=== PATIENT | male | born 1955 | race Caucasian/White ===

== ENCOUNTER 2020-10-13 06:51 | Inpatient (IN) | payer MEDICARE, SELFPAY ==
[2020-10-13] VITALS (26 sets, daily range): BP systolic 122–176; BP diastolic 46–88; PULSE 82–130; RESP 16–31; TEMP 36.7–37.7; O2SAT 62–99; BMI 46.2; BMI 46.0; BMI 48.6
--- NOTE | 2020-10-13 | ECG_ITS ---
Test Reason : dyspea Blood Pressure : / mmHG Vent. Rate : 130 BPM Atrial Rate : 130 BPM P-R Int : 128 ms QRS Dur : 162 ms QT Int : 352 ms P-R-T Axes : 004 001 146 degrees QTc Int : 518 ms Sinus tachycardia with occasional Premature ventricular complexes and Fusion complexes Left bundle branch block Abnormal ECG No previous ECGs available Referred By: Taurus Esposito Electronically Signed By:Stephon Smith
--- NOTE | 2020-10-13 07:04 | XR_ITS ---
EXAMINATION: XR CHEST CLINICAL INFORMATION: Shortness of breath COMPARISON: None TECHNIQUE: Portable upright AP view of the chest was obtained. FINDINGS: There is subtle patchy groundglass opacity right mid and lower zone. No volume loss. There is coarsening of the bronchiolar markings. The vascularity is within normal. The heart is within normal size for portable AP view. The visualized hilar and mediastinal contours are unremarkable. Mild dextrocurvature thoracic spine. Tubing overlying right upper chest. XR/XR chest 1V IMPRESSION: Patchy airspace opacities right mid and lower zone. Coarsening bronchiolar markings.
--- NOTE | 2020-10-13 07:18 | ED.GENADULT ---
HPI - General Adult General Chief complaint: Dyspnea Stated complaint: SOB Time Seen by Provider: 10/13/20 07:04 Source: EMS Mode of arrival: EMS Limitations: other (Respiratory distress) History of Present Illness HPI narrative: 65-year-old male with no reported medical problems who has been short of breath for 1 month, worse this morning. Paramedics arrived on the scene and the patient was dyspneic, speaking 1 word sentences and diaphoretic. They state that he was able to walk to the ambulance. In the ambulance his O2 saturation was in the 60% range, on CPAP applied by the paramedics, the patient O2 saturation was 80%. The patient was transported to the emergency department and on arrival he was placed on BiPAP with O2 saturation 98%. Patient is still tachycardic and tachypneic. He is lethargic was answering questions in one-word sentences. Paramedics report that the patient has no medical problems that he is treated for, the patient has not seen a doctor in a very long time according to his . 0825: I did speak to the patient's . She states that he has not been short of breath for a month and that he became short of breath this morning. He told his that he could breathe and asked his to call an ambulance. He also told his that he may be peeing blood which is new as well. The states that the patient does not have any medical problems. Related Data Allergies Allergy/AdvReac Type Severity Reaction Status Date / Time No Known Allergies Allergy Unverified 06/23/20 14:55 [No Known Allergies*] Review of Systems Review of Systems: Yes Unobtainable due to mental condition (Respiratory distress) [facility] Past Medical History [facility] Narrative: Paramedics report patient has no medical problems does not see a doctor, tobacco and alcohol use is unknown Social History Social History Advance Directives: No Advance Directives Information Provided: No Physical Exam Vital Signs: Vital Signs: Last Vital Signs Temp 98.0 F 10/13/20 07:16 Pulse 93 10/13/20 08:47 Resp 20 10/13/20 08:47 BP 124/46 L 10/13/20 08:47 Pulse Ox 93 10/13/20 08:47 Body Mass Index 46.0 Const: General: cooperative, in distress moderate and respiratory, ill appearing and lethargic Nutritional Appearance: obese Orientation/consciousness: oriented to person and lethargic Limitations: other limitations (Limited secondary to respiratory distress) HENMT: Head: Yes normal to inspection, Yes normocephalic and Yes atraumatic Ears: external ears normal General nose exam: Normal external nose present Face and sinus: Yes normal facial exam Mouth: Normal oral and palatal mucosa present Throat: Yes posterior oropharynx normal Eyes: Periorbital: periorbital findings normal Eyelids: Yes eyelids normal Conjunctivae: conjunctivae normal Sclerae: sclerae normal Corneas: corneas normal Pupils: Equal, round and reactive pupils present Direct Ophthalmoscopy: normal light reflex Neck: Neck: Yes full ROM, Yes no lymphadenopathy, Yes trachea midline and Yes supple Chest: Chest palpation & inspection: normal inspection of the chest and normal palpation of entire chest wall Resp: Effort & Inspection: labored Auscultation: wheezes scattered wheezes and diminished lung sounds diffuse Cardio: Rate: tachycardic Rhythm: regular rhythm Heart sounds: S1 normal heart sound present, S2 normal heart sound present and no murmurs GI: Inspection: Yes other (Obese) Palpation (GI): Soft to palpation, nontender, no guarding, not rigid and No hepatosplenomegaly present : General: Yes no CVA tenderness Back/Spine/Pelvis: Back: no CVA tenderness Cervical Spine: normal cervical lordosis Thoracic/Lumbar Spine: thoracic and lumbar spine normal to inspection Skin: Lesions: no lesions Rashes: no rashes Wounds: no wounds Neuro: General: oriented to person Cranial nerves: Yes CN's II-XII intact bilaterally and Yes Equal, round and reactive pupils present Motor exam (neuro): Other motor observations present (Moves all extremities symmetrically) Extrem: General: Yes normal to inspection and Yes full ROM Psych: Appearance: well kempt Attitude: cooperative Course Course Course Narrative: 65-year-old male, morbidly obese, no reported medical problems, not taking any medications, who was short of breath for 1 month with worsening symptoms this morning. The patient was found to be hypoxic by the paramedics and placed on CPAP for transport. Physical examination revealed a morbidly obese male who is in moderate to severe respiratory distress with tachypnea and tachycardia, diminished breath sounds with wheezing, hypoxic on CPAP. Patient was changed to BiPAP with improvement of his hypoxia but he still appears lethargic. I did order a cardiac and septic workup on this patient. He will be tested for COVID-19. He was ordered to get Solu-Medrol 125 mg IV and an albuterol nebulizer. 0826: The patient is improving on BiPAP. The patient is on 14/6 at 70% and his tidal volumes ranged from 300-600 with a respiratory rate improved from 31-24. He is able to talk and he states he is feeling better. Chest x-ray is concerning for right-sided infiltrate suggested they may have pneumonia. The patient's COVID-19 screen is negative. The patient does have an elevated white blood cell count of 20,200, elevated D-dimer of 976, elevated lactic acid at 3.2. The patient does meet SIRS criteria and I did order the 30 milliliters/kilogram fluid bolus which is 5 L of normal saline. I will discuss with this bolus with the fire warden since this bolus may be too high given his morbid obesity any may require less fluid. Patient was ordered to get ceftriaxone and azithromycin IV for community-acquired pneumonia. Patient's initial troponin is elevated at 69.7 suggested and I have myocardial injury, I did order a repeat troponin in 3 hours to be done at 10:15 a.m. The patient does have a left bundle-branch block with no old EKG for comparison. I will discuss the patient's presentation with the covering hospitalist [id number]: I did discuss the patient's presentation with Dr. Denny any did evaluate the patient here in the emergency department. His impression is that the patient does not have sepsis and that the patient has pneumonia and possible mild CHF therefore he requested that no fluid be given at this time. He states that he will trend the patient's lactic acid and only give the patient fluid if he becomes hypotensive. Patient's ABG was 7.25/58/133 and 60% oxygen via BiPAP, this is encouraging and I do not think patient needs to be intubated at this time and can continue on BiPAP. The patient will be admitted to the intensive care unit for further treatment. Medical Decision Making Lab Data Result diagrams: 10/13/20 07:11 10/13/20 07:11 Labs: Lab Results 10/13/20 10/13/20 10/13/20 Range/Units 07:11 07:11 07:11 WBC 20.2 H (4.8-10.8) X10*3/uL RBC 4.30 L (4.60-5.80) X10*6/uL Hgb 13.9 L (14.0-18.0) g/dl Hct 43.3 (42-52) % MCV 100.7 H (80-98) fL MCH 32.3 (27.0-33.0) pg MCHC 32.1 (31.0-36.0) g/dl RDW 12.2 (11.0-16.0) % Plt Count 381 (160-400) X10*3/uL MPV 10.2 (9.4-12.4) fL Immature Gran % (Auto) 0.7 H (0.0-0.4) % Neut % (Auto) 72.4 (45-73) % Lymph % (Auto) 16.7 L (20-40) % Estill % (Auto) 6.0 (2-11) % Eos % (Auto) 3.7 (0-4) % Baso % (Auto) 0.5 (0-2) % Lymph # (Auto) 3.4 (1.2-4.9) X10*3/uL Estill # (Auto) 1.2 (0.1-1.2) X10*3/uL Eos # (Auto) 0.7 H (0.0-0.4) X10*3/uL Baso # (Auto) 0.1 (0.0-0.2) X10*3/uL Abs Immat Gran (auto) 0.15 H (0.00-0.03) X10*3/uL Absolute Neuts (auto) 14.7 H (2.0-8.3) X10*3/uL Absolute Nucleated RBC 0.000 (0.0-0.012) X10*3/uL Nucleated RBC % (auto) 0.0 (0.0-0.2) /100WBC PT (10.8-13.0) SEC INR (0.9-1.1) APTT (24.1-38.0) SEC D-Dimer NG/ML ABG pH (7.35-7.45) ABG pCO2 (32-45) mmhg ABG pO2 (83-108) mmhg ABG HCO3 (22-26) mmol/l ABG O2 Saturation % ABG Base Excess Oxygen Given Sodium 137 (135-145) mmol/L Potassium 5.0 (3.3-5.1) mmol/l Chloride 100 (96-108) mmol/L Carbon Dioxide 20 L (22-29) mmol/L Anion Gap 22 H (12-20) BUN 15 (9-16) mg/dL Creatinine 1.48 H (0.5-1.4) mg/dL Estim Creat Clear Calc 71.8 Estimated GFR 48 POC Glucose (60-115) mg/dL Random Glucose 329 H (60-115) mg/dL Lactic Acid 3.2 H* (0.5-2.0) mmol/L Calcium 8.5 (8.4-10.2) mg/dL Total Bilirubin 0.7 (0.0-1.0) mg/dL Direct Bilirubin 0.2 (0.0-0.5) mg/dL AST 32 (5-37) U/L ALT 25 (0-40) U/L Alkaline Phosphatase 74 (39-117) U/L Troponin I High Sens (<3.5-35.0) ng/L Total Protein 7.9 (6.5-8.0) g/dL Albumin 4.1 (3.5-5.0) g/dL COVID-19 (YANG) (Negative) COVID-19 Clin Com 10/13/20 10/13/20 10/13/20 Range/Units 07:11 07:11 07:11 WBC (4.8-10.8) X10*3/uL RBC (4.60-5.80) X10*6/uL Hgb (14.0-18.0) g/dl Hct (42-52) % MCV (80-98) fL MCH (27.0-33.0) pg MCHC (31.0-36.0) g/dl RDW (11.0-16.0) % Plt Count (160-400) X10*3/uL MPV (9.4-12.4) fL Immature Gran % (Auto) (0.0-0.4) % Neut % (Auto) (45-73) % Lymph % (Auto) (20-40) % Estill % (Auto) (2-11) % Eos % (Auto) (0-4) % Baso % (Auto) (0-2) % Lymph # (Auto) (1.2-4.9) X10*3/uL Estill # (Auto) (0.1-1.2) X10*3/uL Eos # (Auto) (0.0-0.4) X10*3/uL Baso # (Auto) (0.0-0.2) X10*3/uL Abs Immat Gran (auto) (0.00-0.03) X10*3/uL Absolute Neuts (auto) (2.0-8.3) X10*3/uL Absolute Nucleated RBC (0.0-0.012) X10*3/uL Nucleated RBC % (auto) (0.0-0.2) /100WBC PT 13.6 H (10.8-13.0) SEC INR 1.1 (0.9-1.1) APTT 30.7 (24.1-38.0) SEC D-Dimer 976 NG/ML ABG pH (7.35-7.45) ABG pCO2 (32-45) mmhg ABG pO2 (83-108) mmhg ABG HCO3 (22-26) mmol/l ABG O2 Saturation % ABG Base Excess Oxygen Given Sodium (135-145) mmol/L Potassium (3.3-5.1) mmol/l Chloride (96-108) mmol/L Carbon Dioxide (22-29) mmol/L Anion Gap (12-20) BUN (9-16) mg/dL Creatinine (0.5-1.4) mg/dL Estim Creat Clear Calc Estimated GFR POC Glucose (60-115) mg/dL Random Glucose (60-115) mg/dL Lactic Acid (0.5-2.0) mmol/L Calcium (8.4-10.2) mg/dL Total Bilirubin Cancelled (0.0-1.0) mg/dL Direct Bilirubin (0.0-0.5) mg/dL AST (5-37) U/L ALT (0-40) U/L Alkaline Phosphatase (39-117) U/L Troponin I High Sens 69.7 H (<3.5-35.0) ng/L Total Protein (6.5-8.0) g/dL Albumin (3.5-5.0) g/dL COVID-19 (YANG) (Negative) COVID-19 Clin Com 10/13/20 10/13/20 10/13/20 Range/Units 07:12 07:13 08:00 WBC (4.8-10.8) X10*3/uL RBC (4.60-5.80) X10*6/uL Hgb (14.0-18.0) g/dl Hct (42-52) % MCV (80-98) fL MCH (27.0-33.0) pg MCHC (31.0-36.0) g/dl RDW (11.0-16.0) % Plt Count (160-400) X10*3/uL MPV (9.4-12.4) fL Immature Gran % (Auto) (0.0-0.4) % Neut % (Auto) (45-73) % Lymph % (Auto) (20-40) % Estill % (Auto) (2-11) % Eos % (Auto) (0-4) % Baso % (Auto) (0-2) % Lymph # (Auto) (1.2-4.9) X10*3/uL Estill # (Auto) (0.1-1.2) X10*3/uL Eos # (Auto) (0.0-0.4) X10*3/uL Baso # (Auto) (0.0-0.2) X10*3/uL Abs Immat Gran (auto) (0.00-0.03) X10*3/uL Absolute Neuts (auto) (2.0-8.3) X10*3/uL Absolute Nucleated RBC (0.0-0.012) X10*3/uL Nucleated RBC % (auto) (0.0-0.2) /100WBC PT (10.8-13.0) SEC INR (0.9-1.1) APTT (24.1-38.0) SEC D-Dimer NG/ML ABG pH 7.25 L (7.35-7.45) ABG pCO2 58 H (32-45) mmhg ABG pO2 133 H (83-108) mmhg ABG HCO3 25 (22-26) mmol/l ABG O2 Saturation 98.5 % ABG Base Excess -3.5 Oxygen Given 70% Sodium (135-145) mmol/L Potassium (3.3-5.1) mmol/l Chloride (96-108) mmol/L Carbon Dioxide (22-29) mmol/L Anion Gap (12-20) BUN (9-16) mg/dL Creatinine (0.5-1.4) mg/dL Estim Creat Clear Calc Estimated GFR POC Glucose 304 H (60-115) mg/dL Random Glucose (60-115) mg/dL Lactic Acid (0.5-2.0) mmol/L Calcium (8.4-10.2) mg/dL Total Bilirubin (0.0-1.0) mg/dL Direct Bilirubin (0.0-0.5) mg/dL AST (5-37) U/L ALT (0-40) U/L Alkaline Phosphatase (39-117) U/L Troponin I High Sens (<3.5-35.0) ng/L Total Protein (6.5-8.0) g/dL Albumin (3.5-5.0) g/dL COVID-19 (YANG) Negative (Negative) COVID-19 Clin Com See Note ECG Data Attestation: I personally reviewed and interpreted this ECG as follows: Interpretation: 7:08 a.m. sinus tachycardia with a rate of 130, occasional PVCs, prolonged QRS of 162 milliseconds, prolonged QTC of 518 milliseconds, left bundle-branch block, no old EKG for comparison. Critical Care Time Critical Care Time Critical Care Time: Yes Total Critical Care Time: 55 Attestation: Critical Care: The patient was critically ill with a high probability of imminent or life threatening deterioration. I spent greater than 30 minutes of discontinuous time evaluating the patient,delivering critical care at the bedside, discussing and evaluating pertinent data with consultants. Critical care time does not include time spent performing separately billable procedures or teaching. Total time spent performing critical care was 55 minutes. Discharge Plan Discharge Clinical Impression: Hypoxia Community acquired pneumonia Qualifiers: Laterality: right Lung location: lower lobe of lung Qualified Code(s): J18.9 - Pneumonia, unspecified organism Respiratory failure Qualifiers: Chronicity: acute Respiratory failure complication: hypoxia Qualified Code(s): J96.01 - Acute respiratory failure with hypoxia
[2020-10-13] MEDS: Albuterol Sulfate (0.083%) 2.5 MG/3 ML VIAL.NEB INHALE (07:21)
[2020-10-13 07:26] LABS: MANUAL DIFF FLAG NO
[2020-10-13 07:32] LABS: INTERNATIONAL NORM RATIO 1.1 (0.9-1.1); Prothrombin Time 13.6 SEC (10.8-13.0)
[2020-10-13 07:35] LABS: D Dimer 976 NG/ML; Partial Thromboplastin Time 30.7 SEC (24.1-38.0)
[2020-10-13 07:42] LABS: Basophils Absolute Auto 0.1 X10*3/uL (0.0-0.2); Basophils Percent Auto 0.5 % (0-2); Eosinophils Absolute Auto 0.7 X10*3/uL (0.0-0.4); Eosinophils Percent Auto 3.7 % (0-4); Hematocrit 43.3 % (42-52); Hemoglobin 13.9 g/dl (14.0-18.0); Imm Gran Abs Auto 0.15 X10*3/uL (0.00-0.03); Imm Gran Pct Auto 0.7 % (0.0-0.4); Lymphocytes Absolute Auto 3.4 X10*3/uL (1.2-4.9); Lymphocytes Percent Auto 16.7 % (20-40); Mean Corpuscular HGB Conc 32.1 g/dl (31.0-36.0); Mean Corpuscular Hemoglobin 32.3 pg (27.0-33.0); Mean Corpuscular Volume 100.7 fL (80-98); Mean Platelet Volume 10.2 fL (9.4-12.4); Monocytes Absolute Auto 1.2 X10*3/uL (0.1-1.2); Neutrophils Absolute Auto 14.7 X10*3/uL (2.0-8.3); Neutrophils Percent Auto 72.4 % (45-73); Platelet Count 381 X10*3/uL (160-400); Red Cell Distribution Width 12.2 % (11.0-16.0); White Blood Count 20.2 X10*3/uL (4.8-10.8)
[2020-10-13 07:44] LABS: COVID-19 Test Negative (Negative)
[2020-10-13 07:44] LABS: Glucose, Whole Blood 304 mg/dL (60-115)
[2020-10-13 07:56] LABS: Lactic Acid 3.2 mmol/L (0.5-2.0)
[2020-10-13 08:06] LABS: Alanine Aminotransferase 25 U/L (0-40); Albumin Level 4.1 g/dL (3.5-5.0); Alkaline Phosphatase 74 U/L (39-117); Anion Gap 22 (12-20); Aspartate Amino Transferase 32 U/L (5-37); Bilirubin Direct 0.2 mg/dL (0.0-0.5); Bilirubin Total 0.7 mg/dL (0.0-1.0); Blood Urea Nitrogen 15 mg/dL (9-16); Calcium 8.5 mg/dL (8.4-10.2); Carbon Dioxide 20 mmol/L (22-29); Chloride 100 mmol/L (96-108); Creatinine Clr Calc Pharmacy 71.8; Estimated Glomerular Filt Rate 48; Glucose Random 329 mg/dL (60-115); Sodium 137 mmol/L (135-145); Total Protein 7.9 g/dL (6.5-8.0)
[2020-10-13 08:13] LABS: Troponin-I High Sensitivity 69.7 ng/L (<3.5-35.0)
[2020-10-13 08:18] LABS: Pt Ventilation O2% 70%
[2020-10-13 08:25] LABS: ABG PCO2 58 mmhg (32-45); Base Excess ABG -3.5; HCO3 ABG 25 mmol/l (22-26); Oxygen Saturation ABG 98.5 %; PO2 ABG 133 mmhg (83-108); pH ABG 7.25 (7.35-7.45)
[2020-10-13] MEDS: cefTRIAXone sodium 1 GM in 0.9 % Sodium Chloride 100 ML IV (08:40)
[2020-10-13] MEDS: Azithromycin 500 MG in 0.9 % Sodium Chloride 250 ML 125 MG IV (09:18)
[2020-10-13 09:22] LABS: Reflex Lactate? Lactic Acid Added
--- NOTE | 2020-10-13 10:20 | CA_ITS ---
Transthoracic Echocardiogram Patient (Last, First, Middle): Diogo Lynn S Gender: Male Date of : 1955 Age: 65 Procedure Date: 10/13/2020 Procedure Type: Transthoracic Echocardiogram Location: ICU Height: 177.8 cm Weight: 145.61 kg BSA: 2.55 m2 Heart Rate: bpm BP: 122 / 49 mmHg Etcher Apprentice: JL Referring MD: aMyank Denny MD Symptoms: CHESTER Study Quality: Fair/Contrast Conclusions: - Normal left ventricular cavity size. There is normal left ventricular wall thickness. The left ventricular systolic function is severely decreased. The visually estimated ejection fraction is between 20-25%. - The inferolateral wall, the apical anterior, and mid anterior segments are hypokinetic. - The inferoseptal wall and apical septum segment are akinetic. - The basal anteroseptal and mid anteroseptal segments are dyskinetic. - Normal right ventricular cavity size and systolic function. - There is mild to moderate mitral valve regurgitation. - Significantly elevated right atrial pressure. Findings Procedure Information Contrast agent, definity, is being given per protocol without apparent complications. Left Ventricle Normal left ventricular cavity size. There is normal left ventricular wall thickness. The left ventricular systolic function is severely decreased. The visually estimated ejection fraction is between 20-25%. There is evidence of regional wall motion abnormalities. There is paradoxical septal motion consistent with a left bundle branch block. Diastolic function is indeterminate on the basis of available data. Wall Motion Rest Echo Findings The inferolateral wall, the apical anterior, and mid anterior segments are hypokinetic. The inferoseptal wall and apical septum segment are akinetic. The basal anteroseptal and mid anteroseptal segments are dyskinetic. Right Ventricle Normal right ventricular cavity size and systolic function. Atria The left atrium is mildly dilated. Aortic Valve The aortic valve was not well visualized. There is no aortic valve stenosis. Mitral Valve The mitral valve appears normal. There is mild to moderate mitral valve regurgitation. There is no mitral valve stenosis. Pulmonic Valve The pulmonic valve was not well visualized. Tricuspid Valve Likely normal tricuspid valve structure and function. Tricuspid regurgitation envelope is inadequate for calculation of right ventricular systolic pressure. Significantly elevated right atrial pressure. Great Vessels The aorta was not well visualized. The pulmonary artery was not well visualized. Venous The inferior vena cava is dilated and does not collapse with inspiration. Pericardium/Pleural There is no evidence of pericardial effusion. Prior Study Comparison No prior study available for comparison. Measurements 2D Linear Measurements IVSd: 1.03 0.6-0.9/0.6-1.0 cm LVIDd: 4.88 3.9-5.3/4.2-5.9 cm LVIDd Index: 1.91 2.4-3.2/2.2-3.1 cm/m2 LVIDs: 4.32 2.0-3.6 cm LVPWd: 1.04 0.7-1.1 cm Ao Root: 3.20 2.1-3.5 cm LA Diam: 4.00 2.7-3.8/3.0-4.0 cm LAIDs Index: 1.57 1.5-2.3 cm/m2 LV Mass: 228.27 67-162/88-224 g LV Mass Index: 89.52 43-95/49-115 g/m2 LVOT Diam: 2.10 3.0+(-)1.3 cm 2D Systolic Function EF 4C: 32.40 >55% EF 2C: 28.00 >55% Mitral Valve MV Pk E: 1.15 MV PK A: 1.01 MV Decel Time: 140.00 E/A: 1.10 PHT: 41.00 MVA PHT: 5.37 Decel Kenedy: 8.23 Aortic Valve AoV Pk Devon: 1.45 AoV Mn Devon: 0.98 AoV VTI: 0.25 AoV Pk Grad: 8.00 Aov Mn Grad: 4.00 ALEE Cont.VTI: 1.89 LVOT LVOT Pk Devon: 0.82 LVOT Mn Devon: 0.52 LVOT VTI: 0.14 LVOT Pk Grad: 3.00 LVOT Mn Grad: 1.00 LVOT Diam: 2.10 LVOT Area: 3.46 Diastolic Function MV Pk E: 1.15 MV Pk A: 1.01 E/A: 1.10 Tricuspid Valve TR Pk Devon: 2.29 TR Pk Grad: 21.00 Great Vessels Aorta Ao Root-2D: 3.20 2.0-3.7 cm Ao Asc: 3.10 2.1-3.4 cm Updated in Other Vendor System with Status of Final Stephon Smith MD electronically signed on 10/13/2020 3:49:50 PM with status of Final
--- NOTE | 2020-10-13 10:22 | PC.NURSE ---
Report called to [facility] in ICU. pt presentation, VS trends, treatment and current condition and orders reviewed.
[2020-10-13 10:33] LABS: ~Lactic Acid-LAB USE ONLY 1.8 mmol/L (0.5-2.0)
[2020-10-13 10:43] LABS: B Type Natriuretic Peptide 249 pg/mL (<100); Troponin-I High Sensitivity 120.6 ng/L (<3.5-35.0)
[2020-10-13 10:43] LABS: B Type Natriuretic Peptide 320 pg/mL (<100)
[2020-10-13] MEDS: Furosemide 500 MG in Container,Empty 0 ML IVCONT (11:11)
[2020-10-13 11:45] LABS: Glucose, Whole Blood 97 mg/dL (60-115)
--- NOTE | 2020-10-13 12:49 | ECG_ITS ---
Test Reason : CP Blood Pressure : / mmHG Vent. Rate : 090 BPM Atrial Rate : 090 BPM P-R Int : 174 ms QRS Dur : 152 ms QT Int : 414 ms P-R-T Axes : 055 -10 127 degrees QTc Int : 506 ms Normal sinus rhythm Left bundle branch block Abnormal ECG When compared with ECG of 13-OCT-2020 07:08, Fusion complexes are no longer Present Premature ventricular complexes are no longer Present Referred By: Taurus Esposito Electronically Signed By:Stephon Smith
[2020-10-13] MEDS: Aspirin 81 MG TAB.CHEW 324 MG PO (12:51)
[2020-10-13 13:42] LABS: Glucose Urine UA NEG (NEG); Leukocyte Esterase Urine NEG (NEG); Nitrite Urine NEG (NEG); PH 5.5 (5.0-8.0); Specific Gravity - Urine >= 1.030 (1.005-1.025); Urine Blood 3+ (NEG); Urine Ketones NEG (NEG); Urine Protein 2+ MG/DL (NEG-TRACE)
[2020-10-13 13:45] LABS: Appearance Urine CLOUDY; Color Urine BROWN
[2020-10-13 13:52] LABS: Amorphous Sediment Urine 3+ /LPF; Mucus Urine 3+ /LPF; RBC Urine TNTC /HPF (0); Squamous Epithelial Cell Urine 1+ /LPF; WBC Urine 0 /HPF (0-4)
[2020-10-13 14:42] LABS: Base Excess VBG 0.3 mmol/L; HCO3 VBG 26 mmol/L; Oxygen Saturation VBG 77.3 %; PCO2 VBG 47 mmhg; PO2 VBG 43 mmhg; pH VBG 7.37 (7.32-7.43)
--- NOTE | 2020-10-13 14:52 | PM.CCHP ---
History of Present Illness Date of Service: 10/13/20 Chief Complaint: Shortness of breath 65-year-old gentleman with no underlying past medical history but significant obesity hospitalized on 10/13/2020 secondary to progressive shortness of breath over the last months particularly worse on the day of admission not associated with chest pain. Patient also orthopnea and paroxysmal dyspnea. On ER evaluation hypoxic and hypercapnic requiring initiation of BiPAP support, empirically covered for community-acquired pneumonia, started on diuresis, and admitted to intensive care unit. Review of Systems Constitutional: Constitutional: Reports malaise and Reports weakness Eyes: Eyes: Denies change in vision and Denies loss of vision Cardiovascular: Cardiovascular: Denies chest pain, Reports dyspnea on exertion, Reports orthopnea and Reports paroxysmal nocturnal dyspnea Respiratory: Respiratory: Denies cough, Reports dyspnea on exertion and Denies wheezing Gastrointestinal: Gastrointestinal: Denies constipation and Denies diarrhea Genitourinary: Genitourinary: Reports hematuria, Denies urinary frequency and Denies urinary incontinence Musculoskeletal: Musculoskeletal: Denies muscle cramps, Denies muscle weakness and Denies numbness Integumentary/Breasts: Skin/Breast: Denies rash Neurologic: Denies loss of vision, Denies numbness and Reports weakness Endocrine: Endocrine: Denies cold intolerance, Denies heat intolerance and Denies polydipsia Hematologic/Lymphatic: Hematologic/Lymphatic: Denies easy bleeding and Denies easy bruising Allergic/Immunologic: Allergic/Immunologic: Denies wheezing [facility] Social History Social History (Updated 10/13/20 @ 15:00 by Mayank Denny MD) Household Members: Spouse Housing: House Alcohol intake: current Alcohol intake frequency: other Smoking Status: Former smoker Years Smoked: 40+ Smoking Quit Date: 2012 Use of substances other than those prescribed or required for medical reasons: No Have you been hit, kicked, punched, or otherwise hurt by someone within the past year? If so, by whom?: No Do you feel safe in your current relationship?: Yes Is there a partner from a previous relationship who is making you feel unsafe now?: No Are you made to feel afraid or neglected: No Advance Directives: No Advance Directives Information Provided: No Do you have thoughts of harming others: None Recently lost weight without trying: No Meds Allergies Allergy/AdvReac Type Severity Reaction Status Date / Time No Known Allergies Allergy Unverified 06/23/20 14:55 [No Known Allergies*] Physical Exam Vital Signs: Vital Signs: Last Vital Signs Temp 98.5 F 10/13/20 11:00 Pulse 86 10/13/20 14:00 Resp 21 H 10/13/20 14:00 BP 154/69 H 10/13/20 14:00 Pulse Ox 93 10/13/20 14:00 Body Mass Index 48.6 Const: General: no acute distress, alert and awake Nutritional Appearance: obese Eyes: Sclerae: sclerae normal EOM: EOMs intact bilaterally Neck: Neck: Yes no lymphadenopathy, Yes trachea midline and Yes supple Resp: Effort & Inspection: normal respiratory effort (While on BiPAP) and no respiratory distress Auscultation: crackles (Bibasilar) Cardio: Rate: regular rate Rhythm: regular rhythm Heart sounds: no gallops, no murmurs and no rubs GI: Palpation (GI): Soft to palpation and Other GI palpation findings present ( Nontender) Auscultation: normal bowel sounds Extrem: General: No clubbing, No cyanosis and Yes edema (2+ bilateral) Results Labs CBC and Chem 7: 10/13/20 07:11 10/13/20 07:11 Labs: Laboratory Results - last 24 hr 10/13/20 10/13/20 10/13/20 07:11 07:11 07:11 MCV 100.7 H MCH 32.3 MCHC 32.1 RDW 12.2 Plt Count 381 MPV 10.2 Immature Gran % (Auto) 0.7 H Neut % (Auto) 72.4 Lymph % (Auto) 16.7 L [place] % (Auto) 6.0 Eos % (Auto) 3.7 Baso % (Auto) 0.5 Lymph # (Auto) 3.4 [place] # (Auto) 1.2 Eos # (Auto) 0.7 H Baso # (Auto) 0.1 Abs Immat Gran (auto) 0.15 H Absolute Neuts (auto) 14.7 H Absolute Nucleated RBC 0.000 Nucleated RBC % (auto) 0.0 PT INR APTT D-Dimer ABG pH ABG pCO2 ABG pO2 ABG HCO3 ABG O2 Saturation ABG Base Excess VBG pH VBG pCO2 VBG pO2 VBG HCO3 VBG O2 Saturation VBG Base Excess Oxygen Given Anion Gap 22 H Estim Creat Clear Calc 71.8 Estimated GFR 48 POC Glucose Random Glucose 329 H Lactic Acid 3.2 H* Lactic Acid Fup @ 2Hr Calcium 8.5 Total Bilirubin 0.7 Direct Bilirubin 0.2 AST 32 ALT 25 Alkaline Phosphatase 74 Troponin I High Sens B-Natriuretic Peptide Total Protein 7.9 Albumin 4.1 Urine Color Urine Appearance Urine pH Ur Specific [place] Urine Protein Urine Glucose (UA) Urine Ketones Urine Blood Urine Nitrite Ur Leukocyte Esterase Urine RBC Urine WBC Ur Squamous Epith Cells Amorphous Sediment Urine Bacteria Urine Mucus COVID-19 (YANG) COVID-19 Proxly Com 10/13/20 10/13/20 10/13/20 07:11 07:11 07:11 MCV MCH MCHC RDW Plt Count MPV Immature Gran % (Auto) Neut % (Auto) Lymph % (Auto) [place] % (Auto) Eos % (Auto) Baso % (Auto) Lymph # (Auto) [place] # (Auto) Eos # (Auto) Baso # (Auto) Abs Immat Gran (auto) Absolute Neuts (auto) Absolute Nucleated RBC Nucleated RBC % (auto) PT 13.6 H INR 1.1 APTT 30.7 D-Dimer 976 ABG pH ABG pCO2 ABG pO2 ABG HCO3 ABG O2 Saturation ABG Base Excess VBG pH VBG pCO2 VBG pO2 VBG HCO3 VBG O2 Saturation VBG Base Excess Oxygen Given Anion Gap Estim Creat Clear Calc Estimated GFR POC Glucose Random Glucose Lactic Acid Lactic Acid Fup @ 2Hr Calcium Total Bilirubin Cancelled Direct Bilirubin AST ALT Alkaline Phosphatase Troponin I High Sens 69.7 H B-Natriuretic Peptide Total Protein Albumin Urine Color Urine Appearance Urine pH Ur Specific [place] Urine Protein Urine Glucose (UA) Urine Ketones Urine Blood Urine Nitrite Ur Leukocyte Esterase Urine RBC Urine WBC Ur Squamous Epith Cells Amorphous Sediment Urine Bacteria Urine Mucus COVID-19 (YANG) COVID-19 Compact Imaging 10/13/20 10/13/20 10/13/20 07:12 07:13 08:00 MCV MCH MCHC RDW Plt Count MPV Immature Gran % (Auto) Neut % (Auto) Lymph % (Auto) [place] % (Auto) Eos % (Auto) Baso % (Auto) Lymph # (Auto) [place] # (Auto) Eos # (Auto) Baso # (Auto) Abs Immat Gran (auto) Absolute Neuts (auto) Absolute Nucleated RBC Nucleated RBC % (auto) PT INR APTT D-Dimer ABG pH 7.25 L ABG pCO2 58 H ABG pO2 133 H ABG HCO3 25 ABG O2 Saturation 98.5 ABG Base Excess -3.5 VBG pH VBG pCO2 VBG pO2 VBG HCO3 VBG O2 Saturation VBG Base Excess Oxygen Given 70% Anion Gap Estim Creat Clear Calc Estimated GFR POC Glucose 304 H Random Glucose Lactic Acid Lactic Acid Fup @ 2Hr Calcium Total Bilirubin Direct Bilirubin AST ALT Alkaline Phosphatase Troponin I High Sens B-Natriuretic Peptide Total Protein Albumin Urine Color Urine Appearance Urine pH Ur Specific [place] Urine Protein Urine Glucose (UA) Urine Ketones Urine Blood Urine Nitrite Ur Leukocyte Esterase Urine RBC Urine WBC Ur Squamous Epith Cells Amorphous Sediment Urine Bacteria Urine Mucus COVID-19 (YANG) Negative [employer] Com See Note 10/13/20 10/13/20 10/13/20 09:45 10:05 10:05 MCV MCH MCHC RDW Plt Count MPV Immature Gran % (Auto) Neut % (Auto) Lymph % (Auto) [place] % (Auto) Eos % (Auto) Baso % (Auto) Lymph # (Auto) [place] # (Auto) Eos # (Auto) Baso # (Auto) Abs Immat Gran (auto) Absolute Neuts (auto) Absolute Nucleated RBC Nucleated RBC % (auto) PT INR APTT D-Dimer ABG pH ABG pCO2 ABG pO2 ABG HCO3 ABG O2 Saturation ABG Base Excess VBG pH VBG pCO2 VBG pO2 VBG HCO3 VBG O2 Saturation VBG Base Excess Oxygen Given Anion Gap Estim Creat Clear Calc Estimated GFR POC Glucose Random Glucose Lactic Acid Lactic Acid Fup @ 2Hr 1.8 Calcium Total Bilirubin Direct Bilirubin AST ALT Alkaline Phosphatase Troponin I High Sens 120.6 H D B-Natriuretic Peptide 249 H 320 H Total Protein Albumin Urine Color Urine Appearance Urine pH Ur Specific [place] Urine Protein Urine Glucose (UA) Urine Ketones Urine Blood Urine Nitrite Ur Leukocyte Esterase Urine RBC Urine WBC Ur Squamous Epith Cells Amorphous Sediment Urine Bacteria Urine Mucus COVID-19 (YANG) COVID-[place] 10/13/20 10/13/20 10/13/20 11:42 13:15 14:15 MCV MCH MCHC RDW Plt Count MPV Immature Gran % (Auto) Neut % (Auto) Lymph % (Auto) [place] % (Auto) Eos % (Auto) Baso % (Auto) Lymph # (Auto) [place] # (Auto) Eos # (Auto) Baso # (Auto) Abs Immat Gran (auto) Absolute Neuts (auto) Absolute Nucleated RBC Nucleated RBC % (auto) PT INR APTT D-Dimer ABG pH ABG pCO2 ABG pO2 ABG HCO3 ABG O2 Saturation ABG Base Excess VBG pH 7.37 VBG pCO2 47 VBG pO2 43 VBG HCO3 26 VBG O2 Saturation 77.3 VBG Base Excess 0.3 Oxygen Given Anion Gap Estim Creat Clear Calc Estimated GFR POC Glucose 97 Random Glucose Lactic Acid Lactic Acid Fup @ 2Hr Calcium Total Bilirubin Direct Bilirubin AST ALT Alkaline Phosphatase Troponin I High Sens B-Natriuretic Peptide Total Protein Albumin Urine Color BROWN Urine Appearance CLOUDY Urine pH 5.5 Ur Specific [place] >= 1.030 H Urine Protein 2+ H Urine Glucose (UA) NEG Urine Ketones NEG Urine Blood 3+ H Urine Nitrite NEG Ur Leukocyte Esterase NEG Urine RBC TNTC H Urine WBC 0 Ur Squamous Epith Cells 1+ Amorphous Sediment 3+ Urine Bacteria NONE Urine Mucus 3+ COVID-19 (YANG) COVID-19 Clin Com Imaging Radiologist's Impressions: Impressions Chest X-Ray 10/13/20 07:04 IMPRESSION: Patchy airspace opacities right mid and lower zone. Coarsening bronchiolar markings. Assessment and Plan (1) Acute on chronic respiratory failure with hypoxia and hypercapnia: Status: Acute Assessment: 65-year-old gentleman with no prior medical history except obesity hospitalized with progressive dyspnea and acute hypoxic and hypercapnic respiratory failure requiring BiPAP support likely secondary to underlying congestive heart failure. Plan: Neuro: Underlying significant alcohol intake, continue to monitor for possible withdrawal symptoms. Cardiac: Acute congestive heart failure. 2D echocardiogram is pending. Continue with IV diuresis. Pulmonary: Acute hypoxic and hypercapnic respiratory failure likely secondary to underlying congestive heart failure with possible community-acquired pneumonia component now requiring BiPAP support. Continue to titrate off as tolerated. Renal: No baseline renal function with available, but now with elevated creatinine, likely underlying acute kidney injury secondary to congestive heart failure. Non oliguric. Continue to monitor renal indices and urine output. Endo: No acute issues. GI: No acute issues. ID: Possible community-acquired pneumonia, empirically covered with Levaquin. Heme/Onc: No acute issues. Psych: No acute issues. Miscellaneous: No acute issues. Prophylaxis: Heparin Diet: Nothing by mouth while on BiPAP Critical care time spent: 60 minutes (2) Congestive heart failure: Status: Acute (3) Acute renal failure: Status: Acute (4) Community acquired pneumonia: Qualifiers: Laterality: right Lung location: lower lobe of lung Qualified Code(s): J18.9 - Pneumonia, unspecified organism Status: Acute Critical Care Time Critical Care Time (minutes): 60
[2020-10-13 15:06] LABS: Anion Gap 16 (12-20); Blood Urea Nitrogen 15 mg/dL (9-16); Calcium 8.3 mg/dL (8.4-10.2); Carbon Dioxide 27 mmol/L (22-29); Chloride 100 mmol/L (96-108); Creatinine Clr Calc Pharmacy 80.6; Estimated Glomerular Filt Rate 56; Glucose Random 134 mg/dL (60-115); Magnesium 2.3 mg/dL (1.6-2.6); Phosphorus 2.6 mg/dL (2.7-4.5); Potassium 4.7 mmol/l (3.3-5.1); Sodium 138 mmol/L (135-145)
[2020-10-13 15:19] LABS: Glucose, Whole Blood 127 mg/dL (60-115)
[2020-10-13 17:14] LABS: HCO3 VBG 27 mmol/L; PCO2 VBG 48 mmhg; PO2 VBG 37 mmhg; pH VBG 7.37 (7.32-7.43)
[2020-10-13 17:15] LABS: Oxygen Saturation VBG 70.6 %
[2020-10-13 17:25] LABS: Anion Gap 16 (12-20); Blood Urea Nitrogen 18 mg/dL (9-16); Calcium 8.3 mg/dL (8.4-10.2); Carbon Dioxide 25 mmol/L (22-29); Chloride 100 mmol/L (96-108); Creatinine Clr Calc Pharmacy 68.3; Estimated Glomerular Filt Rate 47; Glucose Random 146 mg/dL (60-115); Magnesium 2.3 mg/dL (1.6-2.6); Phosphorus 2.7 mg/dL (2.7-4.5); Potassium 4.9 mmol/l (3.3-5.1); Sodium 136 mmol/L (135-145)
[2020-10-13] MEDS: Heparin Sodium,Porcine 5,000 UNIT/ML VIAL 5000 UNIT SUBCUT (19:12)
[2020-10-13] MEDS: Furosemide 100 MG/10 ML VIAL 40 MG IVPUSH (19:12)
[2020-10-13] MEDS: Acetaminophen 325 MG TABLET 650 MG PO (19:58)
[2020-10-13 22:31] LABS: Glucose, Whole Blood 155 mg/dL (60-115)
[2020-10-14] VITALS (25 sets, daily range): BP systolic 117–171; BP diastolic 44–96; PULSE 86–112; RESP 16–29; TEMP 36.6–37.7; O2SAT 87–97; BMI 47.6
[2020-10-14 06:07] LABS: Basophils Percent Auto 0.1 % (0-2); Hematocrit 39.1 % (42-52); Hemoglobin 13.1 g/dl (14.0-18.0); Imm Gran Abs Auto 0.13 X10*3/uL (0.00-0.03); Imm Gran Pct Auto 0.6 % (0.0-0.4); Lymphocytes Percent Auto 4.7 % (20-40); Mean Corpuscular HGB Conc 33.5 g/dl (31.0-36.0); Mean Corpuscular Hemoglobin 32.5 pg (27.0-33.0); Mean Platelet Volume 9.8 fL (9.4-12.4); Monocytes Absolute Auto 1.6 X10*3/uL (0.1-1.2); Monocytes Percent Auto 7.4 % (2-11); Neutrophils Absolute Auto 18.9 X10*3/uL (2.0-8.3); Neutrophils Percent Auto 87.2 % (45-73); Platelet Count 338 X10*3/uL (160-400); Red Blood Count 4.03 X10*6/uL (4.60-5.80); Red Cell Distribution Width 12.2 % (11.0-16.0); SCAN SMEAR FLAG 1; White Blood Count 21.7 X10*3/uL (4.8-10.8)
[2020-10-14 06:08] LABS: MANUAL DIFF FLAG NO
--- NOTE | 2020-10-14 06:22 | PC.NURSE ---
PT ON LASIX GTT @ 5 MG/HR. SMALLS PLACED PREVIOUSLY BY UROLOGY. SMALL CLOTS/SHREDS NOTED IN TUBING. NO MEASURABLE UOP. SMALLS IRRIGATED WITH NO EFFECT. BLADDER SCANNED FOR 0 MLS. PT DENIES ANY ABDOMINAL DISTENTION OR PAIN. EDUCATION DEAN MADE AWARE. NEW ORDER FOR RENAL U/S TODAY. LASIX GTT PUT ON HOLD.
[2020-10-14 06:26] LABS: PCO2 VBG 38 mmhg; pH VBG 7.41 (7.32-7.43)
[2020-10-14 06:27] LABS: HCO3 VBG 24 mmol/L; Oxygen Saturation VBG 91.5 %; PO2 VBG 59 mmhg
[2020-10-14 06:37] LABS: Alanine Aminotransferase 20 U/L (0-40); Albumin Level 3.8 g/dL (3.5-5.0); Alkaline Phosphatase 66 U/L (39-117); Anion Gap 20 (12-20); Aspartate Amino Transferase 25 U/L (5-37); Bilirubin Total 0.6 mg/dL (0.0-1.0); Blood Urea Nitrogen 33 mg/dL (9-16); Calcium 8.5 mg/dL (8.4-10.2); Carbon Dioxide 20 mmol/L (22-29); Chloride 102 mmol/L (96-108); Creatinine Clr Calc Pharmacy 34.4; Estimated Glomerular Filt Rate 21; Glucose Random 138 mg/dL (60-115); Magnesium 2.3 mg/dL (1.6-2.6); Phosphorus 4.1 mg/dL (2.7-4.5); Potassium 4.9 mmol/l (3.3-5.1); Sodium 137 mmol/L (135-145); Total Protein 7.2 g/dL (6.5-8.0)
[2020-10-14] MEDS: levoFLOXacin/D5W 750 MG/150 ML PIGGYBACK 100 MG IV (07:53)
--- NOTE | 2020-10-14 07:54 | PM.CNCAR ---
History of Present Illness History of Present Illness Date of Service: 10/14/20 Requesting physician: Mayank Denny Consult reason: congestive heart failure Chief complaint: acute hypoxic and hypercapnic respiratory failure Narrative: 65-year-old gentleman with alcoholism and new onset CHF. He said he has been short of breath over the last month which was progressive worsening. Over the last few days he was significantly worse and decided to come to the emergency department. He was noticed to have signs of congestive heart failure and was started on Lasix drip. He also complained of some hematuria on admission. Will also given antibiotics with there was concern that he may have pneumonia. He denies any chest discomfort in the last few months but did have left-sided tingling feeling on the chest and arm over the last 2 days. His troponin are positive at low level. He also had elevated creatinine on admission. He was seen while he was CPAP. He said he is feeling better with CPAP but he was very anxious and apprehensive. He drinks alcohol every day and has been doing that for the last 40 years. Review of Systems Review of Systems: Hematuria, shortness of breath, peripheral edema Yes all other systems are reviewed and are negative Constitutional: Constitutional: Reports weakness Eyes: Eyes: Denies loss of vision Musculoskeletal: Musculoskeletal: Denies numbness Neurologic: Denies loss of vision, Denies numbness and Reports weakness PMFSH Social History Social History (Updated 10/13/20 @ 15:00 by Mayank Denny MD) Household Members: Spouse Housing: House Alcohol intake: current Alcohol intake frequency: other Smoking Status: Former smoker Years Smoked: 40+ Smoking Quit Date: 2012 Use of substances other than those prescribed or required for medical reasons: No Currently Displaying Signs/Symptoms of Drug Intoxication Withdrawal: No Have you been hit, kicked, punched, or otherwise hurt by someone within the past year? If so, by whom?: No Do you feel safe in your current relationship?: Yes Is there a partner from a previous relationship who is making you feel unsafe now?: No Are you made to feel afraid or neglected: No Advance Directives: No Advance Directives Information Provided: No Do you have thoughts of harming others: None Do you have a plan to hurt others: No Plan Recently lost weight without trying: No Meds Allergies Allergy/AdvReac Type Severity Reaction Status Date / Time No Known Allergies Allergy Unverified 06/23/20 14:55 [No Known Allergies*] Physical Exam Vital Signs: Vital Signs: Last Vital Signs Temp 98.5 F 10/13/20 11:00 Pulse 86 10/13/20 14:00 Resp 21 H 10/13/20 14:00 BP 154/69 H 10/13/20 14:00 Pulse Ox 93 10/13/20 14:00 Body Mass Index 48.6 GENERAL APPEARANCE: in no acute distress, on CPAP. HEENT: unremarkable. HEAD: normocephalic, atraumatic. NECK/THYROID: no carotid bruit, JVD + SKIN: no suspicious lesions, warm and dry. HEART: no murmurs, regular rate and rhythm, S1, S2 normal. LUNGS: clear to auscultation bilaterally. ABDOMEN: normal, bowel sounds present, soft, nontender, nondistended. EXTREMITIES: no clubbing, cyanosis. Mild peripheral edema. PERIPHERAL PULSES: equal. NEUROLOGIC: nonfocal, alert and oriented. PSYCH: Depressed. Results Labs and Meds Result diagrams: 10/14/20 05:35 10/14/20 05:35 Lab results: Laboratory Results - last 24 hr 10/13/20 10/13/20 10/13/20 07:11 07:11 07:11 WBC RBC Hgb Hct MCV MCH MCHC RDW Plt Count MPV Immature Gran % (Auto) Neut % (Auto) Lymph % (Auto) [place] % (Auto) Eos % (Auto) Baso % (Auto) Lymph # (Auto) [place] # (Auto) Eos # (Auto) Baso # (Auto) Abs Immat Gran (auto) Absolute Neuts (auto) Absolute Nucleated RBC Nucleated RBC % (auto) ABG pH ABG pCO2 ABG pO2 ABG HCO3 ABG O2 Saturation ABG Base Excess VBG pH VBG pCO2 VBG pO2 VBG HCO3 VBG O2 Saturation VBG Base Excess Oxygen Given Sodium 137 Potassium 5.0 Chloride 100 Carbon Dioxide 20 L Anion Gap 22 H BUN 15 Creatinine 1.48 H Estim Creat Clear Calc 71.8 Estimated GFR 48 POC Glucose Random Glucose 329 H Lactic Acid 3.2 H* Lactic Acid Fup @ 2Hr Calcium 8.5 Phosphorus Magnesium Total Bilirubin 0.7 Cancelled Direct Bilirubin 0.2 AST 32 ALT 25 Alkaline Phosphatase 74 Troponin I High Sens B-Natriuretic Peptide Total Protein 7.9 Albumin 4.1 Urine Color Urine Appearance Urine pH Ur Specific [place] Urine Protein Urine Glucose (UA) Urine Ketones Urine Blood Urine Nitrite Ur Leukocyte Esterase Urine RBC Urine WBC Ur Squamous Epith Cells Amorphous Sediment Urine Bacteria Urine Mucus 10/13/20 10/13/20 10/13/20 07:11 08:00 09:45 WBC RBC Hgb Hct MCV MCH MCHC RDW Plt Count MPV Immature Gran % (Auto) Neut % (Auto) Lymph % (Auto) [place] % (Auto) Eos % (Auto) Baso % (Auto) Lymph # (Auto) [place] # (Auto) Eos # (Auto) Baso # (Auto) Abs Immat Gran (auto) Absolute Neuts (auto) Absolute Nucleated RBC Nucleated RBC % (auto) ABG pH 7.25 L ABG pCO2 58 H ABG pO2 133 H ABG HCO3 25 ABG O2 Saturation 98.5 ABG Base Excess -3.5 VBG pH VBG pCO2 VBG pO2 VBG HCO3 VBG O2 Saturation VBG Base Excess Oxygen Given 70% Sodium Potassium Chloride Carbon Dioxide Anion Gap BUN Creatinine Estim Creat Clear Calc Estimated GFR POC Glucose Random Glucose Lactic Acid Lactic Acid Fup @ 2Hr Calcium Phosphorus Magnesium Total Bilirubin Direct Bilirubin AST ALT Alkaline Phosphatase Troponin I High Sens 69.7 H 120.6 H D B-Natriuretic Peptide 249 H Total Protein Albumin Urine Color Urine Appearance Urine pH Ur Specific [place] Urine Protein Urine Glucose (UA) Urine Ketones Urine Blood Urine Nitrite Ur Leukocyte Esterase Urine RBC Urine WBC Ur Squamous Epith Cells Amorphous Sediment Urine Bacteria Urine Mucus 10/13/20 10/13/20 10/13/20 10:05 10:05 11:42 WBC RBC Hgb Hct MCV MCH MCHC RDW Plt Count MPV Immature Gran % (Auto) Neut % (Auto) Lymph % (Auto) [place] % (Auto) Eos % (Auto) Baso % (Auto) Lymph # (Auto) [place] # (Auto) Eos # (Auto) Baso # (Auto) Abs Immat Gran (auto) Absolute Neuts (auto) Absolute Nucleated RBC Nucleated RBC % (auto) ABG pH ABG pCO2 ABG pO2 ABG HCO3 ABG O2 Saturation ABG Base Excess VBG pH VBG pCO2 VBG pO2 VBG HCO3 VBG O2 Saturation VBG Base Excess Oxygen Given Sodium Potassium Chloride Carbon Dioxide Anion Gap BUN Creatinine Estim Creat Clear Calc Estimated GFR POC Glucose 97 Random Glucose Lactic Acid Lactic Acid Fup @ 2Hr 1.8 Calcium Phosphorus Magnesium Total Bilirubin Direct Bilirubin AST ALT Alkaline Phosphatase Troponin I High Sens B-Natriuretic Peptide 320 H Total Protein Albumin Urine Color Urine Appearance Urine pH Ur Specific [place] Urine Protein Urine Glucose (UA) Urine Ketones Urine Blood Urine Nitrite Ur Leukocyte Esterase Urine RBC Urine WBC Ur Squamous Epith Cells Amorphous Sediment Urine Bacteria Urine Mucus 10/13/20 10/13/20 10/13/20 13:15 14:15 14:15 WBC RBC Hgb Hct MCV MCH MCHC RDW Plt Count MPV Immature Gran % (Auto) Neut % (Auto) Lymph % (Auto) [place] % (Auto) Eos % (Auto) Baso % (Auto) Lymph # (Auto) [place] # (Auto) Eos # (Auto) Baso # (Auto) Abs Immat Gran (auto) Absolute Neuts (auto) Absolute Nucleated RBC Nucleated RBC % (auto) ABG pH ABG pCO2 ABG pO2 ABG HCO3 ABG O2 Saturation ABG Base Excess VBG pH 7.37 VBG pCO2 47 VBG pO2 43 VBG HCO3 26 VBG O2 Saturation 77.3 VBG Base Excess 0.3 Oxygen Given Sodium 138 Potassium 4.7 Chloride 100 Carbon Dioxide 27 Anion Gap 16 BUN 15 Creatinine 1.28 Estim Creat Clear Calc 80.6 Estimated GFR 56 POC Glucose Random Glucose 134 H D Lactic Acid Lactic Acid Fup @ 2Hr Calcium 8.3 L Phosphorus 2.6 L Magnesium 2.3 Total Bilirubin Direct Bilirubin AST ALT Alkaline Phosphatase Troponin I High Sens B-Natriuretic Peptide Total Protein Albumin Urine Color BROWN Urine Appearance CLOUDY Urine pH 5.5 Ur Specific [place] >= 1.030 H Urine Protein 2+ H Urine Glucose (UA) NEG Urine Ketones NEG Urine Blood 3+ H Urine Nitrite NEG Ur Leukocyte Esterase NEG Urine RBC TNTC H Urine WBC 0 Ur Squamous Epith Cells 1+ Amorphous Sediment 3+ Urine Bacteria NONE Urine Mucus 3+ 10/13/20 10/13/20 10/13/20 15:15 16:38 16:38 WBC RBC Hgb Hct MCV MCH MCHC RDW Plt Count MPV Immature Gran % (Auto) Neut % (Auto) Lymph % (Auto) [place] % (Auto) Eos % (Auto) Baso % (Auto) Lymph # (Auto) [place] # (Auto) Eos # (Auto) Baso # (Auto) Abs Immat Gran (auto) Absolute Neuts (auto) Absolute Nucleated RBC Nucleated RBC % (auto) ABG pH ABG pCO2 ABG pO2 ABG HCO3 ABG O2 Saturation ABG Base Excess VBG pH 7.37 VBG pCO2 48 VBG pO2 37 VBG HCO3 27 VBG O2 Saturation 70.6 VBG Base Excess 1.0 Oxygen Given Sodium 136 Potassium 4.9 Chloride 100 Carbon Dioxide 25 Anion Gap 16 BUN 18 H Creatinine 1.51 H Estim Creat Clear Calc 68.3 Estimated GFR 47 POC Glucose 127 H Random Glucose 146 H Lactic Acid Lactic Acid Fup @ 2Hr Calcium 8.3 L Phosphorus 2.7 Magnesium 2.3 Total Bilirubin Direct Bilirubin AST ALT Alkaline Phosphatase Troponin I High Sens B-Natriuretic Peptide Total Protein Albumin Urine Color Urine Appearance Urine pH Ur Specific [place] Urine Protein Urine Glucose (UA) Urine Ketones Urine Blood Urine Nitrite Ur Leukocyte Esterase Urine RBC Urine WBC Ur Squamous Epith Cells Amorphous Sediment Urine Bacteria Urine Mucus 10/13/20 10/14/20 10/14/20 22:26 05:35 05:35 WBC 21.7 H RBC 4.03 L Hgb 13.1 L Hct 39.1 L MCV 97.0 MCH 32.5 MCHC 33.5 RDW 12.2 Plt Count 338 MPV 9.8 Immature Gran % (Auto) 0.6 H Neut % (Auto) 87.2 H Lymph % (Auto) 4.7 L [place] % (Auto) 7.4 Eos % (Auto) 0.0 Baso % (Auto) 0.1 Lymph # (Auto) 1.0 L [place] # (Auto) 1.6 H Eos # (Auto) 0.0 Baso # (Auto) 0.0 Abs Immat Gran (auto) 0.13 H Absolute Neuts (auto) 18.9 H Absolute Nucleated RBC 0.000 Nucleated RBC % (auto) 0.0 ABG pH ABG pCO2 ABG pO2 ABG HCO3 ABG O2 Saturation ABG Base Excess VBG pH VBG pCO2 VBG pO2 VBG HCO3 VBG O2 Saturation VBG Base Excess Oxygen Given Sodium 137 Potassium 4.9 Chloride 102 Carbon Dioxide 20 L Anion Gap 20 BUN 33 H D Creatinine 3.00 H Estim Creat Clear Calc 34.4 Estimated GFR 21 POC Glucose 155 H Random Glucose 138 H Lactic Acid Lactic Acid Fup @ 2Hr Calcium 8.5 Phosphorus 4.1 Magnesium 2.3 Total Bilirubin 0.6 Direct Bilirubin AST 25 ALT 20 Alkaline Phosphatase 66 Troponin I High Sens B-Natriuretic Peptide Total Protein 7.2 Albumin 3.8 Urine Color Urine Appearance Urine pH Ur Specific [place] Urine Protein Urine Glucose (UA) Urine Ketones Urine Blood Urine Nitrite Ur Leukocyte Esterase Urine RBC Urine WBC Ur Squamous Epith Cells Amorphous Sediment Urine Bacteria Urine Mucus 10/14/20 05:35 WBC RBC Hgb Hct MCV MCH MCHC RDW Plt Count MPV Immature Gran % (Auto) Neut % (Auto) Lymph % (Auto) [place] % (Auto) Eos % (Auto) Baso % (Auto) Lymph # (Auto) [place] # (Auto) Eos # (Auto) Baso # (Auto) Abs Immat Gran (auto) Absolute Neuts (auto) Absolute Nucleated RBC Nucleated RBC % (auto) ABG pH ABG pCO2 ABG pO2 ABG HCO3 ABG O2 Saturation ABG Base Excess VBG pH 7.41 VBG pCO2 38 VBG pO2 59 VBG HCO3 24 VBG O2 Saturation 91.5 VBG Base Excess -1.0 Oxygen Given Sodium Potassium Chloride Carbon Dioxide Anion Gap BUN Creatinine Estim Creat Clear Calc Estimated GFR POC Glucose Random Glucose Lactic Acid Lactic Acid Fup @ 2Hr Calcium Phosphorus Magnesium Total Bilirubin Direct Bilirubin AST ALT Alkaline Phosphatase Troponin I High Sens B-Natriuretic Peptide Total Protein Albumin Urine Color Urine Appearance Urine pH Ur Specific [place] Urine Protein Urine Glucose (UA) Urine Ketones Urine Blood Urine Nitrite Ur Leukocyte Esterase Urine RBC Urine WBC Ur Squamous Epith Cells Amorphous Sediment Urine Bacteria Urine Mucus Imaging Radiologist's impression: Impressions Chest X-Ray 10/13/20 07:04 IMPRESSION: Patchy airspace opacities right mid and lower zone. Coarsening bronchiolar markings. Assessment and Plan (1) Congestive heart failure: Status: Acute (2) Acute renal failure: Status: Acute 65-year-old gentleman presenting with 1 month h/o progressive dyspnea. Severely reduced LVEF on echo with multiple RWMA. Continue diuresis. Can start hydralazine/nitrate if kidney function not stable otherwise would favor starting him on ANTHONY-i. Hold diuretic till clinically euvolemic. Will need cardiac cath as improves from CHF. Thank you for allowing me to participate in the care of your patient. Please feel free to contact me if you have any questions.
--- NOTE | 2020-10-14 08:00 | US_ITS ---
EXAMINATION: US RETROPERITONEAL LIMITED (RENAL ONLY) CLINICAL INFORMATION: Acute kidney injury, no urine output. COMPARISON: None TECHNIQUE: Real-time imaging of the kidneys. FINDINGS: RIGHT KIDNEY: 13.3 x 7.4 x 7.0 cm (SAG x AP x TRV). The kidney is upper normal in size, contour, and echogenicity. Renal cortical thickness is normal. No renal calculi or focal parenchymal lesions. There is mild hydronephrosis. LEFT KIDNEY: 12.4 x 6.4 x 6.6 cm (SAG x AP x TRV). The kidney is upper normal in size, contour, and echogenicity. Renal cortical thickness is normal. No renal calculi or focal parenchymal lesions. There there is mild hydronephrosis. Liver echotexture appears increased. US/US renal BI IMPRESSION: Upper normal-size kidneys and mild bilateral hydronephrosis.
[2020-10-14 08:05] LABS: Glucose, Whole Blood 138 mg/dL (60-115)
--- NOTE | 2020-10-14 09:09 | P.CNUR_ITS ---
History of Present Illness Consult details Consult date: 10/13/20 Narrative: Asked to see patient for urinary retention Difficulty with placing Sosa catheter Sixteen Tongan Sosa catheter placed. Urine return obtained. Appears to have ATN type characteristics. Admit to hospital October 13. This was for difficulty breathing and shortness of breath for a month. Diagnosed with CHF Currently on diuretics Requires urine output management Currently with BiPAP during catheter placement Review of Systems Constitutional: Constitutional: Reports weakness Eyes: Eyes: Denies loss of vision Musculoskeletal: Musculoskeletal: Denies numbness Neurologic: Denies loss of vision, Denies numbness and Reports weakness [facility] Social History Social History (Updated 10/13/20 @ 15:00 by Mayank Denny MD) Household Members: Spouse Housing: House Alcohol intake: current Alcohol intake frequency: other Smoking Status: Former smoker Years Smoked: 40+ Smoking Quit Date: 2012 Use of substances other than those prescribed or required for medical reasons: No Currently Displaying Signs/Symptoms of Drug Intoxication Withdrawal: No Have you been hit, kicked, punched, or otherwise hurt by someone within the past year? If so, by whom?: No Do you feel safe in your current relationship?: Yes Is there a partner from a previous relationship who is making you feel unsafe now?: No Are you made to feel afraid or neglected: No Advance Directives: No Advance Directives Information Provided: No Do you have thoughts of harming others: None Do you have a plan to hurt others: No Plan Recently lost weight without trying: No Meds Allergies Allergy/AdvReac Type Severity Reaction Status Date / Time No Known Allergies Allergy Unverified 06/23/20 14:55 [No Known Allergies*] Physical Exam Vital Signs: Vital Signs: Last Vital Signs Temp 99.1 F 10/14/20 08:53 Pulse 97 10/14/20 08:53 Resp 29 H 10/14/20 08:53 BP 120/60 10/14/20 08:53 Pulse Ox 91 L 10/14/20 08:53 Body Mass Index 48.6 Const: General: cooperative, healthy appearing, comfortable and no acute distress Nutritional Appearance: average body habitus Orientation/consciousness: oriented to person, oriented to place and oriented to time Eyes: General: appearance normal, both eyes and all related structures Chest: Chest palpation & inspection: normal inspection of the chest Resp: Effort & Inspection: normal respiratory effort Cardio: Rate: regular rate GI: Inspection: Yes normal to inspection Skin: Hair: normal Neuro: General: oriented to person, oriented to place and oriented to time Extrem: General: Yes normal to inspection Results Labs Result diagrams: 10/14/20 05:35 10/14/20 05:35 Labs: Abnormal lab results 10/13/20 10/13/20 10/13/20 Range/Units 09:45 10:05 13:15 WBC (4.8-10.8) X10*3/uL RBC (4.60-5.80) X10*6/uL Hgb (14.0-18.0) g/dl Hct (42-52) % Immature Gran % (Auto) (0.0-0.4) % Neut % (Auto) (45-73) % Lymph % (Auto) (20-40) % Lymph # (Auto) (1.2-4.9) X10*3/uL [place] # (Auto) (0.1-1.2) X10*3/uL Abs Immat Gran (auto) (0.00-0.03) X10*3/uL Absolute Neuts (auto) (2.0-8.3) X10*3/uL Carbon Dioxide (22-29) mmol/L BUN (9-16) mg/dL Creatinine (0.5-1.4) mg/dL POC Glucose (60-115) mg/dL Random Glucose (60-115) mg/dL Calcium (8.4-10.2) mg/dL Phosphorus (2.7-4.5) mg/dL Troponin I High Sens 120.6 H D (<3.5-35.0) ng/L B-Natriuretic Peptide 249 H 320 H (<100) pg/mL Ur Specific [place] >= 1.030 H (1.005-1.025) Urine Protein 2+ H (NEG-TRACE) MG/DL Urine Blood 3+ H (NEG) Urine RBC TNTC H (0) /HPF 10/13/20 10/13/20 10/13/20 Range/Units 14:15 15:15 16:38 WBC (4.8-10.8) X10*3/uL RBC (4.60-5.80) X10*6/uL Hgb (14.0-18.0) g/dl Hct (42-52) % Immature Gran % (Auto) (0.0-0.4) % Neut % (Auto) (45-73) % Lymph % (Auto) (20-40) % Lymph # (Auto) (1.2-4.9) X10*3/uL [place] # (Auto) (0.1-1.2) X10*3/uL Abs Immat Gran (auto) (0.00-0.03) X10*3/uL Absolute Neuts (auto) (2.0-8.3) X10*3/uL Carbon Dioxide (22-29) mmol/L BUN 18 H (9-16) mg/dL Creatinine 1.51 H (0.5-1.4) mg/dL POC Glucose 127 H (60-115) mg/dL Random Glucose 134 H D 146 H (60-115) mg/dL Calcium 8.3 L 8.3 L (8.4-10.2) mg/dL Phosphorus 2.6 L (2.7-4.5) mg/dL Troponin I High Sens (<3.5-35.0) ng/L B-Natriuretic Peptide (<100) pg/mL Ur Specific [place] (1.005-1.025) Urine Protein (NEG-TRACE) MG/DL Urine Blood (NEG) Urine RBC (0) /HPF 10/13/20 10/14/20 10/14/20 Range/Units 22:26 05:35 05:35 WBC 21.7 H (4.8-10.8) X10*3/uL RBC 4.03 L (4.60-5.80) X10*6/uL Hgb 13.1 L (14.0-18.0) g/dl Hct 39.1 L (42-52) % Immature Gran % (Auto) 0.6 H (0.0-0.4) % Neut % (Auto) 87.2 H (45-73) % Lymph % (Auto) 4.7 L (20-40) % Lymph # (Auto) 1.0 L (1.2-4.9) X10*3/uL [place] # (Auto) 1.6 H (0.1-1.2) X10*3/uL Abs Immat Gran (auto) 0.13 H (0.00-0.03) X10*3/uL Absolute Neuts (auto) 18.9 H (2.0-8.3) X10*3/uL Carbon Dioxide 20 L (22-29) mmol/L BUN 33 H D (9-16) mg/dL Creatinine 3.00 H (0.5-1.4) mg/dL POC Glucose 155 H (60-115) mg/dL Random Glucose 138 H (60-115) mg/dL Calcium (8.4-10.2) mg/dL Phosphorus (2.7-4.5) mg/dL Troponin I High Sens (<3.5-35.0) ng/L B-Natriuretic Peptide (<100) pg/mL Ur Specific [place] (1.005-1.025) Urine Protein (NEG-TRACE) MG/DL Urine Blood (NEG) Urine RBC (0) /HPF 10/14/20 Range/Units 07:46 WBC (4.8-10.8) X10*3/uL RBC (4.60-5.80) X10*6/uL Hgb (14.0-18.0) g/dl Hct (42-52) % Immature Gran % (Auto) (0.0-0.4) % Neut % (Auto) (45-73) % Lymph % (Auto) (20-40) % Lymph # (Auto) (1.2-4.9) X10*3/uL [place] # (Auto) (0.1-1.2) X10*3/uL Abs Immat Gran (auto) (0.00-0.03) X10*3/uL Absolute Neuts (auto) (2.0-8.3) X10*3/uL Carbon Dioxide (22-29) mmol/L BUN (9-16) mg/dL Creatinine (0.5-1.4) mg/dL POC Glucose 138 H (60-115) mg/dL Random Glucose (60-115) mg/dL Calcium (8.4-10.2) mg/dL Phosphorus (2.7-4.5) mg/dL Troponin I High Sens (<3.5-35.0) ng/L B-Natriuretic Peptide (<100) pg/mL Ur Specific [place] (1.005-1.025) Urine Protein (NEG-TRACE) MG/DL Urine Blood (NEG) Urine RBC (0) /HPF Short CBC 10/14/20 Range/Units 05:35 WBC 21.7 H (4.8-10.8) X10*3/uL Hgb 13.1 L (14.0-18.0) g/dl Hct 39.1 L (42-52) % Plt Count 338 (160-400) X10*3/uL BMP 10/13/20 10/13/20 10/14/20 14:15 16:38 05:35 Sodium 138 136 137 Potassium 4.7 4.9 4.9 Chloride 100 100 102 Carbon Dioxide 27 25 20 L BUN 15 18 H 33 H D Creatinine 1.28 1.51 H 3.00 H Calcium 8.3 L 8.3 L 8.5 Liver Function 10/14/20 Range/Units 05:35 Total Bilirubin 0.6 (0.0-1.0) mg/dL AST 25 (5-37) U/L ALT 20 (0-40) U/L Alkaline Phosphatase 66 (39-117) U/L Albumin 3.8 (3.5-5.0) g/dL Urine 10/13/20 Range/Units 13:15 Urine Color BROWN Urine Appearance CLOUDY Urine pH 5.5 (5.0-8.0) Ur Specific [place] >= 1.030 H (1.005-1.025) Urine Protein 2+ H (NEG-TRACE) MG/DL Urine Glucose (UA) NEG (NEG) MG/DL All other labs normal. Assessment and Plan (1) Urinary retention: Status: Acute Sosa catheter placed Urine output to be monitored Procedures Catheter Insertion (Urinary) Date of insertion: 10/13/20 Replacement of catheter present on admission: No Reason for placing: Acute urinary retention Antiseptic solution prep: Povidone-Iodine Topical anesthesia used: No Catheter type/location: Urethral Size (Tongan): 16 Catheter balloon size (mL): 10
--- NOTE | 2020-10-14 11:00 | P.PNCA_ITS ---
Subjective Subjective Date of Service: 10/14/20 Principal diagnosis: CHF, PNA, MALIHA Interval history: Seen off CPAP. He is saying his breathing is okay. He has blood in his urine and his imaging has shown bilateral hydronephrosis. Kidney function is worse with creatinine of 3. Review of Systems Review of Systems Hematuria. No chest pain. No shortness of breath right now. Yes all other systems are reviewed and are negative Constitutional: Reports weakness Eyes: Denies loss of vision Musculoskeletal: Denies numbness Denies loss of vision, Denies numbness and Reports weakness Physical Exam Vital Signs: Last Vital Signs Temp 99.3 F 10/14/20 10:00 Pulse 112 H 10/14/20 10:00 Resp 21 H 10/14/20 10:00 BP 123/88 10/14/20 10:00 Pulse Ox 87 L 10/14/20 10:00 Body Mass Index 47.6 GENERAL APPEARANCE: in no acute distress, well developed, well nourished. HEENT: unremarkable. HEAD: normocephalic, atraumatic. NECK/THYROID: no carotid bruit, JVD sitting upright approximately is 10-12 cm water SKIN: no suspicious lesions, warm and dry. HEART: no murmurs, regular rate and rhythm, S1, S2 normal. LUNGS: clear to auscultation bilaterally. ABDOMEN: normal, bowel sounds present, soft, nontender, nondistended. EXTREMITIES: no clubbing, cyanosis. Mild peripheral edema. PERIPHERAL PULSES: equal. NEUROLOGIC: nonfocal, alert and oriented. PSYCH: Depressed. Results Labs and Meds Result diagrams: 10/14/20 05:35 10/14/20 05:35 Lab results: Laboratory Results - last 24 hr 10/13/20 10/13/20 10/13/20 11:42 13:15 14:15 WBC RBC Hgb Hct MCV MCH MCHC RDW Plt Count MPV Immature Gran % (Auto) Neut % (Auto) Lymph % (Auto) [place] % (Auto) Eos % (Auto) Baso % (Auto) Lymph # (Auto) [place] # (Auto) Eos # (Auto) Baso # (Auto) Abs Immat Gran (auto) Absolute Neuts (auto) Absolute Nucleated RBC Nucleated RBC % (auto) VBG pH VBG pCO2 VBG pO2 VBG HCO3 VBG O2 Saturation VBG Base Excess Sodium 138 Potassium 4.7 Chloride 100 Carbon Dioxide 27 Anion Gap 16 BUN 15 Creatinine 1.28 Estim Creat Clear Calc 80.6 Estimated GFR 56 POC Glucose 97 Random Glucose 134 H D Calcium 8.3 L Phosphorus 2.6 L Magnesium 2.3 Total Bilirubin AST ALT Alkaline Phosphatase Total Protein Albumin Urine Color BROWN Urine Appearance CLOUDY Urine pH 5.5 Ur Specific [place] >= 1.030 H Urine Protein 2+ H Urine Glucose (UA) NEG Urine Ketones NEG Urine Blood 3+ H Urine Nitrite NEG Ur Leukocyte Esterase NEG Urine RBC TNTC H Urine WBC 0 Ur Squamous Epith Cells 1+ Amorphous Sediment 3+ Urine Bacteria NONE Urine Mucus 3+ 10/13/20 10/13/20 10/13/20 14:15 15:15 16:38 WBC RBC Hgb Hct MCV MCH MCHC RDW Plt Count MPV Immature Gran % (Auto) Neut % (Auto) Lymph % (Auto) [place] % (Auto) Eos % (Auto) Baso % (Auto) Lymph # (Auto) [place] # (Auto) Eos # (Auto) Baso # (Auto) Abs Immat Gran (auto) Absolute Neuts (auto) Absolute Nucleated RBC Nucleated RBC % (auto) VBG pH 7.37 VBG pCO2 47 VBG pO2 43 VBG HCO3 26 VBG O2 Saturation 77.3 VBG Base Excess 0.3 Sodium 136 Potassium 4.9 Chloride 100 Carbon Dioxide 25 Anion Gap 16 BUN 18 H Creatinine 1.51 H Estim Creat Clear Calc 68.3 Estimated GFR 47 POC Glucose 127 H Random Glucose 146 H Calcium 8.3 L Phosphorus 2.7 Magnesium 2.3 Total Bilirubin AST ALT Alkaline Phosphatase Total Protein Albumin Urine Color Urine Appearance Urine pH Ur Specific [place] Urine Protein Urine Glucose (UA) Urine Ketones Urine Blood Urine Nitrite Ur Leukocyte Esterase Urine RBC Urine WBC Ur Squamous Epith Cells Amorphous Sediment Urine Bacteria Urine Mucus 10/13/20 10/13/20 10/14/20 16:38 22:26 05:35 WBC 21.7 H RBC 4.03 L Hgb 13.1 L Hct 39.1 L MCV 97.0 MCH 32.5 MCHC 33.5 RDW 12.2 Plt Count 338 MPV 9.8 Immature Gran % (Auto) 0.6 H Neut % (Auto) 87.2 H Lymph % (Auto) 4.7 L [place] % (Auto) 7.4 Eos % (Auto) 0.0 Baso % (Auto) 0.1 Lymph # (Auto) 1.0 L [place] # (Auto) 1.6 H Eos # (Auto) 0.0 Baso # (Auto) 0.0 Abs Immat Gran (auto) 0.13 H Absolute Neuts (auto) 18.9 H Absolute Nucleated RBC 0.000 Nucleated RBC % (auto) 0.0 VBG pH 7.37 VBG pCO2 48 VBG pO2 37 VBG HCO3 27 VBG O2 Saturation 70.6 VBG Base Excess 1.0 Sodium Potassium Chloride Carbon Dioxide Anion Gap BUN Creatinine Estim Creat Clear Calc Estimated GFR POC Glucose 155 H Random Glucose Calcium Phosphorus Magnesium Total Bilirubin AST ALT Alkaline Phosphatase Total Protein Albumin Urine Color Urine Appearance Urine pH Ur Specific [place] Urine Protein Urine Glucose (UA) Urine Ketones Urine Blood Urine Nitrite Ur Leukocyte Esterase Urine RBC Urine WBC Ur Squamous Epith Cells Amorphous Sediment Urine Bacteria Urine Mucus 10/14/20 10/14/20 10/14/20 05:35 05:35 07:46 WBC RBC Hgb Hct MCV MCH MCHC RDW Plt Count MPV Immature Gran % (Auto) Neut % (Auto) Lymph % (Auto) [place] % (Auto) Eos % (Auto) Baso % (Auto) Lymph # (Auto) [place] # (Auto) Eos # (Auto) Baso # (Auto) Abs Immat Gran (auto) Absolute Neuts (auto) Absolute Nucleated RBC Nucleated RBC % (auto) VBG pH 7.41 VBG pCO2 38 VBG pO2 59 VBG HCO3 24 VBG O2 Saturation 91.5 VBG Base Excess -1.0 Sodium 137 Potassium 4.9 Chloride 102 Carbon Dioxide 20 L Anion Gap 20 BUN 33 H D Creatinine 3.00 H Estim Creat Clear Calc 34.4 Estimated GFR 21 POC Glucose 138 H Random Glucose 138 H Calcium 8.5 Phosphorus 4.1 Magnesium 2.3 Total Bilirubin 0.6 AST 25 ALT 20 Alkaline Phosphatase 66 Total Protein 7.2 Albumin 3.8 Urine Color Urine Appearance Urine pH Ur Specific [place] Urine Protein Urine Glucose (UA) Urine Ketones Urine Blood Urine Nitrite Ur Leukocyte Esterase Urine RBC Urine WBC Ur Squamous Epith Cells Amorphous Sediment Urine Bacteria Urine Mucus Imaging Radiologist's impression: Impressions Renal Ultrasound 10/14/20 08:00 IMPRESSION: Upper normal-size kidneys and mild bilateral hydronephrosis. Progress Note: A&P Assessment and plan (1) Acute renal failure: Status: Acute (2) Congestive heart failure: Status: Acute (3) Community acquired pneumonia: Status: Acute Assessment and Plan: 65-year-old gentleman with background of alcoholism who is presenting with barb rtness of breath ongoing for 1 month. His clinical presentation was concerning for heart failure. He was also treated for pneumonia. Echocardiography has shown EF of 20 25% with multiple regional wall motion abnormalities and normal right ventricular function. His EKG showing left bundle-branch block. Clinically is overloaded but unfortunately he has been found to have bilateral hydronephrosis along with hematuria. Diuretics appropriately were held. I think we can try nitrates and hydralazine. Start him on 10 mg 3 times a day of hydralazine along with Imdur 30 mg once a day. Depending on his kidney function improvement will the plan ischemic evaluation. We will follow along with you. Thank you for allowing me to participate in the care of your patient. Please feel free to contact me if you have any questions. Fall Risk Details Current Medications: Current Medications Generic Name Dose Route Start Last Admin Trade Name Freq PRN Reason Stop Dose Admin Acetaminophen 650 mg 10/13/20 19:54 10/13/20 19:58 Acetaminophen 325 Mg Tablet PO 650 mg Q6H PRN Administration Pain, Mild (Pain Scale 1-3) Heparin Sodium (Porcine) 5,000 unit 10/13/20 09:00 10/13/20 23:32 Heparin Sodium,Porcine 5,000 Unit/Ml Vial SUBCUT Not Given Q8H [facility] Nitroglycerin/Dextrose 100 mg in 250 mls @ 0 mls/hr 10/13/20 23:30 IVCONT .Q0M [facility] Protocol Per Protocol Levofloxacin 750 mg in 150 mls @ 100 mls/hr 10/16/20 09:00 Levaquin IV Q48H [facility] Insulin Human Lispro 0 unit 10/13/20 08:45 10/14/20 07:48 Insulin Lispro 100 Unit/Ml 3 Ml Vial SUBCUT Not Given Q6H [facility] Protocol Time Spent With Patient Time: Total time spent is greater than 50% in coordination of care (as documented) at patient's floor/unit and/or counseling patient: Time with patient: 15 - 24 minutes
[2020-10-14 11:47] LABS: Glucose, Whole Blood 130 mg/dL (60-115)
--- NOTE | 2020-10-14 11:54 | PM.DS ---
DS: Providers Provider Date of Service: 10/14/20 Date of admission: 10/13/20 08:31 Primary care physician: Unknown Physician Consults: 10/13/20 12:40 Consult to Urology Routine Consulting Provider: Corey Camarean Reason for consultation: Unable to place razo, ?urethral obstruction Has provider been notified: No 10/13/20 15:32 Consult to Cardiology Routine Consulting Provider: Stephon Smith Reason for consultation: Acute systolic congestive heart failure 10/14/20 08:16 Consult to Nephrology Routine Consulting Provider: [facility] Reason for consultation: MALIHA DS: Diagnosis Discharge Diagnosis (1) Congestive heart failure: Status: Acute (2) Acute renal failure: Status: Acute DS: Summary Time Spent with Patient Time attestation: Total time spent providing and/or coordinating discharge services: Physical Exam Vital Signs: Vital Signs: Last Vital Signs Temp 99.5 F 10/14/20 11:00 Pulse 98 10/14/20 11:00 Resp 26 H 10/14/20 11:00 BP 158/83 H 10/14/20 11:00 Pulse Ox 92 10/14/20 11:00 Body Mass Index 47.6 DS: Data Data Completed and Pending Labs on day of discharge: Laboratory Tests 10/13/20 10/13/20 10/13/20 07:11 07:11 07:11 WBC 20.2 H RBC 4.30 L Hgb 13.9 L Hct 43.3 MCV 100.7 H MCH 32.3 MCHC 32.1 RDW 12.2 Plt Count 381 MPV 10.2 Immature Gran % (Auto) 0.7 H Neut % (Auto) 72.4 Lymph % (Auto) 16.7 L [place] % (Auto) 6.0 Eos % (Auto) 3.7 Baso % (Auto) 0.5 Lymph # (Auto) 3.4 [place] # (Auto) 1.2 Eos # (Auto) 0.7 H Baso # (Auto) 0.1 Abs Immat Gran (auto) 0.15 H Absolute Neuts (auto) 14.7 H Absolute Nucleated RBC 0.000 Nucleated RBC % (auto) 0.0 PT INR APTT D-Dimer ABG pH ABG pCO2 ABG pO2 ABG HCO3 ABG O2 Saturation ABG Base Excess VBG pH VBG pCO2 VBG pO2 VBG HCO3 VBG O2 Saturation VBG Base Excess Oxygen Given Sodium 137 Potassium 5.0 Chloride 100 Carbon Dioxide 20 L Anion Gap 22 H BUN 15 Creatinine 1.48 H Estim Creat Clear Calc 71.8 Estimated GFR 48 POC Glucose Random Glucose 329 H Lactic Acid 3.2 H* Lactic Acid Fup @ 2Hr Calcium 8.5 Phosphorus Magnesium Total Bilirubin 0.7 Direct Bilirubin 0.2 AST 32 ALT 25 Alkaline Phosphatase 74 Troponin I High Sens B-Natriuretic Peptide Total Protein 7.9 Albumin 4.1 Urine Color Urine Appearance Urine pH Ur Specific [place] Urine Protein Urine Glucose (UA) Urine Ketones Urine Blood Urine Nitrite Ur Leukocyte Esterase Urine RBC Urine WBC Ur Squamous Epith Cells Amorphous Sediment Urine Bacteria Urine Mucus COVID-19 (YANG) [employer]19 Posto7 10/13/20 10/13/20 10/13/20 07:11 07:11 07:11 WBC RBC Hgb Hct MCV MCH MCHC RDW Plt Count MPV Immature Gran % (Auto) Neut % (Auto) Lymph % (Auto) [place] % (Auto) Eos % (Auto) Baso % (Auto) Lymph # (Auto) [place] # (Auto) Eos # (Auto) Baso # (Auto) Abs Immat Gran (auto) Absolute Neuts (auto) Absolute Nucleated RBC Nucleated RBC % (auto) PT 13.6 H INR 1.1 APTT 30.7 D-Dimer 976 ABG pH ABG pCO2 ABG pO2 ABG HCO3 ABG O2 Saturation ABG Base Excess VBG pH VBG pCO2 VBG pO2 VBG HCO3 VBG O2 Saturation VBG Base Excess Oxygen Given Sodium Potassium Chloride Carbon Dioxide Anion Gap BUN Creatinine Estim Creat Clear Calc Estimated GFR POC Glucose Random Glucose Lactic Acid Lactic Acid Fup @ 2Hr Calcium Phosphorus Magnesium Total Bilirubin Cancelled Direct Bilirubin AST ALT Alkaline Phosphatase Troponin I High Sens 69.7 H B-Natriuretic Peptide Total Protein Albumin Urine Color Urine Appearance Urine pH Ur Specific [place] Urine Protein Urine Glucose (UA) Urine Ketones Urine Blood Urine Nitrite Ur Leukocyte Esterase Urine RBC Urine WBC Ur Squamous Epith Cells Amorphous Sediment Urine Bacteria Urine Mucus COVID-19 (YANG) [employer] 10/13/20 10/13/20 10/13/20 07:12 07:13 08:00 WBC RBC Hgb Hct MCV MCH MCHC RDW Plt Count MPV Immature Gran % (Auto) Neut % (Auto) Lymph % (Auto) [place] % (Auto) Eos % (Auto) Baso % (Auto) Lymph # (Auto) [place] # (Auto) Eos # (Auto) Baso # (Auto) Abs Immat Gran (auto) Absolute Neuts (auto) Absolute Nucleated RBC Nucleated RBC % (auto) PT INR APTT D-Dimer ABG pH 7.25 L ABG pCO2 58 H ABG pO2 133 H ABG HCO3 25 ABG O2 Saturation 98.5 ABG Base Excess -3.5 VBG pH VBG pCO2 VBG pO2 VBG HCO3 VBG O2 Saturation VBG Base Excess Oxygen Given 70% Sodium Potassium Chloride Carbon Dioxide Anion Gap BUN Creatinine Estim Creat Clear Calc Estimated GFR POC Glucose 304 H Random Glucose Lactic Acid Lactic Acid Fup @ 2Hr Calcium Phosphorus Magnesium Total Bilirubin Direct Bilirubin AST ALT Alkaline Phosphatase Troponin I High Sens B-Natriuretic Peptide Total Protein Albumin Urine Color Urine Appearance Urine pH Ur Specific [place] Urine Protein Urine Glucose (UA) Urine Ketones Urine Blood Urine Nitrite Ur Leukocyte Esterase Urine RBC Urine WBC Ur Squamous Epith Cells Amorphous Sediment Urine Bacteria Urine Mucus COVID-19 (YANG) Negative COVID-19 Clin Com See Note 10/13/20 10/13/20 10/13/20 09:45 10:05 10:05 WBC RBC Hgb Hct MCV MCH MCHC RDW Plt Count MPV Immature Gran % (Auto) Neut % (Auto) Lymph % (Auto) [place] % (Auto) Eos % (Auto) Baso % (Auto) Lymph # (Auto) [place] # (Auto) Eos # (Auto) Baso # (Auto) Abs Immat Gran (auto) Absolute Neuts (auto) Absolute Nucleated RBC Nucleated RBC % (auto) PT INR APTT D-Dimer ABG pH ABG pCO2 ABG pO2 ABG HCO3 ABG O2 Saturation ABG Base Excess VBG pH VBG pCO2 VBG pO2 VBG HCO3 VBG O2 Saturation VBG Base Excess Oxygen Given Sodium Potassium Chloride Carbon Dioxide Anion Gap BUN Creatinine Estim Creat Clear Calc Estimated GFR POC Glucose Random Glucose Lactic Acid Lactic Acid Fup @ 2Hr 1.8 Calcium Phosphorus Magnesium Total Bilirubin Direct Bilirubin AST ALT Alkaline Phosphatase Troponin I High Sens 120.6 H D B-Natriuretic Peptide 249 H 320 H Total Protein Albumin Urine Color Urine Appearance Urine pH Ur Specific [place] Urine Protein Urine Glucose (UA) Urine Ketones Urine Blood Urine Nitrite Ur Leukocyte Esterase Urine RBC Urine WBC Ur Squamous Epith Cells Amorphous Sediment Urine Bacteria Urine Mucus COVID-19 (YANG) COVID-19 Clin Com 10/13/20 10/13/20 10/13/20 11:42 13:15 14:15 WBC RBC Hgb Hct MCV MCH MCHC RDW Plt Count MPV Immature Gran % (Auto) Neut % (Auto) Lymph % (Auto) [place] % (Auto) Eos % (Auto) Baso % (Auto) Lymph # (Auto) [place] # (Auto) Eos # (Auto) Baso # (Auto) Abs Immat Gran (auto) Absolute Neuts (auto) Absolute Nucleated RBC Nucleated RBC % (auto) PT INR APTT D-Dimer ABG pH ABG pCO2 ABG pO2 ABG HCO3 ABG O2 Saturation ABG Base Excess VBG pH VBG pCO2 VBG pO2 VBG HCO3 VBG O2 Saturation VBG Base Excess Oxygen Given Sodium 138 Potassium 4.7 Chloride 100 Carbon Dioxide 27 Anion Gap 16 BUN 15 Creatinine 1.28 Estim Creat Clear Calc 80.6 Estimated GFR 56 POC Glucose 97 Random Glucose 134 H D Lactic Acid Lactic Acid Fup @ 2Hr Calcium 8.3 L Phosphorus 2.6 L Magnesium 2.3 Total Bilirubin Direct Bilirubin AST ALT Alkaline Phosphatase Troponin I High Sens B-Natriuretic Peptide Total Protein Albumin Urine Color BROWN Urine Appearance CLOUDY Urine pH 5.5 Ur Specific [place] >= 1.030 H Urine Protein 2+ H Urine Glucose (UA) NEG Urine Ketones NEG Urine Blood 3+ H Urine Nitrite NEG Ur Leukocyte Esterase NEG Urine RBC TNTC H Urine WBC 0 Ur Squamous Epith Cells 1+ Amorphous Sediment 3+ Urine Bacteria NONE Urine Mucus 3+ COVID-19 (YANG) COVID-19 Clin Com 10/13/20 10/13/20 10/13/20 14:15 15:15 16:38 WBC RBC Hgb Hct MCV MCH MCHC RDW Plt Count MPV Immature Gran % (Auto) Neut % (Auto) Lymph % (Auto) [place] % (Auto) Eos % (Auto) Baso % (Auto) Lymph # (Auto) [place] # (Auto) Eos # (Auto) Baso # (Auto) Abs Immat Gran (auto) Absolute Neuts (auto) Absolute Nucleated RBC Nucleated RBC % (auto) PT INR APTT D-Dimer ABG pH ABG pCO2 ABG pO2 ABG HCO3 ABG O2 Saturation ABG Base Excess VBG pH 7.37 VBG pCO2 47 VBG pO2 43 VBG HCO3 26 VBG O2 Saturation 77.3 VBG Base Excess 0.3 Oxygen Given Sodium 136 Potassium 4.9 Chloride 100 Carbon Dioxide 25 Anion Gap 16 BUN 18 H Creatinine 1.51 H Estim Creat Clear Calc 68.3 Estimated GFR 47 POC Glucose 127 H Random Glucose 146 H Lactic Acid Lactic Acid Fup @ 2Hr Calcium 8.3 L Phosphorus 2.7 Magnesium 2.3 Total Bilirubin Direct Bilirubin AST ALT Alkaline Phosphatase Troponin I High Sens B-Natriuretic Peptide Total Protein Albumin Urine Color Urine Appearance Urine pH Ur Specific [place] Urine Protein Urine Glucose (UA) Urine Ketones Urine Blood Urine Nitrite Ur Leukocyte Esterase Urine RBC Urine WBC Ur Squamous Epith Cells Amorphous Sediment Urine Bacteria Urine Mucus COVID-19 (YANG) COVID-19 Clin Com 10/13/20 10/13/20 10/14/20 16:38 22:26 05:35 WBC 21.7 H RBC 4.03 L Hgb 13.1 L Hct 39.1 L MCV 97.0 MCH 32.5 MCHC 33.5 RDW 12.2 Plt Count 338 MPV 9.8 Immature Gran % (Auto) 0.6 H Neut % (Auto) 87.2 H Lymph % (Auto) 4.7 L [place] % (Auto) 7.4 Eos % (Auto) 0.0 Baso % (Auto) 0.1 Lymph # (Auto) 1.0 L [place] # (Auto) 1.6 H Eos # (Auto) 0.0 Baso # (Auto) 0.0 Abs Immat Gran (auto) 0.13 H Absolute Neuts (auto) 18.9 H Absolute Nucleated RBC 0.000 Nucleated RBC % (auto) 0.0 PT INR APTT D-Dimer ABG pH ABG pCO2 ABG pO2 ABG HCO3 ABG O2 Saturation ABG Base Excess VBG pH 7.37 VBG pCO2 48 VBG pO2 37 VBG HCO3 27 VBG O2 Saturation 70.6 VBG Base Excess 1.0 Oxygen Given Sodium Potassium Chloride Carbon Dioxide Anion Gap BUN Creatinine Estim Creat Clear Calc Estimated GFR POC Glucose 155 H Random Glucose Lactic Acid Lactic Acid Fup @ 2Hr Calcium Phosphorus Magnesium Total Bilirubin Direct Bilirubin AST ALT Alkaline Phosphatase Troponin I High Sens B-Natriuretic Peptide Total Protein Albumin Urine Color Urine Appearance Urine pH Ur Specific [place] Urine Protein Urine Glucose (UA) Urine Ketones Urine Blood Urine Nitrite Ur Leukocyte Esterase Urine RBC Urine WBC Ur Squamous Epith Cells Amorphous Sediment Urine Bacteria Urine Mucus COVID-19 (YANG) COVID-19 Clin Com 10/14/20 10/14/20 10/14/20 05:35 05:35 07:46 WBC RBC Hgb Hct MCV MCH MCHC RDW Plt Count MPV Immature Gran % (Auto) Neut % (Auto) Lymph % (Auto) [place] % (Auto) Eos % (Auto) Baso % (Auto) Lymph # (Auto) [place] # (Auto) Eos # (Auto) Baso # (Auto) Abs Immat Gran (auto) Absolute Neuts (auto) Absolute Nucleated RBC Nucleated RBC % (auto) PT INR APTT D-Dimer ABG pH ABG pCO2 ABG pO2 ABG HCO3 ABG O2 Saturation ABG Base Excess VBG pH 7.41 VBG pCO2 38 VBG pO2 59 VBG HCO3 24 VBG O2 Saturation 91.5 VBG Base Excess -1.0 Oxygen Given Sodium 137 Potassium 4.9 Chloride 102 Carbon Dioxide 20 L Anion Gap 20 BUN 33 H D Creatinine 3.00 H Estim Creat Clear Calc 34.4 Estimated GFR 21 POC Glucose 138 H Random Glucose 138 H Lactic Acid Lactic Acid Fup @ 2Hr Calcium 8.5 Phosphorus 4.1 Magnesium 2.3 Total Bilirubin 0.6 Direct Bilirubin AST 25 ALT 20 Alkaline Phosphatase 66 Troponin I High Sens B-Natriuretic Peptide Total Protein 7.2 Albumin 3.8 Urine Color Urine Appearance Urine pH Ur Specific [place] Urine Protein Urine Glucose (UA) Urine Ketones Urine Blood Urine Nitrite Ur Leukocyte Esterase Urine RBC Urine WBC Ur Squamous Epith Cells Amorphous Sediment Urine Bacteria Urine Mucus COVID-19 (YANG) COVID-19 Clin Com 10/14/20 11:39 WBC RBC Hgb Hct MCV MCH MCHC RDW Plt Count MPV Immature Gran % (Auto) Neut % (Auto) Lymph % (Auto) [place] % (Auto) Eos % (Auto) Baso % (Auto) Lymph # (Auto) [place] # (Auto) Eos # (Auto) Baso # (Auto) Abs Immat Gran (auto) Absolute Neuts (auto) Absolute Nucleated RBC Nucleated RBC % (auto) PT INR APTT D-Dimer ABG pH ABG pCO2 ABG pO2 ABG HCO3 ABG O2 Saturation ABG Base Excess VBG pH VBG pCO2 VBG pO2 VBG HCO3 VBG O2 Saturation VBG Base Excess Oxygen Given Sodium Potassium Chloride Carbon Dioxide Anion Gap BUN Creatinine Estim Creat Clear Calc Estimated GFR POC Glucose 130 H Random Glucose Lactic Acid Lactic Acid Fup @ 2Hr Calcium Phosphorus Magnesium Total Bilirubin Direct Bilirubin AST ALT Alkaline Phosphatase Troponin I High Sens B-Natriuretic Peptide Total Protein Albumin Urine Color Urine Appearance Urine pH Ur Specific [place] Urine Protein Urine Glucose (UA) Urine Ketones Urine Blood Urine Nitrite Ur Leukocyte Esterase Urine RBC Urine WBC Ur Squamous Epith Cells Amorphous Sediment Urine Bacteria Urine Mucus COVID-19 (YANG) COVID-19 Clin Com Preliminary micro results at discharge 10/13/20 07:11 Blood Culture - Preliminary Blood - Venous No growth after 24 hours. 10/13/20 07:11 Blood Culture - Preliminary Blood - Venous No growth after 24 hours. Discharge Plan Discharge Date of admission: 10/13/20 08:31 Attending physician on admission: Mayank Denny Primary Care Provider: Physician,Unknown Consulting providers: Corey Camarena ; Sherry Rowe ; Stephon Smith ; Indy Lee ; Haresh Christian ; Tru Camilo ; Korey Valenzuela ; Suze Hester ; Abdiel Andrea ; Micky Aaron ; Mariajose Melton ; Leonel Leigh ; Lenin Moreno ; Shaun Weinstein ; Art August ; Ant Carvalho ; Ghulam Hernández ; Ghulam Hernández ; Manjeet García
--- NOTE | 2020-10-14 12:37 | PM.UROPN ---
Subjective Subjective Date of Service: 10/14/20 Interval history: Poor UO Likley intrinsic US with bilateral mild hydro Will place stents Discussed with patient Physical Exam Vital Signs: Vital Signs: Last Vital Signs Temp 99.5 F 10/14/20 12:00 Pulse 98 10/14/20 12:00 Resp 23 H 10/14/20 12:00 BP 141/76 H 10/14/20 12:00 Pulse Ox 93 10/14/20 12:00 Body Mass Index 47.6 Const: General: cooperative, healthy appearing, comfortable and no acute distress Nutritional Appearance: average body habitus Orientation/consciousness: oriented to person, oriented to place and oriented to time Eyes: General: appearance normal, both eyes and all related structures Chest: Chest palpation & inspection: normal inspection of the chest Resp: Effort & Inspection: normal respiratory effort Cardio: Rate: regular rate GI: Inspection: Yes normal to inspection Skin: Hair: normal Neuro: General: oriented to person, oriented to place and oriented to time Extrem: General: Yes normal to inspection Urology Results Labs CBC & Chem 7: 10/14/20 05:35 10/14/20 05:35 Labs: Laboratory Results - last 24 hr 10/13/20 10/13/20 10/13/20 13:15 14:15 14:15 WBC RBC Hgb Hct MCV MCH MCHC RDW Plt Count MPV Immature Gran % (Auto) Neut % (Auto) Lymph % (Auto) [place] % (Auto) Eos % (Auto) Baso % (Auto) Lymph # (Auto) [place] # (Auto) Eos # (Auto) Baso # (Auto) Abs Immat Gran (auto) Absolute Neuts (auto) Absolute Nucleated RBC Nucleated RBC % (auto) VBG pH 7.37 VBG pCO2 47 VBG pO2 43 VBG HCO3 26 VBG O2 Saturation 77.3 VBG Base Excess 0.3 Sodium 138 Potassium 4.7 Chloride 100 Carbon Dioxide 27 Anion Gap 16 BUN 15 Creatinine 1.28 Estim Creat Clear Calc 80.6 Estimated GFR 56 POC Glucose Random Glucose 134 H D Calcium 8.3 L Phosphorus 2.6 L Magnesium 2.3 Total Bilirubin AST ALT Alkaline Phosphatase Total Protein Albumin Urine Color BROWN Urine Appearance CLOUDY Urine pH 5.5 Ur Specific [place] >= 1.030 H Urine Protein 2+ H Urine Glucose (UA) NEG Urine Ketones NEG Urine Blood 3+ H Urine Nitrite NEG Ur Leukocyte Esterase NEG Urine RBC TNTC H Urine WBC 0 Ur Squamous Epith Cells 1+ Amorphous Sediment 3+ Urine Bacteria NONE Urine Mucus 3+ 10/13/20 10/13/20 10/13/20 15:15 16:38 16:38 WBC RBC Hgb Hct MCV MCH MCHC RDW Plt Count MPV Immature Gran % (Auto) Neut % (Auto) Lymph % (Auto) [place] % (Auto) Eos % (Auto) Baso % (Auto) Lymph # (Auto) [place] # (Auto) Eos # (Auto) Baso # (Auto) Abs Immat Gran (auto) Absolute Neuts (auto) Absolute Nucleated RBC Nucleated RBC % (auto) VBG pH 7.37 VBG pCO2 48 VBG pO2 37 VBG HCO3 27 VBG O2 Saturation 70.6 VBG Base Excess 1.0 Sodium 136 Potassium 4.9 Chloride 100 Carbon Dioxide 25 Anion Gap 16 BUN 18 H Creatinine 1.51 H Estim Creat Clear Calc 68.3 Estimated GFR 47 POC Glucose 127 H Random Glucose 146 H Calcium 8.3 L Phosphorus 2.7 Magnesium 2.3 Total Bilirubin AST ALT Alkaline Phosphatase Total Protein Albumin Urine Color Urine Appearance Urine pH Ur Specific [place] Urine Protein Urine Glucose (UA) Urine Ketones Urine Blood Urine Nitrite Ur Leukocyte Esterase Urine RBC Urine WBC Ur Squamous Epith Cells Amorphous Sediment Urine Bacteria Urine Mucus 10/13/20 10/14/20 10/14/20 22:26 05:35 05:35 WBC 21.7 H RBC 4.03 L Hgb 13.1 L Hct 39.1 L MCV 97.0 MCH 32.5 MCHC 33.5 RDW 12.2 Plt Count 338 MPV 9.8 Immature Gran % (Auto) 0.6 H Neut % (Auto) 87.2 H Lymph % (Auto) 4.7 L [place] % (Auto) 7.4 Eos % (Auto) 0.0 Baso % (Auto) 0.1 Lymph # (Auto) 1.0 L [place] # (Auto) 1.6 H Eos # (Auto) 0.0 Baso # (Auto) 0.0 Abs Immat Gran (auto) 0.13 H Absolute Neuts (auto) 18.9 H Absolute Nucleated RBC 0.000 Nucleated RBC % (auto) 0.0 VBG pH VBG pCO2 VBG pO2 VBG HCO3 VBG O2 Saturation VBG Base Excess Sodium 137 Potassium 4.9 Chloride 102 Carbon Dioxide 20 L Anion Gap 20 BUN 33 H D Creatinine 3.00 H Estim Creat Clear Calc 34.4 Estimated GFR 21 POC Glucose 155 H Random Glucose 138 H Calcium 8.5 Phosphorus 4.1 Magnesium 2.3 Total Bilirubin 0.6 AST 25 ALT 20 Alkaline Phosphatase 66 Total Protein 7.2 Albumin 3.8 Urine Color Urine Appearance Urine pH Ur Specific [place] Urine Protein Urine Glucose (UA) Urine Ketones Urine Blood Urine Nitrite Ur Leukocyte Esterase Urine RBC Urine WBC Ur Squamous Epith Cells Amorphous Sediment Urine Bacteria Urine Mucus 10/14/20 10/14/20 10/14/20 05:35 07:46 11:39 WBC RBC Hgb Hct MCV MCH MCHC RDW Plt Count MPV Immature Gran % (Auto) Neut % (Auto) Lymph % (Auto) [place] % (Auto) Eos % (Auto) Baso % (Auto) Lymph # (Auto) [place] # (Auto) Eos # (Auto) Baso # (Auto) Abs Immat Gran (auto) Absolute Neuts (auto) Absolute Nucleated RBC Nucleated RBC % (auto) VBG pH 7.41 VBG pCO2 38 VBG pO2 59 VBG HCO3 24 VBG O2 Saturation 91.5 VBG Base Excess -1.0 Sodium Potassium Chloride Carbon Dioxide Anion Gap BUN Creatinine Estim Creat Clear Calc Estimated GFR POC Glucose 138 H 130 H Random Glucose Calcium Phosphorus Magnesium Total Bilirubin AST ALT Alkaline Phosphatase Total Protein Albumin Urine Color Urine Appearance Urine pH Ur Specific [place] Urine Protein Urine Glucose (UA) Urine Ketones Urine Blood Urine Nitrite Ur Leukocyte Esterase Urine RBC Urine WBC Ur Squamous Epith Cells Amorphous Sediment Urine Bacteria Urine Mucus Progress Note: A&P Assessment and plan (1) Urinary retention: Status: Acute (2) Acute renal failure: Status: Acute Assessment and Plan: Plan for bilateral retrogrades and stent placements Fall Risk Details Current Medications: Current Medications Generic Name Dose Route Start Last Admin Trade Name Freq PRN Reason Stop Dose Admin Acetaminophen 650 mg 10/13/20 19:54 10/13/20 19:58 Acetaminophen 325 Mg Tablet PO 650 mg Q6H PRN Administration Pain, Mild (Pain Scale 1-3) Heparin Sodium (Porcine) 5,000 unit 10/13/20 09:00 10/14/20 11:08 Heparin Sodium,Porcine 5,000 Unit/Ml Vial SUBCUT Not Given Q8H JAYANT Nitroglycerin/Dextrose 100 mg in 250 mls @ 0 mls/hr 10/13/20 23:30 IVCONT .Q0M JAYANT Protocol Per Protocol Levofloxacin 750 mg in 150 mls @ 100 mls/hr 10/16/20 09:00 Levaquin IV Q48H JAYANT Insulin Human Lispro 0 unit 10/13/20 08:45 10/14/20 07:48 Insulin Lispro 100 Unit/Ml 3 Ml Vial SUBCUT Not Given Q6H JAYANT Protocol Time Spent With Patient Time: Total time spent is greater than 50% in coordination of care (as documented) at patient's floor/unit and/or counseling patient: Time with patient: 15 - 24 minutes
[2020-10-14 13:18] LABS: Erythrocyte Sedimentation Rate 44 MM/HR (0-15)
[2020-10-14] MEDS: Nitroglycerin/D5W 100 MG/250 ML INFUS..BTL IVCONT (13:27)
--- NOTE | 2020-10-14 13:52 | PC.NURSE ---
This morning patient A&Ox4 and asking for bipap to be removed. Bipap 16/6 24%fio2 with o2 sats trending in the mid 90s. Bipap removed around 8am, patient remaining on RA with 02 sats in the low to mid 90s. Mouth care provided. Patient NPO. Razo remains in place. From 7a-8a razo output only 5 cc of blood tinged urine with small clots in tubing. 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 No further irrigation to be done. Otherwise no urine output throughout shift. aware. Fabian renal ultra sound completed. Urology follow up consult placed. bedside to evaluate patient. Patient to go to OR later today for bilateral stent placement. Nephro consult placed. Patient educated on plan of care and verbalized understanding.
--- NOTE | 2020-10-14 14:52 | FL_ITS ---
EXAMINATION: XR FLUOROSCOPY WITH IMAGES CLINICAL INFORMATION: C-arm imaging for stent placement COMPARISON: Renal ultrasound October 2020 TECHNIQUE: Fluoroscopy performed by Dr. Camarena. Fluoroscopy time: 113 seconds DAP: 85.91 mGy Images: 2 FINDINGS: 2 views show placement of a double-J stent into the renal collecting system. See operative report for detail. FL/FL guidance in OR IMPRESSION: Placement of a double-J stent in the renal collecting system.
[2020-10-14 15:00] LABS: Glucose, Whole Blood 119 mg/dL (60-115)
--- NOTE | 2020-10-14 15:34 | P.PNCC_ITS ---
Subjective Subjective Date of Service: 10/14/20 Interval History: 65-year-old gentleman with no underlying past medical history but significant obesity hospitalized on 10/13/2020 secondary to progressive shortness of breath over the last months particularly worse on the day of admission not associated with chest pain. Patient also orthopnea and paroxysmal dyspnea. On ER evaluation hypoxic and hypercapnic requiring initiation of BiPAP support, empirically covered for community-acquired pneumonia, started on diuresis, and admitted to intensive care unit. Overnight with minimal urine passsing only small amount of blood clots through the razo catheter. Physical Exam Vital Signs: Vital Signs: Last Vital Signs Temp 99.9 F 10/14/20 15:00 Pulse 98 10/14/20 15:00 Resp 29 H 10/14/20 15:00 BP 131/68 10/14/20 15:00 Pulse Ox 91 L 10/14/20 15:00 Body Mass Index 47.6 Const: General: no acute distress, alert and awake Nutritional Appearance: obese Eyes: Sclerae: sclerae normal EOM: EOMs intact bilaterally Neck: Neck: Yes no lymphadenopathy, Yes trachea midline and Yes supple Resp: Effort & Inspection: normal respiratory effort and no respiratory distress Auscultation: clear to auscultation bilaterally Cardio: Rate: tachycardic Rhythm: regular rhythm Heart sounds: no gallops, no murmurs and no rubs GI: Palpation (GI): Soft to palpation and Other GI palpation findings present ( Nontender) Auscultation: normal bowel sounds Extrem: General: No clubbing, No cyanosis and Yes edema (2+ bilateral) Objective Data Labs CBC & Chem 7: 10/14/20 05:35 10/14/20 05:35 Labs: Laboratory Results - last 24 hr 10/13/20 10/13/20 10/13/20 16:38 16:38 22:26 WBC RBC Hgb Hct MCV MCH MCHC RDW Plt Count MPV Immature Gran % (Auto) Neut % (Auto) Lymph % (Auto) [place] % (Auto) Eos % (Auto) Baso % (Auto) Lymph # (Auto) [place] # (Auto) Eos # (Auto) Baso # (Auto) Abs Immat Gran (auto) Absolute Neuts (auto) Absolute Nucleated RBC Nucleated RBC % (auto) ESR VBG pH 7.37 VBG pCO2 48 VBG pO2 37 VBG HCO3 27 VBG O2 Saturation 70.6 VBG Base Excess 1.0 Sodium 136 Potassium 4.9 Chloride 100 Carbon Dioxide 25 Anion Gap 16 BUN 18 H Creatinine 1.51 H Estim Creat Clear Calc 68.3 Estimated GFR 47 POC Glucose 155 H Random Glucose 146 H Calcium 8.3 L Phosphorus 2.7 Magnesium 2.3 Total Bilirubin AST ALT Alkaline Phosphatase Total Protein Albumin 10/14/20 10/14/20 10/14/20 05:35 05:35 05:35 WBC 21.7 H RBC 4.03 L Hgb 13.1 L Hct 39.1 L MCV 97.0 MCH 32.5 MCHC 33.5 RDW 12.2 Plt Count 338 MPV 9.8 Immature Gran % (Auto) 0.6 H Neut % (Auto) 87.2 H Lymph % (Auto) 4.7 L [place] % (Auto) 7.4 Eos % (Auto) 0.0 Baso % (Auto) 0.1 Lymph # (Auto) 1.0 L [place] # (Auto) 1.6 H Eos # (Auto) 0.0 Baso # (Auto) 0.0 Abs Immat Gran (auto) 0.13 H Absolute Neuts (auto) 18.9 H Absolute Nucleated RBC 0.000 Nucleated RBC % (auto) 0.0 ESR VBG pH 7.41 VBG pCO2 38 VBG pO2 59 VBG HCO3 24 VBG O2 Saturation 91.5 VBG Base Excess -1.0 Sodium 137 Potassium 4.9 Chloride 102 Carbon Dioxide 20 L Anion Gap 20 BUN 33 H D Creatinine 3.00 H Estim Creat Clear Calc 34.4 Estimated GFR 21 POC Glucose Random Glucose 138 H Calcium 8.5 Phosphorus 4.1 Magnesium 2.3 Total Bilirubin 0.6 AST 25 ALT 20 Alkaline Phosphatase 66 Total Protein 7.2 Albumin 3.8 10/14/20 10/14/20 10/14/20 07:46 11:39 11:51 WBC RBC Hgb Hct MCV MCH MCHC RDW Plt Count MPV Immature Gran % (Auto) Neut % (Auto) Lymph % (Auto) [place] % (Auto) Eos % (Auto) Baso % (Auto) Lymph # (Auto) [place] # (Auto) Eos # (Auto) Baso # (Auto) Abs Immat Gran (auto) Absolute Neuts (auto) Absolute Nucleated RBC Nucleated RBC % (auto) ESR 44 H VBG pH VBG pCO2 VBG pO2 VBG HCO3 VBG O2 Saturation VBG Base Excess Sodium Potassium Chloride Carbon Dioxide Anion Gap BUN Creatinine Estim Creat Clear Calc Estimated GFR POC Glucose 138 H 130 H Random Glucose Calcium Phosphorus Magnesium Total Bilirubin AST ALT Alkaline Phosphatase Total Protein Albumin 10/14/20 14:57 WBC RBC Hgb Hct MCV MCH MCHC RDW Plt Count MPV Immature Gran % (Auto) Neut % (Auto) Lymph % (Auto) [place] % (Auto) Eos % (Auto) Baso % (Auto) Lymph # (Auto) [place] # (Auto) Eos # (Auto) Baso # (Auto) Abs Immat Gran (auto) Absolute Neuts (auto) Absolute Nucleated RBC Nucleated RBC % (auto) ESR VBG pH VBG pCO2 VBG pO2 VBG HCO3 VBG O2 Saturation VBG Base Excess Sodium Potassium Chloride Carbon Dioxide Anion Gap BUN Creatinine Estim Creat Clear Calc Estimated GFR POC Glucose 119 H Random Glucose Calcium Phosphorus Magnesium Total Bilirubin AST ALT Alkaline Phosphatase Total Protein Albumin Microbiology Microbiology Results: Microbiology 10/13/20 07:11 Blood - Venous Blood Culture - Preliminary No growth after 24 hours. 10/13/20 07:11 Blood - Venous Blood Culture - Preliminary No growth after 24 hours. Progress Note: A&P Assessment and plan (1) Acute renal failure: Status: Acute Assessment and Plan: Assessment: 65-year-old gentleman with no prior medical history except obesity hospitalized with progressive dyspnea and acute hypoxic and hypercapnic respiratory failure requiring BiPAP support secondary to underlying congestive heart failure, further complicated by hematuria and acute renal failure with bilateral hydronephrosis Plan: Neuro: Underlying significant alcohol intake, continue to monitor for possible withdrawal symptoms. Cardiac: Acute congestive heart failure. 2D echocardiogram with EF of 20-25%. Ischemic versus alcoholic cardiomyopathy. Cardiology service care appreciated. Started on nitro drip. Pulmonary: Acute hypoxic and hypercapnic respiratory failure secondary to underlying congestive heart failure initially requiring BiPAP support. Now titrated of BiPAP support. Underlying obstructive sleep apnea. Renal: Acute renal failure with oliguria and hematuria. Intrinsic renal failure (ATN) with possible systemic disease ( ?vasculitis). Renal ultrasound with bilateral hydronephrosis. Vasculitis workup sent. Nephrology and Urology services care appreciated. Planned for stenting of bilateral hydronephrosis, if no significant improvement thereafter will likely require dialysis. Endo: No acute issues. GI: No acute issues. ID: Possible community-acquired pneumonia, empirically covered with Levaquin. Heme/Onc: No acute issues. Psych: No acute issues. Miscellaneous: No acute issues. Prophylaxis: Heparin Diet: Nothing by mouth for procedure Critical care time spent: 60 minutes (2) Congestive heart failure: Status: Acute (3) Acute on chronic respiratory failure with hypoxia and hypercapnia: Status: Acute Time Spent With Patient Total time spent with greater than 50% in coordination of care (as documented) at patient's floor/unit and/or counseling patient:: 0 Critical Care Time Critical Care Time (minutes): 60
--- NOTE | 2020-10-14 15:52 | P.CONAN_ITS ---
HPI - Anesthesia Eval Consult details Narrative: 65 yo patient for cysto, bilateral retro, bilateral stent placement PMFSH Past Medical History Medical History (Updated 10/14/20 @ 16:40 by Tru Camilo MD) Acute on chronic respiratory failure with hypoxia and hypercapnia Community acquired pneumonia Congestive heart failure Hypertension Hypoxia Respiratory failure Urinary retention Family History Family history of problems with anesthesia: No Surgical History Surgical History (Updated 10/14/20 @ 16:20 by Nasreen Umana) History of hand surgery History of hip replacement, total S/P left knee arthroscopy History of Problems with Anesthesia: No Social History Social History (Updated 10/13/20 @ 15:00 by Mayank Denny MD) Household Members: Spouse Housing: House Alcohol intake: current Alcohol intake frequency: other Smoking Status: Former smoker Years Smoked: 40+ Smoking Quit Date: 2012 Use of substances other than those prescribed or required for medical reasons: No Currently Displaying Signs/Symptoms of Drug Intoxication Withdrawal: No Have you been hit, kicked, punched, or otherwise hurt by someone within the past year? If so, by whom?: No Do you feel safe in your current relationship?: Yes Is there a partner from a previous relationship who is making you feel unsafe now?: No Are you made to feel afraid or neglected: No Advance Directives: No Advance Directives Information Provided: No Do you have thoughts of harming others: None Do you have a plan to hurt others: No Plan Recently lost weight without trying: No service: No Current occupational status: retired Meds Allergies Allergy/AdvReac Type Severity Reaction Status Date / Time No Known Allergies Allergy Unverified 06/23/20 14:55 [No Known Allergies*] Exam Exam Date and Time: October 14, 2020 1552 Height,Weight and Vital Signs: Height 5 ft 8 in Weight 142.2 kg Last Vital Signs Temp 99.9 F 10/14/20 15:00 Pulse 98 10/14/20 15:00 Resp 29 H 10/14/20 15:00 BP 131/68 10/14/20 15:00 Pulse Ox 91 L 10/14/20 15:00 Pertinent Lab Results Pertinent Lab Results: 10/13/20 10/13/20 10/13/20 08:00 14:15 16:38 ABG pH 7.25 L ABG pCO2 58 H ABG pO2 133 H ABG HCO3 25 ABG O2 Saturation 98.5 ABG Base Excess -3.5 VBG pH 7.37 7.37 VBG pCO2 47 48 VBG pO2 43 37 VBG HCO3 26 27 VBG O2 Saturation 77.3 70.6 VBG Base Excess 0.3 1.0 10/14/20 05:35 ABG pH ABG pCO2 ABG pO2 ABG HCO3 ABG O2 Saturation ABG Base Excess VBG pH 7.41 VBG pCO2 38 VBG pO2 59 VBG HCO3 24 VBG O2 Saturation 91.5 VBG Base Excess -1.0 Laboratory Results WBC 21.7 X10*3/uL (4.8-10.8) H 10/14/20 05:35 RBC 4.03 X10*6/uL (4.60-5.80) L 10/14/20 05:35 Hgb 13.1 g/dl (14.0-18.0) L 10/14/20 05:35 Hct 39.1 % (42-52) L 10/14/20 05:35 MCV 97.0 fL (80-98) 10/14/20 05:35 MCH 32.5 pg (27.0-33.0) 10/14/20 05:35 MCHC 33.5 g/dl (31.0-36.0) 10/14/20 05:35 RDW 12.2 % (11.0-16.0) 10/14/20 05:35 Plt Count 338 X10*3/uL (160-400) 10/14/20 05:35 MPV 9.8 fL (9.4-12.4) 10/14/20 05:35 Immature Gran % (Auto) 0.6 % (0.0-0.4) H 10/14/20 05:35 Neut % (Auto) 87.2 % (45-73) H 10/14/20 05:35 Lymph % (Auto) 4.7 % (20-40) L 10/14/20 05:35 [place] % (Auto) 7.4 % (2-11) 10/14/20 05:35 Eos % (Auto) 0.0 % (0-4) 10/14/20 05:35 Baso % (Auto) 0.1 % (0-2) 10/14/20 05:35 Lymph # (Auto) 1.0 X10*3/uL (1.2-4.9) L 10/14/20 05:35 [place] # (Auto) 1.6 X10*3/uL (0.1-1.2) H 10/14/20 05:35 Eos # (Auto) 0.0 X10*3/uL (0.0-0.4) 10/14/20 05:35 Baso # (Auto) 0.0 X10*3/uL (0.0-0.2) 10/14/20 05:35 Abs Immat Gran (auto) 0.13 X10*3/uL (0.00-0.03) H 10/14/20 05:35 Absolute Neuts (auto) 18.9 X10*3/uL (2.0-8.3) H 10/14/20 05:35 Absolute Nucleated RBC 0.000 X10*3/uL (0.0-0.012) 10/14/20 05:35 Nucleated RBC % (auto) 0.0 /100WBC (0.0-0.2) 10/14/20 05:35 ESR 44 MM/HR (0-15) H 10/14/20 11:51 PT 13.6 SEC (10.8-13.0) H 10/13/20 07:11 INR 1.1 (0.9-1.1) 10/13/20 07:11 APTT 30.7 SEC (24.1-38.0) 10/13/20 07:11 D-Dimer 976 NG/ML 10/13/20 07:11 ABG pH 7.25 (7.35-7.45) L 10/13/20 08:00 ABG pCO2 58 mmhg (32-45) H 10/13/20 08:00 ABG pO2 133 mmhg (83-108) H 10/13/20 08:00 ABG HCO3 25 mmol/l (22-26) 10/13/20 08:00 ABG O2 Saturation 98.5 % 10/13/20 08:00 ABG Base Excess -3.5 10/13/20 08:00 VBG pH 7.41 (7.32-7.43) 10/14/20 05:35 VBG pCO2 38 mmhg 10/14/20 05:35 VBG pO2 59 mmhg 10/14/20 05:35 VBG HCO3 24 mmol/L 10/14/20 05:35 VBG O2 Saturation 91.5 % 10/14/20 05:35 VBG Base Excess -1.0 mmol/L 10/14/20 05:35 Oxygen Given 70% 10/13/20 08:00 Sodium 137 mmol/L (135-145) 10/14/20 05:35 Potassium 4.9 mmol/l (3.3-5.1) 10/14/20 05:35 Chloride 102 mmol/L (96-108) 10/14/20 05:35 Carbon Dioxide 20 mmol/L (22-29) L 10/14/20 05:35 Anion Gap 20 (12-20) 10/14/20 05:35 BUN 33 mg/dL (9-16) H D 10/14/20 05:35 Creatinine 3.00 mg/dL (0.5-1.4) H 10/14/20 05:35 Estim Creat Clear Calc 34.4 10/14/20 05:35 Estimated GFR 10/14/20 05:35 POC Glucose 119 mg/dL (60-115) H 10/14/20 14:57 Random Glucose 138 mg/dL (60-115) H 10/14/20 05:35 Lactic Acid 3.2 mmol/L (0.5-2.0) H* 10/13/20 07:11 Lactic Acid Fup @ 2Hr 1.8 mmol/L (0.5-2.0) 10/13/20 10:05 Calcium 8.5 mg/dL (8.4-10.2) 10/14/20 05:35 Phosphorus 4.1 mg/dL (2.7-4.5) 10/14/20 05:35 Magnesium 2.3 mg/dL (1.6-2.6) 10/14/20 05:35 Total Bilirubin 0.6 mg/dL (0.0-1.0) 10/14/20 05:35 Direct Bilirubin 0.2 mg/dL (0.0-0.5) 10/13/20 07:11 AST 25 U/L (5-37) 10/14/20 05:35 ALT 20 U/L (0-40) 10/14/20 05:35 Alkaline Phosphatase 66 U/L (39-117) 10/14/20 05:35 Troponin I High Sens 120.6 ng/L (<3.5-35.0) H D 10/13/20 09:45 B-Natriuretic Peptide 320 pg/mL (<100) H 10/13/20 10:05 Total Protein 7.2 g/dL (6.5-8.0) 10/14/20 05:35 Albumin 3.8 g/dL (3.5-5.0) 10/14/20 05:35 Urine Color BROWN 10/13/20 13:15 Urine Appearance CLOUDY 10/13/20 13:15 Urine pH 5.5 (5.0-8.0) 10/13/20 13:15 Ur Specific [place] >= 1.030 (1.005-1.025) H 10/13/20 13:15 Urine Protein 2+ MG/DL (NEG-TRACE) H 10/13/20 13:15 Urine Glucose (UA) NEG MG/DL (NEG) 10/13/20 13:15 Urine Ketones NEG MG/DL (NEG) 10/13/20 13:15 Urine Blood 3+ (NEG) H 10/13/20 13:15 Urine Nitrite NEG (NEG) 10/13/20 13:15 Ur Leukocyte Esterase NEG (NEG) 10/13/20 13:15 Urine RBC TNTC /HPF (0) H 10/13/20 13:15 Urine WBC 0 /HPF (0-4) 10/13/20 13:15 Ur Squamous Epith Cells 1+ /LPF 10/13/20 13:15 Amorphous Sediment 3+ /LPF 10/13/20 13:15 Urine Bacteria NONE /LPF 10/13/20 13:15 Urine Mucus 3+ /LPF 10/13/20 13:15 COVID-19 (YANG) Negative (Negative) 10/13/20 07:12 COVID-19 Clin Com See Note 10/13/20 07:12 Impressions Chest X-Ray 10/13/20 07:04 IMPRESSION: Patchy airspace opacities right mid and lower zone. Coarsening bronchiolar markings. Renal Ultrasound 10/14/20 08:00 IMPRESSION: Upper normal-size kidneys and mild bilateral hydronephrosis. Airway Mallampati Class: III TM Dist: >3cm Neck ROM: Full Loose/Missing/Broken Teeth: Yes (Edentulous) Heart: RRR Lungs: CTAB Assessment and Plan Assessment Anesthesia Assessment: Anesthesia Plan Discussed and Chart Reviewed Final Anesthetic Review NPO: Yes ASA Class: IV and Emergency Final Preanesthetic Review: No Changes in Pt Med Stat, Meds/Allgs Chart Reviewed , Consent Obtained/Reviewed and Anes Risks/Benef Reviewed Patient Risk: High Procedure Risk: Intermediate Anesthetic Plan Anesthetic Plan: GA Disposition: Inp. Admit - ICU
--- NOTE | 2020-10-14 15:59 | MHC.CM.PN ---
Met with pt in ICU. Very pleasant. Alert and orientated x3. Admits to feeling very anxious about medical condition and worried about kidney stents today. Also concerned about possible dialysis. Pt admits to drinking approximately 8 beers per day. CM asked if anxiety could be due to not drinking, to worries about his kidney function or both. Pt unsure, but admits it could be a bit of both. RN Deborah aware of conversation with patient. Admits to not seeing a PCP in over 10 years. HCP completed, reviewed and signed. , Dora, HCP ([phone]). Uploaded into [employer] and copies given to patient.D/C plan is home with possible VNA services. Will depend on medical course and recovery. Transportation with family. Will follow for d/c services.
--- NOTE | 2020-10-14 16:29 | P.CONNP_ITS ---
History of Present Illness Reason for Consult Consult date: 10/14/20 Chief Complaint Chief complaint: MALIHA History of Present Illness Narrative: 65-year-old gentleman with no underlying past medical history except hypertension for which he has not taken any BP medications for over 10 years presented with progressive shortness of breath over the last months particularly worse on the day of admission not associated with chest pain. Patient also orthopnea and paroxysmal dyspnea. He has been having malaise , fatigue and generalized body aches for months for which he has been taking multiple NSAID tablets daily on a regular basis over months. He currently has hematuria and has an infiltrate in the lung. Imaging showed very mild bilateral hydro. On ER evaluation hypoxic and hypercapnic requiring initiation of BiPAP support, empirically covered for community-acquired pneumonia and was admitted to intensive care unit. He is currently profoundly oliguric and his serum creatinine has double. Urology colleagues have seen him. Nephrology was consulted to assist in his clinical care. Review of Systems Constitutional: Reports malaise, Reports weakness and Reports other (Body aches) Eyes: Denies loss of vision Comments: No sinusitis Comments: No hemoptysis Musculoskeletal: Denies numbness Denies loss of vision, Denies numbness and Reports weakness PMFSH Past Medical History Medical History Acute on chronic respiratory failure with hypoxia and hypercapnia Community acquired pneumonia Congestive heart failure Hypertension Hypoxia Respiratory failure Urinary retention Surgical History Surgical History History of hand surgery History of hip replacement, total S/P left knee arthroscopy Social History Social History Household Members: Spouse Housing: House Alcohol intake: current Alcohol intake frequency: other Smoking Status: Former smoker Years Smoked: 40+ Smoking Quit Date: 2012 Use of substances other than those prescribed or required for medical reasons: No Currently Displaying Signs/Symptoms of Drug Intoxication Withdrawal: No Have you been hit, kicked, punched, or otherwise hurt by someone within the past year? If so, by whom?: No Do you feel safe in your current relationship?: Yes Is there a partner from a previous relationship who is making you feel unsafe now?: No Are you made to feel afraid or neglected: No Advance Directives: No Advance Directives Information Provided: No Do you have thoughts of harming others: None Do you have a plan to hurt others: No Plan Recently lost weight without trying: No service: No Current occupational status: retired Meds Allergies Allergy/AdvReac Type Severity Reaction Status Date / Time No Known Allergies Allergy Unverified 06/23/20 14:55 [No Known Allergies*] Physical Exam Vital Signs: Last Vital Signs Temp 99.9 F 10/14/20 16:00 Pulse 109 H 10/14/20 16:00 Resp 26 H 10/14/20 16:00 BP 134/66 10/14/20 16:00 Pulse Ox 91 L 10/14/20 16:00 Body Mass Index 47.6 Const General: cooperative; No acute distress Nutritional Appearance: obese Orientation/consciousness: patient oriented x3 HENMT Head: Yes normal to inspection Neck Neck: Yes supple Resp Auscultation: diminished lung sounds Cardio Heart sounds: no rubs GI Palpation (GI): Soft to palpation Neuro General: patient oriented x3 and moves all extremities Results Lab Results Result Diagrams: 10/14/20 05:35 10/14/20 05:35 Lab results: Chemistry 10/13/20 10/13/20 10/13/20 07:11 14:15 16:38 Sodium 137 138 136 Potassium 5.0 4.7 4.9 Carbon Dioxide 20 L 27 25 BUN 15 15 18 H Creatinine 1.48 H 1.28 1.51 H Calcium 8.5 8.3 L 8.3 L Phosphorus 2.6 L 2.7 10/14/20 05:35 Sodium 137 Potassium 4.9 Carbon Dioxide 20 L BUN 33 H D Creatinine 3.00 H Calcium 8.5 Phosphorus 4.1 Hematology 10/13/20 10/14/20 07:11 05:35 WBC 20.2 H 21.7 H Hgb 13.9 L 13.1 L Plt Count 381 338 Urinalysis 10/13/20 13:15 Urine Color BROWN Urine Appearance CLOUDY Urine pH 5.5 Ur Specific [place] >= 1.030 H Urine Protein 2+ H Urine Glucose (UA) NEG Urine Ketones NEG Urine Blood 3+ H Urine Nitrite NEG Ur Leukocyte Esterase NEG Urine RBC TNTC H Urine WBC 0 Ur Squamous Epith Cells 1+ Assessment and Plan (1) Acute renal failure: Problem details: Differential diagnosis broad. ATN vs RPGN vs AIN/ papillary necrosis from NSAID's. Unlikely to be obstructive. Urology seen Vasculitic work up sent. Getting supportive care. All medication dosing for GFR. Will need renal replacement and renal biopsy if does not improve soon Shall closely follow along Status: Acute
--- NOTE | 2020-10-14 17:14 | P.OP_ITS ---
Operative Note Operative Note Date of Service: 10/14/20 Narrative: PreOperative Diagnosis: Bilateral hydronephrosis Post Operative Diagnosis: Bilateral hydronephrosis with obstructing clot on right calyx Procedure: 1. Left retrograde, left stent placement 2. Right retrograde, decompression of clot from right kidney, right stent placement Surgeon: Dr Corey Camarena Anesthesia: General Indications for procedure: Bilateral hydro nephrosis Procedure: After informed consent was verified the patient was brought to the operating room and placed in a supine position. anesthesia was administered per protocol. Safety pause time-out was performed. The patient was prepped and draped in a sterile fashion. Meatal dilatation was performed. A 21 Trin[place] cystoscope was inserted per urethra. The distal portion of the urethra was tight to insertion. Cystoscopic been well lubricated. No abnormality of the anterior posterior urethra was noted. Bladder was normal on entry. Left retrograde performed with open-ended catheter. Mild hydronephrosis. A 6 [place] by 24 cm stent was placed without difficulty. Mild efflux was seen. Right retrograde was performed. There appeared to be filling defect within the right renal pelvis. Likely clot. The ureter was tortuous. A Glidewire was placed and reached the renal pelvis. The open-ended catheter was placed over the Glidewire. The renal pelvis was decompressed with bloody efflux. Approximately 30 cc was removed. A Sensor wire was placed. A 6 [place] by 24 cm stent was placed and bloody efflux was seen. The cystoscope was removed. A 16 [place] Sosa catheter was placed. He tolerated procedure well was extubated in the operating room transferred in stable condition to the ICU Pathology: Right renal pelvis clot Drains: Bilateral 6 [place] by 24 cm stent
--- NOTE | 2020-10-14 17:14 | MHC.SHP ---
Pre-Procedural Eval Section A The patient is an INPATIENT: Yes The History & Physical has been completed within 30 days and I have reviewed it.: Yes Section B Chief Complaint: MALIHA Allergies: Allergies Allergy/AdvReac Type Severity Reaction Status Date / Time No Known Allergies Allergy Unverified 06/23/20 14:55 [No Known Allergies*] Plan Diagnosis/Plan: Unchanged I have reviewed the history and physical and performed a pertinent physical examination on my patient. No changes have occurred unless specified. Cystoscopy, bilateral retrograde, bilateral stent
--- NOTE | 2020-10-14 17:18 | PM.OP ---
Brief Operative Note Date of Service: 10/14/20 Pre-op diagnosis: Bilateral hydronephrosis Post-op diagnosis: same Procedure: Bilateral retrograde, bilateral stent implant Implants: Bilateral ureteric stent 6 Salv[place]orean by Surgeon: Corey Camarena MD Anesthesia: GLMA Estimated blood loss (mL): 0 Pathology: none sent Condition: stable Disposition: ICU
[2020-10-14 18:34] LABS: Glucose, Whole Blood 180 mg/dL (60-115)
[2020-10-14 23:52] LABS: Osmolality Urine 326 mosm/kg (373-1093)
[2020-10-15] VITALS (18 sets, daily range): BP systolic 93–146; BP diastolic 41–84; PULSE 81–130; RESP 16–94; TEMP 36.3–37.1; O2SAT 89–95; BMI 47.0
[2020-10-15 00:10] LABS: Glucose, Whole Blood 148 mg/dL (60-115)
[2020-10-15] MEDS: Heparin Sodium,Porcine 5,000 UNIT/ML VIAL 5000 UNIT SUBCUT ×2 (00:49→16:44)
[2020-10-15 05:50] LABS: Glucose, Whole Blood 124 mg/dL (60-115)
[2020-10-15 05:55] LABS: MANUAL DIFF FLAG NO
[2020-10-15 05:57] LABS: Basophils Percent Auto 0.1 % (0-2); Hematocrit 40.9 % (42-52); Hemoglobin 13.2 g/dl (14.0-18.0); Imm Gran Abs Auto 0.09 X10*3/uL (0.00-0.03); Imm Gran Pct Auto 0.4 % (0.0-0.4); Lymphocytes Absolute Auto 1.1 X10*3/uL (1.2-4.9); Lymphocytes Percent Auto 5.3 % (20-40); Mean Corpuscular HGB Conc 32.3 g/dl (31.0-36.0); Mean Corpuscular Hemoglobin 32.4 pg (27.0-33.0); Mean Corpuscular Volume 100.2 fL (80-98); Monocytes Absolute Auto 1.3 X10*3/uL (0.1-1.2); Monocytes Percent Auto 5.9 % (2-11); Neutrophils Absolute Auto 18.9 X10*3/uL (2.0-8.3); Neutrophils Percent Auto 88.3 % (45-73); Platelet Count 331 X10*3/uL (160-400); Red Blood Count 4.08 X10*6/uL (4.60-5.80); Red Cell Distribution Width 12.4 % (11.0-16.0); White Blood Count 21.4 X10*3/uL (4.8-10.8)
[2020-10-15 06:15] LABS: HCO3 VBG 26 mmol/L; Oxygen Saturation VBG 92.8 %; PCO2 VBG 56 mmhg; PO2 VBG 69 mmhg; pH VBG 7.28 (7.32-7.43)
[2020-10-15 06:30] LABS: Alanine Aminotransferase 19 U/L (0-40); Albumin Level 3.9 g/dL (3.5-5.0); Alkaline Phosphatase 64 U/L (39-117); Anion Gap 21 (12-20); Aspartate Amino Transferase 23 U/L (5-37); Bilirubin Total 0.5 mg/dL (0.0-1.0); Blood Urea Nitrogen 49 mg/dL (9-16); Calcium 8.5 mg/dL (8.4-10.2); Carbon Dioxide 23 mmol/L (22-29); Chloride 102 mmol/L (96-108); Creatinine Clr Calc Pharmacy 34.3; Estimated Glomerular Filt Rate 21; Glucose Random 116 mg/dL (60-115); Magnesium 2.5 mg/dL (1.6-2.6); Phosphorus 6.4 mg/dL (2.7-4.5); Potassium 5.5 mmol/l (3.3-5.1); Sodium 140 mmol/L (135-145); Total Protein 7.3 g/dL (6.5-8.0)
--- NOTE | 2020-10-15 07:41 | CT_ITS ---
EXAMINATION: CT ABDOMEN AND PELVIS WITHOUT CONTRAST CLINICAL INFORMATION: Hematuria.? Renal mass COMPARISON: Renal ultrasound 10/14/2020. Retrograde stent insertion 10/14/2020 TECHNIQUE: Multidetector volumetric imaging was performed from the superior aspect of the liver through the pubic symphysis. Sagittal and coronal reformatted images were obtained on the technologist's workstation. This CT examination was performed using dose optimization techniques as appropriate, variously including the following: *Automated exposure control *Adjustment of mA and/or kV according to patient size (this includes techniques or standardized protocols for targeted exams where dose is matched to indication/reason for exam; i.e. extremities or head) *Use of iterative reconstruction technique DLP: 1079.22 mGy-cm FINDINGS: LUNG BASES: Bibasilar dependent atelectasis and small pleural effusions. LIVER, GALLBLADDER, AND BILIARY TREE: The liver is normal in size, shape, and attenuation. No focal hepatic lesion or biliary ductal dilatation is present. The gallbladder is unremarkable with no evidence of radiopaque gallstones, gallbladder wall thickening, or obvious pericholecystic inflammatory changes. PANCREAS: The pancreas is mildly atrophic without focal pancreatic mass appreciated. SPLEEN: Unremarkable. ADRENAL GLANDS: Unremarkable. KIDNEYS AND URETERS: Right kidney: The right kidney is is not enlarged. There is a small amount of air in the right renal collecting system. A right double-J ureteral stent extends from the renal pelvis to the bladder. Multiple nonobstructive calyceal calculi are seen approximate 5-6 in number measuring up to 0.5 cm in the upper pole. A proximal right ureteral calculus measures 0.6 cm in maximum length without additional ureteral calculi seen. No hydronephrosis or hydroureter. Left kidney: The left kidney is not enlarged. A left double-J ureteral stent extends from the left renal pelvis to the level of the bladder. Multiple nonobstructing calculi are seen in the left lower pole calyces and renal pelvis at least 6 in number with the largest calculus in the renal pelvis measuring 1.0 cm in size with a HU measurement of 469. No hydronephrosis or hydroureter. BLADDER: The bladder is decompressed and contains a Sosa catheter and right and left sided ureteral stents. No visualized bladder calculi. GASTROINTESTINAL TRACT: The small and large bowel are unremarkable. The appendix is unremarkable. ABDOMINAL WALL: No significant hernia is appreciated. LYMPH NODES: Normal. VASCULAR: Vascular calcifications are seen. An infrarenal abdominal aortic aneurysm extending to the bifurcation and measuring 4.6 x 4.6 cm in AP by TR dimensions. Additionally there is ectasia of the iliac arteries measuring 1.8 cm on the right and 1.5 cm on the left. PELVIC VISCERA: Unremarkable. OSSEOUS STRUCTURES: Left total hip arthroplasty identified. No acute osseous abnormality. CT/CT abdomen pelvis wo con IMPRESSION: 1. Bilateral calyceal renal calculi as well as a single proximal right ureter calculus and multiple left renal pelvic calculi. No hydronephrosis or hydroureter in the presence of bilateral double-J ureteral stents. No evidence to suggest renal mass on this noncontrast study. 2. Infrarenal abdominal aortic aneurysm measuring 4.6 cm in size. Recommend screening abdominal ultrasound on a q6 monthly basis and consider vascular consultation in follow-up. The findings were discussed with Dr. Denny 10/15/2020 at 2:43 PM.
--- NOTE | 2020-10-15 11:01 | HO.POSTANES ---
Post Anesthesia Evaluation Post Anesthesia Evaluation Vital Signs: Vital Signs Temp Pulse Resp BP Pulse Ox 10/15/20 10:00 83 21 H 125/57 L 93 10/15/20 09:00 81 16 130/59 L 89 L 10/15/20 08:00 97.8 F 87 26 H 129/63 94 10/15/20 07:00 90 24 H 138/61 93 10/15/20 06:00 92 18 129/56 L 94 10/15/20 05:03 91 24 H 103/49 L 95 10/15/20 04:12 97.9 F 95 24 H 115/54 L 94 10/15/20 03:15 101 H 16 123/50 L 93 10/15/20 02:03 95 17 132/55 L 93 10/15/20 01:12 94 21 H 131/53 L 93 10/15/20 00:01 97.8 F 104 H 26 H 141/63 H 94 10/14/20 23:08 100 24 H 117/46 L 95 Anesthesia: General Endotracheal-GETA Mental Status: Awake Pain Control: Satisfactory Nausea/Vomiting: None Hydration: Adequate Anesthesia-Related Issues: No Anes. Related Issues
[2020-10-15 11:46] LABS: Glucose, Whole Blood 115 mg/dL (60-115)
--- NOTE | 2020-10-15 12:06 | P.PNCC_ITS ---
Subjective Subjective Date of Service: 10/15/20 Interval History: 65-year-old gentleman with no underlying past medical history but significant obesity hospitalized on 10/13/2020 secondary to progressive shortness of breath over the last months particularly worse on the day of admission not associated with chest pain. Patient also orthopnea and paroxysmal dyspnea. On ER evaluation hypoxic and hypercapnic requiring initiation of BiPAP support, empirically covered for community-acquired pneumonia, started on diuresis, and admitted to intensive care unit. Hospital course further com plicated by finding newly depressed systolic function with EF of 20-25%, oliguria with hematuria and bilateral hydronephrosis requiring placement of bilateral ureteral stents with improvement in urine output, and acute renal failure. Overnight with improvement in urine output. Physical Exam Vital Signs: Vital Signs: Last Vital Signs Temp 97.8 F 10/15/20 12:00 Pulse 95 10/15/20 12:00 Resp 26 H 10/15/20 12:00 BP 146/80 H 10/15/20 12:00 Pulse Ox 94 10/15/20 12:00 Body Mass Index 47.0 Const: General: no acute distress, alert and awake Nutritional Appearance: obese Eyes: Sclerae: sclerae normal EOM: EOMs intact bilaterally Neck: Neck: Yes no lymphadenopathy, Yes trachea midline and Yes supple Resp: Effort & Inspection: normal respiratory effort and no respiratory distress Auscultation: crackles (Bibasilar) Cardio: Rate: regular rate Rhythm: regular rhythm Heart sounds: no gallops, no murmurs and no rubs GI: Palpation (GI): Soft to palpation and Other GI palpation findings present ( Nontender) Auscultation: normal bowel sounds Extrem: General: No clubbing, No cyanosis and Yes edema (2+ bilateral) Objective Data Labs CBC & Chem 7: 10/15/20 04:55 10/15/20 04:55 Labs: Laboratory Results - last 24 hr 10/14/20 10/14/20 10/14/20 11:51 14:57 18:31 WBC RBC Hgb Hct MCV MCH MCHC RDW Plt Count MPV Immature Gran % (Auto) Neut % (Auto) Lymph % (Auto) [place] % (Auto) Eos % (Auto) Baso % (Auto) Lymph # (Auto) [place] # (Auto) Eos # (Auto) Baso # (Auto) Abs Immat Gran (auto) Absolute Neuts (auto) Absolute Nucleated RBC Nucleated RBC % (auto) ESR 44 H VBG pH VBG pCO2 VBG pO2 VBG HCO3 VBG O2 Saturation VBG Base Excess Sodium Potassium Chloride Carbon Dioxide Anion Gap BUN Creatinine Estim Creat Clear Calc Estimated GFR POC Glucose 119 H 180 H Random Glucose Calcium Phosphorus Magnesium Total Bilirubin AST ALT Alkaline Phosphatase Total Protein Albumin Urine Osmolality Ur Random Sodium 10/14/20 10/14/20 10/14/20 23:07 23:07 23:59 WBC RBC Hgb Hct MCV MCH MCHC RDW Plt Count MPV Immature Gran % (Auto) Neut % (Auto) Lymph % (Auto) [place] % (Auto) Eos % (Auto) Baso % (Auto) Lymph # (Auto) [place] # (Auto) Eos # (Auto) Baso # (Auto) Abs Immat Gran (auto) Absolute Neuts (auto) Absolute Nucleated RBC Nucleated RBC % (auto) ESR VBG pH VBG pCO2 VBG pO2 VBG HCO3 VBG O2 Saturation VBG Base Excess Sodium Potassium Chloride Carbon Dioxide Anion Gap BUN Creatinine Estim Creat Clear Calc Estimated GFR POC Glucose 148 H Random Glucose Calcium Phosphorus Magnesium Total Bilirubin AST ALT Alkaline Phosphatase Total Protein Albumin Urine Osmolality 326 L Ur Random Sodium 53.0 10/15/20 10/15/20 10/15/20 04:55 04:55 04:55 WBC 21.4 H RBC 4.08 L Hgb 13.2 L Hct 40.9 L MCV 100.2 H MCH 32.4 MCHC 32.3 RDW 12.4 Plt Count 331 MPV 10.0 Immature Gran % (Auto) 0.4 Neut % (Auto) 88.3 H Lymph % (Auto) 5.3 L [place] % (Auto) 5.9 Eos % (Auto) 0.0 Baso % (Auto) 0.1 Lymph # (Auto) 1.1 L [place] # (Auto) 1.3 H Eos # (Auto) 0.0 Baso # (Auto) 0.0 Abs Immat Gran (auto) 0.09 H Absolute Neuts (auto) 18.9 H Absolute Nucleated RBC 0.000 Nucleated RBC % (auto) 0.0 ESR VBG pH 7.28 L VBG pCO2 56 VBG pO2 69 VBG HCO3 26 VBG O2 Saturation 92.8 VBG Base Excess -2.0 Sodium 140 Potassium 5.5 H Chloride 102 Carbon Dioxide 23 Anion Gap 21 H BUN 49 H Creatinine 2.97 H Estim Creat Clear Calc 34.3 Estimated GFR 21 POC Glucose Random Glucose 116 H Calcium 8.5 Phosphorus 6.4 H Magnesium 2.5 Total Bilirubin 0.5 AST 23 ALT 19 Alkaline Phosphatase 64 Total Protein 7.3 Albumin 3.9 Urine Osmolality Ur Random Sodium 10/15/20 10/15/20 05:37 11:43 WBC RBC Hgb Hct MCV MCH MCHC RDW Plt Count MPV Immature Gran % (Auto) Neut % (Auto) Lymph % (Auto) [place] % (Auto) Eos % (Auto) Baso % (Auto) Lymph # (Auto) [place] # (Auto) Eos # (Auto) Baso # (Auto) Abs Immat Gran (auto) Absolute Neuts (auto) Absolute Nucleated RBC Nucleated RBC % (auto) ESR VBG pH VBG pCO2 VBG pO2 VBG HCO3 VBG O2 Saturation VBG Base Excess Sodium Potassium Chloride Carbon Dioxide Anion Gap BUN Creatinine Estim Creat Clear Calc Estimated GFR POC Glucose 124 H 115 Random Glucose Calcium Phosphorus Magnesium Total Bilirubin AST ALT Alkaline Phosphatase Total Protein Albumin Urine Osmolality Ur Random Sodium Microbiology Microbiology Results: Microbiology 10/13/20 07:11 Blood - Venous Blood Culture - Preliminary No growth after 48 hours. 10/13/20 07:11 Blood - Venous Blood Culture - Preliminary No growth after 48 hours. 10/13/20 Unknown Urine clean catch - Sosa Catheter Urine Culture - Final No growth. Progress Note: A&P Assessment and plan (1) Acute on chronic respiratory failure with hypoxia and hypercapnia: Status: Acute Assessment and Plan: Assessment: 65-year-old gentleman with no prior medical history except obesity hospitalized with progressive dyspnea and acute hypoxic and hypercapnic respiratory failure requiring BiPAP support secondary to underlying congestive heart failure, further complicated by hematuria and acute renal failure with bilateral hydronephrosis Plan: Neuro: Underlying significant alcohol intake, continue to monitor for possible withdrawal symptoms. Cardiac: Acute congestive heart failure. 2D echocardiogram with EF of 20-25%. Ischemic versus alcoholic cardiomyopathy. Cardiology service care appreciated. Will most likely require ischemic workup or with heart catheterization when more stable. Pulmonary: Acute hypoxic and hypercapnic respiratory failure secondary to und erlying congestive heart failure initially requiring BiPAP support. Now titrated off BiPAP support. Underlying obstructive sleep apnea. Continue with CPAP at 12 cm at night and as needed for naps. Maintain O2 saturation of 88- 93%. Renal: Acute renal failure with oliguria, hematuria, and bilateral hydronephrosis. Status post bilateral ureteral stenting. Nephrology and Urology services care appreciated. No longer oliguric. Continue to monitor renal indices and urine output. May still require dialysis. Endo: No acute issues. GI: No acute issues. ID: No evidence of pneumonia. Levaquin discontinued. Heme/Onc: No acute issues. Psych: No acute issues. Miscellaneous: No acute issues. Prophylaxis: Heparin Diet: Renal/cardiac Critical care time spent: 60 minutes (2) Congestive heart failure: Status: Acute (3) Acute renal failure: Status: Acute (4) Obstructive uropathy: Status: Acute (5) Bilateral hydronephrosis: Status: Acute (6) Hypertension: Status: Acute Time Spent With Patient Total time spent with greater than 50% in coordination of care (as documented) at patient's floor/unit and/or counseling patient:: 0 Critical Care Time Critical Care Time (minutes): 60
[2020-10-15 12:36] LABS: Glucose, Whole Blood 115 mg/dL (60-115)
--- NOTE | 2020-10-15 15:28 | PM.PNNEP ---
Subjective Subjective Date of Service: 10/16/20 Principal diagnosis: CHF, PNA, MALIHA Interval history: 65-year-old gentleman with no underlying past medical history but significant obesity hospitalized on 10/13/2020 secondary to progressive shortness of breath over the last months particularly worse on the day of admission not associated with chest pain. Patient also orthopnea and paroxysmal dyspnea. On ER evaluation hypoxic and hypercapnic requiring initiation of BiPAP support, empirically covered for community-acquired pneumonia, started on diuresis, and admitted to intensive care unit. Hospital course further complicated by finding newly depressed systolic function with EF of 20-25%, oliguria with hematuria and bilateral hydronephrosis requiring placement of bilateral ureteral stents with improvement in urine output, and acute renal failure. Overnight with improvement in urine output. Physical Exam Vital Signs: Vital Signs: Last Vital Signs Temp 97.8 F 10/15/20 12:00 Pulse 95 10/15/20 12:00 Resp 94 H 10/15/20 13:00 BP 146/80 H 10/15/20 12:00 Pulse Ox 94 10/15/20 12:00 Body Mass Index 47.0 Const: General: healthy appearing, no acute distress, in distress moderate and respiratory, ill appearing and lethargic Nutritional Appearance: average body habitus Orientation/consciousness: oriented to person, oriented to place, oriented to time, patient oriented x3 and lethargic Limitations: other limitations (Limited secondary to respiratory distress) HENMT: Head: Yes normal to inspection, Yes normocephalic and Yes atraumatic Ears: external ears normal General nose exam: Normal external nose present Face and sinus: Yes normal facial exam Mouth: Normal oral and palatal mucosa present Throat: Yes posterior oropharynx normal Eyes: General: appearance normal, both eyes and all related structures Periorbital: periorbital findings normal Eyelids: Yes eyelids normal Conjunctivae: conjunctivae normal Sclerae: sclerae normal Corneas: corneas normal Pupils: Equal, round and reactive pupils present EOM: EOMs intact bilaterally Direct Ophthalmoscopy: normal light reflex Neck: Neck: Yes full ROM, Yes no lymphadenopathy, Yes trachea midline and Yes supple Chest: Chest palpation & inspection: normal inspection of the chest and normal palpation of entire chest wall Resp: Effort & Inspection: normal respiratory effort, labored and no respiratory distress Auscultation: clear to auscultation bilaterally, crackles (Bibasilar), wheezes scattered wheezes and diminished lung sounds diffuse Cardio: Rate: regular rate and tachycardic Rhythm: regular rhythm Heart sounds: S1 normal heart sound present, S2 normal heart sound present, no gallops, no murmurs and no rubs GI: Inspection: Yes normal to inspection and Yes other (Obese) Palpation (GI): Soft to palpation, nontender, no guarding, not rigid, No hepatosplenomegaly present and Other GI palpation findings present ( Nontender) Auscultation: normal bowel sounds : General: Yes no CVA tenderness Back/Spine/Pelvis: Back: no CVA tenderness Cervical Spine: normal cervical lordosis Thoracic/Lumbar Spine: thoracic and lumbar spine normal to inspection Skin: Lesions: no lesions Rashes: no rashes Wounds: no wounds Hair: normal Neuro: General: oriented to person, oriented to place, oriented to time, patient oriented x3 and moves all extremities Cranial nerves: Yes CN's II-XII intact bilaterally and Yes Equal, round and reactive pupils present Motor exam (neuro): Other motor observations present (Moves all extremities symmetrically) Extrem: General: Yes normal to inspection, Yes full ROM, No clubbing, No cyanosis and Yes edema (2+ bilateral) Psych: Appearance: well kempt Attitude: cooperative Objective Data Labs CBC & Chem 7: 10/16/20 04:47 10/16/20 04:47 Labs: Laboratory Results - last 24 hr 10/14/20 10/14/20 10/14/20 18:31 23:07 23:07 WBC RBC Hgb Hct MCV MCH MCHC RDW Plt Count MPV Immature Gran % (Auto) Neut % (Auto) Lymph % (Auto) [place] % (Auto) Eos % (Auto) Baso % (Auto) Lymph # (Auto) [place] # (Auto) Eos # (Auto) Baso # (Auto) Abs Immat Gran (auto) Absolute Neuts (auto) Absolute Nucleated RBC Nucleated RBC % (auto) VBG pH VBG pCO2 VBG pO2 VBG HCO3 VBG O2 Saturation VBG Base Excess Sodium Potassium Chloride Carbon Dioxide Anion Gap BUN Creatinine Estim Creat Clear Calc Estimated GFR POC Glucose 180 H Random Glucose Calcium Phosphorus Magnesium Total Bilirubin AST ALT Alkaline Phosphatase Total Protein Albumin Urine Osmolality 326 L Ur Random Sodium 53.0 10/14/20 10/15/20 10/15/20 23:59 04:55 04:55 WBC 21.4 H RBC 4.08 L Hgb 13.2 L Hct 40.9 L MCV 100.2 H MCH 32.4 MCHC 32.3 RDW 12.4 Plt Count 331 MPV 10.0 Immature Gran % (Auto) 0.4 Neut % (Auto) 88.3 H Lymph % (Auto) 5.3 L [place] % (Auto) 5.9 Eos % (Auto) 0.0 Baso % (Auto) 0.1 Lymph # (Auto) 1.1 L [place] # (Auto) 1.3 H Eos # (Auto) 0.0 Baso # (Auto) 0.0 Abs Immat Gran (auto) 0.09 H Absolute Neuts (auto) 18.9 H Absolute Nucleated RBC 0.000 Nucleated RBC % (auto) 0.0 VBG pH VBG pCO2 VBG pO2 VBG HCO3 VBG O2 Saturation VBG Base Excess Sodium 140 Potassium 5.5 H Chloride 102 Carbon Dioxide 23 Anion Gap 21 H BUN 49 H Creatinine 2.97 H Estim Creat Clear Calc 34.3 Estimated GFR 21 POC Glucose 148 H Random Glucose 116 H Calcium 8.5 Phosphorus 6.4 H Magnesium 2.5 Total Bilirubin 0.5 AST 23 ALT 19 Alkaline Phosphatase 64 Total Protein 7.3 Albumin 3.9 Urine Osmolality Ur Random Sodium 10/15/20 10/15/20 10/15/20 04:55 05:37 11:43 WBC RBC Hgb Hct MCV MCH MCHC RDW Plt Count MPV Immature Gran % (Auto) Neut % (Auto) Lymph % (Auto) [place] % (Auto) Eos % (Auto) Baso % (Auto) Lymph # (Auto) [place] # (Auto) Eos # (Auto) Baso # (Auto) Abs Immat Gran (auto) Absolute Neuts (auto) Absolute Nucleated RBC Nucleated RBC % (auto) VBG pH 7.28 L VBG pCO2 56 VBG pO2 69 VBG HCO3 26 VBG O2 Saturation 92.8 VBG Base Excess -2.0 Sodium Potassium Chloride Carbon Dioxide Anion Gap BUN Creatinine Estim Creat Clear Calc Estimated GFR POC Glucose 124 H 115 Random Glucose Calcium Phosphorus Magnesium Total Bilirubin AST ALT Alkaline Phosphatase Total Protein Albumin Urine Osmolality Ur Random Sodium 10/15/20 12:32 WBC RBC Hgb Hct MCV MCH MCHC RDW Plt Count MPV Immature Gran % (Auto) Neut % (Auto) Lymph % (Auto) [place] % (Auto) Eos % (Auto) Baso % (Auto) Lymph # (Auto) [place] # (Auto) Eos # (Auto) Baso # (Auto) Abs Immat Gran (auto) Absolute Neuts (auto) Absolute Nucleated RBC Nucleated RBC % (auto) VBG pH VBG pCO2 VBG pO2 VBG HCO3 VBG O2 Saturation VBG Base Excess Sodium Potassium Chloride Carbon Dioxide Anion Gap BUN Creatinine Estim Creat Clear Calc Estimated GFR POC Glucose 115 Random Glucose Calcium Phosphorus Magnesium Total Bilirubin AST ALT Alkaline Phosphatase Total Protein Albumin Urine Osmolality Ur Random Sodium Microbiology Microbiology Results: Microbiology 10/13/20 07:11 Blood - Venous Blood Culture - Preliminary No growth after 48 hours. 10/13/20 07:11 Blood - Venous Blood Culture - Preliminary No growth after 48 hours. 10/13/20 Unknown Urine clean catch - Sosa Catheter Urine Culture - Final No growth. Assessment & Plan Assessment and plan (1) Acute on chronic respiratory failure with hypoxia and hypercapnia: Status: Acute Assessment and Plan: Assessment: 65-year-old gentleman with no prior medical history except obesity hospitalized with progressive dyspnea and acute hypoxic and hypercapnic respiratory failure requiring BiPAP support secondary to underlying congestive heart failure, further complicated by hematuria and acute renal failure with bilateral hydronephrosis Plan: Neuro: Underlying significant alcohol intake, continue to monitor for possible withdrawal symptoms. Cardiac: Acute congestive heart failure. 2D echocardiogram with EF of 20-25%. Ischemic versus alcoholic cardiomyopathy. Cardiology service care appreciated. Will most likely require ischemic workup or with heart catheterization when more stable. Pulmonary: Acute hypoxic and hypercapnic respiratory failure secondary to underlying congestive heart failure initially requiring BiPAP support. Now titrated off BiPAP support. Underlying obstructive sleep apnea. Continue with CPAP at 12 cm at night and as needed for naps. Maintain O2 saturation of 88-93%. Renal: Acute renal failure with oliguria, hematuria, and bilateral hydronephrosis. Status post bilateral ureteral stenting. Nephrology and Urology services care appreciated. No longer oliguric. Continue to monitor renal indices and urine output. May still require dialysis. Endo: No acute issues. GI: No acute issues. ID: No evidence of pneumonia. Levaquin discontinued. Heme/Onc: No acute issues. Psych: No acute issues. Miscellaneous: No acute issues. Prophylaxis: Heparin Diet: Renal/cardiac Critical care time spent: 60 minutes (2) Congestive heart failure: Status: Acute (3) Acute renal failure: Status: Acute (4) Obstructive uropathy: Status: Acute (5) Bilateral hydronephrosis: Status: Acute (6) Hypertension: Status: Acute Time Spent With Patient Time: Total time spent is greater than 50% in coordination of care (as documented) at patient's floor/unit and/or counseling patient:
--- NOTE | 2020-10-15 15:31 | PM.PNNEP ---
Subjective Subjective Date of Service: 10/15/20 Principal diagnosis: CHF, PNA, MALIHA Interval history: 65-year-old gentleman with no underlying past medical history but significant obesity hospitalized on 10/13/2020 secondary to progressive shortness of breath over the last months particularly worse on the day of admission not associated with chest pain. Patient also orthopnea and paroxysmal dyspnea. On ER evaluation hypoxic and hypercapnic requiring initiation of BiPAP support, empirically covered for community-acquired pneumonia, started on diuresis, and admitted to intensive care unit. Hospital course further complicated by finding newly depressed systolic function with EF of 20-25%, oliguria with hematuria and bilateral hydronephrosis requiring placement of bilateral ureteral stents with improvement in urine output, and acute renal failure. Overnight with improvement in urine output. Renal function slow to improve. Physical Exam Vital Signs: Vital Signs: Last Vital Signs Temp 97.8 F 10/15/20 12:00 Pulse 95 10/15/20 12:00 Resp 94 H 10/15/20 13:00 BP 146/80 H 10/15/20 12:00 Pulse Ox 94 10/15/20 12:00 Body Mass Index 47.0 Const: General: cooperative, comfortable and no acute distress Nutritional Appearance: obese Orientation/consciousness: patient oriented x3 Neck: Neck: Yes normal visual inspection Lymphatic: no lymphadenopathy noted Chest: Chest palpation & inspection: normal inspection of the chest Resp: Auscultation: diminished lung sounds Cardio: Rate: regular rate Heart sounds: S1 normal heart sound present and S2 normal heart sound present GI: Palpation (GI): Soft to palpation Percussion: Yes normal to percussion Auscultation: normal bowel sounds : Other: razo cath Neuro: General: patient oriented x3 Extrem: General: Yes edema Objective Data Labs CBC & Chem 7: 10/15/20 04:55 10/15/20 04:55 Labs: Laboratory Results - last 24 hr 10/14/20 10/14/20 10/14/20 18:31 23:07 23:07 WBC RBC Hgb Hct MCV MCH MCHC RDW Plt Count MPV Immature Gran % (Auto) Neut % (Auto) Lymph % (Auto) [place] % (Auto) Eos % (Auto) Baso % (Auto) Lymph # (Auto) [place] # (Auto) Eos # (Auto) Baso # (Auto) Abs Immat Gran (auto) Absolute Neuts (auto) Absolute Nucleated RBC Nucleated RBC % (auto) VBG pH VBG pCO2 VBG pO2 VBG HCO3 VBG O2 Saturation VBG Base Excess Sodium Potassium Chloride Carbon Dioxide Anion Gap BUN Creatinine Estim Creat Clear Calc Estimated GFR POC Glucose 180 H Random Glucose Calcium Phosphorus Magnesium Total Bilirubin AST ALT Alkaline Phosphatase Total Protein Albumin Urine Osmolality 326 L Ur Random Sodium 53.0 10/14/20 10/15/20 10/15/20 23:59 04:55 04:55 WBC 21.4 H RBC 4.08 L Hgb 13.2 L Hct 40.9 L MCV 100.2 H MCH 32.4 MCHC 32.3 RDW 12.4 Plt Count 331 MPV 10.0 Immature Gran % (Auto) 0.4 Neut % (Auto) 88.3 H Lymph % (Auto) 5.3 L [place] % (Auto) 5.9 Eos % (Auto) 0.0 Baso % (Auto) 0.1 Lymph # (Auto) 1.1 L [place] # (Auto) 1.3 H Eos # (Auto) 0.0 Baso # (Auto) 0.0 Abs Immat Gran (auto) 0.09 H Absolute Neuts (auto) 18.9 H Absolute Nucleated RBC 0.000 Nucleated RBC % (auto) 0.0 VBG pH VBG pCO2 VBG pO2 VBG HCO3 VBG O2 Saturation VBG Base Excess Sodium 140 Potassium 5.5 H Chloride 102 Carbon Dioxide 23 Anion Gap 21 H BUN 49 H Creatinine 2.97 H Estim Creat Clear Calc 34.3 Estimated GFR 21 POC Glucose 148 H Random Glucose 116 H Calcium 8.5 Phosphorus 6.4 H Magnesium 2.5 Total Bilirubin 0.5 AST 23 ALT 19 Alkaline Phosphatase 64 Total Protein 7.3 Albumin 3.9 Urine Osmolality Ur Random Sodium 10/15/20 10/15/20 10/15/20 04:55 05:37 11:43 WBC RBC Hgb Hct MCV MCH MCHC RDW Plt Count MPV Immature Gran % (Auto) Neut % (Auto) Lymph % (Auto) [place] % (Auto) Eos % (Auto) Baso % (Auto) Lymph # (Auto) [place] # (Auto) Eos # (Auto) Baso # (Auto) Abs Immat Gran (auto) Absolute Neuts (auto) Absolute Nucleated RBC Nucleated RBC % (auto) VBG pH 7.28 L VBG pCO2 56 VBG pO2 69 VBG HCO3 26 VBG O2 Saturation 92.8 VBG Base Excess -2.0 Sodium Potassium Chloride Carbon Dioxide Anion Gap BUN Creatinine Estim Creat Clear Calc Estimated GFR POC Glucose 124 H 115 Random Glucose Calcium Phosphorus Magnesium Total Bilirubin AST ALT Alkaline Phosphatase Total Protein Albumin Urine Osmolality Ur Random Sodium 10/15/20 12:32 WBC RBC Hgb Hct MCV MCH MCHC RDW Plt Count MPV Immature Gran % (Auto) Neut % (Auto) Lymph % (Auto) [place] % (Auto) Eos % (Auto) Baso % (Auto) Lymph # (Auto) [place] # (Auto) Eos # (Auto) Baso # (Auto) Abs Immat Gran (auto) Absolute Neuts (auto) Absolute Nucleated RBC Nucleated RBC % (auto) VBG pH VBG pCO2 VBG pO2 VBG HCO3 VBG O2 Saturation VBG Base Excess Sodium Potassium Chloride Carbon Dioxide Anion Gap BUN Creatinine Estim Creat Clear Calc Estimated GFR POC Glucose 115 Random Glucose Calcium Phosphorus Magnesium Total Bilirubin AST ALT Alkaline Phosphatase Total Protein Albumin Urine Osmolality Ur Random Sodium Microbiology Microbiology Results: Microbiology 10/13/20 07:11 Blood - Venous Blood Culture - Preliminary No growth after 48 hours. 10/13/20 07:11 Blood - Venous Blood Culture - Preliminary No growth after 48 hours. 10/13/20 Unknown Urine clean catch - Razo Catheter Urine Culture - Final No growth. Assessment & Plan Assessment and plan (1) Acute renal failure: Status: Acute Assessment and Plan: MALIHA in a patient with urinary retention, mild bilateral hydronephrosis but not impressive. Nonoliguric. Creat slow to improve. Vol status hypervolemic Recommend: Serologic workup Avoid contrast and NSAIDs If creat does not improve significantly, consider alternate diagnoses Time Spent With Patient Time: Total time spent is greater than 50% in coordination of care (as documented) at patient's floor/unit and/or counseling patient: Time with patient: 15 - 24 minutes
[2020-10-15 15:36] LABS: Anion Gap 15 (12-20); Blood Urea Nitrogen 51 mg/dL (9-16); Calcium 8.5 mg/dL (8.4-10.2); Carbon Dioxide 26 mmol/L (22-29); Chloride 104 mmol/L (96-108); Creatinine Clr Calc Pharmacy 42.5; Estimated Glomerular Filt Rate 28; Glucose Random 147 mg/dL (60-115); Potassium 4.6 mmol/l (3.3-5.1); Sodium 140 mmol/L (135-145)
[2020-10-15 16:37] LABS: Glucose, Whole Blood 131 mg/dL (60-115)
[2020-10-15] MEDS: Isosorbide Mononitrate 30 MG TAB.ER.24H PO (16:52)
[2020-10-15 21:58] LABS: Glucose, Whole Blood 107 mg/dL (60-115)
--- NOTE | 2020-10-15 22:36 | PC.NURSE ---
Razo leaking small amt, meatus small amt blood noted. Mary care done, NS flushed / irrigated, small amt clots noted, but now razo flowing better, pink tinged. Vitals stable. BP 131/77 - refusing BP med r/t not feeling well from today's pill taken for BP. Educated patient that we will have to monitor BP to make sure BP doesn't become elevated. Refusing BPAP at this time. Patient denies pain. No resp issues.
[2020-10-16] VITALS (9 sets, daily range): BP systolic 123–179; BP diastolic 49–93; PULSE 71–94; RESP 15–22; TEMP 36.6–37.6; O2SAT 92–98; BMI 45.8
[2020-10-16 05:15] LABS: Basophils Absolute Auto 0.1 X10*3/uL (0.0-0.2); Basophils Percent Auto 0.4 % (0-2); Eosinophils Absolute Auto 0.3 X10*3/uL (0.0-0.4); Eosinophils Percent Auto 2.2 % (0-4); Hematocrit 38.9 % (42-52); Hemoglobin 12.2 g/dl (14.0-18.0); Imm Gran Abs Auto 0.06 X10*3/uL (0.00-0.03); Imm Gran Pct Auto 0.4 % (0.0-0.4); Lymphocytes Absolute Auto 2.4 X10*3/uL (1.2-4.9); Lymphocytes Percent Auto 16.2 % (20-40); Mean Corpuscular HGB Conc 31.4 g/dl (31.0-36.0); Mean Corpuscular Volume 102.1 fL (80-98); Mean Platelet Volume 9.8 fL (9.4-12.4); Monocytes Absolute Auto 1.2 X10*3/uL (0.1-1.2); Monocytes Percent Auto 8.2 % (2-11); Neutrophils Absolute Auto 10.6 X10*3/uL (2.0-8.3); Neutrophils Percent Auto 72.6 % (45-73); Platelet Count 273 X10*3/uL (160-400); Red Blood Count 3.81 X10*6/uL (4.60-5.80); Red Cell Distribution Width 12.4 % (11.0-16.0); White Blood Count 14.6 X10*3/uL (4.8-10.8)
[2020-10-16 05:17] LABS: MANUAL DIFF FLAG NO
[2020-10-16 05:18] LABS: HCO3 VBG 27 mmol/L; PCO2 VBG 59 mmhg; PO2 VBG 44 mmhg; pH VBG 7.28 (7.32-7.43)
[2020-10-16 05:43] LABS: Anion Gap 13 (12-20); Blood Urea Nitrogen 42 mg/dL (9-16); Calcium 8.5 mg/dL (8.4-10.2); Carbon Dioxide 31 mmol/L (22-29); Chloride 104 mmol/L (96-108); Creatinine Clr Calc Pharmacy 67.8; Estimated Glomerular Filt Rate 47; Glucose Random 100 mg/dL (60-115); Potassium 4.8 mmol/l (3.3-5.1); Sodium 143 mmol/L (135-145)
[2020-10-16 06:08] LABS: Glucose, Whole Blood 95 mg/dL (60-115)
--- NOTE | 2020-10-16 08:02 | PM.PNNEP ---
Subjective Subjective Date of Service: 10/16/20 Principal diagnosis: CHF, PNA, MALIHA Interval history: 65-year-old gentleman with no underlying past medical history but significant obesity hospitalized on 10/13/2020 secondary to progressive shortness of breath over the last months particularly worse on the day of admission not associated with chest pain. Patient also orthopnea and paroxysmal dyspnea. On ER evaluation hypoxic and hypercapnic requiring initiation of BiPAP support, empirically covered for community-acquired pneumonia, started on diuresis, and admitted to intensive care unit. Hospital course further complicated by finding newly depressed systolic function with EF of 20-25%, oliguria with hematuria and bilateral hydronephrosis requiring placement of bilateral ureteral stents with improvement in urine output, and acute renal failure. Overnight with improvement in urine output. Renal function improving Physical Exam Vital Signs: Vital Signs: Last Vital Signs Temp 98.2 F 10/16/20 08:00 Pulse 73 10/16/20 08:00 Resp 16 10/16/20 08:00 BP 151/72 H 10/16/20 08:00 Pulse Ox 97 10/16/20 08:00 Body Mass Index 47.0 Const: General: cooperative, healthy appearing, comfortable, no acute distress, alert, awake, in distress moderate and respiratory, ill appearing and lethargic; No acute distress Nutritional Appearance: average body habitus and obese Orientation/consciousness: oriented to person, oriented to place, oriented to time, patient oriented x3 and lethargic Limitations: other limitations (Limited secondary to respiratory distress) HENMT: Head: Yes normal to inspection, Yes normocephalic and Yes atraumatic Ears: external ears normal General nose exam: Normal external nose present Face and sinus: Yes normal facial exam Mouth: Normal oral and palatal mucosa present Throat: Yes posterior oropharynx normal Eyes: General: appearance normal, both eyes and all related structures Periorbital: periorbital findings normal Eyelids: Yes eyelids normal Conjunctivae: conjunctivae normal Sclerae: sclerae normal Corneas: corneas normal Pupils: Equal, round and reactive pupils present EOM: EOMs intact bilaterally Direct Ophthalmoscopy: normal light reflex Neck: Neck: Yes normal visual inspection, Yes full ROM, Yes no lymphadenopathy, Yes trachea midline and Yes supple Lymphatic: no lymphadenopathy noted Chest: Chest palpation & inspection: normal inspection of the chest and normal palpation of entire chest wall Resp: Effort & Inspection: normal respiratory effort, labored and no respiratory distress Auscultation: clear to auscultation bilaterally, crackles (Bibasilar), wheezes scattered wheezes and diminished lung sounds diffuse Cardio: Rate: regular rate and tachycardic Rhythm: regular rhythm Heart sounds: S1 normal heart sound present, S2 normal heart sound present, no gallops, no murmurs and no rubs GI: Inspection: Yes normal to inspection and Yes other (Obese) Palpation (GI): Soft to palpation, nontender, no guarding, not rigid, No hepatosplenomegaly present and Other GI palpation findings present ( Nontender) Percussion: Yes normal to percussion Auscultation: normal bowel sounds : Other: razo cath General: Yes no CVA tenderness Back/Spine/Pelvis: Back: no CVA tenderness Cervical Spine: normal cervical lordosis Thoracic/Lumbar Spine: thoracic and lumbar spine normal to inspection Skin: Lesions: no lesions Rashes: no rashes Wounds: no wounds Hair: normal Neuro: General: oriented to person, oriented to place, oriented to time, patient oriented x3 and moves all extremities Cranial nerves: Yes CN's II-XII intact bilaterally and Yes Equal, round and reactive pupils present Motor exam (neuro): Other motor observations present (Moves all extremities symmetrically) Extrem: General: Yes normal to inspection, Yes full ROM, No clubbing, No cyanosis and Yes edema Psych: Appearance: well kempt Attitude: cooperative Objective Data Labs CBC & Chem 7: 10/16/20 04:47 10/16/20 04:47 Labs: Laboratory Results - last 24 hr 10/15/20 10/15/20 10/15/20 11:43 12:32 14:57 WBC RBC Hgb Hct MCV MCH MCHC RDW Plt Count MPV Immature Gran % (Auto) Neut % (Auto) Lymph % (Auto) [place] % (Auto) Eos % (Auto) Baso % (Auto) Lymph # (Auto) [place] # (Auto) Eos # (Auto) Baso # (Auto) Abs Immat Gran (auto) Absolute Neuts (auto) Absolute Nucleated RBC Nucleated RBC % (auto) VBG pH VBG pCO2 VBG pO2 VBG HCO3 VBG O2 Saturation VBG Base Excess Sodium 140 Potassium 4.6 Chloride 104 Carbon Dioxide 26 Anion Gap 15 BUN 51 H Creatinine 2.38 H Estim Creat Clear Calc 42.5 Estimated GFR 28 POC Glucose 115 115 Random Glucose 147 H Calcium 8.5 10/15/20 10/15/20 10/16/20 16:31 21:55 04:47 WBC 14.6 H RBC 3.81 L Hgb 12.2 L Hct 38.9 L MCV 102.1 H MCH 32.0 MCHC 31.4 RDW 12.4 Plt Count 273 MPV 9.8 Immature Gran % (Auto) 0.4 Neut % (Auto) 72.6 Lymph % (Auto) 16.2 L [place] % (Auto) 8.2 Eos % (Auto) 2.2 Baso % (Auto) 0.4 Lymph # (Auto) 2.4 [place] # (Auto) 1.2 Eos # (Auto) 0.3 Baso # (Auto) 0.1 Abs Immat Gran (auto) 0.06 H Absolute Neuts (auto) 10.6 H Absolute Nucleated RBC 0.000 Nucleated RBC % (auto) 0.0 VBG pH VBG pCO2 VBG pO2 VBG HCO3 VBG O2 Saturation VBG Base Excess Sodium Potassium Chloride Carbon Dioxide Anion Gap BUN Creatinine Estim Creat Clear Calc Estimated GFR POC Glucose 131 H 107 Random Glucose Calcium 10/16/20 10/16/20 10/16/20 04:47 04:47 06:04 WBC RBC Hgb Hct MCV MCH MCHC RDW Plt Count MPV Immature Gran % (Auto) Neut % (Auto) Lymph % (Auto) [place] % (Auto) Eos % (Auto) Baso % (Auto) Lymph # (Auto) [place] # (Auto) Eos # (Auto) Baso # (Auto) Abs Immat Gran (auto) Absolute Neuts (auto) Absolute Nucleated RBC Nucleated RBC % (auto) VBG pH 7.28 L VBG pCO2 59 VBG pO2 44 VBG HCO3 27 VBG O2 Saturation 75.0 VBG Base Excess -1.0 Sodium 143 Potassium 4.8 Chloride 104 Carbon Dioxide 31 H Anion Gap 13 BUN 42 H Creatinine 1.49 H Estim Creat Clear Calc 67.8 Estimated GFR 47 POC Glucose 95 Random Glucose 100 Calcium 8.5 Microbiology Microbiology Results: Microbiology 10/14/20 00:00 Urine Catheterized - Razo Catheter Urine Culture - Final No growth. 10/13/20 07:11 Blood - Venous Blood Culture - Preliminary No growth after 48 hours. 10/13/20 07:11 Blood - Venous Blood Culture - Preliminary No growth after 48 hours. 10/13/20 Unknown Urine clean catch - Razo Catheter Urine Culture - Final No growth. Assessment & Plan Assessment and plan (1) Acute renal failure: Problem details: Multifactorial MALIHA; creat down to 1.4; uo good 2250 Status: Acute (2) Obstructive uropathy: Problem details: Bilateral stents Status: Acute (3) Bilateral hydronephrosis: Problem details: Bilateral stents Status: Acute (4) Hypertension: Problem details: Add low dose ANTHONY I given low EF: lisinopril 5 mg daily Status: Acute Time Spent With Patient Time: Total time spent is greater than 50% in coordination of care (as documented) at patient's floor/unit and/or counseling patient:
--- NOTE | 2020-10-16 10:02 | HO.PM.IMPN ---
Subjective Subjective Date of Service: 10/16/20 Interval History: improved, less sob Cardiovascular Cardiovascular: Reports no additional cardiovascular complaints Respiratory Respiratory: Reports no additional respiratory complaints Physical Exam Vital Signs: Vital Signs: Last Vital Signs Temp 98.2 F 10/16/20 08:00 Pulse 73 10/16/20 08:00 Resp 16 10/16/20 08:00 BP 151/72 H 10/16/20 08:00 Pulse Ox 97 10/16/20 08:00 Body Mass Index 45.8 General: AO X 3, no acute distress Resp: crackles CVS: S1,S2,RRR GI: soft, non tender, non distended Neuro: motor grossly intact Psych: appropriate affect Objective Data Current Medications Generic Name Dose Route Start Last Admin Trade Name Freq PRN Reason Stop Dose Admin Acetaminophen 650 mg 10/13/20 19:54 10/13/20 19:58 Acetaminophen 325 Mg Tablet PO 650 mg Q6H PRN Administration Pain, Mild (Pain Scale 1-3) Furosemide 40 mg 10/16/20 10:00 Furosemide 40 Mg/4 Ml Vial IVPUSH BID@0900,1800 [facility] Protocol Heparin Sodium (Porcine) 5,000 unit 10/13/20 09:00 10/16/20 00:56 Heparin Sodium,Porcine 5,000 Unit/Ml Vial SUBCUT Not Given Q8H [facility] Insulin Human Lispro 0 unit 10/15/20 16:30 10/16/20 07:41 Insulin Lispro 100 Unit/Ml 3 Ml Vial SUBCUT Not Given QIDACHS [facility] Protocol Labs CBC & Chem 7: 10/16/20 04:47 10/16/20 04:47 Microbiology Microbiology Results: Microbiology 10/14/20 00:00 Urine Catheterized - Sosa Catheter Urine Culture - Final No growth. 10/13/20 07:11 Blood - Venous Blood Culture - Preliminary No growth after 48 hours. 10/13/20 07:11 Blood - Venous Blood Culture - Preliminary No growth after 48 hours. 10/13/20 Unknown Urine clean catch - Sosa Catheter Urine Culture - Final No growth. Assessment and Plan (1) Bilateral hydronephrosis: Problem details: Bilateral stents Status: Acute (2) Obstructive uropathy: Problem details: Bilateral stents Status: Acute (3) Hypertension: Problem details: Add low dose ANTHONY I given low EF: lisinopril 5 mg daily Status: Acute (4) Acute on chronic respiratory failure with hypoxia and hypercapnia: Status: Acute (5) Congestive heart failure: Status: Acute (6) Acute renal failure: Problem details: Multifactorial MALIHA; creat down to 1.4; uo good 2250 Status: Acute Assessment and Plan: 65M presented with sob, hypoxia of 60%, was admitted to ICU with NIPPV, treated for acute systolic chf (EF found to be about 20%), patient was oliguric despite diuresis, found to have bilateral hydronephrosis, underwent bilateral stenting, followed by successful diuresis and improvement in MALIHA. patient was deescalated to 1L NC and downgraded from ICU acute hypoxic and hypercapneic respiratory failure due to acute systolic chf and obesity, started back on lasix, wean o2, cardio following, will need ischemic work up at some point holding imdur and hydralazine for now as patient had significant hypotensive episode after imdur, will defer neurohormonal therapy to cardiology MALIHA obstructive s/p bilateral ureteral stents monitor
[2020-10-16] MEDS: Furosemide 40 MG/4 ML VIAL IVPUSH ×2 (10:43→17:07)
[2020-10-16] MEDS: Acetaminophen 325 MG TABLET 650 MG PO (11:07)
[2020-10-16 11:20] LABS: Glucose, Whole Blood 144 mg/dL (60-115)
--- NOTE | 2020-10-16 16:40 | PM.PNCARD ---
Subjective Subjective Date of Service: 10/16/20 Principal diagnosis: CHF, PNA, MALIHA Interval history: Feeling tired. No dyspnea or CP. Review of Systems Constitutional: Reports weakness Eyes: Denies loss of vision Musculoskeletal: Denies numbness Denies loss of vision, Denies numbness and Reports weakness Physical Exam Vital Signs: Last Vital Signs Temp 99.7 F 10/16/20 16:00 Pulse 94 10/16/20 16:00 Resp 22 H 10/16/20 16:00 BP 123/79 10/16/20 16:00 Pulse Ox 92 10/16/20 16:00 Body Mass Index 45.8 GENERAL APPEARANCE: in no acute distress, well developed, well nourished. HEENT: unremarkable. HEAD: normocephalic, atraumatic. NECK/THYROID: no carotid bruit, Mild JVD. SKIN: no suspicious lesions, warm and dry. HEART: no murmurs, regular rate and rhythm, S1, S2 normal. LUNGS: clear to auscultation bilaterally. ABDOMEN: normal, bowel sounds present, soft, nontender, nondistended. EXTREMITIES: no clubbing, cyanosis. Mild peripheral edema. PERIPHERAL PULSES: equal. NEUROLOGIC: nonfocal, alert and oriented. PSYCH: Depressed. Results Labs and Meds Result diagrams: 10/16/20 04:47 10/16/20 04:47 Lab results: Laboratory Results - last 24 hr 10/15/20 10/16/20 10/16/20 21:55 04:47 04:47 WBC 14.6 H RBC 3.81 L Hgb 12.2 L Hct 38.9 L MCV 102.1 H MCH 32.0 MCHC 31.4 RDW 12.4 Plt Count 273 MPV 9.8 Immature Gran % (Auto) 0.4 Neut % (Auto) 72.6 Lymph % (Auto) 16.2 L [place] % (Auto) 8.2 Eos % (Auto) 2.2 Baso % (Auto) 0.4 Lymph # (Auto) 2.4 [place] # (Auto) 1.2 Eos # (Auto) 0.3 Baso # (Auto) 0.1 Abs Immat Gran (auto) 0.06 H Absolute Neuts (auto) 10.6 H Absolute Nucleated RBC 0.000 Nucleated RBC % (auto) 0.0 VBG pH VBG pCO2 VBG pO2 VBG HCO3 VBG O2 Saturation VBG Base Excess Sodium 143 Potassium 4.8 Chloride 104 Carbon Dioxide 31 H Anion Gap 13 BUN 42 H Creatinine 1.49 H Estim Creat Clear Calc 67.8 Estimated GFR 47 POC Glucose 107 Random Glucose 100 Calcium 8.5 10/16/20 10/16/20 10/16/20 04:47 06:04 11:15 WBC RBC Hgb Hct MCV MCH MCHC RDW Plt Count MPV Immature Gran % (Auto) Neut % (Auto) Lymph % (Auto) [place] % (Auto) Eos % (Auto) Baso % (Auto) Lymph # (Auto) [place] # (Auto) Eos # (Auto) Baso # (Auto) Abs Immat Gran (auto) Absolute Neuts (auto) Absolute Nucleated RBC Nucleated RBC % (auto) VBG pH 7.28 L VBG pCO2 59 VBG pO2 44 VBG HCO3 27 VBG O2 Saturation 75.0 VBG Base Excess -1.0 Sodium Potassium Chloride Carbon Dioxide Anion Gap BUN Creatinine Estim Creat Clear Calc Estimated GFR POC Glucose 95 144 H Random Glucose Calcium Progress Note: A&P Assessment and plan (1) Congestive heart failure: Status: Acute (2) Obstructive uropathy: Problem details: Bilateral stents Status: Acute (3) Community acquired pneumonia: Status: Acute Assessment and Plan: 65-year-old gentleman with background of alcoholism who is presenting with shortness of breath ongoing for 1 month. His clinical presentation was concerning for heart failure. He was also treated for pneumonia. Echocardiography has shown EF of 20 25% with multiple regional wall motion abnormalities and normal right ventricular function. His EKG showing left bundle-branch block. Bilateral hydronephrosis due to kidney stones which is improving after stenting. Kidney function is improving. Agree with resuming the diuretics. He did not tolerate nitroglycerin yesterday and isosorbide mononitrate was stopped. Try hydralazine 10 mg t.i.d. and if kidney function is stable tomorrow probably we should stop hydralazine and just put him on lisinopril 2.5 mg once a day. No beta landry for now. He will need ischemic evaluation eventually. I want his creatinine to stay stable before we do that. Thank you for allowing me to participate in the care of your patient. Please feel free to contact me if you have any questions. Fall Risk Details Current Medications: Current Medications Generic Name Dose Route Start Last Admin Trade Name Jan PRN Reason Stop Dose Admin Acetaminophen 650 mg 10/13/20 19:54 10/16/20 11:07 Acetaminophen 325 Mg Tablet PO 650 mg Q6H PRN Administration Pain, Mild (Pain Scale 1-3) Furosemide 40 mg 10/16/20 10:00 10/16/20 10:43 Furosemide 40 Mg/4 Ml Vial IVPUSH 40 mg BID@0900,1800 [facility] Administration Protocol Hydralazine HCl 10 mg 10/16/20 15:00 Hydralazine Hcl 10 Mg Tablet PO TID [facility] Protocol Insulin Human Lispro 0 unit 10/15/20 16:30 10/16/20 11:15 Insulin Lispro 100 Unit/Ml 3 Ml Vial SUBCUT Not Given QIDACHS [facility] Protocol Time Spent With Patient Time: Total time spent is greater than 50% in coordination of care (as documented) at patient's floor/unit and/or counseling patient: Time with patient: less than 15 minutes
[2020-10-16] MEDS: hydrALAZINE HCl 10 MG TABLET PO ×2 (17:07→20:04)
[2020-10-16 17:24] LABS: Glucose, Whole Blood 116 mg/dL (60-115)
[2020-10-16 19:49] LABS: Glucose, Whole Blood 131 mg/dL (60-115)
[2020-10-16 21:29] LABS: Glucose, Whole Blood 105 mg/dL (60-115)
[2020-10-17] VITALS (7 sets, daily range): BP systolic 100–159; BP diastolic 54–87; PULSE 69–92; RESP 18–20; TEMP 36.7–36.9; O2SAT 93–98
[2020-10-17 06:29] LABS: Basophils Absolute Auto 0.1 X10*3/uL (0.0-0.2); Basophils Percent Auto 0.6 % (0-2); Eosinophils Absolute Auto 0.6 X10*3/uL (0.0-0.4); Eosinophils Percent Auto 4.6 % (0-4); Hematocrit 40.9 % (42-52); Hemoglobin 13.1 g/dl (14.0-18.0); Imm Gran Abs Auto 0.04 X10*3/uL (0.00-0.03); Imm Gran Pct Auto 0.3 % (0.0-0.4); Lymphocytes Absolute Auto 2.2 X10*3/uL (1.2-4.9); Lymphocytes Percent Auto 15.5 % (20-40); MANUAL DIFF FLAG NO; Mean Corpuscular Hemoglobin 32.1 pg (27.0-33.0); Mean Corpuscular Volume 100.2 fL (80-98); Mean Platelet Volume 10.1 fL (9.4-12.4); Monocytes Absolute Auto 1.1 X10*3/uL (0.1-1.2); Monocytes Percent Auto 7.8 % (2-11); Neutrophils Percent Auto 71.2 % (45-73); Platelet Count 303 X10*3/uL (160-400); Red Blood Count 4.08 X10*6/uL (4.60-5.80); Red Cell Distribution Width 12.2 % (11.0-16.0)
[2020-10-17 06:56] LABS: Anion Gap 15 (12-20); Blood Urea Nitrogen 33 mg/dL (9-16); Calcium 8.7 mg/dL (8.4-10.2); Carbon Dioxide 32 mmol/L (22-29); Chloride 99 mmol/L (96-108); Creatinine Clr Calc Pharmacy 90.6; Estimated Glomerular Filt Rate > 60; Glucose Fasting 99 mg/dL (60-99); Magnesium 1.9 mg/dL (1.6-2.6); Potassium 3.9 mmol/l (3.3-5.1); Sodium 142 mmol/L (135-145)
[2020-10-17 07:24] LABS: Glucose, Whole Blood 120 mg/dL (60-115)
[2020-10-17] MEDS: Acetaminophen 325 MG TABLET 650 MG PO ×2 (08:25→16:09)
[2020-10-17] MEDS: Furosemide 40 MG/4 ML VIAL IVPUSH (08:25)
[2020-10-17] MEDS: hydrALAZINE HCl 10 MG TABLET PO (08:25)
--- NOTE | 2020-10-17 09:28 | P.PNCA_ITS ---
Subjective Subjective Date of Service: 10/17/20 Principal diagnosis: CHF, PNA, MALIHA Interval history: Patient feeling a lot better. Breathing is improved. Diuresed total of about 4.7 L. Denies shortness of breath. Has some numbness in his precordial area as well as some pain in his right leg. Monitor shows sinus rhythm with PVCs. Review of Systems Constitutional: Denies fatigue and Denies fever(s) Cardiovascular: Reports no additional cardiovascular complaints Respiratory: Reports no additional respiratory complaints Reports system reviewed and no additional complaints, except as documented Hematologic/Lymphatic: Reports no additional hematologic/lymphatic complaints Physical Exam Vital Signs: Last Vital Signs Temp 98.0 F 10/17/20 07:31 Pulse 84 10/17/20 08:25 Resp 18 10/17/20 07:31 BP 159/81 H 10/17/20 08:25 Pulse Ox 96 10/17/20 07:31 Body Mass Index 45.8 Const General: no acute distress, alert and awake Nutritional Appearance: obese morbidly obese Orientation/consciousness: patient oriented x3 [facility] Head: Yes normocephalic and Yes atraumatic Neck Neck: Yes trachea midline, Yes supple and Yes no JVD Chest Chest palpation & inspection: normal inspection of the chest Resp Effort & Inspection: normal respiratory effort Auscultation: clear to auscultation bilaterally Cardio Jugular venous distension: no JVD Palpation: abnormal PMI displaced PMI Rate: regular rate Rhythm: regular rhythm and abnormal rhythm with ectopic beats Heart sounds: S1 normal heart sound present and S2 normal heart sound present Skin General skin exam: no rashes or lesions noted Neuro General: patient oriented x3 and no focal motor deficits Extrem General: Yes no clubbing, cyanosis or edema Results Labs and Meds Result diagrams: 10/17/20 05:18 10/17/20 05:18 Lab results: Laboratory Results - last 24 hr 10/16/20 10/16/20 10/16/20 11:15 17:02 19:38 WBC RBC Hgb Hct MCV MCH MCHC RDW Plt Count MPV Immature Gran % (Auto) Neut % (Auto) Lymph % (Auto) [place] % (Auto) Eos % (Auto) Baso % (Auto) Lymph # (Auto) [place] # (Auto) Eos # (Auto) Baso # (Auto) Abs Immat Gran (auto) Absolute Neuts (auto) Absolute Nucleated RBC Nucleated RBC % (auto) Sodium Potassium Chloride Carbon Dioxide Anion Gap BUN Creatinine Estim Creat Clear Calc Estimated GFR POC Glucose 144 H 116 H 131 H Fasting Glucose Calcium Magnesium 10/16/20 10/17/20 10/17/20 21:22 05:18 05:18 WBC 14.0 H RBC 4.08 L Hgb 13.1 L Hct 40.9 L MCV 100.2 H MCH 32.1 MCHC 32.0 RDW 12.2 Plt Count 303 MPV 10.1 Immature Gran % (Auto) 0.3 Neut % (Auto) 71.2 Lymph % (Auto) 15.5 L [place] % (Auto) 7.8 Eos % (Auto) 4.6 H Baso % (Auto) 0.6 Lymph # (Auto) 2.2 [place] # (Auto) 1.1 Eos # (Auto) 0.6 H Baso # (Auto) 0.1 Abs Immat Gran (auto) 0.04 H Absolute Neuts (auto) 10.0 H Absolute Nucleated RBC 0.000 Nucleated RBC % (auto) 0.0 Sodium 142 Potassium 3.9 Chloride 99 Carbon Dioxide 32 H Anion Gap 15 BUN 33 H Creatinine 1.10 Estim Creat Clear Calc 90.6 Estimated GFR > 60 POC Glucose 105 Fasting Glucose 99 Calcium 8.7 Magnesium 1.9 10/17/20 07:20 WBC RBC Hgb Hct MCV MCH MCHC RDW Plt Count MPV Immature Gran % (Auto) Neut % (Auto) Lymph % (Auto) [place] % (Auto) Eos % (Auto) Baso % (Auto) Lymph # (Auto) [place] # (Auto) Eos # (Auto) Baso # (Auto) Abs Immat Gran (auto) Absolute Neuts (auto) Absolute Nucleated RBC Nucleated RBC % (auto) Sodium Potassium Chloride Carbon Dioxide Anion Gap BUN Creatinine Estim Creat Clear Calc Estimated GFR POC Glucose 120 H Fasting Glucose Calcium Magnesium Progress Note: A&P Assessment and plan (1) Congestive heart failure: Status: Acute Assessment and Plan: Congestive heart failure, patient is doing a lot better since admission. His fluid status appears to be much improved. Switch to p.o. Lasix 40 mg daily. Heart failure education needs to be provided. Heart failure related to systolic dysfunction, unclear cause at this point in time. See below. Plan for discharge with follow-up PT consult to evaluate ambulation. Plan for potential discharge tomorrow. Neurohormonal modulation as below. Follow-up BMP and BNP tomorrow. (2) Left bundle branch block: Status: Acute Assessment and Plan: Left bundle-branch block could be related to cardiomyopathy. If remains with persistent severe LV systolic dysfunction eventually with left bundle-branch block will require cardiac synchronization therapy. (3) Cardiomyopathy: Status: Acute Assessment and Plan: Cardiomyopathy, new onset with LVEF of 20-25% with reported multiple wall motion abnormality on echocardiogram. It is possible that this could be ischemic in nature. Also could be alcoholic with wall motion abnormalities secondary left bundle-branch block. Will require ischemic evaluation which will be pursued as an outpatient. Given his that renal function is improved will start him on neurohormonal modulation with Entresto. Will also add carvedilol to his regimen for his cardiomyopathy, currently euvolemic status and PVCs and nonsustained VT. Continue aggressive neurohormonal modulation will be up titrated as outpatient. Importance of medical therapy was discussed with him. Complete alcohol abstinence was discussed. He is interested in completely pursuing treatment plan. Fall Risk Details Current Medications: Current Medications Generic Name Dose Route Start Last Admin Trade Name Freq PRN Reason Stop Dose Admin Acetaminophen 650 mg 10/13/20 19:54 10/17/20 08:25 Acetaminophen 325 Mg Tablet PO 650 mg Q6H PRN Administration Pain, Mild (Pain Scale 1-3) Carvedilol 3.125 mg 10/17/20 09:30 Carvedilol 3.125 Mg Tablet PO BID JAYANT Protocol Furosemide 40 mg 10/17/20 09:30 Furosemide 40 Mg Tablet PO DAILY JAYANT Protocol Insulin Human Lispro 0 unit 10/15/20 16:30 10/17/20 07:29 Insulin Lispro 100 Unit/Ml 3 Ml Vial SUBCUT Not Given QIDACHS JAYANT Protocol Sacubitril/Valsartan 1 tab 10/17/20 09:25 Sacubitril/Valsartan 1 Tab Tablet PO BID JAYANT Protocol Time Spent With Patient Time: Total time spent is greater than 50% in coordination of care (as documented) at patient's floor/unit and/or counseling patient: Time with patient: 25 - 35 minutes
[2020-10-17] MEDS: carvediloL 3.125 MG TABLET PO (09:47)
[2020-10-17] MEDS: Sacubitril/Valsartan 24/26 1 TAB TABLET PO (09:47)
--- NOTE | 2020-10-17 10:53 | MHC.CLN ---
F/U PT DIET ADVANCED TO CARDIAC, LOW K+, LOW PHOS-APPROPRIATE RECOMMEND 1600 CALORIES PER DAY TO PROMOTE SLOW WT LOSS MONITOR PO INTAKE FOLLOWING
[2020-10-17 11:14] LABS: Glucose, Whole Blood 171 mg/dL (60-115)
[2020-10-17 13:12] LABS: Anti Glomerular Basement Memb <1.0 AI; Myeloperoxidase Antibody <1.0 AI; Proteinase 3 PR3 Antibodies <1.0 AI
--- NOTE | 2020-10-17 13:33 | P.PNIM_ITS ---
Subjective Subjective Date of Service: 10/17/20 Interval History: the patient was seen and evaluated this morning Laying in bed, feels comfortable Complains of lightheadedness and dizziness after receiving medications, Denies any fever, chills or shortness of breath or chest pain No reported other overnight events. Systemic review: No fever, chills or weakness No chest pain, palpitation No shortness of breath or coughing No abdominal pain, nausea or vomiting No urinary symptoms No any rash or wounds Physical Exam Vital Signs: Vital Signs: Last Vital Signs Temp 98.1 F 10/17/20 11:56 Pulse 92 10/17/20 11:56 Resp 18 10/17/20 11:56 BP 122/76 10/17/20 11:56 Pulse Ox 93 10/17/20 11:56 Body Mass Index 45.8 Constitutional : Alert, oriented, not in distress Neck : Normal inspection, Supple Cardiovascular : RRR, S1 S2, trace bilateral lower extremity edema Respiratory : Good bilateral air entry, no crackles, wheezes or rhonchi Gastrointestinal: soft, lax, Normal bowel sounds, Non tender Skin : Warm/Dry, No rash, Sosa catheter in place Neurological : Alert & oriented x3, No focal deficit Objective Data Current Medications Generic Name Dose Route Start Last Admin Trade Name Freq PRN Reason Stop Dose Admin Acetaminophen 650 mg 10/13/20 19:54 10/17/20 08:25 Acetaminophen 325 Mg Tablet PO 650 mg Q6H PRN Administration Pain, Mild (Pain Scale 1-3) Carvedilol 3.125 mg 10/17/20 09:30 10/17/20 09:47 Carvedilol 3.125 Mg Tablet PO 3.125 mg BID [facility] Administration Protocol Furosemide 40 mg 10/17/20 09:30 10/17/20 09:48 Furosemide 40 Mg Tablet PO Not Given DAILY [facility] Protocol Insulin Human Lispro 0 unit 10/15/20 16:30 10/17/20 11:26 Insulin Lispro 100 Unit/Ml 3 Ml Vial SUBCUT Not Given QIDACHS [facility] Protocol Sacubitril/Valsartan 1 tab 10/17/20 09:25 10/17/20 09:47 Sacubitril/Valsartan 24/ 1 Tab Tablet PO 1 tab BID JAYANT Administration Protocol Labs CBC & Chem 7: 10/17/20 05:18 10/17/20 05:18 Microbiology Microbiology Results: Microbiology 10/14/20 00:00 Urine Catheterized - Sosa Catheter Urine Culture - Final No growth. 10/13/20 07:11 Blood - Venous Blood Culture - Preliminary No growth after 48 hours. 10/13/20 07:11 Blood - Venous Blood Culture - Preliminary No growth after 48 hours. 10/13/20 Unknown Urine clean catch - Sosa Catheter Urine Culture - Final No growth. Assessment and Plan (1) Bilateral hydronephrosis: Status: Acute (2) Obstructive uropathy: Status: Acute (3) Hypertension: Status: Acute (4) Acute on chronic respiratory failure with hypoxia and hypercapnia: Status: Acute (5) Congestive heart failure: Status: Acute (6) Acute renal failure: Status: Acute Assessment and Plan: 65M presented with sob, hypoxia of 60%, was admitted to ICU with NIPPV, treated for acute systolic chf (EF found to be about 20%), patient was oliguric despite diuresis, found to have bilateral hydronephrosis, underwent bilateral stenting, followed by successful diuresis and improvement in MALIHA. patient was deescalated to 1L NC and downgraded from ICU acute hypoxic and hypercapneic respiratory failure due to acute systolic chf and obesity, wean o2 down cardio input appreciated, start neurohormonal medication today will need ischemic work up at some point Change to p.o. Lasix today holding imdur and hydralazine Start carvedilol and Entresto MALIHA obstructive s/p bilateral ureteral stents To DC Sosa catheter today next Lyme can to follow-up with urology as outpatient in 2 weeks Leukocytosis Trending down continue to monitor DVT PPX The SCDs
--- NOTE | 2020-10-17 15:11 | MHC.CM.PN ---
per rounds this morning anticapted dc is for 10/18 dc plan [facility] home no services
--- NOTE | 2020-10-17 15:26 | PM.PNNEP ---
Subjective Subjective Date of Service: 10/17/20 Principal diagnosis: CHF, PNA, MALIHA Interval history: Seen and edxamiend.Events noted Physical Exam Vital Signs: Vital Signs: Last Vital Signs Temp 98.5 F 10/17/20 15:12 Pulse 72 10/17/20 15:12 Resp 19 10/17/20 15:12 BP 133/57 L 10/17/20 15:12 Pulse Ox 97 10/17/20 15:12 Body Mass Index 45.8 Const: General: cooperative, healthy appearing, comfortable, no acute distress, alert, awake, in distress moderate and respiratory, ill appearing and lethargic; No acute distress Nutritional Appearance: average body habitus and obese Orientation/consciousness: oriented to person, oriented to place, oriented to time, patient oriented x3 and lethargic Limitations: other limitations (Limited secondary to respiratory distress) HENMT: Head: Yes normal to inspection, Yes normocephalic and Yes atraumatic Ears: external ears normal General nose exam: Normal external nose present Face and sinus: Yes normal facial exam Mouth: Normal oral and palatal mucosa present Throat: Yes posterior oropharynx normal Eyes: General: appearance normal, both eyes and all related structures Periorbital: periorbital findings normal Eyelids: Yes eyelids normal Conjunctivae: conjunctivae normal Sclerae: sclerae normal Corneas: corneas normal Pupils: Equal, round and reactive pupils present EOM: EOMs intact bilaterally Direct Ophthalmoscopy: normal light reflex Neck: Neck: Yes normal visual inspection, Yes full ROM, Yes no lymphadenopathy, Yes trachea midline and Yes supple Lymphatic: no lymphadenopathy noted Chest: Chest palpation & inspection: normal inspection of the chest and normal palpation of entire chest wall Resp: Effort & Inspection: normal respiratory effort, labored and no respiratory distress Auscultation: clear to auscultation bilaterally, crackles (Bibasilar), wheezes scattered wheezes and diminished lung sounds diffuse Cardio: Rate: regular rate and tachycardic Rhythm: regular rhythm Heart sounds: S1 normal heart sound present, S2 normal heart sound present, no gallops, no murmurs and no rubs GI: Inspection: Yes normal to inspection and Yes other (Obese) Palpation (GI): Soft to palpation, nontender, no guarding, not rigid, No hepatosplenomegaly present and Other GI palpation findings present ( Nontender) Percussion: Yes normal to percussion Auscultation: normal bowel sounds : Other: razo cath General: Yes no CVA tenderness Back/Spine/Pelvis: Back: no CVA tenderness Cervical Spine: normal cervical lordosis Thoracic/Lumbar Spine: thoracic and lumbar spine normal to inspection Skin: Lesions: no lesions Rashes: no rashes Wounds: no wounds Hair: normal Neuro: General: oriented to person, oriented to place, oriented to time, patient oriented x3 and moves all extremities Cranial nerves: Yes CN's II-XII intact bilaterally and Yes Equal, round and reactive pupils present Motor exam (neuro): Other motor observations present (Moves all extremities symmetrically) Extrem: General: Yes normal to inspection, Yes full ROM, No clubbing, No cyanosis and Yes edema Psych: Appearance: well kempt Attitude: cooperative Objective Data Labs CBC & Chem 7: 10/17/20 05:18 10/17/20 05:18 Labs: Laboratory Results - last 24 hr 10/14/20 10/16/20 10/16/20 11:51 17:02 19:38 WBC RBC Hgb Hct MCV MCH MCHC RDW Plt Count MPV Immature Gran % (Auto) Neut % (Auto) Lymph % (Auto) [place] % (Auto) Eos % (Auto) Baso % (Auto) Lymph # (Auto) [place] # (Auto) Eos # (Auto) Baso # (Auto) Abs Immat Gran (auto) Absolute Neuts (auto) Absolute Nucleated RBC Nucleated RBC % (auto) Sodium Potassium Chloride Carbon Dioxide Anion Gap BUN Creatinine Estim Creat Clear Calc Estimated GFR POC Glucose 116 H 131 H Fasting Glucose Calcium Magnesium Proteinase 3 (PR3) Ab <1.0 Myeloperoxidase Ab <1.0 Glomerular Base Memb Ab <1.0 10/16/20 10/17/20 10/17/20 21:22 05:18 05:18 WBC 14.0 H RBC 4.08 L Hgb 13.1 L Hct 40.9 L MCV 100.2 H MCH 32.1 MCHC 32.0 RDW 12.2 Plt Count 303 MPV 10.1 Immature Gran % (Auto) 0.3 Neut % (Auto) 71.2 Lymph % (Auto) 15.5 L [place] % (Auto) 7.8 Eos % (Auto) 4.6 H Baso % (Auto) 0.6 Lymph # (Auto) 2.2 [place] # (Auto) 1.1 Eos # (Auto) 0.6 H Baso # (Auto) 0.1 Abs Immat Gran (auto) 0.04 H Absolute Neuts (auto) 10.0 H Absolute Nucleated RBC 0.000 Nucleated RBC % (auto) 0.0 Sodium 142 Potassium 3.9 Chloride 99 Carbon Dioxide 32 H Anion Gap 15 BUN 33 H Creatinine 1.10 Estim Creat Clear Calc 90.6 Estimated GFR > 60 POC Glucose 105 Fasting Glucose 99 Calcium 8.7 Magnesium 1.9 Proteinase 3 (PR3) Ab Myeloperoxidase Ab Glomerular Base Memb Ab 10/17/20 10/17/20 07:20 11:00 WBC RBC Hgb Hct MCV MCH MCHC RDW Plt Count MPV Immature Gran % (Auto) Neut % (Auto) Lymph % (Auto) [place] % (Auto) Eos % (Auto) Baso % (Auto) Lymph # (Auto) [place] # (Auto) Eos # (Auto) Baso # (Auto) Abs Immat Gran (auto) Absolute Neuts (auto) Absolute Nucleated RBC Nucleated RBC % (auto) Sodium Potassium Chloride Carbon Dioxide Anion Gap BUN Creatinine Estim Creat Clear Calc Estimated GFR POC Glucose 120 H 171 H Fasting Glucose Calcium Magnesium Proteinase 3 (PR3) Ab Myeloperoxidase Ab Glomerular Base Memb Ab Microbiology Microbiology Results: Microbiology 10/14/20 00:00 Urine Catheterized - Razo Catheter Urine Culture - Final No growth. 10/13/20 07:11 Blood - Venous Blood Culture - Preliminary No growth after 48 hours. 10/13/20 07:11 Blood - Venous Blood Culture - Preliminary No growth after 48 hours. 10/13/20 Unknown Urine clean catch - Razo Catheter Urine Culture - Final No growth. Assessment & Plan Assessment and plan (1) Acute renal failure: Status: Acute (2) Obstructive uropathy: Status: Acute (3) Bilateral hydronephrosis: Status: Acute (4) Hypertension: Status: Acute Assessment and Plan: 1. MALIHA: resoved with parul stents 2. Nil Obs uropathjy..has f/u with Urol Cont to track UOP/renalk func; urol f/u re stents etc... Time Spent With Patient Time: Total time spent is greater than 50% in coordination of care (as documented) at patient's floor/unit and/or counseling patient:
--- NOTE | 2020-10-17 16:24 | MHC.CM.PN ---
spoke wikth pts re pts recommendations referrals made for str
[2020-10-18] VITALS: PULSE 60; RESP 18; TEMP 35.6; O2SAT 98
[2020-10-18 00:54] VITALS: BP 110/54
--- NOTE | 2020-10-18 01:40 | PC.NURSE ---
Pt started on Entresto and Coreg, pt reports that he felt dizzy, loopy, and confused upon administration of these medications. Pt states he didn't know where he was after taking these meds. Pt unsure as to which med caused the change in his mentation. Both medications were due to be given again at 21:00 tonight. Pt refused both meds, made aware. Will pass on to day team. Will continue to monitor mental status and vital signs.
[2020-10-18 03:22] VITALS: BP 122/81; PULSE 68; RESP 17; TEMP 36.1; O2SAT 96
[2020-10-18 06:50] LABS: Hematocrit 42.9 % (42-52); Hemoglobin 13.9 g/dl (14.0-18.0); Mean Corpuscular HGB Conc 32.4 g/dl (31.0-36.0); Mean Corpuscular Volume 98.8 fL (80-98); Mean Platelet Volume 11.4 fL (9.4-12.4); Platelet Count 145 X10*3/uL (160-400); Red Blood Count 4.34 X10*6/uL (4.60-5.80); Red Cell Distribution Width 12.1 % (11.0-16.0); White Blood Count 13.9 X10*3/uL (4.8-10.8)
[2020-10-18 07:23] LABS: Anion Gap 17 (12-20); Blood Urea Nitrogen 40 mg/dL (9-16); Calcium 8.5 mg/dL (8.4-10.2); Carbon Dioxide 28 mmol/L (22-29); Chloride 98 mmol/L (96-108); Estimated Glomerular Filt Rate > 60; Glucose Random 102 mg/dL (60-115); Sodium 139 mmol/L (135-145)
[2020-10-18 07:25] LABS: B Type Natriuretic Peptide 48 pg/mL (<100)
[2020-10-18 07:33] VITALS: BP 118/42; PULSE 75; RESP 16; TEMP 36.8; O2SAT 96
[2020-10-18] MEDS: Furosemide 40 MG TABLET PO (07:51)
[2020-10-18 09:35] VITALS: BP 144/74; PULSE 83
[2020-10-18] MEDS: carvediloL 3.125 MG TABLET PO (09:35)
--- NOTE | 2020-10-18 09:47 | MHC.CM.PN ---
per pt is walking okay and wants to go home with vna he is being dcd today
--- NOTE | 2020-10-18 10:02 | PM.PNCARD ---
Subjective Subjective Date of Service: 10/18/20 Principal diagnosis: CHF, left bundle-branch block, cardiomyopathy Interval history: Diogo developed some dizziness yesterday along with low blood pressure after being started on carvedilol and Entresto. This had been withheld. His blood pressure is stable. Denies any lightheadedness this morning. No significant arrhythmias noted. He walked the hallways without any support and shortness of breath. He feels a lot better. Review of Systems Cardiovascular: Reports lightheadedness and Denies palpitations Respiratory: Reports no additional respiratory complaints Musculoskeletal: Denies numbness Reports system reviewed and no additional complaints, except as documented and Denies numbness Endocrine: Reports no additional endocrine complaints and Denies palpitations Physical Exam Vital Signs: Last Vital Signs Temp 98.2 F 10/18/20 07:33 Pulse 83 10/18/20 09:35 Resp 16 10/18/20 07:33 BP 144/74 H 10/18/20 09:35 Pulse Ox 96 10/18/20 07:33 Body Mass Index 45.8 Const General: no acute distress, alert and awake Nutritional Appearance: obese morbidly obese Orientation/consciousness: patient oriented x3 Neck Neck: Yes trachea midline, Yes supple and Yes no JVD Resp Effort & Inspection: normal respiratory effort Auscultation: clear to auscultation bilaterally Cardio Rate: regular rate Rhythm: regular rhythm Heart sounds: S1 normal heart sound present and S2 normal heart sound present Neuro General: patient oriented x3 and no focal motor deficits Extrem General: Yes no clubbing, cyanosis or edema Results Labs and Meds Result diagrams: 10/18/20 05:49 10/18/20 05:49 Lab results: Laboratory Results - last 24 hr 10/14/20 10/17/20 10/18/20 11:51 11:00 05:49 WBC 13.9 H RBC 4.34 L Hgb 13.9 L Hct 42.9 MCV 98.8 H MCH 32.0 MCHC 32.4 RDW 12.1 Plt Count 145 L D MPV 11.4 Absolute Nucleated RBC 0.000 Nucleated RBC % (auto) 0.0 Sodium Potassium Chloride Carbon Dioxide Anion Gap BUN Creatinine Estim Creat Clear Calc Estimated GFR POC Glucose 171 H Random Glucose Calcium B-Natriuretic Peptide Proteinase 3 (PR3) Ab <1.0 Myeloperoxidase Ab <1.0 Glomerular Base Memb Ab <1.0 10/18/20 10/18/20 05:49 05:49 WBC RBC Hgb Hct MCV MCH MCHC RDW Plt Count MPV Absolute Nucleated RBC Nucleated RBC % (auto) Sodium 139 Potassium 4.0 Chloride 98 Carbon Dioxide 28 Anion Gap 17 BUN 40 H Creatinine 1.12 Estim Creat Clear Calc 89.0 Estimated GFR > 60 POC Glucose Random Glucose 102 Calcium 8.5 B-Natriuretic Peptide 48 Proteinase 3 (PR3) Ab Myeloperoxidase Ab Glomerular Base Memb Ab Progress Note: A&P Assessment and plan (1) Cardiomyopathy: Status: Acute Assessment and Plan: New onset cardiomyopathy of unclear etiology. Ischemic etiology is likely, will pursue outpatient ischemic workup. Also likely that this could be bundle-branch block related or related to alcohol. Complete abstinence from alcohol was discussed. He did not tolerate neurohormonal modulation with Entresto. Will hold Entresto and add as an outpatient. Will start him on Coreg 3.125 mg b.i.d.. Importance of neurohormonal modulation and compliance with medication was discussed. Will need outpatient sleep study as well. (2) Congestive heart failure: Status: Acute Assessment and Plan: Congestive heart failure with much improved symptoms since hospitalization. Continue p.o. Lasix 40 mg daily. Heart failure management was discussed. Daily weight monitoring and avoidance of salt loading was discussed. Continue neurohormonal modulation as above. Heart failure education should be provided. (3) Left bundle branch block: Status: Acute Assessment and Plan: Left bundle-branch block, new. No interventions required at current time. However if he remains with persistent severe LV systolic dysfunction require cardiac resynchronization therapy. Will follow up in the clinic in 1 weeks time. Patient is ready for discharge today. Fall Risk Details Current Medications: Current Medications Generic Name Dose Route Start Last Admin Trade Name Freq PRN Reason Stop Dose Admin Acetaminophen 650 mg 10/13/20 19:54 10/17/20 16:09 Acetaminophen 325 Mg Tablet PO 650 mg Q6H PRN Administration Pain, Mild (Pain Scale 1-3) Carvedilol 3.125 mg 10/17/20 09:30 10/18/20 09:35 Carvedilol 3.125 Mg Tablet PO 3.125 mg BID JAYANT Administration Protocol Furosemide 40 mg 10/17/20 09:30 10/18/20 07:51 Furosemide 40 Mg Tablet PO 40 mg DAILY JAYANT Administration Protocol Sacubitril/Valsartan 1 tab 10/17/20 09:25 10/18/20 07:53 Sacubitril/Valsartan 1 Tab Tablet PO Not Given BID JAYANT Protocol Time Spent With Patient Time: Total time spent is greater than 50% in coordination of care (as documented) at patient's floor/unit and/or counseling patient: Time with patient: 25 - 35 minutes
--- NOTE | 2020-10-18 10:26 | P.PNNP_ITS ---
Subjective Subjective Date of Service: 10/18/20 Principal diagnosis: CHF, left bundle-branch block, cardiomyopathy Interval history: Seen and edxamiend.Events noted BUN slt incr but SCR stable Physical Exam Vital Signs: Vital Signs: Last Vital Signs Temp 98.2 F 10/18/20 07:33 Pulse 83 10/18/20 09:35 Resp 16 10/18/20 07:33 BP 144/74 H 10/18/20 09:35 Pulse Ox 96 10/18/20 07:33 Body Mass Index 45.8 Const: General: cooperative, healthy appearing, comfortable, no acute distress, alert, awake, in distress moderate and respiratory, ill appearing and lethargic; No acute distress Nutritional Appearance: average body habitus and obese Orientation/consciousness: oriented to person, oriented to place, oriented to time, patient oriented x3 and lethargic Limitations: other limitations (Limited secondary to respiratory distress) HENMT: Head: Yes normal to inspection, Yes normocephalic and Yes atraumatic Ears: external ears normal General nose exam: Normal external nose present Face and sinus: Yes normal facial exam Mouth: Normal oral and palatal mucosa present Throat: Yes posterior oropharynx normal Eyes: General: appearance normal, both eyes and all related structures Periorbital: periorbital findings normal Eyelids: Yes eyelids normal Conjunctivae: conjunctivae normal Sclerae: sclerae normal Corneas: corneas normal Pupils: Equal, round and reactive pupils present EOM: EOMs intact bilaterally Direct Ophthalmoscopy: normal light reflex Neck: Neck: Yes normal visual inspection, Yes full ROM, Yes no lymph adenopathy, Yes trachea midline and Yes supple Lymphatic: no lymphadenopathy noted Chest: Chest palpation & inspection: normal inspection of the chest and normal palpation of entire chest wall Resp: Effort & Inspection: normal respiratory effort, labored and no respiratory distress Auscultation: clear to auscultation bilaterally, crackles (Bibasilar), wheezes scattered wheezes and diminished lung sounds diffuse Cardio: Rate: regular rate and tachycardic Rhythm: regular rhythm Heart sounds: S1 normal heart sound present, S2 normal heart sound present, no gallops, no murmurs and no rubs GI: Inspection: Yes normal to inspection and Yes other (Obese) Palpation (GI): Soft to palpation, nontender, no guarding, not rigid, No hepatosplenomegaly present and Other GI palpation findings present ( Nontender) Percussion: Yes normal to percussion Auscultation: normal bowel sounds : Other: razo cath General: Yes no CVA tenderness Back/Spine/Pelvis: Back: no CVA tenderness Cervical Spine: normal cervical lordosis Thoracic/Lumbar Spine: thoracic and lumbar spine normal to inspection Skin: Lesions: no lesions Rashes: no rashes Wounds: no wounds Hair: normal Neuro: General: oriented to person, oriented to place, oriented to time, patient oriented x3 and moves all extremities Cranial nerves: Yes CN's II-XII intact bilaterally and Yes Equal, round and reactive pupils present Motor exam (neuro): Other motor observations present (Moves all extremities symmetrically) Extrem: General: Yes normal to inspection, Yes full ROM, No clubbing, No cyanosis and Yes edema Psych: Appearance: well kempt Attitude: cooperative Objective Data Labs CBC & Chem 7: 10/18/20 05:49 10/18/20 05:49 Labs: Laboratory Results - last 24 hr 10/14/20 10/17/20 10/18/20 11:51 11:00 05:49 WBC 13.9 H RBC 4.34 L Hgb 13.9 L Hct 42.9 MCV 98.8 H MCH 32.0 MCHC 32.4 RDW 12.1 Plt Count 145 L D MPV 11.4 Absolute Nucleated RBC 0.000 Nucleated RBC % (auto) 0.0 Sodium Potassium Chloride Carbon Dioxide Anion Gap BUN Creatinine Estim Creat Clear Calc Estimated GFR POC Glucose 171 H Random Glucose Calcium B-Natriuretic Peptide Proteinase 3 (PR3) Ab <1.0 Myeloperoxidase Ab <1.0 Glomerular Base Memb Ab <1.0 10/18/20 10/18/20 05:49 05:49 WBC RBC Hgb Hct MCV MCH MCHC RDW Plt Count MPV Absolute Nucleated RBC Nucleated RBC % (auto) Sodium 139 Potassium 4.0 Chloride 98 Carbon Dioxide 28 Anion Gap 17 BUN 40 H Creatinine 1.12 Estim Creat Clear Calc 89.0 Estimated GFR > 60 POC Glucose Random Glucose 102 Calcium 8.5 B-Natriuretic Peptide 48 Proteinase 3 (PR3) Ab Myeloperoxidase Ab Glomerular Base Memb Ab Microbiology Microbiology Results: Microbiology 10/13/20 07:11 Blood - Venous Blood Culture - Final No growth after 5 days. 10/13/20 07:11 Blood - Venous Blood Culture - Final No growth after 5 days. 10/14/20 00:00 Urine Catheterized - Razo Catheter Urine Culture - Final No growth. 10/13/20 Unknown Urine clean catch - Razo Catheter Urine Culture - Final No growth. Assessment & Plan Assessment and plan (1) Acute renal failure: Status: Acute (2) Obstructive uropathy: Status: Acute (3) Bilateral hydronephrosis: Status: Acute (4) Hypertension: Status: Acute Assessment and Plan: 1. MALIHA: resoved with juan stents 2. Juan Obs uropathjy..has f/u with Urol 3. Incr Bun/cr: d/t diuretics..biut need to keep on dryside givne h/o HFrEF Cont to track UOP/renal func; urol f/u re stents; I will arrange f/u with Dr Camilo ( renal ) as outpt Time Spent With Patient Time: Total time spent is greater than 50% in coordination of care (as documented) at patient's floor/unit and/or counseling patient:
[2020-10-18 10:59] VITALS: BP 160/84; PULSE 84; RESP 18; TEMP 36.6; O2SAT 98
--- NOTE | 2020-10-18 11:29 | P.DS_ITS ---
DS: Providers Provider Date of Service: 10/18/20 Date of admission: 10/13/20 08:31 Primary care physician: Unknown Physician Consults: 10/13/20 12:40 Consult to Urology Routine Consulting Provider: Corey Camarena Reason for consultation: Unable to place razo, ?urethral obstruction Has provider been notified: No 10/13/20 15:32 Consult to Cardiology Routine Consulting Provider: Stephon Smith Reason for consultation: Acute systolic congestive heart failure 10/14/20 08:16 Consult to Nephrology Routine Consulting Provider: [facility] Reason for consultation: MALIHA DS: Diagnosis Discharge Diagnosis (1) Acute renal failure: Status: Acute (2) Obstructive uropathy: Status: Acute (3) Bilateral hydronephrosis: Status: Acute (4) Hypertension: Status: Acute (5) Cardiomyopathy: Status: Acute (6) Left bundle branch block: Status: Acute (7) Respiratory failure: Status: Acute (8) Congestive heart failure: Status: Acute (9) Urinary retention: Status: Acute DS: Medications Discharge Medications Home Medications: Previous Rx's Medication Instructions Recorded aspirin 81 mg PO DAILY #30 tab 10/18/20 carvedilol 3.125 mg PO BID #60 tab 10/18/20 furosemide 40 mg PO DAILY #30 tab 10/18/20 DS: Summary Hospital Course Hospital Course: Admission note HPI 65-year-old gentleman with no underlying past medical history but significant obesity hospitalized on 10/13/2020 secondary to progressive shortness of breath over the last months particularly worse on the day of admission not associated with chest pain. Patient also orthopnea and paroxysmal dyspnea. On ER evaluation hypoxic and hypercapnic requiring initiation of BiPAP support, empirically covered for community-acquired pneumonia, started on diuresis, and admitted to intensive care unit. Hospital course The patient was admitted to the hospital for acute hypoxic respiratory failure secondary to congestive heart failure exacerbation. He was never on medications before and did not see a physician almost 10 years. He was placed on BiPAP and started on IV Lasix with good response in the ICU. Echo of the heart was consistent with EF of 20 25% with wall motion abnormality. He was evaluated by Cardiology who recommended treatment with IV Lasix and start carvedilol and neurohormonal medications. The patient was unable to tolerate the pills as blood pressure start to drop and the plan was agreed with Dr. Fontaine from Cardiology to discharge him on carvedilol, Lasix and baby aspirin until he follows up for nuclear stress test and possible angiogram as outpatient. He will be followed with Cardiology. He was noted to acute kidney injury as a result of bilateral hydronephrosis secondary to obstruction. He was evaluated by Dr. Camarena from Urology who placed stents bilaterally with good response as his kidney function improved significantly back to baseline of normal. Razo catheter was removed and the plan is to follow-up with Dr. Camarena in 2 office to follow-up on the stents. Time Spent with Patient Time attestation: Total time spent providing and/or coordinating discharge services: Discharge coordination time: Greater than 30 minutes Physical Exam Vital Signs: Vital Signs: Last Vital Signs Temp 97.9 F 10/18/20 10:59 Pulse 84 10/18/20 10:59 Resp 18 10/18/20 10:59 BP 160/84 H 10/18/20 10:59 Pulse Ox 98 10/18/20 10:59 Body Mass Index 45.8 Constitutional : Alert, oriented, not in distress Neck : Normal inspection, Supple Cardiovascular : RRR, S1 S2, no lower extremity edema Respiratory : Good bilateral air entry, no crackles, wheezes or rhonchi Gastrointestinal: soft, lax, Normal bowel sounds, Non tender Skin : Warm/Dry, No rash Neurological : Alert & oriented x3, No focal deficit DS: Data Data Completed and Pending Labs on day of discharge: Laboratory Tests 10/13/20 10/13/20 10/13/20 07:11 07:11 07:11 WBC 20.2 H RBC 4.30 L Hgb 13.9 L Hct 43.3 MCV 100.7 H MCH 32.3 MCHC 32.1 RDW 12.2 Plt Count 381 MPV 10.2 Immature Gran % (Auto) 0.7 H Neut % (Auto) 72.4 Lymph % (Auto) 16.7 L [place] % (Auto) 6.0 Eos % (Auto) 3.7 Baso % (Auto) 0.5 Lymph # (Auto) 3.4 [place] # (Auto) 1.2 Eos # (Auto) 0.7 H Baso # (Auto) 0.1 Abs Immat Gran (auto) 0.15 H Absolute Neuts (auto) 14.7 H Absolute Nucleated RBC 0.000 Nucleated RBC % (auto) 0.0 ESR PT INR APTT D-Dimer ABG pH ABG pCO2 ABG pO2 ABG HCO3 ABG O2 Saturation ABG Base Excess VBG pH VBG pCO2 VBG pO2 VBG HCO3 VBG O2 Saturation VBG Base Excess Oxygen Given Sodium 137 Potassium 5.0 Chloride 100 Carbon Dioxide 20 L Anion Gap 22 H BUN 15 Creatinine 1.48 H Estim Creat Clear Calc 71.8 Estimated GFR 48 POC Glucose Random Glucose 329 H Fasting Glucose Lactic Acid 3.2 H* Lactic Acid Fup @ 2Hr Calcium 8.5 Phosphorus Magnesium Total Bilirubin 0.7 Direct Bilirubin 0.2 AST 32 ALT 25 Alkaline Phosphatase 74 Troponin I High Sens B-Natriuretic Peptide Total Protein 7.9 Albumin 4.1 Urine Color Urine Appearance Urine pH Ur Specific [place] Urine Protein Urine Glucose (UA) Urine Ketones Urine Blood Urine Nitrite Ur Leukocyte Esterase Urine RBC Urine WBC Ur Squamous Epith Cells Amorphous Sediment Urine Bacteria Urine Mucus Urine Osmolality Ur Random Sodium Proteinase 3 (PR3) Ab Myeloperoxidase Ab Glomerular Base Memb Ab COVID-19 (YANG) COVID-19 Clin Com 10/13/20 10/13/20 10/13/20 07:11 07:11 07:11 WBC RBC Hgb Hct MCV MCH MCHC RDW Plt Count MPV Immature Gran % (Auto) Neut % (Auto) Lymph % (Auto) [place] % (Auto) Eos % (Auto) Baso % (Auto) Lymph # (Auto) [place] # (Auto) Eos # (Auto) Baso # (Auto) Abs Immat Gran (auto) Absolute Neuts (auto) Absolute Nucleated RBC Nucleated RBC % (auto) ESR PT 13.6 H INR 1.1 APTT 30.7 D-Dimer 976 ABG pH ABG pCO2 ABG pO2 ABG HCO3 ABG O2 Saturation ABG Base Excess VBG pH VBG pCO2 VBG pO2 VBG HCO3 VBG O2 Saturation VBG Base Excess Oxygen Given Sodium Potassium Chloride Carbon Dioxide Anion Gap BUN Creatinine Estim Creat Clear Calc Estimated GFR POC Glucose Random Glucose Fasting Glucose Lactic Acid Lactic Acid Fup @ 2Hr Calcium Phosphorus Magnesium Total Bilirubin Cancelled Direct Bilirubin AST ALT Alkaline Phosphatase Troponin I High Sens 69.7 H B-Natriuretic Peptide Total Protein Albumin Urine Color Urine Appearance Urine pH Ur Specific [place] Urine Protein Urine Glucose (UA) Urine Ketones Urine Blood Urine Nitrite Ur Leukocyte Esterase Urine RBC Urine WBC Ur Squamous Epith Cells Amorphous Sediment Urine Bacteria Urine Mucus Urine Osmolality Ur Random Sodium Proteinase 3 (PR3) Ab Myeloperoxidase Ab Glomerular Base Memb Ab COVID-19 (YANG) COVID-19 Clin Com 10/13/20 10/13/20 10/13/20 07:12 07:13 08:00 WBC RBC Hgb Hct MCV MCH MCHC RDW Plt Count MPV Immature Gran % (Auto) Neut % (Auto) Lymph % (Auto) [place] % (Auto) Eos % (Auto) Baso % (Auto) Lymph # (Auto) [place] # (Auto) Eos # (Auto) Baso # (Auto) Abs Immat Gran (auto) Absolute Neuts (auto) Absolute Nucleated RBC Nucleated RBC % (auto) ESR PT INR APTT D-Dimer ABG pH 7.25 L ABG pCO2 58 H ABG pO2 133 H ABG HCO3 25 ABG O2 Saturation 98.5 ABG Base Excess -3.5 VBG pH VBG pCO2 VBG pO2 VBG HCO3 VBG O2 Saturation VBG Base Excess Oxygen Given 70% Sodium Potassium Chloride Carbon Dioxide Anion Gap BUN Creatinine Estim Creat Clear Calc Estimated GFR POC Glucose 304 H Random Glucose Fasting Glucose Lactic Acid Lactic Acid Fup @ 2Hr Calcium Phosphorus Magnesium Total Bilirubin Direct Bilirubin AST ALT Alkaline Phosphatase Troponin I High Sens B-Natriuretic Peptide Total Protein Albumin Urine Color Urine Appearance Urine pH Ur Specific [place] Urine Protein Urine Glucose (UA) Urine Ketones Urine Blood Urine Nitrite Ur Leukocyte Esterase Urine RBC Urine WBC Ur Squamous Epith Cells Amorphous Sediment Urine Bacteria Urine Mucus Urine Osmolality Ur Random Sodium Proteinase 3 (PR3) Ab Myeloperoxidase Ab Glomerular Base Memb Ab COVID-19 (YANG) Negative COVID-19 Clin Com See Note 10/13/20 10/13/20 10/13/20 09:45 10:05 10:05 WBC RBC Hgb Hct MCV MCH MCHC RDW Plt Count MPV Immature Gran % (Auto) Neut % (Auto) Lymph % (Auto) [place] % (Auto) Eos % (Auto) Baso % (Auto) Lymph # (Auto) [place] # (Auto) Eos # (Auto) Baso # (Auto) Abs Immat Gran (auto) Absolute Neuts (auto) Absolute Nucleated RBC Nucleated RBC % (auto) ESR PT INR APTT D-Dimer ABG pH ABG pCO2 ABG pO2 ABG HCO3 ABG O2 Saturation ABG Base Excess VBG pH VBG pCO2 VBG pO2 VBG HCO3 VBG O2 Saturation VBG Base Excess Oxygen Given Sodium Potassium Chloride Carbon Dioxide Anion Gap BUN Creatinine Estim Creat Clear Calc Estimated GFR POC Glucose Random Glucose Fasting Glucose Lactic Acid Lactic Acid Fup @ 2Hr 1.8 Calcium Phosphorus Magnesium Total Bilirubin Direct Bilirubin AST ALT Alkaline Phosphatase Troponin I High Sens 120.6 H D B-Natriuretic Peptide 249 H 320 H Total Protein Albumin Urine Color Urine Appearance Urine pH Ur Specific [place] Urine Protein Urine Glucose (UA) Urine Ketones Urine Blood Urine Nitrite Ur Leukocyte Esterase Urine RBC Urine WBC Ur Squamous Epith Cells Amorphous Sediment Urine Bacteria Urine Mucus Urine Osmolality Ur Random Sodium Proteinase 3 (PR3) Ab Myeloperoxidase Ab Glomerular Base Memb Ab COVID-19 (YANG) [employer] 10/13/20 10/13/20 10/13/20 11:42 13:15 14:15 WBC RBC Hgb Hct MCV MCH MCHC RDW Plt Count MPV Immature Gran % (Auto) Neut % (Auto) Lymph % (Auto) [place] % (Auto) Eos % (Auto) Baso % (Auto) Lymph # (Auto) [place] # (Auto) Eos # (Auto) Baso # (Auto) Abs Immat Gran (auto) Absolute Neuts (auto) Absolute Nucleated RBC Nucleated RBC % (auto) ESR PT INR APTT D-Dimer ABG pH ABG pCO2 ABG pO2 ABG HCO3 ABG O2 Saturation ABG Base Excess VBG pH VBG pCO2 VBG pO2 VBG HCO3 VBG O2 Saturation VBG Base Excess Oxygen Given Sodium 138 Potassium 4.7 Chloride 100 Carbon Dioxide 27 Anion Gap 16 BUN 15 Creatinine 1.28 Estim Creat Clear Calc 80.6 Estimated GFR 56 POC Glucose 97 Random Glucose 134 H D Fasting Glucose Lactic Acid Lactic Acid Fup @ 2Hr Calcium 8.3 L Phosphorus 2.6 L Magnesium 2.3 Total Bilirubin Direct Bilirubin AST ALT Alkaline Phosphatase Troponin I High Sens B-Natriuretic Peptide Total Protein Albumin Urine Color BROWN Urine Appearance CLOUDY Urine pH 5.5 Ur Specific [place] >= 1.030 H Urine Protein 2+ H Urine Glucose (UA) NEG Urine Ketones NEG Urine Blood 3+ H Urine Nitrite NEG Ur Leukocyte Esterase NEG Urine RBC TNTC H Urine WBC 0 Ur Squamous Epith Cells 1+ Amorphous Sediment 3+ Urine Bacteria NONE Urine Mucus 3+ Urine Osmolality Ur Random Sodium Proteinase 3 (PR3) Ab Myeloperoxidase Ab Glomerular Base Memb Ab COVID-19 (YANG) COVID-19 Clin Com 10/13/20 10/13/20 10/13/20 14:15 15:15 16:38 WBC RBC Hgb Hct MCV MCH MCHC RDW Plt Count MPV Immature Gran % (Auto) Neut % (Auto) Lymph % (Auto) [place] % (Auto) Eos % (Auto) Baso % (Auto) Lymph # (Auto) [place] # (Auto) Eos # (Auto) Baso # (Auto) Abs Immat Gran (auto) Absolute Neuts (auto) Absolute Nucleated RBC Nucleated RBC % (auto) ESR PT INR APTT D-Dimer ABG pH ABG pCO2 ABG pO2 ABG HCO3 ABG O2 Saturation ABG Base Excess VBG pH 7.37 VBG pCO2 47 VBG pO2 43 VBG HCO3 26 VBG O2 Saturation 77.3 VBG Base Excess 0.3 Oxygen Given Sodium 136 Potassium 4.9 Chloride 100 Carbon Dioxide 25 Anion Gap 16 BUN 18 H Creatinine 1.51 H Estim Creat Clear Calc 68.3 Estimated GFR 47 POC Glucose 127 H Random Glucose 146 H Fasting Glucose Lactic Acid Lactic Acid Fup @ 2Hr Calcium 8.3 L Phosphorus 2.7 Magnesium 2.3 Total Bilirubin Direct Bilirubin AST ALT Alkaline Phosphatase Troponin I High Sens B-Natriuretic Peptide Total Protein Albumin Urine Color Urine Appearance Urine pH Ur Specific [place] Urine Protein Urine Glucose (UA) Urine Ketones Urine Blood Urine Nitrite Ur Leukocyte Esterase Urine RBC Urine WBC Ur Squamous Epith Cells Amorphous Sediment Urine Bacteria Urine Mucus Urine Osmolality Ur Random Sodium Proteinase 3 (PR3) Ab Myeloperoxidase Ab Glomerular Base Memb Ab COVID-19 (YANG) COVID-19 Clin Com 10/13/20 10/13/20 10/14/20 16:38 22:26 05:35 WBC 21.7 H RBC 4.03 L Hgb 13.1 L Hct 39.1 L MCV 97.0 MCH 32.5 MCHC 33.5 RDW 12.2 Plt Count 338 MPV 9.8 Immature Gran % (Auto) 0.6 H Neut % (Auto) 87.2 H Lymph % (Auto) 4.7 L [place] % (Auto) 7.4 Eos % (Auto) 0.0 Baso % (Auto) 0.1 Lymph # (Auto) 1.0 L [place] # (Auto) 1.6 H Eos # (Auto) 0.0 Baso # (Auto) 0.0 Abs Immat Gran (auto) 0.13 H Absolute Neuts (auto) 18.9 H Absolute Nucleated RBC 0.000 Nucleated RBC % (auto) 0.0 ESR PT INR APTT D-Dimer ABG pH ABG pCO2 ABG pO2 ABG HCO3 ABG O2 Saturation ABG Base Excess VBG pH 7.37 VBG pCO2 48 VBG pO2 37 VBG HCO3 27 VBG O2 Saturation 70.6 VBG Base Excess 1.0 Oxygen Given Sodium Potassium Chloride Carbon Dioxide Anion Gap BUN Creatinine Estim Creat Clear Calc Estimated GFR POC Glucose 155 H Random Glucose Fasting Glucose Lactic Acid Lactic Acid Fup @ 2Hr Calcium Phosphorus Magnesium Total Bilirubin Direct Bilirubin AST ALT Alkaline Phosphatase Troponin I High Sens B-Natriuretic Peptide Total Protein Albumin Urine Color Urine Appearance Urine pH Ur Specific [place] Urine Protein Urine Glucose (UA) Urine Ketones Urine Blood Urine Nitrite Ur Leukocyte Esterase Urine RBC Urine WBC Ur Squamous Epith Cells Amorphous Sediment Urine Bacteria Urine Mucus Urine Osmolality Ur Random Sodium Proteinase 3 (PR3) Ab Myeloperoxidase Ab Glomerular Base Memb Ab COVID-19 (YANG) COVID-19 Clin Com 10/14/20 10/14/20 10/14/20 05:35 05:35 07:46 WBC RBC Hgb Hct MCV MCH MCHC RDW Plt Count MPV Immature Gran % (Auto) Neut % (Auto) Lymph % (Auto) [place] % (Auto) Eos % (Auto) Baso % (Auto) Lymph # (Auto) [place] # (Auto) Eos # (Auto) Baso # (Auto) Abs Immat Gran (auto) Absolute Neuts (auto) Absolute Nucleated RBC Nucleated RBC % (auto) ESR PT INR APTT D-Dimer ABG pH ABG pCO2 ABG pO2 ABG HCO3 ABG O2 Saturation ABG Base Excess VBG pH 7.41 VBG pCO2 38 VBG pO2 59 VBG HCO3 24 VBG O2 Saturation 91.5 VBG Base Excess -1.0 Oxygen Given Sodium 137 Potassium 4.9 Chloride 102 Carbon Dioxide 20 L Anion Gap 20 BUN 33 H D Creatinine 3.00 H Estim Creat Clear Calc 34.4 Estimated GFR 21 POC Glucose 138 H Random Glucose 138 H Fasting Glucose Lactic Acid Lactic Acid Fup @ 2Hr Calcium 8.5 Phosphorus 4.1 Magnesium 2.3 Total Bilirubin 0.6 Direct Bilirubin AST 25 ALT 20 Alkaline Phosphatase 66 Troponin I High Sens B-Natriuretic Peptide Total Protein 7.2 Albumin 3.8 Urine Color Urine Appearance Urine pH Ur Specific [place] Urine Protein Urine Glucose (UA) Urine Ketones Urine Blood Urine Nitrite Ur Leukocyte Esterase Urine RBC Urine WBC Ur Squamous Epith Cells Amorphous Sediment Urine Bacteria Urine Mucus Urine Osmolality Ur Random Sodium Proteinase 3 (PR3) Ab Myeloperoxidase Ab Glomerular Base Memb Ab COVID-19 (YANG) COVID-19 NMR[facility] 10/14/20 10/14/20 10/14/20 11:39 11:51 11:51 WBC RBC Hgb Hct MCV MCH MCHC RDW Plt Count MPV Immature Gran % (Auto) Neut % (Auto) Lymph % (Auto) [place] % (Auto) Eos % (Auto) Baso % (Auto) Lymph # (Auto) [place] # (Auto) Eos # (Auto) Baso # (Auto) Abs Immat Gran (auto) Absolute Neuts (auto) Absolute Nucleated RBC Nucleated RBC % (auto) ESR 44 H PT INR APTT D-Dimer ABG pH ABG pCO2 ABG pO2 ABG HCO3 ABG O2 Saturation ABG Base Excess VBG pH VBG pCO2 VBG pO2 VBG HCO3 VBG O2 Saturation VBG Base Excess Oxygen Given Sodium Potassium Chloride Carbon Dioxide Anion Gap BUN Creatinine Estim Creat Clear Calc Estimated GFR POC Glucose 130 H Random Glucose Fasting Glucose Lactic Acid Lactic Acid Fup @ 2Hr Calcium Phosphorus Magnesium Total Bilirubin Direct Bilirubin AST ALT Alkaline Phosphatase Troponin I High Sens B-Natriuretic Peptide Total Protein Albumin Urine Color Urine Appearance Urine pH Ur Specific [place] Urine Protein Urine Glucose (UA) Urine Ketones Urine Blood Urine Nitrite Ur Leukocyte Esterase Urine RBC Urine WBC Ur Squamous Epith Cells Amorphous Sediment Urine Bacteria Urine Mucus Urine Osmolality Ur Random Sodium Proteinase 3 (PR3) Ab <1.0 Myeloperoxidase Ab <1.0 Glomerular Base Memb Ab <1.0 COVID-19 (YANG) COVID-19 NMRKT 10/14/20 10/14/20 10/14/20 14:57 18:31 23:07 WBC RBC Hgb Hct MCV MCH MCHC RDW Plt Count MPV Immature Gran % (Auto) Neut % (Auto) Lymph % (Auto) [place] % (Auto) Eos % (Auto) Baso % (Auto) Lymph # (Auto) [place] # (Auto) Eos # (Auto) Baso # (Auto) Abs Immat Gran (auto) Absolute Neuts (auto) Absolute Nucleated RBC Nucleated RBC % (auto) ESR PT INR APTT D-Dimer ABG pH ABG pCO2 ABG pO2 ABG HCO3 ABG O2 Saturation ABG Base Excess VBG pH VBG pCO2 VBG pO2 VBG HCO3 VBG O2 Saturation VBG Base Excess Oxygen Given Sodium Potassium Chloride Carbon Dioxide Anion Gap BUN Creatinine Estim Creat Clear Calc Estimated GFR POC Glucose 119 H 180 H Random Glucose Fasting Glucose Lactic Acid Lactic Acid Fup @ 2Hr Calcium Phosphorus Magnesium Total Bilirubin Direct Bilirubin AST ALT Alkaline Phosphatase Troponin I High Sens B-Natriuretic Peptide Total Protein Albumin Urine Color Urine Appearance Urine pH Ur Specific [place] Urine Protein Urine Glucose (UA) Urine Ketones Urine Blood Urine Nitrite Ur Leukocyte Esterase Urine RBC Urine WBC Ur Squamous Epith Cells Amorphous Sediment Urine Bacteria Urine Mucus Urine Osmolality 326 L Ur Random Sodium Proteinase 3 (PR3) Ab Myeloperoxidase Ab Glomerular Base Memb Ab COVID-19 (YANG) COVID-19 Clin Com 10/14/20 10/14/20 10/15/20 23:07 23:59 04:55 WBC 21.4 H RBC 4.08 L Hgb 13.2 L Hct 40.9 L MCV 100.2 H MCH 32.4 MCHC 32.3 RDW 12.4 Plt Count 331 MPV 10.0 Immature Gran % (Auto) 0.4 Neut % (Auto) 88.3 H Lymph % (Auto) 5.3 L [place] % (Auto) 5.9 Eos % (Auto) 0.0 Baso % (Auto) 0.1 Lymph # (Auto) 1.1 L [place] # (Auto) 1.3 H Eos # (Auto) 0.0 Baso # (Auto) 0.0 Abs Immat Gran (auto) 0.09 H Absolute Neuts (auto) 18.9 H Absolute Nucleated RBC 0.000 Nucleated RBC % (auto) 0.0 ESR PT INR APTT D-Dimer ABG pH ABG pCO2 ABG pO2 ABG HCO3 ABG O2 Saturation ABG Base Excess VBG pH VBG pCO2 VBG pO2 VBG HCO3 VBG O2 Saturation VBG Base Excess Oxygen Given Sodium Potassium Chloride Carbon Dioxide Anion Gap BUN Creatinine Estim Creat Clear Calc Estimated GFR POC Glucose 148 H Random Glucose Fasting Glucose Lactic Acid Lactic Acid Fup @ 2Hr Calcium Phosphorus Magnesium Total Bilirubin Direct Bilirubin AST ALT Alkaline Phosphatase Troponin I High Sens B-Natriuretic Peptide Total Protein Albumin Urine Color Urine Appearance Urine pH Ur Specific [place] Urine Protein Urine Glucose (UA) Urine Ketones Urine Blood Urine Nitrite Ur Leukocyte Esterase Urine RBC Urine WBC Ur Squamous Epith Cells Amorphous Sediment Urine Bacteria Urine Mucus Urine Osmolality Ur Random Sodium 53.0 Proteinase 3 (PR3) Ab Myeloperoxidase Ab Glomerular Base Memb Ab COVID-19 (YANG) COVID-19 NMRKT 10/15/20 10/15/20 10/15/20 04:55 04:55 05:37 WBC RBC Hgb Hct MCV MCH MCHC RDW Plt Count MPV Immature Gran % (Auto) Neut % (Auto) Lymph % (Auto) [place] % (Auto) Eos % (Auto) Baso % (Auto) Lymph # (Auto) [place] # (Auto) Eos # (Auto) Baso # (Auto) Abs Immat Gran (auto) Absolute Neuts (auto) Absolute Nucleated RBC Nucleated RBC % (auto) ESR PT INR APTT D-Dimer ABG pH ABG pCO2 ABG pO2 ABG HCO3 ABG O2 Saturation ABG Base Excess VBG pH 7.28 L VBG pCO2 56 VBG pO2 69 VBG HCO3 26 VBG O2 Saturation 92.8 VBG Base Excess -2.0 Oxygen Given Sodium 140 Potassium 5.5 H Chloride 102 Carbon Dioxide 23 Anion Gap 21 H BUN 49 H Creatinine 2.97 H Estim Creat Clear Calc 34.3 Estimated GFR 21 POC Glucose 124 H Random Glucose 116 H Fasting Glucose Lactic Acid Lactic Acid Fup @ 2Hr Calcium 8.5 Phosphorus 6.4 H Magnesium 2.5 Total Bilirubin 0.5 Direct Bilirubin AST 23 ALT 19 Alkaline Phosphatase 64 Troponin I High Sens B-Natriuretic Peptide Total Protein 7.3 Albumin 3.9 Urine Color Urine Appearance Urine pH Ur Specific [place] Urine Protein Urine Glucose (UA) Urine Ketones Urine Blood Urine Nitrite Ur Leukocyte Esterase Urine RBC Urine WBC Ur Squamous Epith Cells Amorphous Sediment Urine Bacteria Urine Mucus Urine Osmolality Ur Random Sodium Proteinase 3 (PR3) Ab Myeloperoxidase Ab Glomerular Base Memb Ab COVID-19 (YANG) COVID-19 NMRKT 10/15/20 10/15/20 10/15/20 11:43 12:32 14:57 WBC RBC Hgb Hct MCV MCH MCHC RDW Plt Count MPV Immature Gran % (Auto) Neut % (Auto) Lymph % (Auto) [place] % (Auto) Eos % (Auto) Baso % (Auto) Lymph # (Auto) [place] # (Auto) Eos # (Auto) Baso # (Auto) Abs Immat Gran (auto) Absolute Neuts (auto) Absolute Nucleated RBC Nucleated RBC % (auto) ESR PT INR APTT D-Dimer ABG pH ABG pCO2 ABG pO2 ABG HCO3 ABG O2 Saturation ABG Base Excess VBG pH VBG pCO2 VBG pO2 VBG HCO3 VBG O2 Saturation VBG Base Excess Oxygen Given Sodium 140 Potassium 4.6 Chloride 104 Carbon Dioxide 26 Anion Gap 15 BUN 51 H Creatinine 2.38 H Estim Creat Clear Calc 42.5 Estimated GFR 28 POC Glucose 115 115 Random Glucose 147 H Fasting Glucose Lactic Acid Lactic Acid Fup @ 2Hr Calcium 8.5 Phosphorus Magnesium Total Bilirubin Direct Bilirubin AST ALT Alkaline Phosphatase Troponin I High Sens B-Natriuretic Peptide Total Protein Albumin Urine Color Urine Appearance Urine pH Ur Specific [place] Urine Protein Urine Glucose (UA) Urine Ketones Urine Blood Urine Nitrite Ur Leukocyte Esterase Urine RBC Urine WBC Ur Squamous Epith Cells Amorphous Sediment Urine Bacteria Urine Mucus Urine Osmolality Ur Random Sodium Proteinase 3 (PR3) Ab Myeloperoxidase Ab Glomerular Base Memb Ab COVID-19 (YANG) COVID-19 Clin Com 10/15/20 10/15/20 10/16/20 16:31 21:55 04:47 WBC 14.6 H RBC 3.81 L Hgb 12.2 L Hct 38.9 L MCV 102.1 H MCH 32.0 MCHC 31.4 RDW 12.4 Plt Count 273 MPV 9.8 Immature Gran % (Auto) 0.4 Neut % (Auto) 72.6 Lymph % (Auto) 16.2 L [place] % (Auto) 8.2 Eos % (Auto) 2.2 Baso % (Auto) 0.4 Lymph # (Auto) 2.4 [place] # (Auto) 1.2 Eos # (Auto) 0.3 Baso # (Auto) 0.1 Abs Immat Gran (auto) 0.06 H Absolute Neuts (auto) 10.6 H Absolute Nucleated RBC 0.000 Nucleated RBC % (auto) 0.0 ESR PT INR APTT D-Dimer ABG pH ABG pCO2 ABG pO2 ABG HCO3 ABG O2 Saturation ABG Base Excess VBG pH VBG pCO2 VBG pO2 VBG HCO3 VBG O2 Saturation VBG Base Excess Oxygen Given Sodium Potassium Chloride Carbon Dioxide Anion Gap BUN Creatinine Estim Creat Clear Calc Estimated GFR POC Glucose 131 H 107 Random Glucose Fasting Glucose Lactic Acid Lactic Acid Fup @ 2Hr Calcium Phosphorus Magnesium Total Bilirubin Direct Bilirubin AST ALT Alkaline Phosphatase Troponin I High Sens B-Natriuretic Peptide Total Protein Albumin Urine Color Urine Appearance Urine pH Ur Specific [place] Urine Protein Urine Glucose (UA) Urine Ketones Urine Blood Urine Nitrite Ur Leukocyte Esterase Urine RBC Urine WBC Ur Squamous Epith Cells Amorphous Sediment Urine Bacteria Urine Mucus Urine Osmolality Ur Random Sodium Proteinase 3 (PR3) Ab Myeloperoxidase Ab Glomerular Base Memb Ab COVID-19 (YANG) COVID-19 NMRKT 10/16/20 10/16/20 10/16/20 04:47 04:47 06:04 WBC RBC Hgb Hct MCV MCH MCHC RDW Plt Count MPV Immature Gran % (Auto) Neut % (Auto) Lymph % (Auto) [place] % (Auto) Eos % (Auto) Baso % (Auto) Lymph # (Auto) [place] # (Auto) Eos # (Auto) Baso # (Auto) Abs Immat Gran (auto) Absolute Neuts (auto) Absolute Nucleated RBC Nucleated RBC % (auto) ESR PT INR APTT D-Dimer ABG pH ABG pCO2 ABG pO2 ABG HCO3 ABG O2 Saturation ABG Base Excess VBG pH 7.28 L VBG pCO2 59 VBG pO2 44 VBG HCO3 27 VBG O2 Saturation 75.0 VBG Base Excess -1.0 Oxygen Given Sodium 143 Potassium 4.8 Chloride 104 Carbon Dioxide 31 H Anion Gap 13 BUN 42 H Creatinine 1.49 H Estim Creat Clear Calc 67.8 Estimated GFR 47 POC Glucose 95 Random Glucose 100 Fasting Glucose Lactic Acid Lactic Acid Fup @ 2Hr Calcium 8.5 Phosphorus Magnesium Total Bilirubin Direct Bilirubin AST ALT Alkaline Phosphatase Troponin I High Sens B-Natriuretic Peptide Total Protein Albumin Urine Color Urine Appearance Urine pH Ur Specific [place] Urine Protein Urine Glucose (UA) Urine Ketones Urine Blood Urine Nitrite Ur Leukocyte Esterase Urine RBC Urine WBC Ur Squamous Epith Cells Amorphous Sediment Urine Bacteria Urine Mucus Urine Osmolality Ur Random Sodium Proteinase 3 (PR3) Ab Myeloperoxidase Ab Glomerular Base Memb Ab COVID-19 (YANG) COVID-19 NMRKT 10/16/20 10/16/20 10/16/20 11:15 17:02 19:38 WBC RBC Hgb Hct MCV MCH MCHC RDW Plt Count MPV Immature Gran % (Auto) Neut % (Auto) Lymph % (Auto) [place] % (Auto) Eos % (Auto) Baso % (Auto) Lymph # (Auto) [place] # (Auto) Eos # (Auto) Baso # (Auto) Abs Immat Gran (auto) Absolute Neuts (auto) Absolute Nucleated RBC Nucleated RBC % (auto) ESR PT INR APTT D-Dimer ABG pH ABG pCO2 ABG pO2 ABG HCO3 ABG O2 Saturation ABG Base Excess VBG pH VBG pCO2 VBG pO2 VBG HCO3 VBG O2 Saturation VBG Base Excess Oxygen Given Sodium Potassium Chloride Carbon Dioxide Anion Gap BUN Creatinine Estim Creat Clear Calc Estimated GFR POC Glucose 144 H 116 H 131 H Random Glucose Fasting Glucose Lactic Acid Lactic Acid Fup @ 2Hr Calcium Phosphorus Magnesium Total Bilirubin Direct Bilirubin AST ALT Alkaline Phosphatase Troponin I High Sens B-Natriuretic Peptide Total Protein Albumin Urine Color Urine Appearance Urine pH Ur Specific [place] Urine Protein Urine Glucose (UA) Urine Ketones Urine Blood Urine Nitrite Ur Leukocyte Esterase Urine RBC Urine WBC Ur Squamous Epith Cells Amorphous Sediment Urine Bacteria Urine Mucus Urine Osmolality Ur Random Sodium Proteinase 3 (PR3) Ab Myeloperoxidase Ab Glomerular Base Memb Ab COVID-19 (YANG) COVID-19 Clin Com 10/16/20 10/17/20 10/17/20 21:22 05:18 05:18 WBC 14.0 H RBC 4.08 L Hgb 13.1 L Hct 40.9 L MCV 100.2 H MCH 32.1 MCHC 32.0 RDW 12.2 Plt Count 303 MPV 10.1 Immature Gran % (Auto) 0.3 Neut % (Auto) 71.2 Lymph % (Auto) 15.5 L [place] % (Auto) 7.8 Eos % (Auto) 4.6 H Baso % (Auto) 0.6 Lymph # (Auto) 2.2 [place] # (Auto) 1.1 Eos # (Auto) 0.6 H Baso # (Auto) 0.1 Abs Immat Gran (auto) 0.04 H Absolute Neuts (auto) 10.0 H Absolute Nucleated RBC 0.000 Nucleated RBC % (auto) 0.0 ESR PT INR APTT D-Dimer ABG pH ABG pCO2 ABG pO2 ABG HCO3 ABG O2 Saturation ABG Base Excess VBG pH VBG pCO2 VBG pO2 VBG HCO3 VBG O2 Saturation VBG Base Excess Oxygen Given Sodium 142 Potassium 3.9 Chloride 99 Carbon Dioxide 32 H Anion Gap 15 BUN 33 H Creatinine 1.10 Estim Creat Clear Calc 90.6 Estimated GFR > 60 POC Glucose 105 Random Glucose Fasting Glucose 99 Lactic Acid Lactic Acid Fup @ 2Hr Calcium 8.7 Phosphorus Magnesium 1.9 Total Bilirubin Direct Bilirubin AST ALT Alkaline Phosphatase Troponin I High Sens B-Natriuretic Peptide Total Protein Albumin Urine Color Urine Appearance Urine pH Ur Specific [place] Urine Protein Urine Glucose (UA) Urine Ketones Urine Blood Urine Nitrite Ur Leukocyte Esterase Urine RBC Urine WBC Ur Squamous Epith Cells Amorphous Sediment Urine Bacteria Urine Mucus Urine Osmolality Ur Random Sodium Proteinase 3 (PR3) Ab Myeloperoxidase Ab Glomerular Base Memb Ab COVID-19 (YANG) COVID-19 NMRKT 10/17/20 10/17/20 10/18/20 07:20 11:00 05:49 WBC 13.9 H RBC 4.34 L Hgb 13.9 L Hct 42.9 MCV 98.8 H MCH 32.0 MCHC 32.4 RDW 12.1 Plt Count 145 L D MPV 11.4 Immature Gran % (Auto) Neut % (Auto) Lymph % (Auto) [place] % (Auto) Eos % (Auto) Baso % (Auto) Lymph # (Auto) [place] # (Auto) Eos # (Auto) Baso # (Auto) Abs Immat Gran (auto) Absolute Neuts (auto) Absolute Nucleated RBC 0.000 Nucleated RBC % (auto) 0.0 ESR PT INR APTT D-Dimer ABG pH ABG pCO2 ABG pO2 ABG HCO3 ABG O2 Saturation ABG Base Excess VBG pH VBG pCO2 VBG pO2 VBG HCO3 VBG O2 Saturation VBG Base Excess Oxygen Given Sodium Potassium Chloride Carbon Dioxide Anion Gap BUN Creatinine Estim Creat Clear Calc Estimated GFR POC Glucose 120 H 171 H Random Glucose Fasting Glucose Lactic Acid Lactic Acid Fup @ 2Hr Calcium Phosphorus Magnesium Total Bilirubin Direct Bilirubin AST ALT Alkaline Phosphatase Troponin I High Sens B-Natriuretic Peptide Total Protein Albumin Urine Color Urine Appearance Urine pH Ur Specific [place] Urine Protein Urine Glucose (UA) Urine Ketones Urine Blood Urine Nitrite Ur Leukocyte Esterase Urine RBC Urine WBC Ur Squamous Epith Cells Amorphous Sediment Urine Bacteria Urine Mucus Urine Osmolality Ur Random Sodium Proteinase 3 (PR3) Ab Myeloperoxidase Ab Glomerular Base Memb Ab COVID-19 (YANG) COVID-19 Clin Com 10/18/20 10/18/20 05:49 05:49 WBC RBC Hgb Hct MCV MCH MCHC RDW Plt Count MPV Immature Gran % (Auto) Neut % (Auto) Lymph % (Auto) [place] % (Auto) Eos % (Auto) Baso % (Auto) Lymph # (Auto) [place] # (Auto) Eos # (Auto) Baso # (Auto) Abs Immat Gran (auto) Absolute Neuts (auto) Absolute Nucleated RBC Nucleated RBC % (auto) ESR PT INR APTT D-Dimer ABG pH ABG pCO2 ABG pO2 ABG HCO3 ABG O2 Saturation ABG Base Excess VBG pH VBG pCO2 VBG pO2 VBG HCO3 VBG O2 Saturation VBG Base Excess Oxygen Given Sodium 139 Potassium 4.0 Chloride 98 Carbon Dioxide 28 Anion Gap 17 BUN 40 H Creatinine 1.12 Estim Creat Clear Calc 89.0 Estimated GFR > 60 POC Glucose Random Glucose 102 Fasting Glucose Lactic Acid Lactic Acid Fup @ 2Hr Calcium 8.5 Phosphorus Magnesium Total Bilirubin Direct Bilirubin AST ALT Alkaline Phosphatase Troponin I High Sens B-Natriuretic Peptide 48 Total Protein Albumin Urine Color Urine Appearance Urine pH Ur Specific [place] Urine Protein Urine Glucose (UA) Urine Ketones Urine Blood Urine Nitrite Ur Leukocyte Esterase Urine RBC Urine WBC Ur Squamous Epith Cells Amorphous [place] Urine Bacteria Urine Mucus Urine Osmolality Ur Random Sodium Proteinase 3 (PR3) Ab Myeloperoxidase Ab Glomerular Base Memb Ab COVID-19 (YANG) COVID-19 Clin Com Discharge Plan Discharge Patient Disposition: Home, Self-Care Referrals: Malachi Rebolledo MD [Physician] - 1 Week (Please call and schedule a new patient appointment.) Discharge Medications: New furosemide 40 mg Tablet 40 mg PO DAILY Qty: 30 RF: 2 carvedilol 3.125 mg Tablet 3.125 mg PO BID Qty: 60 RF: 2 aspirin 81 mg tablet,chewable 81 mg PO DAILY Qty: 30 RF: 2 Diet: advance to usual diet and low salt diet Activity on Discharge: As tolerated Visit Report Forms: Patient Portal Discharge page Care Plan Goals: Read below Health Concerns: Read below Plan of Treatment: Admitted to the hospital for evaluation of difficulty breathing. Found to have significant amount of fluid around your lungs requiring ICU admission and BiPAP for breathing management with good response. Your treated with water pills of Lasix for congestive heart failure. You were evaluated by office nurse as an echo was consistent with low ejection fraction of 20%. Your responded well to the treatment and you will be discharged home to continue with Lasix and carvedilol. Start baby aspirin Continue carvedilol and Lasix as prescribed Monitor weight and report readings to your office nurse, to follow-up as scheduled. You were also noticed to have kidney injury as a result of obstruction. You were evaluated by urologist Dr. Camarena who placed stents in your ureters and resolve the obstruction. Your kidney function improved back to normal during the hospital stay. To follow-up with Dr. Camarena in office in 2 weeks.
--- NOTE | 2020-10-18 11:29 | MHC.CM.PN ---
pt does not have a pcp can not hav e a vna md is aware
[2020-10-18 17:01] LABS: Urea, Random Urine 390 mg/dL
== END 2020-10-18 13:30 | disposition home or self-care (01) | DRG 987 ==
LOC: HO.ED 07:49 → HO.ICU 09:04 → HO.IMC 10-16 16:00
PROVIDERS: Internal Medicine; Internal Medicine Cardiovascular Disease; Urology; Admitting Provider Internal Medicine Pulmonary Disease; Emergency Provider Emergency Medicine Emergency Medical Services; PCP Internal Medicine; Visit Provider Student in an Organized Health Care Education/Training Program
PROC: 0T788DZ Dilation of Bilateral Ureters with Intraluminal Device, Via Natural or Artificial Opening Endoscopic (ICD-10-PCS; principal; 2020-10-14 16:00)
DX: I11.0 Hypertensive heart disease with heart failure (principal); J96.21 Acute and chronic respiratory failure with hypoxia; J96.22 Acute and chronic respiratory failure with hypercapnia; I50.21 Acute systolic (congestive) heart failure; N13.1 Hydronephrosis with ureteral stricture, not elsewhere classified; Z68.42 Body mass index [BMI] 45.0-49.9, adult; N13.8 Other obstructive and reflux uropathy; N17.9 Acute kidney failure, unspecified; I44.7 Left bundle-branch block, unspecified; D72.829 Elevated white blood cell count, unspecified; I25.5 Ischemic cardiomyopathy; E66.01 Morbid (severe) obesity due to excess calories; Z20.828 Contact with and (suspected) exposure to other viral communicable diseases; Z87.891 Personal history of nicotine dependence; Z96.642 Presence of left artificial hip joint; Z79.82 Long term (current) use of aspirin; Z79.899 Other long term (current) drug therapy
CPT/HCPCS: 36415; 71045; 74176; 76775; 80048; 80053; 80076; 81001; 82803; 82947; 83520; 83605; 83735; 83880; 83935; 84100; 84300; 84484; 84540; 85025; 85027; 85379; 85610; 85652; 85730; 86021; 87040; 87086; 87635; 93005; 93306; 94640; 94660; 96365; 96366; 96367; 97116; 97162; 99233; 99284; 99291; C1758; C1769; C2617; J0456; J0696; J1100; J1940; J1956; J2370; J2405; J2930; J3010; Q9967

== ENCOUNTER → 2020-10-27 09:17 | Outpatient (REF) | payer MEDICARE, SELFPAY ==
--- NOTE | 2020-10-27 | NM_ITS ---
Lexiscan Myocardial perfusion study Indication: Shortness of breath, abnormal EKG, assess for coronary disease and ischemia Technique: The patient was brought in for a Lexiscan perfusion study on 10/28/2020 and was injected 0.4 mg of Lexiscan intravenously. Within a minute of this injection 45 mCi of sestamibi was given intravenously. Images were obtained using the SPECT gamma camera interlaced with the gating device. Images were obtained in supine position. Resting perfusion study was performed on 10/27/2020. Patient was administered 45 mCi of sestamibi intravenously at rest. Images were then obtained in supine position. Total DLP 138mGy-cm. Images were processed with the software and compared side to side in short axis, horizontal long axis and vertical long axis views. Findings: Raw acquisition was reviewed. The stress perfusion study showed along the inferior wall. With CT attenuation correction there is improved uptake in this area is a distal of diaphragmatic attenuation artifact. The gated study shows diminished LV systolic function with calculated LVEF of 37%. LV cavity is dilated in size. The gated study shows globally diminished wall thickening and contraction of segments. Resting study shows diminished tracer uptake along the inferior wall, similar to the stress acquisition. With CT attenuation correction, this improves suggestive of diaphragmatic attenuation artifact. Gating at rest reveals globally diminished contractility wall motion with ejection fraction at 29%. The findings are consistent with no reversible defects. Fixed inferior defect likely from diaphragmatic artifact. NM/NM seb perf SPECT rest & str Impression: 1. Myocardial perfusion imaging study shows no definitive evidence of ischemia. Fixed inferior defect suspected to be from diaphragmatic artifact based on improvement with CT attenuation correction. 2. Gated LVEF is diminished. 37% during stress and 29% during rest. Correlate with echocardiogram. 3. Transient ischemic dilatation not present but LV cavity is dilated. EKG component of the test reported separately.
--- NOTE | 2020-10-28 07:54 | CA_ITS ---
Acquisition Time: 2020-10-28 08:00:58 Total Exercise Time: 00:02:00 Test Indications: Dyspnea Medications: ASA FUROSEMIDE CAEVEDILOL Protocol: LEXISCAN Max HR: 083 BPM 53% of Pred: 155 BPM Max BP: 132/064 mmHG Max Work Load: 1.0 METS Pharmacological stress test using Lexiscan while sitting. Pt tolerated well. Chest heaviness after Lexiscan /10 that goes away in recovery. EKG with LBBB and PVC's . Nuclear images to follow. Normotensive response to test. Test reviewed with Dr. Wilson Referred By: Minesh Fontaine Overread By: Fabio Hannah
== END ==
LOC: HO.CARD 09:17
PROVIDERS: Visit Provider Internal Medicine Cardiovascular Disease
DX: I44.7 Left bundle-branch block, unspecified (principal); I50.9 Heart failure, unspecified; J96.01 Acute respiratory failure with hypoxia
CPT/HCPCS: 78452; 93017; A9500; J2785

== ENCOUNTER 2020-11-02 12:27 | Outpatient (REF) | payer MEDICARE, SELFPAY ==
[2020-11-02 14:45] LABS: Anion Gap 15 (12-20); Blood Urea Nitrogen 14 mg/dL (9-16); Carbon Dioxide 27 mmol/L (22-29); Chloride 103 mmol/L (96-108); Estimated Glomerular Filt Rate > 60; Glucose Random 110 mg/dL (60-115); Potassium 4.3 mmol/l (3.3-5.1); Sodium 141 mmol/L (135-145)
[2020-11-02 14:46] LABS: B Type Natriuretic Peptide 156 pg/mL (<100)
== END 2020-11-02 12:28 | disposition home or self-care (01) ==
LOC: HO.LAB 12:27
PROVIDERS: PCP Internal Medicine; Visit Provider Nurse Practitioner Family
DX: I50.9 Heart failure, unspecified (principal); I42.9 Cardiomyopathy, unspecified; I44.7 Left bundle-branch block, unspecified; J18.9 Pneumonia, unspecified organism; F10.10 Alcohol abuse, uncomplicated
CPT/HCPCS: 36415; 80048; 83880; 99212

== ENCOUNTER 2020-11-18 12:17 | Outpatient (REF) | payer MEDICARE, SELFPAY ==
[2020-11-18 13:04] LABS: MANUAL DIFF FLAG NO
[2020-11-18 13:10] LABS: Basophils Absolute Auto 0.1 X10*3/uL (0.0-0.2); Basophils Percent Auto 0.5 % (0-2); Eosinophils Absolute Auto 0.4 X10*3/uL (0.0-0.4); Hematocrit 39.7 % (42-52); Imm Gran Abs Auto 0.02 X10*3/uL (0.00-0.03); Imm Gran Pct Auto 0.2 % (0.0-0.4); Lymphocytes Absolute Auto 2.1 X10*3/uL (1.2-4.9); Lymphocytes Percent Auto 21.1 % (20-40); Mean Corpuscular HGB Conc 32.7 g/dl (31.0-36.0); Mean Corpuscular Hemoglobin 31.7 pg (27.0-33.0); Mean Corpuscular Volume 96.8 fL (80-98); Mean Platelet Volume 10.2 fL (9.4-12.4); Monocytes Absolute Auto 0.9 X10*3/uL (0.1-1.2); Neutrophils Absolute Auto 6.4 X10*3/uL (2.0-8.3); Neutrophils Percent Auto 65.2 % (45-73); Platelet Count 273 X10*3/uL (160-400); Red Cell Distribution Width 12.9 % (11.0-16.0); White Blood Count 9.8 X10*3/uL (4.8-10.8)
[2020-11-18 13:17] LABS: INTERNATIONAL NORM RATIO 1.1 (0.9-1.1); Prothrombin Time 12.7 SEC (10.8-13.0)
[2020-11-18 13:27] LABS: Anion Gap 14 (12-20); Blood Urea Nitrogen 13 mg/dL (9-16); Calcium 8.9 mg/dL (8.4-10.2); Carbon Dioxide 26 mmol/L (22-29); Chloride 103 mmol/L (96-108); Estimated Glomerular Filt Rate > 60; Glucose Random 95 mg/dL (60-115); Potassium 4.3 mmol/L (3.3-5.1); Sodium 139 mmol/L (135-145)
== END 2020-11-18 12:18 | disposition home or self-care (01) ==
LOC: HO.LAB 12:17
PROVIDERS: PCP Nurse Practitioner Family; Visit Provider Nurse Practitioner Family
DX: I50.9 Heart failure, unspecified (principal); I42.9 Cardiomyopathy, unspecified; I44.7 Left bundle-branch block, unspecified; F10.10 Alcohol abuse, uncomplicated
CPT/HCPCS: 36415; 80048; 85025; 85610

== ENCOUNTER 2020-11-18 13:32 | Emergency (ER) | payer MEDICARE, SELFPAY ==
--- NOTE | 2020-11-18 | ECG_ITS ---
Test Reason : CHEST DISCOMFORT Blood Pressure : / mmHG Vent. Rate : 068 BPM Atrial Rate : 068 BPM P-R Int : 152 ms QRS Dur : 094 ms QT Int : 426 ms P-R-T Axes : 000 000 -31 degrees QTc Int : 452 ms Sinus rhythm with frequent Premature ventricular complexes ST & T wave abnormality, consider anterior ischemia Abnormal ECG When compared with ECG of 13-OCT-2020 13:07, Premature ventricular complexes are now Present Left bundle branch block is no longer Present Referred By: Taurus Esposito Electronically Signed By:RICARDO AVALOS MD
[2020-11-18 13:37] VITALS: BP 129/58; PULSE 71; RESP 14; TEMP 36.9; O2SAT 96; BMI 44.1
--- NOTE | 2020-11-18 14:34 | ED.CHESTPAIN ---
HPI - Chest Pain General Chief Complaint: Chest Pain Stated Complaint: chest pain Time Seen by Provider: 11/18/20 13:45 Source: patient Mode of arrival: wheelchair Limitations: no limitations History of Present Illness HPI narrative: 65-year-old male who presents emergency department for evaluation of left-sided chest pain. The patient was hospitalized here at this facility from October 13, 2020 to October 18, 2020 for 1 month of shortness of breath, dyspnea on exertion and in the ED was treated for respiratory failure secondary to CHF placed on BiPAP and admitted to the intensive care unit. Patient's workup did reveal cardio myopathy with an EF of 20-25%. He was discharged on Lasix and carvedilol. The patient states that he is scheduled next week for a cardiac catheterization at [facility]. The patient states that before his admission and since being discharged from the hospital he has been getting intermittent left-sided tingling. He states that this tingling sensation is not related to his activity level. He states that he gets 6 episodes per day. They can last 10-15 seconds. He states that he also gets a tingling sensation in his left arm. He has no associated shortness of breath, diaphoresis, dizziness, nausea, vomiting associated with his chest pain and arm pain. The patient presented to cardiac rehab and during the intake he complained of left chest and left arm tingling this, therefore is referred to the emergency department. Here in the emergency department he states that he is asymptomatic. Related Data Previous Rx's Medication Instructions Recorded aspirin 81 mg PO DAILY #30 tab 10/18/20 carvedilol 3.125 mg PO BID #60 tab 10/18/20 furosemide 40 mg PO DAILY #30 tab 10/18/20 valsartan 40 mg tablet 40 mg PO BID #60 tab 11/03/20 Allergies Allergy/AdvReac Type Severity Reaction Status Date / Time No Known Allergies Allergy Unverified 06/23/20 14:55 [No Known Allergies*] Review of Systems Review of Systems: Yes all other systems are reviewed and are negative Neurologic: Reports Abnormal speech present [facility] Past Medical History Medical History (Updated 11/02/20 @ 14:30 by Katarzyna Barrientos NP-C) Acute on chronic respiratory failure with hypoxia and hypercapnia Alcohol abuse Cardiomyopathy Community acquired pneumonia Congestive heart failure Hypertension Hypoxia Left bundle branch block Respiratory failure Urinary retention Surgical History History of hand surgery History of hip replacement, total S/P left knee arthroscopy Social History Social History Household Members: Spouse Housing: House Alcohol intake: never Smoking Status: Former smoker Years Smoked: 40+ Smoked in Last 30 Days: No Use of substances other than those prescribed or required for medical reasons: No Advance Directives: No Advance Directives Information Provided: Yes service: No Current occupational status: retired Physical Exam Vital Signs: Vital Signs: Last Vital Signs Temp 98.4 F 11/18/20 13:37 Pulse 87 11/18/20 16:00 Resp 16 11/18/20 16:00 BP 129/58 L 11/18/20 13:37 Pulse Ox 96 11/18/20 13:37 Body Mass Index 44.1 Const: General: other (Very pleasant, cooperative male, does not appear to be in distress) Nutritional Appearance: obese Orientation/consciousness: oriented to person and oriented to place Limitations: no limitations HENMT: Head: Yes normal to inspection, Yes normocephalic and Yes atraumatic Ears: external ears normal General nose exam: Normal external nose present Face and sinus: Yes normal facial exam Mouth: Normal oral and palatal mucosa present Throat: Yes posterior oropharynx normal Eyes: Periorbital: periorbital findings normal Eyelids: Yes eyelids normal Conjunctivae: conjunctivae normal Sclerae: sclerae normal Corneas: corneas normal Pupils: Equal, round and reactive pupils present Direct Ophthalmoscopy: normal light reflex Neck: Neck: Yes full ROM, Yes no lymphadenopathy, Yes no meningeal signs, Yes trachea midline and Yes supple Chest: Chest palpation & inspection: normal inspection of the chest and normal palpation of entire chest wall Resp: Effort & Inspection: normal respiratory effort and able to speak in complete sentences Auscultation: clear to auscultation bilaterally Cardio: Rate: regular rate Rhythm: regular rhythm Heart sounds: S1 normal heart sound present, S2 normal heart sound present and no murmurs GI: Inspection: Yes normal to inspection Palpation (GI): Soft to palpation, nontender, no guarding, not rigid and No hepatosplenomegaly present : General: Yes no CVA tenderness Back/Spine/Pelvis: Back: no CVA tenderness Cervical Spine: normal cervical lordosis Thoracic/Lumbar Spine: thoracic and lumbar spine normal to inspection Skin: Lesions: no lesions Rashes: no rashes Wounds: no wounds Neuro: General: oriented to person, oriented to place and no meningeal signs Cranial nerves: Yes Equal, round and reactive pupils present Cognition (Neuro): normal cognition Speech: Abnormal speech present Motor exam (neuro): 5/5 motor strength present throughout Extrem: General: Yes normal to inspection, Yes full ROM and Yes other (Trace to 1+ pitting edema bilaterally symmetric) Psych: Appearance: well kempt Mental Status: mental status grossly normal Speech and movement: Normal speech and movement present Affect: normal affect Attitude: cooperative Thought process: Normal thought process present Thought content: Normal thought content present Course Course Course Narrative: 65-year-old male with cardiomyopathy with an EF of 20-25% diagnosed in in October of 2020 when he presented to the hospital with congestive heart failure and respiratory failure requiring BiPAP in ICU admission who presents emergency department for evaluation of left chest and left arm tingling. Patient states he has been getting the sensations since prior to being hospitalized in October in any gets 5-6 episodes per day. These episodes are not related to his activity level. The patient had an episode while he was going through intake at cardiac rehab, prior to being transferred to the emergency department. Physical examination is consistent with obesity, he has trace to 1+ pitting edema otherwise exam was unremarkable. Twelve EKG did reveal some ST segment less than [address] segment depression V4 through V6 with inverted T-waves in these leads. The patient's previous EKG was done while he was hospitalized on October 13, 2020 in the patient had a left bundle-branch block which is now resolved. Patient did have blood work done this morning which was unremarkable. I will check a troponin on the patient. 1642: The patient's troponin which is detectable but not elevated. The patient did have elevated troponins up to 120.6 during his last admission. At this time, I think that the patient's pain is very atypical I do not think that it is secondary to coronary artery disease or consistent with a myocardial infarction. I did discuss this with the patient and the patient be discharged home. He is scheduled for cardiac catheterization next week. The COVID-19 test is pending I will contact him with the result. The patient was discharged home with printed and verbal instructions. MDM - Chest Pain Lab Data Labs: Lab Results 11/18/20 Range/Units 14:55 Troponin I High Sens 21.2 D (<3.5-35.0) ng/L ECG Data ECG #1: Attestation: I personally reviewed and interpreted this ECG as follows: Interpretation: 1344: Normal sinus rhythm with a rate of 68, normal intervals, occasional PVC, less than [address] segment depression V4 through V6, inverted T-wave in V4 through V6, compared to EKG dated October 13, 2020, the patient had a left bundle branch block previously which is now resolved. Discharge Plan Discharge Prescriptions: No Action valsartan 40 mg tablet 40 mg PO BID Qty: 60 RF: 3 furosemide 40 mg Tablet 40 mg PO DAILY Qty: 30 RF: 2 carvedilol 3.125 mg Tablet 3.125 mg PO BID Qty: 60 RF: 2 aspirin 81 mg tablet,chewable 81 mg PO DAILY Qty: 30 RF: 2
[2020-11-18 15:33] LABS: Troponin-I High Sensitivity 21.2 ng/L (<3.5-35.0)
[2020-11-18 16:00] VITALS: PULSE 87; RESP 16
[2020-11-18 17:00] LABS: COVID-19 Test Negative (Negative)
== END 2020-11-18 16:44 | disposition home or self-care (01) ==
PROVIDERS: Emergency Provider Emergency Medicine Emergency Medical Services
DX: R07.89 Other chest pain (principal); Z20.822 Contact with and (suspected) exposure to COVID-19; I11.0 Hypertensive heart disease with heart failure; I50.9 Heart failure, unspecified; F10.10 Alcohol abuse, uncomplicated
CPT/HCPCS: 36415; 84484; 87635; 93005; 99284

== ENCOUNTER → 2020-12-06 12:35 | Outpatient (BNVA) | payer MEDICARE, SELFPAY | PROVIDERS: Visit Provider Nurse Practitioner Family | DX: I50.9 Heart failure, unspecified (principal); I42.9 Cardiomyopathy, unspecified; I44.7 Left bundle-branch block, unspecified; F10.10 Alcohol abuse, uncomplicated; Z98.890 Other specified postprocedural states | CPT/HCPCS: 99212 ==

== ENCOUNTER 2020-12-27 09:36 | Outpatient (REF) | payer MEDICARE, SELFPAY ==
[2020-12-27 12:21] LABS: B Type Natriuretic Peptide 94 pg/mL (<100)
[2020-12-27 12:36] LABS: Anion Gap 18 (12-20); Blood Urea Nitrogen 22 mg/dL (9-16); Carbon Dioxide 23 mmol/L (22-29); Chloride 103 mmol/L (96-108); Estimated Glomerular Filt Rate > 60; Glucose Random 90 mg/dL (60-115); Potassium 4.2 mmol/L (3.3-5.1); Sodium 140 mmol/L (135-145)
== END 2020-12-27 09:37 | disposition home or self-care (01) ==
LOC: HO.LAB 09:36
PROVIDERS: PCP Internal Medicine; Visit Provider Nurse Practitioner Family
DX: I42.9 Cardiomyopathy, unspecified (principal); I50.9 Heart failure, unspecified; I44.7 Left bundle-branch block, unspecified; R06.02 Shortness of breath; F10.10 Alcohol abuse, uncomplicated; Z79.899 Other long term (current) drug therapy; Z87.891 Personal history of nicotine dependence
CPT/HCPCS: 36415; 80048; 83880; 99212

== ENCOUNTER → 2021-01-11 14:45 | Outpatient (BNVA) | payer MEDICARE, SELFPAY | PROVIDERS: PCP Internal Medicine; Visit Provider Nurse Practitioner Family ==

== ENCOUNTER → 2021-01-17 10:12 | Outpatient (REF) | payer MEDICARE, SELFPAY ==
--- NOTE | 2021-01-17 10:15 | CA_ITS ---
Transthoracic Echocardiogram Patient (Last, First, Middle): Diogo Lynn S Gender: Male Date of : 1955 Age: 65 Procedure Date: 01/17/2021 Procedure Type: Transthoracic Echocardiogram Location: OP Height: 172.72 cm Weight: 136.08 kg BSA: 2.43 m2 Heart Rate: bpm BP: 138 / 82 mmHg Farm Management Professor: Referring MD: Katarzyna Barrientos DRIVER SALESMANElijah Symptoms: I42.9 - Cardiomyopathy, unspecified Conclusions: - The left ventricular systolic function is severely decreased. The visually estimated ejection fraction is between 25-30%. - There is severe global hypokinesis. - The entire septum is akinetic. Findings Procedure Information The patient receives contrast. Left Ventricle Normal left ventricular cavity size. The left ventricular systolic function is severely decreased. The visually estimated ejection fraction is between 25-30%. There is severe global hypokinesis. Wall Motion Rest Echo Findings The entire septum is akinetic. Atria The left atrium is normal in size. Prior Study Comparison No significant change compared to prior study dated: 10/13/2020. Measurements 2D Systolic Function EF 4C: 38.90 >55% EF 2C: 73.90 >55% Mitral Valve E'Lateral: 13.70 Diastolic Function E' Laterial: 13.70 Updated in Other Vendor System with Status of Final Edson Wilson MD electronically signed on 01/19/2021 4:46:50 PM with status of Final
== END ==
LOC: HO.CARD 10:12
PROVIDERS: Visit Provider Nurse Practitioner Family
DX: I42.9 Cardiomyopathy, unspecified (principal)
CPT/HCPCS: 93308; Q9957

== ENCOUNTER → 2021-01-26 13:03 | Outpatient (BNVA) | payer MEDICARE, SELFPAY | PROVIDERS: PCP Internal Medicine; Visit Provider Internal Medicine Cardiovascular Disease | DX: N39.41 Urge incontinence (principal); I44.7 Left bundle-branch block, unspecified; I42.6 Alcoholic cardiomyopathy; R63.5 Abnormal weight gain; R06.02 Shortness of breath; R42 Dizziness and giddiness; I10 Essential (primary) hypertension; Z87.891 Personal history of nicotine dependence | CPT/HCPCS: 99212 ==

== ENCOUNTER → 2021-02-09 13:46 | Outpatient (BNVA) | payer MEDICARE, SELFPAY | PROVIDERS: PCP Internal Medicine; Referring Provider Internal Medicine; Visit Provider Internal Medicine Cardiovascular Disease | DX: I44.7 Left bundle-branch block, unspecified (principal); I42.9 Cardiomyopathy, unspecified | CPT/HCPCS: 99212 ==

== ENCOUNTER → 2021-03-09 14:17 | Outpatient (BNVA) | payer MEDICARE, SELFPAY | PROVIDERS: PCP Internal Medicine; Visit Provider Urology | DX: R31.0 Gross hematuria (principal); N20.0 Calculus of kidney | CPT/HCPCS: 99212 ==

== ENCOUNTER 2021-05-08 08:17 | Day surgery (SDC) | payer MEDICARE, SELFPAY ==
[2021-05-02 10:03] VITALS: BMI 46.6
--- NOTE | 2021-05-02 13:25 | HO.ANESPROP2 ---
Documented by User: Katina Nichols 05/02/21 13:35 HPI - Anesthesia Eval Consult details Narrative: 66yo M for Bilateral Cystoscopy, Ureteroroscopy, Retro, Laser possible with Stent Placement s/p cysto, etc with GA-ETT 8 h/o of ETOH abuse. ? Recent quit per 02/2021 cardiac office visit. Stable at cardiology for few months f/u. [facility], [facility] Active Problems Active Problems: All Active Problems (Updated 05/02/21 @ 10:05 by Elinor Sands) SOB (shortness of breath) (Acute) Urge incontinence (Acute) Gross hematuria (Acute) Bilateral nephrolithiasis (Acute) S/P cardiac cath (Acute ~11/2020) Left bundle branch block (Acute) Cardiomyopathy (Acute) Alcohol abuse (Acute) Congestive heart failure (Acute) S/P left knee arthroscopy (Acute) History of hip replacement, total (Acute) History of hand surgery (Acute) Past Medical History Medical History (Updated 05/02/21 @ 13:34 by Katina Nichols) Acute on chronic respiratory failure with hypoxia and hypercapnia Alcohol abuse Cardiomyopathy Community acquired pneumonia Congestive heart failure COVID-19 vaccine administered Hypertension Hypoxia Left bundle branch block Respiratory failure Urinary retention Family History Family history of problems with anesthesia: No Surgical History Surgical History (Updated 05/02/21 @ 09:57 by Elinor Sands) History of hand surgery History of hip replacement, total Hx of cystoscopy S/P cardiac cath (~11/2020) S/P left knee arthroscopy History of Problems with Anesthesia: No Social History Social History Household Members: Spouse Housing: House Alcohol intake: current Alcohol intake frequency: 3 or more drinks per day Alcohol type: beer Patient Tobacco Use Status: Former Tobacco user Quit Date: 2012 Tobacco use type: Cigarette Years Smoked: 40+ Use of substances other than those prescribed or required for medical reasons: No Have you been hit, kicked, punched, or otherwise hurt by someone within the past year? If so, by whom?: No Are you DNR?: No Advance Directives: Yes Advance Directives Information Provided: Yes (HCP is in Expanse) Advance Directives on File: Yes Advance Directives Date on File: 10/14/20 Recently lost weight without trying: No Eating poorly because of decreased appetite: No Nutrition Risks: No Nutritional Risk service: No Current occupational status: retired Meds Allergies Allergy/AdvReac Type Severity Reaction Status Date / Time No Known Allergies Allergy Verified 03/09/21 14:37 [No Known Allergies*] Home Medications Medication Instructions Recorded Confirmed Last Taken Type furosemide 80 mg tablet 80 mg PO DAILY 02/09/21 05/02/21 Unknown History sacubitril 24 mg-valsartan 26 mg 1 tab PO BID 05/08/21 05/08/21 05/08/21 05:00 History tablet (Entresto) Exam Exam Date and Time: May 02, 2021 1325 Height,Weight and Vital Signs: Height 5 ft 8 in Weight 139.253 kg Pertinent Lab Results Pertinent Lab Results: Laboratory Tests 11/18/20 12/27/20 12:30 10:46 WBC 9.8 Hgb 13.0 L Hct 39.7 L Plt Count 273 D Sodium 140 Potassium 4.2 Chloride 103 Carbon Dioxide 23 BUN 22 H D Creatinine 0.81 Narrative Narrative: Cardiac Cath 11/2020 No siginificant coronary artery disease Non-ischemp cardiomyopathy EKG 11/2020 Vent. Rate : 068 BPM Atrial Rate : 068 BPM P-R Int : 152 ms QRS Dur : 094 ms QT Int : 426 ms P-R-T Axes : 000 000 -31 degrees QTc Int : 452 ms Sinus rhythm with frequent Premature ventricular complexes ST & T wave abnormality, consider anterior ischemia Abnormal ECG When compared with ECG of 13-OCT-2020 13:07, Premature ventricular complexes are now Present Left bundle branch block is no longer Present ECHO 01/2021 Conclusions: - The left ventricular systolic function is severely decreased. The visually estimated ejection fraction is between 25-30%. - There is severe global hypokinesis. - The entire septum is akinetic. NM seb perf SPECT rest & str 10/2020 Impression: 1. Myocardial perfusion imaging study shows no definitive evidence of ischemia. Fixed inferior defect suspected to be from diaphragmatic artifact based on improvement with CT attenuation correction. 2. Gated LVEF is diminished. 37% during stress and 29% during rest. Correlate with echocardiogram. 3. Transient ischemic dilatation not present but LV cavity is dilated. EKG portion Protocol: LEXISCAN Max HR: 083 BPM 53% of Pred: 155 BPM Max BP: 132/064 mmHG Max Work Load: 1.0 METS Pharmacological stress test using Lexiscan while sitting. Pt tolerated well. Chest heaviness after Lexiscan 04/15 that goes away in recovery. EKG with LBBB and PVC's . Nuclear images to follow. Normotensive response to test. Test reviewed with Dr. Wilson Assessment and Plan Assessment Anesthesia Assessment: Chart Reviewed Documented by User: Nasreen Umana 05/08/21 11:48 HPI - Anesthesia Eval Consult details Narrative: 66 yo male patient for Cystoscopy, ureteroscopy, retro, possible laser lithotripsy and bilateral stent placement PMFSH Past Medical History Medical History (Updated 05/02/21 @ 13:34 by Katina Nichols) Acute on chronic respiratory failure with hypoxia and hypercapnia Alcohol abuse Cardiomyopathy Community acquired pneumonia Congestive heart failure COVID-19 vaccine administered Hypertension Hypoxia Left bundle branch block Respiratory failure Urinary retention Family History Family history of problems with anesthesia: No Surgical History Surgical History (Updated 05/02/21 @ 09:57 by Elinor Sands) History of hand surgery History of hip replacement, total Hx of cystoscopy S/P cardiac cath (~11/2020) S/P left knee arthroscopy History of Problems with Anesthesia: No Social History Social History Household Members: Spouse Housing: House Alcohol intake: current Alcohol intake frequency: 3 or more drinks per day Alcohol type: beer Patient Tobacco Use Status: Former Tobacco user Quit Date: 2012 Tobacco use type: Cigarette Years Smoked: 40+ Use of substances other than those prescribed or required for medical reasons: No Have you been hit, kicked, punched, or otherwise hurt by someone within the past year? If so, by whom?: No Are you DNR?: No Advance Directives: Yes Advance Directives Information Provided: Yes (HCP is in Expanse) Advance Directives on File: Yes Advance Directives Date on File: 10/14/20 Recently lost weight without trying: No Eating poorly because of decreased appetite: No Nutrition Risks: No Nutritional Risk service: No Current occupational status: retired Meds Allergies Allergy/AdvReac Type Severity Reaction Status Date / Time No Known Allergies Allergy Verified 03/09/21 14:37 [No Known Allergies*] Home Medications Medication Instructions Recorded Confirmed Last Taken Type furosemide 80 mg tablet 80 mg PO DAILY 02/09/21 05/02/21 Unknown History sacubitril 24 mg-valsartan 26 mg 1 tab PO BID 05/08/21 05/08/21 05/08/21 05:00 History tablet (Entresto) Exam Height,Weight and Vital Signs: Height 5 ft 8 in Weight 139.253 kg Vital Signs Temp Pulse Resp BP Pulse Ox 05/08/21 08:26 98.4 F 95 18 161/61 H 96 Airway Mallampati Class: III TM Dist: >3cm Neck ROM: Full Loose/Missing/Broken Teeth: Yes (Edentulous) Heart: Irregular. Extra beats. SR with PVCs on monitor Lungs: CTAB Assessment and Plan Assessment Anesthesia Assessment: Anesthesia Plan Discussed and Chart Reviewed Final Anesthetic Review NPO: Yes ASA Class: III Final Preanesthetic Review: No Changes in Pt Med Stat, Meds/Allgs Chart Reviewed, Consent Obtained/Reviewed and Anes Risks/Benef Reviewed Patient Risk: Intermediate Procedure Risk: Low Assessment/Block/Sedation in SS: Assess/Block/Sedation-SS Anesthetic Plan Anesthetic Plan: GA Disposition: Standard PACU
[2021-05-08] VITALS (7 sets, daily range): BP systolic 133–161; BP diastolic 59–105; PULSE 85–97; RESP 16–20; TEMP 36.6–36.9; O2SAT 92–97
--- NOTE | ~2021-05-08 | FL_ITS ---
EXAMINATION: XR FLUOROSCOPY WITH IMAGES CLINICAL INFORMATION: Urinary tract calculi. Stenting. COMPARISON: CT abdomen and pelvis noncontrast 10/15/2020 TECHNIQUE: Fluoroscopy performed by Dr. Corey Camarena. Fluoroscopy time: 1.4 minutes DAP: 15.4 Gycm2 Images: 2 FINDINGS: There is bilateral ureteral stents overlying the bilateral renal fossa and extending towards the pelvis beyond the [id number]. FL/FL guidance in OR IMPRESSION: Status post bilateral ureteral stents.
[2021-05-08] MEDS: Lactated Ringers 1,000 ML 50 ML IVCONT (08:42)
--- NOTE | 2021-05-08 11:33 | PC.NURSE ---
patient sitting up in chair by the bedside for comfort. when ambulates to br he gets sob. thats patients baseline. decreased sob when at rest.
--- NOTE | 2021-05-08 11:51 | MHC.SHP ---
Pre-Procedural Eval Section A Date of Service: 05/08/21 Section B Chief Complaint: Calculus of Kidney Details of Present Illness: Stents placed in October. Here for bilateral ureteroscopy with laser and stent removal Relevant Family History (Specify if Yes): No Relevant Social History: None Present Medications: None Medical History: No relevant PMH History of Previous Operations: Relevant previous surgery/procedure and date(s) Allergies: Allergies Allergy/AdvReac Type Severity Reaction Status Date / Time No Known Allergies Allergy Verified 03/09/21 14:37 [No Known Allergies*] Review of Systems Sugical H&P ROS: Negative: Constitution, Cardiovascular, Respiratory, Neurological, Psychiatric, Hem-Onc, Allergic/Immunologic, Gastrointestinal, Genitourinary, Musculoskeletal, Integumentary, Endocrine and Eyes/Ears/Nose/Throat Exam Surgical H&P Exam: Normal: HEENT, Normal: Heart, Normal: Lungs, Normal: Extremities, Normal: Abdomen, Normal: Skin and Normal: Neurological Plan Diagnosis/Plan: Unchanged (Cystoscopy, bilateral retrograde, bilateral ureteroscopy with laser lithotripsy and stent removal) I have reviewed the history and physical and performed a pertinent physical examination on my patient. No changes have occurred unless specified.
[2021-05-08] MEDS: levoFLOXacin 500 MG TABLET PO (11:55)
--- NOTE | 2021-05-08 14:24 | W.PM.OPN ---
Operative Note Operative Note Date of Service: 05/08/21 Narrative: PreOperative Diagnosis: Bilateral ureteric stent, bilateral renal stones Post Operative Diagnosis: Same Procedure: - cystoscopy, bilateral retrograde - bilateral removal of stents - bilateral dilatation of ureteric orifice under fluoroscopy - bilateral ureteroscopy, laser lithotripsy, stone basketing - bilateral stent placement Surgeon: Dr Corey Camarena Anesthesia: General Indications for procedure: This is a 66-year-old male. In October of this year he had presented with urosepsis through the emergency room. Stones have been seen on both sides on CT scanning. Stents were placed both sides. He was lost to follow-up after having had a cardiac strain and time in rehab. He re-presented with both stents still in place and hematuria. Recommendation for cystoscopy with stent removal, ureteroscopy with laser lithotripsy and stent placement. Procedure: After informed consent was verified patient was brought to the operating placed in supine position. Anesthesia was administered per protocol. Patient was placed in modified dorsal lithotomy position and prepped and draped in a sterile fashion. Safety pause time-out and side of surgery confirmed. Antibiotics confirmed. A 22 Congolese cystoscope was inserted per urethra. There was urethral meatal narrowing in this was dilated using a Lloyd sound. Both stents were encountered within the bladder. On the left side 1st a Sensor guidewire was placed alongside the stent. The stent itself was grasped and removed. There was calcification at the proximal end of the stent. The ureteric access sheath was placed followed by the digital flexible ureteral scope. Retrograde examination performed confirm renal anatomy. There were multiple 1 cm stones within the renal pelvis proximally for. Using the 275 micron fiber we broke the stones into small pieces using combination of hammer and dusting settings. Due to the large stone burden this took approximately 60 minutes which is 100% longer than typical. Multiple stone fragments were removed using a basket. The small stone fragments kept falling into the proximal portion the ureter made it difficult to make passes with the ureteral scope. Decision was made to place a stent and the stone fragments will be dealt with using ESWL to break them into small pieces and allow them to pass. A 6 Congolese by 26 cm double-J stent was backloaded over a cystoscope and under fluoroscopy was placed up the left ureter. Attention was then directed to the right side. Similarly a wire was placed alongside the stent. The stent was grasped and removed. There was calcification along the stent. Ureteric access sheath was placed over the wire. The felt to be a stone midway up the ureter. The digital ureteral scope was then placed. The renal pelvis was examined. There was much less stone burden on this side. The stone that was left P to have been calcification around the stent in this was broken into small pieces using holmium laser. We then withdrew the access sheath with scope leaving this wire in place. A stone was encountered mid ureter which was also broken into small pieces with the laser. We then removed the sheath with the scope. At this point we back loaded the wire and placed a 6 Congolese by 26 cm double-J stent on the left side. The bladder was emptied in its entirety. The patient tolerated the procedure was extubated in the operating room transferred in stable condition to the recovery area. Pathology: Stones Drains: Bilateral 6 Congolese by 26 cm stents
[2021-05-08] MEDS: Acetaminophen 325 MG TABLET 650 MG PO (15:02)
[2021-05-08] MEDS: Phenazopyridine HCL 100 MG TABLET PO (15:03)
[2021-05-08] MEDS: oxyCODONE HCl Immed Release 5 MG TABLET PO (16:10)
[2021-05-13 22:21] LABS: Stone Source KIDNEY
== END 2021-05-08 16:31 | disposition home or self-care (01) ==
PROVIDERS: Visit Provider Urology
PROC: (CPT 52356; principal; 2021-05-08 10:40)
DX: N20.1 Calculus of ureter (principal); I44.7 Left bundle-branch block, unspecified; J96.90 Respiratory failure, unspecified, unspecified whether with hypoxia or hypercapnia; I42.8 Other cardiomyopathies; I50.9 Heart failure, unspecified; I11.0 Hypertensive heart disease with heart failure; F10.10 Alcohol abuse, uncomplicated; R31.0 Gross hematuria; Z87.01 Personal history of pneumonia (recurrent); Z87.891 Personal history of nicotine dependence; Z79.899 Other long term (current) drug therapy
CPT/HCPCS: 52356; 52352; 82365; 88300; C1758; C1769; C1894; C2617; J0330; J1100; J1885; J2405; J3010; Q9967

== ENCOUNTER 2021-06-07 07:22 | Day surgery (SDC) | payer MEDICARE, SELFPAY ==
[2021-05-17 14:50] VITALS: BMI 46.6
--- NOTE | 2021-05-23 09:39 | HO.ANESPROP2 ---
Documented by User: Katina Nichols NP 05/23/21 09:40 HPI - Anesthesia Eval Consult details Narrative: 66yo M for Left Lithotripsy ESW No previous ESWL. Cysto, etc 05/09/21 with GA-ETT 7.5 h/o of ETOH abuse. ? Recent quit per 02/2021 cardiac office visit. Stable at cardiology for few months f/u. [facility] Active Problems Active Problems: All Active Problems (Updated 05/17/21 @ 15:04 by Diana Varghese) SOB (shortness of breath) (Acute) Urge incontinence (Acute) Gross hematuria (Acute) Bilateral nephrolithiasis (Acute) S/P cardiac cath (Acute ~11/2020) Left bundle branch block (Acute) Cardiomyopathy (Acute) Alcohol abuse (Acute) Congestive heart failure (Acute) S/P left knee arthroscopy (Acute) History of hip replacement, total (Acute) History of hand surgery (Acute) Past Medical History Medical History (Updated 06/07/21 @ 09:20 by Nasreen Umana MD) Acute on chronic respiratory failure with hypoxia and hypercapnia Alcohol abuse Cardiomyopathy Community acquired pneumonia Congestive heart failure COVID-19 vaccine administered Hypertension Hypoxia Left bundle branch block Respiratory failure Urinary retention Family History Family history of problems with anesthesia: No Surgical History Surgical History History of hand surgery History of hip replacement, total Hx of cystoscopy S/P cardiac cath (~11/2020) S/P left knee arthroscopy History of Problems with Anesthesia: No Social History Social History Household Members: Spouse Housing: House Are you a primary hospice home care coordinator to a significant other at home: No Do you presently have visiting nurse or other home services: No Alcohol intake: current Alcohol intake frequency: 3 or more drinks per day Alcohol type: beer Patient Tobacco Use Status: Former Tobacco user Quit Date: 2012 Tobacco use type: Cigarette Years Smoked: 40 + Smoked in Last 30 Days: No Second Hand Smoke Exposure: No Use of substances other than those prescribed or required for medical reasons: No Have you been hit, kicked, punched, or otherwise hurt by someone within the past year? If so, by whom?: No Are you DNR?: No Advance Directives: Yes Advance Directives Information Provided: No Advance Directives on File: Yes (in expanse) Advance Directives Date on File: 10/14/20 Recently lost weight without trying: No Eating poorly because of decreased appetite: No Nutrition Risks: No Nutritional Risk service: No Current occupational status: retired Meds Allergies Allergy/AdvReac Type Severity Reaction Status Date / Time No Known Allergies Allergy Verified 03/09/21 14:37 [No Known Allergies*] Home Medications Medication Instructions Recorded Confirmed Last Taken Type furosemide 80 mg tablet 80 mg PO DAILY 02/09/21 05/17/21 Unknown History Exam Exam Date and Time: May 23, 2021 0939 Height,Weight and Vital Signs: Height 5 ft 8 in Weight 139.2 kg Pertinent Lab Results Pertinent Lab Results: Laboratory Tests ? 11/18/20 12/27/20 ? 12:30 10:46 WBC ?9.8 ? Hgb ?13.0 L ? Hct ?39.7 L ? Plt Count ?273? D ? Sodium ? ?140 Potassium ? ?4.2 Chloride ? ?103 Carbon Dioxide ? ?23 BUN ? ?22 H D Creatinine ? ?0.81 Narrative Narrative: Cardiac Cath 11/2020 No siginificant coronary artery disease Non-ischemp cardiomyopathy EKG 11/2020 Vent. Rate : 068 BPM ? ? Atrial Rate : 068 BPM ?? P-R Int : 152 ms? QRS Dur : 094 ms ? ? QT Int : 426 ms ? ? ? P-R-T Axes : 000 000 -31 degrees ?? QTc Int : 452 ms ? Sinus rhythm with frequent Premature ventricular complexes ST & T wave abnormality, consider anterior ischemia Abnormal ECG When compared with ECG of 13-OCT-2020 13:07, Premature ventricular complexes are now Present Left bundle branch block is no longer Present ECHO 01/2021 Conclusions: - The left ventricular systolic function is severely decreased. The visually estimated ejection fraction is between 25-30%. ? ? - There is severe global hypokinesis. ? - The entire septum is akinetic. ? ? NM seb perf? SPECT rest & str 10/2020 Impression: ? 1.? Myocardial perfusion imaging study shows no definitive evidence of ischemia. Fixed inferior defect suspected to be from diaphragmatic artifact based on improvement with CT attenuation correction. 2.? Gated LVEF is diminished. 37% during stress and 29% during rest. Correlate with echocardiogram. 3. Transient ischemic dilatation not present but LV cavity is dilated. EKG portion Protocol: LEXISCAN ? ? ? Max HR: 083 BPM? 53% of? Pred: 155 BPM Max BP: 132/064 mmHG Max Work Load: 1.0 METS ? Pharmacological stress test using Lexiscan while sitting.? Pt tolerated well. ?Chest heaviness after Lexiscan 04/15 that goes away in recovery.? EKG with LBBB ?and PVC's .? Nuclear images to follow.? Normotensive response to test.? Test ?reviewed with Dr. Wilson Assessment and Plan Assessment Anesthesia Assessment: Chart Reviewed Final Anesthetic Review Family History of Problems with Anesthesia: No History of Problems with Anesthesia: No Documented by User: Nasreen Umana MD 06/07/21 09:20 [facility] Active Problems Active Problems: All Active Problems (Updated 05/17/21 @ 15:04 by Diana Varghese) SOB (shortness of breath) (Acute) Urge incontinence (Acute) Gross hematuria (Acute) Bilateral nephrolithiasis (Acute) S/P cardiac cath (Acute ~11/2020) Left bundle branch block (Acute) Cardiomyopathy (Acute)? ETOH- related. EF from ICU admission 10/2020: 25-30% Alcohol abuse (Acute). Still drinking. About 3 beers/day Congestive heart failure (Acute) S/P left knee arthroscopy (Acute) History of hip replacement, total (Acute) History of hand surgery (Acute) Past Medical History Medical History (Updated 06/07/21 @ 09:20 by Nasreen Umana MD) Acute on chronic respiratory failure with hypoxia and hypercapnia Alcohol abuse Cardiomyopathy Community acquired pneumonia Congestive heart failure COVID-19 vaccine administered Hypertension Hypoxia Left bundle branch block Respiratory failure Urinary retention Surgical History Surgical History History of hand surgery History of hip replacement, total Hx of cystoscopy S/P cardiac cath (~11/2020) S/P left knee arthroscopy Social History Social History Household Members: Spouse Housing: House Are you a primary hospice home care coordinator to a significant other at home: No Do you presently have visiting nurse or other home services: No Alcohol intake: current Alcohol intake frequency: 3 or more drinks per day Alcohol type: beer Patient Tobacco Use Status: Former Tobacco user Quit Date: 2012 Tobacco use type: Cigarette Years Smoked: 40 + Smoked in Last 30 Days: No Second Hand Smoke Exposure: No Use of substances other than those prescribed or required for medical reasons: No Have you been hit, kicked, punched, or otherwise hurt by someone within the past year? If so, by whom?: No Are you DNR?: No Advance Directives: Yes Advance Directives Information Provided: No Advance Directives on File: Yes (in expanse) Advance Directives Date on File: 10/14/20 Recently lost weight without trying: No Eating poorly because of decreased appetite: No Nutrition Risks: No Nutritional Risk service: No Current occupational status: retired [employer] Allergies Allergy/AdvReac Type Severity Reaction Status Date / Time No Known Allergies Allergy Verified 03/09/21 14:37 [No Known Allergies*] Home Medications Medication Instructions Recorded Confirmed Last Taken Type furosemide 80 mg tablet 80 mg PO DAILY 02/09/21 05/17/21 Unknown History Exam Airway Mallampati Class: III TM Dist: >3cm Neck ROM: Full Loose/Missing/Broken Teeth: Yes (Edentulous) Heart: RRR Lungs: CTAB Assessment and Plan Assessment Anesthesia Assessment: Anesthesia Plan Discussed Final Anesthetic Review NPO: Yes ASA Class: III Final Preanesthetic Review: No Changes in Pt Med Stat, Meds/Allgs Chart Reviewed, Consent Obtained/Reviewed and Anes Risks/Benef Reviewed Patient Risk: Intermediate Procedure Risk: Low Assessment/Block/Sedation in SS: Assess/Block/Sedation-SS Anesthetic Plan Anesthetic Plan: GA and MAC: Disposition: Standard PACU
--- NOTE | ~2021-06-07 | XR_ITS ---
EXAMINATION: XR ABDOMEN KUB CLINICAL INDICATION: Nephrolithiasis. COMPARISON: CT scan of 10/15/2020 TECHNIQUE: AP view of the abdomen. FINDINGS: No dilated loops of large or small bowel are evident. Bilateral ureteral stents are seen in place. There is an approximately 2 mm calculus seen within the right kidney superior to the retention pigtail of the proximal stent. I do not definitely see the calculus that was adjacent to the proximal stent at the ureteropelvic junction from CT scan of 10/15/2020. There is a 3 mm calcification just superior to the left ureteral pigtail within the upper collecting system. There appears to be a 6 mm calculus visualized within the loop of the pigtail. The 2 other previously noted proximal ureteral calculi are not definitely identified on this plain film technique. XR/XR KUB IMPRESSION: Bilateral ureteral stents visualized with a few calcifications, as noted. On this plain film study, some of the larger calculi that were lying along the stents are not definitely identified.
[2021-06-07] MEDS: Acetaminophen 325 MG TABLET 650 MG PO (08:01)
[2021-06-07 08:19] VITALS: BP 147/62; PULSE 89; RESP 24; TEMP 36.1; O2SAT 96
[2021-06-07] MEDS: Lactated Ringers 500 ML 20 ML IVCONT (08:35)
--- NOTE | 2021-06-07 09:05 | MHC.SHP ---
Pre-Procedural Eval Section A Date of Service: 06/07/21 Section B Chief Complaint: calculus of kidney Details of Present Illness: left renal stones - prior ureteroscopy - has indwelling stents that need to be removed Relevant Social History: Tobacco Use Present Medications: see Short Stay Collaborative assessment Medical History: Significant History History of Previous Operations: Relevant previous surgery/procedure and date(s) Allergies: Allergies Allergy/AdvReac Type Severity Reaction Status Date / Time No Known Allergies Allergy Verified 03/09/21 14:37 [No Known Allergies*] Review of Systems Sugical H&P ROS: Negative: Constitution, Cardiovascular, Respiratory, Neurological, Psychiatric, Hem-Onc, Allergic/Immunologic, Gastrointestinal, Genitourinary, Musculoskeletal, Integumentary, Endocrine and Eyes/Ears/Nose/Throat Exam Surgical H&P Exam: Normal: HEENT, Normal: Heart, Normal: Lungs, Normal: Extremities, Normal: Abdomen, Normal: Skin and Normal: Neurological Plan Diagnosis/Plan: Unchanged (cystoscopy with stent removal bilateral - left eswl) - I have reviewed the history and physical and performed a pertinent physical examination on my patient. No changes have occurred unless specified We discussed the nature of the decision and reasonable alternatives for performing the above surgery. Interventions include chemical dissolution, ESWL, ureteroscopy with laser lithotripsy and stent placement, PCNL. Options such as medical therapy were discussed. The relative uncertainties and benefits related to each alternate procedure were adequately discussed. General surgical risks including, but not limited to, pain, bleeding, infection, myocardial infarction, pulmonary embolus, deep vein thrombosis and cerebrovascular accident which may result in further hospitalization were discussed. Full disclosure of the procedure as well as all major risks, benefits and complications were discussed including but not limited to damage to the urethra, bladder and kidney, damage to adjacent organs such as the pancreas, spleen or liver, damage to the ureter, stent migration or malposition, scarring to the renal pelvis, failure of stone fragments to pass, stone passage with ureteral obstruction and the need for secondary procedures. The overall secondary procedure rate is approximately 10-15%. The success rate of the procedure was discussed. Success of the procedure in the short-term does not necessarily guarantee that long-term success will be maintained. Suitable follow up will need to be maintained. The patient showed understanding of the discussion as well as the typical recovery time, and the outpatient nature of this procedure. Opportunity was given for questions. Repeat-back proctol used to confirm understanding. They wish to proceed with - ESWL of the left side
--- NOTE | 2021-06-07 09:50 | P.OP_ITS ---
Operative Note Operative Note Date of Service: 06/07/21 Narrative: PreOperative Diagnosis: Left Renal stones, bilateral stents Post Operative Diagnosis: Left Renal stones Procedure: Left ESWL with cystoscopy and removal of left and right ureteric stents Surgeon: Dr Corey Camarena Anesthesia: mac/sedation Indications for procedure: They understand ESWL may be a staged procedure and subsequent intervention may be required based on imaging after ESWL. They also understand there is a risk of bleeding, infection, damage to adjacent organs. - cluster of stones on left lower pole 1.5cm Procedure: After informed consent was verified the patient was brought to the operating room and placed in a supine position. Anesthesia was performed per protocol. Safety pause time-out was performed. Imaging was in the room and laterality confirmed. Cystoscopy performed. Left stent grasped and removed. Repeat cystoscopy perfo rmed. Right stent grasped and removed. Left ESWL was performed. The 1st 500 shocks were performed at 60 hertz. These were performed with increasing power. Once maximum power was reached the rate was increased to 120 hertz. A total of 2500 shocks were given. Fluoroscopy showed stone disintegration. They tolerated procedure well and was transferred to the recovery area upon completion.
[2021-06-07 10:22] VITALS: BP 153/83; PULSE 90; RESP 16; TEMP 36.2; O2SAT 98
[2021-06-07] MEDS: Phenazopyridine HCL 100 MG TABLET PO (10:31)
[2021-06-07 10:37] VITALS: BP 146/73; PULSE 83; RESP 19; TEMP 36.1; O2SAT 100
[2021-06-07 10:52] VITALS: BP 141/72; PULSE 87; RESP 17; O2SAT 100
== END 2021-06-07 11:40 ==
LOC: HO.SSS 07:22
PROVIDERS: Visit Provider Urology
PROC: (CPT 50590; principal; 2021-06-07 08:50)
DX: N20.0 Calculus of kidney (principal); N39.41 Urge incontinence; I11.0 Hypertensive heart disease with heart failure; I50.9 Heart failure, unspecified; Z96.0 Presence of urogenital implants
CPT/HCPCS: 50590; 52310; 74018; J0690; J2250

== ENCOUNTER 2021-06-22 12:03 | Outpatient (REF) | payer MEDICARE, SELFPAY ==
--- NOTE | ~2021-06-22 | US_ITS ---
EXAMINATION: US RETROPERITONEAL LIMITED (RENAL ONLY) CLINICAL INFORMATION: Calculus of kidney. COMPARISON: X-ray abdomen KUB 06/07/2021. CT abdomen and pelvis 10/15/2020. Renal ultrasound 10/14/2020. TECHNIQUE: Real-time imaging of the kidneys. FINDINGS: RIGHT KIDNEY: 11.0 x 5.7 x 6.7 cm (SAG x AP x TRV). The kidney is normal in size, contour, and echogenicity. Renal cortical thickness is normal. No focal parenchymal lesions or hydronephrosis. A few calyceal stones are detected in the mid and lower pole, including a stone measuring up to 1 cm in the interpolar area and a stone measuring up to 1 cm in the lower pole. LEFT KIDNEY: 13.3 x 6.4 x 6.1 cm (SAG x AP x TRV). The kidney is normal in size, contour, and echogenicity. Renal cortical thickness is normal. No focal parenchymal lesions or hydronephrosis. There are multiple calyceal stones detected in the mid and lower pole. The largest stone, or cluster of stones, is located in the lower pole and occupies a region measuring approximately 2.5 x 0.6 cm. US/US renal BI IMPRESSION: Multiple bilateral renal calculi are present. However, no hydronephrosis.
== END 2021-06-22 12:04 | disposition home or self-care (01) ==
LOC: HO.US 12:03
PROVIDERS: Visit Provider Urology
DX: N20.0 Calculus of kidney (principal)
CPT/HCPCS: 76775

== ENCOUNTER → 2021-07-19 11:23 | Outpatient (BNVA) | payer MEDICARE, SELFPAY | PROVIDERS: Visit Provider Urology | DX: N20.0 Calculus of kidney (principal) | CPT/HCPCS: Q3014 ==

== ENCOUNTER 2021-09-25 12:28 | Outpatient (REF) | payer MEDICARE, SELFPAY ==
--- NOTE | ~2021-09-25 | US_ITS ---
EXAMINATION: US RETROPERITONEAL LIMITED (RENAL ONLY) CLINICAL INFORMATION: Calculus of kidney. COMPARISON: Renal ultrasound 06/22/2021 and 10/14/2020. X-ray abdomen KUB 06/07/2021. TECHNIQUE: Real-time imaging of the kidneys. FINDINGS: RIGHT KIDNEY: 10.4 x 6.0 x 6.3 cm (SAG x AP x TRV). The kidney is normal in size, contour, and echogenicity. Renal cortical thickness is normal. There are multiple small stones, largest measuring 5 mm in the lower pole. No focal parenchymal lesions or hydronephrosis. LEFT KIDNEY: 11.3 x 6.0 x 6.0 cm (SAG x AP x TRV). The kidney is normal in size, contour, and echogenicity. Renal cortical thickness is normal. There are multiple renal stones, largest measuring 9 x 4 mm in the lower pole. No focal parenchymal lesions or hydronephrosis. US/US renal BI IMPRESSION: Bilateral renal stones. Renal stones are decreased in size from previous exam June 2021
== END 2021-09-25 12:29 | disposition home or self-care (01) ==
LOC: HO.US 12:28
PROVIDERS: PCP Internal Medicine; Visit Provider Urology
DX: N20.0 Calculus of kidney (principal)
CPT/HCPCS: 76775

== ENCOUNTER → 2021-10-19 09:10 | Outpatient (BNVA) | payer MEDICARE, SELFPAY | PROVIDERS: PCP Internal Medicine; Visit Provider Urology | DX: Z13.89 Encounter for screening for other disorder (principal) | CPT/HCPCS: Q3014 ==

== ENCOUNTER 2022-04-19 15:36 | Outpatient (REF) | payer MEDICARE, SELFPAY ==
--- NOTE | ~2022-04-19 | US_ITS ---
EXAMINATION: US RETROPERITONEAL LIMITED (RENAL ONLY) CLINICAL INFORMATION: Calculus of kidney. COMPARISON: US retroperitoneal limited (renal only) 09/25/2021 and 06/22/2021. XR abdomen KUB 06/07/2021. CT abdomen and pelvis without contrast 10/15/2020. TECHNIQUE: Real-time imaging of the kidneys. FINDINGS: RIGHT KIDNEY: 9.5 x 5.7 x 5.3 cm (SAG x AP x TRV). The kidney is normal in size, contour, and echogenicity. Renal cortical thickness is normal. No focal parenchymal lesions or hydronephrosis. At the interpolar aspect of the right kidney, a 3 mm nonobstructing calculus is seen, with twinkle artifact. LEFT KIDNEY: 13.0 x 6.5 x 5.6 cm (SAG x AP x TRV). The kidney is normal in size, contour, and echogenicity. Renal cortical thickness is normal. No focal parenchymal lesions or hydronephrosis. At the lower pole of the left kidney, a 3 mm nonobstructing calculus is seen, with twinkle artifact. US/US renal BI IMPRESSION: Small nonobstructing bilateral renal calculi are seen, as detailed. No hydronephrosis is noted.
== END 2022-04-19 15:37 | disposition home or self-care (01) ==
LOC: HO.US 15:36
PROVIDERS: Visit Provider Urology
DX: N20.0 Calculus of kidney (principal)
CPT/HCPCS: 76775

== ENCOUNTER → 2022-05-09 11:05 | Outpatient (BNVA) | payer MEDICARE, SELFPAY | PROVIDERS: PCP Internal Medicine; Visit Provider Urology | DX: N20.0 Calculus of kidney (principal) | CPT/HCPCS: Q3014 ==

== ENCOUNTER → 2022-08-23 09:20 | Outpatient (BNVA) | payer MEDICARE, SELFPAY | PROVIDERS: PCP Internal Medicine; Visit Provider Internal Medicine Cardiovascular Disease | DX: Z13.89 Encounter for screening for other disorder (principal) | CPT/HCPCS: 93005; 99212 ==

== ENCOUNTER 2022-08-23 09:53 | Emergency (ER) | payer MEDICARE, SELFPAY ==
--- NOTE | ~2022-08-23 | XR_ITS ---
EXAMINATION: XR CHEST CLINICAL INFORMATION: Bradycardia, weakness, shortness of breath, rule out CHF. COMPARISON: 10/13/2020 chest radiograph. TECHNIQUE: Frontal view of the chest was obtained. FINDINGS: The lungs are clear. The heart and mediastinal structures are unremarkable. XR/XR chest 1V IMPRESSION: No acute cardiopulmonary process.
[2022-08-23 09:58] VITALS: PULSE 28; RESP 18; TEMP 36.7; O2SAT 95; BMI 45.6
--- NOTE | 2022-08-23 10:26 | PC.NURSE ---
Dr Esposito at bedside. 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
--- NOTE | 2022-08-23 10:30 | ECG_ITS ---
Test Reason : TOMMIE Blood Pressure : / mmHG Vent. Rate : 028 BPM Atrial Rate : 000 BPM P-R Int : 000 ms QRS Dur : 128 ms QT Int : 558 ms P-R-T Axes : 000 094 000 degrees QTc Int : 380 ms Idioventricular rhythm Right bundle branch block Abnormal ECG When compared with ECG of 18-NOV-2020 13:44, Idioventricular rhythm has replaced Sinus rhythm Vent. rate has decreased BY 40 BPM Referred By: Taurus Esopsito Electronically Signed By:ASUNCION HEAD MD
[2022-08-23 10:46] VITALS: TEMP 37; O2SAT 94
[2022-08-23 10:47] LABS: MANUAL DIFF FLAG NO
[2022-08-23 10:52] LABS: Basophils Absolute Auto 0.1 X10*3/uL (0.0-0.2); Basophils Percent Auto 0.6 % (0-2); Eosinophils Absolute Auto 0.3 X10*3/uL (0.0-0.4); Eosinophils Percent Auto 2.7 % (0-4); Hemoglobin 12.8 g/dl (14.0-18.0); Imm Gran Abs Auto 0.04 X10*3/uL (0.00-0.03); Imm Gran Pct Auto 0.4 % (0.0-0.4); Lymphocytes Absolute Auto 1.6 X10*3/uL (1.2-4.9); Lymphocytes Percent Auto 15.9 % (20-40); Mean Corpuscular HGB Conc 32.8 g/dl (31.0-36.0); Mean Corpuscular Volume 97.5 fL (80.0-98.0); Mean Platelet Volume 10.1 fL (9.4-12.4); Monocytes Percent Auto 9.8 % (2-11); Neutrophils Absolute Auto 7.2 x10*3/uL (2.0-8.3); Neutrophils Percent Auto 70.6 % (45-73); Platelet Count 257 X10*3/uL (160-400); Red Cell Distribution Width 13.5 % (11.0-16.0); White Blood Count 10.1 X10*3/uL (4.8-10.8)
[2022-08-23 10:55] LABS: INTERNATIONAL NORM RATIO 1.1 (0.9-1.1); Prothrombin Time 12.8 SEC (10.0-13.1)
[2022-08-23 10:57] LABS: Partial Thromboplastin Time 29.8 SEC (26.0-36.4)
--- NOTE | 2022-08-23 10:59 | PC.NURSE ---
IV established, labs drawn and sent. EKG obtained.
[2022-08-23 11:12] LABS: Alanine Aminotransferase 28 U/L (0-40); Albumin Level 3.9 g/dL (3.5-5.0); Alkaline Phosphatase 69 U/L (39-117); Anion Gap 14 (12-20); Aspartate Amino Transferase 24 U/L (5-37); Bilirubin Total 0.5 mg/dL (0.0-1.0); Blood Urea Nitrogen 30 mg/dL (9-16); Carbon Dioxide 22 mmol/L (22-29); Chloride 107 mmol/L (96-108); Creatinine Clr Calc Pharmacy 72.2; Estimated Glomerular Filt Rate 53; Glucose Random 125 mg/dL (60-115); Lipase 18 U/L (8-78); Potassium 5.2 mmol/L (3.3-5.1); Sodium 138 mmol/L (135-145); Total Protein 6.9 g/dL (6.5-8.0)
[2022-08-23 11:13] LABS: B Type Natriuretic Peptide 454 pg/mL (<100); Troponin-I High Sensitivity 57.8 ng/L (<3.5-35.0)
[2022-08-23 11:14] LABS: COVID-19 Test Negative (Negative); IDNOW Serial# 16C4AD1C; IDNOW Serial# BCCEAD1C; Influenza A Negative (Negative); Influenza B2 Negative (Negative)
[2022-08-23 12:09] VITALS: PULSE 27; RESP 18; O2SAT 96
--- NOTE | 2022-08-23 12:11 | PC.NURSE ---
Addendum entered by Potria Quintana 08/23/22 12:12: 27-34 HR Original Note: Pt remains bradycardic at 27-24, asymptomatic.
[2022-08-23 12:34] VITALS: BP 116/62
--- NOTE | 2022-08-23 12:47 | PC.NURSE ---
Patient continues to deny any symptoms of bradycardia. Pacer pads still in place, will continue to monitor.
--- NOTE | 2022-08-23 13:15 | CA_ITS ---
Transthoracic Echocardiogram Patient (Last, First, Middle): Diogo Lynn S Gender: Male Date of : 1955 Age: 67 Procedure Date: 08/23/2022 Procedure Type: Transthoracic Echocardiogram Location: ER Height: 170.18 cm Weight: 136.08 kg BSA: 2.40 m2 Heart Rate: 27 bpm Splunk Developer: TRINA Referring MD: Minesh Fontaine MD Radio Program Checker: Minesh Fontaine MD Symptoms: Complete heart block Study Quality: Adequate w contrast ECG Rhythm: Complete heart block Conclusions: - 1. Moderately dilated left ventricle with normal LV systolic function calculated by Taylor's method with LVEF of 60 65% 2. Limited visualization of cardiac valves with normal cardiac valvular Doppler 3. No gross pericardial effusion Findings Procedure Information Contrast agent, definity, is being given per protocol without apparent complications. Left Ventricle Moderately increased left ventricular cavity size. There is normal left ventricular wall thickness. The left ventricular systolic function is normal. The visually estimated ejection fraction is between 60-65%. There is mild global hypokinesis. Spectral Doppler is indicative of an impaired relaxation filling pattern. Right Ventricle Normal right ventricular cavity size. Atria The left atrium is normal in size. Interatrial shunt cannot be excluded. The right atrium was not well visualized. Aortic Valve The aortic valve was not well visualized. There is no aortic valve stenosis. There is no aortic valve regurgitation. Mitral Valve The mitral valve was not well visualized. There is no mitral valve regurgitation. There is no mitral valve stenosis. Pulmonic Valve The pulmonic valve was not well visualized. Tricuspid Valve The tricuspid valve was not well visualized. Tricuspid regurgitation envelope is inadequate for calculation of right ventricular systolic pressure. Great Vessels All visible segments of the aorta are normal in size. Venous The inferior vena cava is mildly dilated and collapses greater than 50% with inspiration. Pericardium/Pleural There is no evidence of pericardial effusion. Measurements 2D Linear Measurements IVSd: 0.90 0.6-0.9/0.6-1.0 cm LVIDd: 6.69 3.9-5.3/4.2-5.9 cm LVIDd Index: 2.79 2.4-3.2/2.2-3.1 cm/m2 LVIDs: 4.81 2.0-3.6 cm LVPWd: 1.08 0.7-1.1 cm Ao Root: 3.30 2.1-3.5 cm LA Diam: 4.30 2.7-3.8/3.0-4.0 cm LAIDs Index: 1.79 1.5-2.3 cm/m2 LV Mass: 365.68 67-162/88-224 g LV Mass Index: 152.37 43-95/49-115 g/m2 LVOT Diam: 2.10 3.0+(-)1.3 cm 2D Systolic Function EF 4C: 66.50 >55% EF 2C: 62.80 >55% EF BiP: 64.40 >55% Mitral Valve MV Pk E: 1.60 MV PK A: 1.18 MV Decel Time: 165.00 E/A: 1.40 E'Lateral: 8.70 E'Medial: 6.31 E/E' Med: 25.40 E/E' Lat: 18.40 PHT: 48.00 MVA PHT: 4.58 Decel [place]: 9.73 Aortic Valve AoV Pk [place]: 2.85 AoV Mn [place]: 1.53 AoV VTI: 0.58 AoV Pk Grad: 32.00 Aov Mn Grad: 12.00 ALEE Cont.VTI: 2.01 LVOT LVOT Pk [place]: 1.84 LVOT Mn [place]: 0.87 LVOT VTI: 0.34 LVOT Pk Grad: 14.00 LVOT Mn Grad: 4.00 LVOT Diam: 2.10 LVOT Area: 3.46 Diastolic Function MV Pk E: 1.60 MV Pk A: 1.18 E/A: 1.40 E'Medial: 6.31 E/E' Med: 25.40 E' Laterial: 8.70 E/E' Lat: 18.40 Right Ventricle TAPSE (mm): 29.90 TVS' [place]: 16.90 Tricuspid Valve RA Press: 8.00 Great Vessels Aorta Ao Root-2D: 3.30 2.0-3.7 cm Sinus of Valsalva: 3.30 2.0-3.5 cm Ao Asc: 3.00 2.1-3.4 cm Pulmonary Valve PV Pk [place]: 1.15 Peak PV Grad: 5.00 Updated in Other Vendor System with Status of Final Minesh Fontaine MD electronically signed on 08/23/2022 2:37:38 PM with status of Final
--- NOTE | 2022-08-23 13:26 | PC.NURSE ---
Cardiology at bedside for echo
[2022-08-23 14:27] VITALS: BP 118/60; PULSE 27; RESP 18; O2SAT 96
--- NOTE | 2022-08-23 14:33 | ED.ARRPALP ---
HPI - Arrhythmia/Palpitations General Chief Complaint: Arrhythmia/Palpitations Stated Complaint: heart block Time Seen by Provider: 08/23/22 10:12 Source: patient Mode of arrival: wheelchair Limitations: no limitations History of Present Illness HPI narrative: 67-year-old male who was sent to the emergency department by his clinical dermatologist, Dr. Smith for evaluation of heart block. The patient states that he went to the clinical dermatologist for routine visit and he was not feeling ill. He denied lightheadedness, dizziness, dyspnea on exertion or shortness of breath. Patient states that he was able to walk around in the supermarket yesterday without any problems. At the clinical dermatologist's office the patient was noted to be bradycardic and was found to be in a 2-1 heart block he was sent to the emergency department for evaluation. The patient denied fever, chills, rhinorrhea, sore throat, cough, chest pain, nausea, vomiting, change in his bowel movements. Related Data Previous Rx's Medication Instructions Recorded potassium citrate 10 mEq (1,080 20 meq PO BID 90 days #360 tabs 05/09/22 mg) tablet,extended release sacubitril 24 mg-valsartan 26 mg 1 tab PO BID 30 days #60 tabs 06/07/22 tablet (Entresto) Allergies Allergy/AdvReac Type Severity Reaction Status Date / Time No Known Allergies Allergy Verified 08/23/22 09:28 [No Known Allergies*] Review of Systems Review of Systems: Yes all other systems are reviewed and are negative [facility] Past Medical History Medical History Acute on chronic respiratory failure with hypoxia and hypercapnia Alcohol abuse Cardiomyopathy Community acquired pneumonia Congestive heart failure COVID-19 vaccine administered Hypertension Hypoxia Left bundle branch block Respiratory failure Urinary retention Surgical History History of hand surgery History of hip replacement, total Hx of cystoscopy S/P cardiac cath (~11/2020) S/P left knee arthroscopy Family History Family History Mother No problems noted. Father No problems noted. Social History Social History Household Members: Spouse Housing: House Are you a primary child day care center worker to a significant other at home: No Do you presently have visiting nurse or other home services: No Alcohol intake: former Year quit: 2021 Patient Tobacco Use Status: Former Tobacco user Quit Date: 2012 Tobacco use type: Cigarette Years Smoked: 40 +/- Smoked in Last 30 Days: No Second Hand Smoke Exposure: No Use of substances other than those prescribed or required for medical reasons: No Advance Directives: No Advance Directives Information Provided: Yes Advance Directives Date on File: 10/14/20 service: No Current occupational status: retired Physical Exam Vital Signs: Vital Signs: Last Vital Signs Temp 98.6 F 08/23/22 10:46 Pulse 27 L 08/23/22 14:27 Resp 18 08/23/22 14:27 BP 118/60 08/23/22 14:27 Pulse Ox 96 08/23/22 14:27 O2 Del Method 08/23/22 14:27 BMI result Body Mass Index 45.6 Const: Other: Awake, alert, male patient, very pleasant and cooperative, he does not appear to be in distress, patient has a high BMI of 45.6 HEENT: Head: Yes normal to inspection, Yes normocephalic and Yes atraumatic Ears: external ears normal General nose exam: Normal external nose present Face and sinus: Yes normal facial exam Mouth: Normal oral and palatal mucosa present Throat: Yes posterior oropharynx normal Eyes: General: appearance normal, both eyes and all related structures Pupils: Equal, round and reactive pupils present Neck: Neck: Yes normal visual inspection, Yes no lymphadenopathy, Yes trachea midline and Yes supple Chest: Chest palpation & inspection: normal inspection of the chest and normal palpation of entire chest wall Resp: Effort & Inspection: normal respiratory effort and able to speak in complete sentences Auscultation: clear to auscultation bilaterally Cardio: Rate: bradycardic Rhythm: regular rhythm Heart sounds: S1 normal heart sound present, S2 normal heart sound present and no murmurs GI: Inspection: Yes normal to inspection Palpation (GI): Soft to palpation, nontender and no guarding Auscultation: normal bowel sounds : General: Yes no CVA tenderness Back/Spine/Pelvis: Back: no CVA tenderness Skin: General skin exam: no rashes or lesions noted Neuro: Cranial nerves: Yes CN's II-XII intact bilaterally and Yes Equal, round and reactive pupils present Cognition (Neuro): normal cognition Motor exam (neuro): 5/5 motor strength present throughout Extrem: Other: 1+ pitting edema bilaterally symmetric Psych: Appearance: grossly normal Speech and movement: Normal speech and movement present Affect: normal affect Attitude: cooperative Thought process: Normal thought process present Thought content: Normal thought content present Course Course Course Narrative: 67-year-old male who was sent to the emergency department by his clinical dermatologist for evaluation of third-degree heart block. The patient denied any significant symptoms and was relatively asymptomatic. His physical examination did reveal bradycardia and peripheral edema otherwise was unremarkable. Did order laboratory evaluation and EKG on this patient. [id number] Laboratory evaluation: Potassium was high at 5.2 but I do not think this explains his bradycardia. BUN creatinine were elevated 31.34. High sensitive troponin I was elevated 51. Repeat troponin is pending. The patient had an echocardiogram which revealed a normal EF. The patient's clinical dermatologist, Dr. Fontaine and the patient needs a specialized pacemaker which can only be done at [facility]. Dr. Fontaine will arrange transfer with the cardiology service. MDM - Arrhythmia/Palpitations Medical Records Attestation: I reviewed the patient's medical records. Lab Data Attestation: I reviewed the patient's lab results. Result diagrams: 08/23/22 10:42 08/23/22 10:42 Labs: Lab Results 08/23/22 08/23/22 08/23/22 Range/Units 10:42 10:42 10:42 WBC 10.1 (4.8-10.8) X10*3/uL RBC 4.00 L (4.60-5.80) X10*6/uL Hgb 12.8 L (14.0-18.0) g/dl Hct 39.0 L (42.0-52.0) % MCV 97.5 (80.0-98.0) fL MCH 32.0 (27.0-33.0) pg MCHC 32.8 (31.0-36.0) g/dl RDW 13.5 (11.0-16.0) % Plt Count 257 (160-400) X10*3/uL MPV 10.1 (9.4-12.4) fL Immature Gran % (Auto) 0.4 (0.0-0.4) % Neut % (Auto) 70.6 (45-73) % Lymph % (Auto) 15.9 L (20-40) % [place] % (Auto) 9.8 (2-11) % Eos % (Auto) 2.7 (0-4) % Baso % (Auto) 0.6 (0-2) % Lymph # (Auto) 1.6 (1.2-4.9) X10*3/uL [place] # (Auto) 1.0 (0.1-1.2) X10*3/uL Eos # (Auto) 0.3 (0.0-0.4) X10*3/uL Baso # (Auto) 0.1 (0.0-0.2) X10*3/uL Abs Immat Gran (auto) 0.04 H (0.00-0.03) X10*3/uL Absolute Neuts (auto) 7.2 (2.0-8.3) x10*3/uL Absolute Nucleated RBC 0.000 (0.0-0.012) X10*3/uL Nucleated RBC % (auto) 0.0 (0.0-0.2) /100WBC PT 12.8 (10.0-13.1) SEC INR 1.1 (0.9-1.1) APTT 29.8 (26.0-36.4) SEC Sodium 138 (135-145) mmol/L Potassium 5.2 H D (3.3-5.1) mmol/L Chloride 107 (96-108) mmol/L Carbon Dioxide 22 (22-29) mmol/L Anion Gap 14 (12-20) BUN 30 H (9-16) mg/dL Creatinine 1.34 (0.5-1.4) mg/dL Estim Creat Clear Calc 72.2 Estimated GFR 53 Random Glucose 125 H D (60-115) mg/dL Calcium 9.0 (8.4-10.2) mg/dL Total Bilirubin 0.5 (0.0-1.0) mg/dL AST 24 (5-37) U/L ALT 28 (0-40) U/L Alkaline Phosphatase 69 (39-117) U/L Troponin I High Sens (<3.5-35.0) ng/L B-Natriuretic Peptide (<100) pg/mL Total Protein 6.9 (6.5-8.0) g/dL Albumin 3.9 (3.5-5.0) g/dL Lipase 18 (8-78) U/L TSH (0.32-4.0) uIU/mL COVID-19 (YANG) (Negative) COVID-19 Clin Com Influenza Type A (GUTIERREZ) (Negative) Influenza Type B (GUTIERREZ) (Negative) Influenza A & B Note 08/23/22 08/23/22 08/23/22 Range/Units 10:42 10:42 10:42 WBC (4.8-10.8) X10*3/uL RBC (4.60-5.80) X10*6/uL Hgb (14.0-18.0) g/dl Hct (42.0-52.0) % MCV (80.0-98.0) fL MCH (27.0-33.0) pg MCHC (31.0-36.0) g/dl RDW (11.0-16.0) % Plt Count (160-400) X10*3/uL MPV (9.4-12.4) fL Immature Gran % (Auto) (0.0-0.4) % Neut % (Auto) (45-73) % Lymph % (Auto) (20-40) % [place] % (Auto) (2-11) % Eos % (Auto) (0-4) % Baso % (Auto) (0-2) % Lymph # (Auto) (1.2-4.9) X10*3/uL [place] # (Auto) (0.1-1.2) X10*3/uL Eos # (Auto) (0.0-0.4) X10*3/uL Baso # (Auto) (0.0-0.2) X10*3/uL Abs Immat Gran (auto) (0.00-0.03) X10*3/uL Absolute Neuts (auto) (2.0-8.3) x10*3/uL Absolute Nucleated RBC (0.0-0.012) X10*3/uL Nucleated RBC % (auto) (0.0-0.2) /100WBC PT (10.0-13.1) SEC INR (0.9-1.1) APTT (26.0-36.4) SEC Sodium (135-145) mmol/L Potassium (3.3-5.1) mmol/L Chloride (96-108) mmol/L Carbon Dioxide (22-29) mmol/L Anion Gap (12-20) BUN (9-16) mg/dL Creatinine (0.5-1.4) mg/dL Estim Creat Clear Calc Estimated GFR Random Glucose (60-115) mg/dL Calcium (8.4-10.2) mg/dL Total Bilirubin (0.0-1.0) mg/dL AST (5-37) U/L ALT (0-40) U/L Alkaline Phosphatase (39-117) U/L Troponin I High Sens (<3.5-35.0) ng/L B-Natriuretic Peptide 454 H (<100) pg/mL Total Protein (6.5-8.0) g/dL Albumin (3.5-5.0) g/dL Lipase (8-78) U/L TSH (0.32-4.0) uIU/mL COVID-19 (YANG) Negative (Negative) COVID-19 Clin Com See Note Influenza Type A (GUTIERREZ) Negative (Negative) Influenza Type B (GUTIERREZ) Negative (Negative) Influenza A & B Note See Note 08/23/22 08/23/22 08/23/22 Range/Units 10:42 10:42 10:42 WBC (4.8-10.8) X10*3/uL RBC (4.60-5.80) X10*6/uL Hgb (14.0-18.0) g/dl Hct (42.0-52.0) % MCV (80.0-98.0) fL MCH (27.0-33.0) pg MCHC (31.0-36.0) g/dl RDW (11.0-16.0) % Plt Count (160-400) X10*3/uL MPV (9.4-12.4) fL Immature Gran % (Auto) (0.0-0.4) % Neut % (Auto) (45-73) % Lymph % (Auto) (20-40) % [place] % (Auto) (2-11) % Eos % (Auto) (0-4) % Baso % (Auto) (0-2) % Lymph # (Auto) (1.2-4.9) X10*3/uL [place] # (Auto) (0.1-1.2) X10*3/uL Eos # (Auto) (0.0-0.4) X10*3/uL Baso # (Auto) (0.0-0.2) X10*3/uL Abs Immat Gran (auto) (0.00-0.03) X10*3/uL Absolute Neuts (auto) (2.0-8.3) x10*3/uL Absolute Nucleated RBC (0.0-0.012) X10*3/uL Nucleated RBC % (auto) (0.0-0.2) /100WBC PT Cancelled (10.0-13.1) SEC INR Cancelled (0.9-1.1) APTT (26.0-36.4) SEC Sodium (135-145) mmol/L Potassium (3.3-5.1) mmol/L Chloride (96-108) mmol/L Carbon Dioxide (22-29) mmol/L Anion Gap (12-20) BUN (9-16) mg/dL Creatinine (0.5-1.4) mg/dL Estim Creat Clear Calc Estimated GFR Random Glucose (60-115) mg/dL Calcium (8.4-10.2) mg/dL Total Bilirubin (0.0-1.0) mg/dL AST (5-37) U/L ALT (0-40) U/L Alkaline Phosphatase (39-117) U/L Troponin I High Sens 57.8 H (<3.5-35.0) ng/L B-Natriuretic Peptide (<100) pg/mL Total Protein (6.5-8.0) g/dL Albumin (3.5-5.0) g/dL Lipase (8-78) U/L TSH 3.20 (0.32-4.0) uIU/mL COVID-19 (YANG) (Negative) COVID-19 Clin Com Influenza Type A (GUTIERREZ) (Negative) Influenza Type B (GUTIERREZ) (Negative) Influenza A & B Note 08/23/22 Range/Units 14:39 WBC (4.8-10.8) X10*3/uL RBC (4.60-5.80) X10*6/uL Hgb (14.0-18.0) g/dl Hct (42.0-52.0) % MCV (80.0-98.0) fL MCH (27.0-33.0) pg MCHC (31.0-36.0) g/dl RDW (11.0-16.0) % Plt Count (160-400) X10*3/uL MPV (9.4-12.4) fL Immature Gran % (Auto) (0.0-0.4) % Neut % (Auto) (45-73) % Lymph % (Auto) (20-40) % [place] % (Auto) (2-11) % Eos % (Auto) (0-4) % Baso % (Auto) (0-2) % Lymph # (Auto) (1.2-4.9) X10*3/uL [place] # (Auto) (0.1-1.2) X10*3/uL Eos # (Auto) (0.0-0.4) X10*3/uL Baso # (Auto) (0.0-0.2) X10*3/uL Abs Immat Gran (auto) (0.00-0.03) X10*3/uL Absolute Neuts (auto) (2.0-8.3) x10*3/uL Absolute Nucleated RBC (0.0-0.012) X10*3/uL Nucleated RBC % (auto) (0.0-0.2) /100WBC PT (10.0-13.1) SEC INR (0.9-1.1) APTT (26.0-36.4) SEC Sodium (135-145) mmol/L Potassium (3.3-5.1) mmol/L Chloride (96-108) mmol/L Carbon Dioxide (22-29) mmol/L Anion Gap (12-20) BUN (9-16) mg/dL Creatinine (0.5-1.4) mg/dL Estim Creat Clear Calc Estimated GFR Random Glucose (60-115) mg/dL Calcium (8.4-10.2) mg/dL Total Bilirubin (0.0-1.0) mg/dL AST (5-37) U/L ALT (0-40) U/L Alkaline Phosphatase (39-117) U/L Troponin I High Sens 58.4 H (<3.5-35.0) ng/L B-Natriuretic Peptide (<100) pg/mL Total Protein (6.5-8.0) g/dL Albumin (3.5-5.0) g/dL Lipase (8-78) U/L TSH (0.32-4.0) uIU/mL COVID-19 (YANG) (Negative) COVID-19 Clin Com Influenza Type A (GUTIERREZ) (Negative) Influenza Type B (GUTIERREZ) (Negative) Influenza A & B Note ECG Data Attestation: I personally reviewed and interpreted this ECG as follows: Interpretation: The time 10:42: Bradycardia with a rate of 28, consistent with a third-degree heart block, no ST segment elevation, no ST segment depression, right bundle-branch block. Compared to the EKG done at the clinical dermatologist's office at 1029, there is no significant change Critical Care Time Critical Care Time Critical Care Time: Yes Total Critical Care Time: 45 Attestation: Critical Care: The patient was critically ill with a high probability of imminent or life threatening deterioration. I spent greater than 30 minutes of discontinuous time evaluating the patient,delivering critical care at the bedside, discussing and evaluating pertinent data with consultants. Critical care time does not include time spent performing separately billable procedures or teaching. Total time spent performing critical care was 45 minutes. Discharge Plan Discharge Clinical Impression: Complete heart block, Bradycardia Patient Disposition: [facility] Transfer Details: [facility] Prescriptions: No Action Entresto 24-26 mg tablet 1 tab PO BID 30 Days Qty: 60 3RF potassium citrate 10 mEq (1,080 mg) tablet extended release 20 meq PO BID 90 Days Qty: 360 1RF
--- NOTE | 2022-08-23 15:03 | PC.NURSE ---
@ [id number] [facility] PT [place] LINE CALLS TO SAY THIS PT IS ACCEPTED TO THE INTERCARE UNIT AND THEY WILL CALL US BACK WITH ROOM ASSIGNMENT AND ACCEPTING
[2022-08-23 15:13] LABS: Troponin-I High Sensitivity 58.4 ng/L (<3.5-35.0)
--- NOTE | 2022-08-23 15:48 | PM.CNCAR ---
History of Present Illness History of Present Illness Date of Service: 08/23/22 Requesting physician: Taurus Esposito Consult reason: other (Complete heart block) Chief complaint: heart block Narrative: I was consulted to see Diogo in cardiology consultation today because of bradycardia and findings of complete heart block. 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 He underwent a cardiac catheterization at that time and findings consistent with nonischemic cardiomyopathy. He was managed and was started on Entresto therapy. He came for follow-up outpatient today and was noted to be bradycardic an EKG was initially suspicious for 2 is to 1 block. In the past he has left bundle-branch block. He was therefore referred to emergency room for further evaluation management. In the emergency room findings consistent with complete heart block with QRS complex consistent with right bundle-branch morphology consistent with infraHisian rhythm. Patient require pacemaker therapy. This was discussed with him. He was disappointed as he said he is completely stop drinking. We got a bedside echocardiogram which shows moderately dilated left ventricle but normal LV systolic function with EF of 60 65%. Review of Systems Review of Systems: Yes all other systems are reviewed and are negative PMFSH Past Medical History Medical History Acute on chronic respiratory failure with hypoxia and hypercapnia Alcohol abuse Cardiomyopathy Community acquired pneumonia Congestive heart failure COVID-19 vaccine administered Hypertension Hypoxia Left bundle branch block Respiratory failure Urinary retention Family History Family History Mother No problems noted. Father No problems noted. Surgical History Surgical History History of hand surgery History of hip replacement, total Hx of cystoscopy S/P cardiac cath (~11/2020) S/P left knee arthroscopy Social History Social History Household Members: Spouse Housing: House Are you a primary career based intervention coordinator to a significant other at home: No Do you presently have visiting nurse or other home services: No Alcohol intake: former Year quit: 2021 Patient Tobacco Use Status: Former Tobacco user Quit Date: 2012 Tobacco use type: Cigarette Years Smoked: 40 +/- Smoked in Last 30 Days: No Second Hand Smoke Exposure: No Use of substances other than those prescribed or required for medical reasons: No Advance Directives: No Advance Directives Information Provided: Yes Advance Directives Date on File: 10/14/20 service: No Current occupational status: retired Meds Allergies Allergy/AdvReac Type Severity Reaction Status Date / Time No Known Allergies Allergy Verified 08/23/22 09:28 [No Known Allergies*] Physical Exam Vital Signs: Vital Signs: Last Vital Signs Temp 98.6 F 08/23/22 10:46 Pulse 27 L 08/23/22 14:27 Resp 18 08/23/22 14:27 BP 118/60 08/23/22 14:27 Pulse Ox 96 08/23/22 14:27 O2 Del Method 08/23/22 14:27 BMI result Body Mass Index 45.6 Const: General: cooperative, comfortable, no acute distress, alert and awake Nutritional Appearance: obese Orientation/consciousness: patient oriented x3 Limitations: no limitations HEENT: Head: Yes normocephalic and Yes atraumatic Neck: Neck: Yes trachea midline and Yes no JVD Resp: Effort & Inspection: normal respiratory effort Auscultation: clear to auscultation bilaterally Cardio: Jugular venous distension: other (Gabriel A-waves) Rate: bradycardic Rhythm: regular rhythm Heart sounds: S1 normal heart sound present, S2 normal heart sound present, no click, no gallops and no murmurs GI: Auscultation: normal bowel sounds Skin: General skin exam: no rashes or lesions noted Neuro: General: patient oriented x3 and no focal motor deficits Extrem: General: Yes no clubbing, cyanosis or edema Psych: Appearance: grossly normal Objective Labs and Meds Result diagrams: 08/23/22 10:42 08/23/22 10:42 Lab results: Laboratory Results - last 24 hr 08/23/22 08/23/22 08/23/22 10:42 10:42 10:42 WBC 10.1 RBC 4.00 L Hgb 12.8 L Hct 39.0 L MCV 97.5 MCH 32.0 MCHC 32.8 RDW 13.5 Plt Count 257 MPV 10.1 Immature Gran % (Auto) 0.4 Neut % (Auto) 70.6 Lymph % (Auto) 15.9 L [place] % (Auto) 9.8 Eos % (Auto) 2.7 Baso % (Auto) 0.6 Lymph # (Auto) 1.6 [place] # (Auto) 1.0 Eos # (Auto) 0.3 Baso # (Auto) 0.1 Abs Immat Gran (auto) 0.04 H Absolute Neuts (auto) 7.2 Absolute Nucleated RBC 0.000 Nucleated RBC % (auto) 0.0 PT 12.8 INR 1.1 APTT 29.8 Sodium 138 Potassium 5.2 H D Chloride 107 Carbon Dioxide 22 Anion Gap 14 BUN 30 H Creatinine 1.34 Estim Creat Clear Calc 72.2 Estimated GFR 53 Random Glucose 125 H D Calcium 9.0 Total Bilirubin 0.5 AST 24 ALT 28 Alkaline Phosphatase 69 Troponin I High Sens B-Natriuretic Peptide Total Protein 6.9 Albumin 3.9 Lipase 18 TSH COVID-19 (YANG) COVID-19 Clin Com Influenza Type A (GUTIERREZ) Influenza Type B (GUTIERREZ) Influenza A & B Note 08/23/22 08/23/22 08/23/22 10:42 10:42 10:42 WBC RBC Hgb Hct MCV MCH MCHC RDW Plt Count MPV Immature Gran % (Auto) Neut % (Auto) Lymph % (Auto) [place] % (Auto) Eos % (Auto) Baso % (Auto) Lymph # (Auto) [place] # (Auto) Eos # (Auto) Baso # (Auto) Abs Immat Gran (auto) Absolute Neuts (auto) Absolute Nucleated RBC Nucleated RBC % (auto) PT INR APTT Sodium Potassium Chloride Carbon Dioxide Anion Gap BUN Creatinine Estim Creat Clear Calc Estimated GFR Random Glucose Calcium Total Bilirubin AST ALT Alkaline Phosphatase Troponin I High Sens B-Natriuretic Peptide 454 H Total Protein Albumin Lipase TSH COVID-19 (YANG) Negative COVID-19 Clin Com See Note Influenza Type A (GUTIERREZ) Negative Influenza Type B (GUTIERREZ) Negative Influenza A & B Note See Note 08/23/22 08/23/22 08/23/22 10:42 10:42 10:42 WBC RBC Hgb Hct MCV MCH MCHC RDW Plt Count MPV Immature Gran % (Auto) Neut % (Auto) Lymph % (Auto) [place] % (Auto) Eos % (Auto) Baso % (Auto) Lymph # (Auto) [place] # (Auto) Eos # (Auto) Baso # (Auto) Abs Immat Gran (auto) Absolute Neuts (auto) Absolute Nucleated RBC Nucleated RBC % (auto) PT Cancelled INR Cancelled APTT Sodium Potassium Chloride Carbon Dioxide Anion Gap BUN Creatinine Estim Creat Clear Calc Estimated GFR Random Glucose Calcium Total Bilirubin AST ALT Alkaline Phosphatase Troponin I High Sens 57.8 H B-Natriuretic Peptide Total Protein Albumin Lipase TSH 3.20 COVID-19 (YANG) COVID-19 Clin Com Influenza Type A (GUTIERREZ) Influenza Type B (GUTIERREZ) Influenza A & B Note 08/23/22 14:39 WBC RBC Hgb Hct MCV MCH MCHC RDW Plt Count MPV Immature Gran % (Auto) Neut % (Auto) Lymph % (Auto) [place] % (Auto) Eos % (Auto) Baso % (Auto) Lymph # (Auto) [place] # (Auto) Eos # (Auto) Baso # (Auto) Abs Immat Gran (auto) Absolute Neuts (auto) Absolute Nucleated RBC Nucleated RBC % (auto) PT INR APTT Sodium Potassium Chloride Carbon Dioxide Anion Gap BUN Creatinine Estim Creat Clear Calc Estimated GFR Random Glucose Calcium Total Bilirubin AST ALT Alkaline Phosphatase Troponin I High Sens 58.4 H B-Natriuretic Peptide Total Protein Albumin Lipase TSH COVID-19 (YANG) COVID-19 Clin Com Influenza Type A (GUTIERREZ) Influenza Type B (GUTIERREZ) Influenza A & B Note EKG shows normal sinus rhythm with complete heart block with idioventricular rhythm with right bundle-branch morphology Imaging Radiologist's impression: Impressions Chest X-Ray 08/23/22 11:14 IMPRESSION: No acute cardiopulmonary process. Assessment and Plan (1) Complete heart block: Status: Acute Patient presents with no significant symptoms but appears to be mildly short of breath and significant bradycardia secondary to complete heart block which appears to be infranodal. He has prior history of left bundle-branch block and cardiomyopathy although his LV systolic function is normalized on recent echocardiogram. He therefore does not require cardiac resynchronization therapy. However he requires dual-chamber pacemaker and with complete heart block will most likely if put traditional pacemaker will get RV pacing with development of cardiomyopathy again and therefore discussed with EPS at [facility] and I think best pacemaker 0 for him would be RV pacing with left bundle-branch block pacing. This would lead to reduce conduction abnormality and hopefully no worsening of his cardiomyopathy. This was discussed with him. Arrangements are being made for him to be transferred to [facility] for the same. (2) Cardiomyopathy: Status: Acute Cardiomyopathy with normalized LV systolic function Entresto therapy. No clinical overt signs of heart failure although appears to be short of breath most likely due to bradycardia and reduced stroke volume. Continue monitor for signs or symptoms of heart failure. Alcohol cessation was applauded. For now continue Entresto therapy. No need for diuresis. Once pacemaker is implanted would also benefit from beta-landry therapy. Will follow up in the clinic after discharge from [facility]. Procedures Date of Service Date of Service: 08/23/22
--- NOTE | 2022-08-23 17:42 | PC.NURSE ---
[facility] called with a room assignment patient is going to M5 Room 1 accepted Doctor is . Yun called at [phone] for a stat transfer. Nurse to Nurse is
--- NOTE | 2022-08-23 17:44 | PC.NURSE ---
[facility] cell [phone]
--- NOTE | 2022-08-23 18:06 | PC.NURSE ---
Report given to Nithya at [facility]
== END 2022-08-23 19:06 | disposition short-term general hospital (02) ==
PROVIDERS: Emergency Provider Emergency Medicine Emergency Medical Services
DX: I44.2 Atrioventricular block, complete (principal); I49.9 Cardiac arrhythmia, unspecified; R06.02 Shortness of breath; Z87.891 Personal history of nicotine dependence; Z20.822 Contact with and (suspected) exposure to COVID-19; Z79.899 Other long term (current) drug therapy
CPT/HCPCS: 36415; 71045; 80053; 83690; 83880; 84443; 84484; 85025; 85610; 85730; 87502; 87635; 93005; 93306; 99212; 99285; Q9957

== ENCOUNTER → 2022-09-05 14:00 | Outpatient (BNVA) | payer MEDICARE, SELFPAY | PROVIDERS: Visit Provider Nurse Practitioner Family | DX: Z45.018 Encounter for adjustment and management of other part of cardiac pacemaker (principal); I44.1 Atrioventricular block, second degree; I42.9 Cardiomyopathy, unspecified; R06.02 Shortness of breath; Z98.890 Other specified postprocedural states | CPT/HCPCS: 93280; 99212 ==

== ENCOUNTER → 2022-10-15 13:09 | Outpatient (BNVA) | payer MEDICARE, SELFPAY | PROVIDERS: PCP Internal Medicine; Visit Provider Nurse Practitioner Family | DX: Z45.018 Encounter for adjustment and management of other part of cardiac pacemaker (principal); I44.1 Atrioventricular block, second degree; I42.9 Cardiomyopathy, unspecified; R06.02 Shortness of breath; Z98.890 Other specified postprocedural states | CPT/HCPCS: 93280; 99212 ==

== ENCOUNTER 2022-12-28 16:05 | Outpatient (REF) | payer MEDICARE, SELFPAY ==
--- NOTE | ~2022-12-28 | US_ITS ---
EXAMINATION: US RETROPERITONEAL LIMITED (RENAL ONLY) CLINICAL INFORMATION: Calculus of kidney. COMPARISON: Renal ultrasound 04/19/2022 and 09/25/2021. X-ray KUB 06/07/2021. CT abdomen and pelvis 10/15/2020. TECHNIQUE: Real-time imaging of the kidneys. FINDINGS: RIGHT KIDNEY: 10.5 x 5.4 x 5.5 cm (SAG x AP x TRV). The kidney is normal in size, contour, and echogenicity. Renal cortical thickness is normal. No focal parenchymal lesions or hydronephrosis. There are 3 echogenic stones in the lower pole measuring 0.4 x 0.4 cm, 0.6 x 0.3 cm and 0.7 x 0.6 cm. No caliectasis seen. LEFT KIDNEY: 12.2 x 6.5 x 5.9 cm (SAG x AP x TRV). The kidney is normal in size, contour, and echogenicity. Renal cortical thickness is normal. No focal parenchymal lesions or hydronephrosis. There is an echogenic stone midpole measuring 0.4 x 0.2 cm and lower pole 0.7 x 0.3 cm. US/US renal BI IMPRESSION: Bilateral nonobstructive echogenic renal calculi. No caliectasis or hydronephrosis. There are a few more echogenic stones in the lower pole right kidney and midpole left kidney compared to previous study 04/24/2022.
== END 2022-12-28 16:06 | disposition home or self-care (01) ==
LOC: HO.US 16:05
PROVIDERS: Visit Provider Urology
DX: N20.0 Calculus of kidney (principal)
CPT/HCPCS: 76775

== ENCOUNTER → 2023-05-25 23:59 | Outpatient (BNV) | payer MEDICARE, SELFPAY ==
--- NOTE | 2023-06-12 12:33 | MHC.OFFVIS ---
Intake Intake Visit Reasons: Remote device check- Medtronic Allergies No Known Allergies [No Known Allergies*] Allergy (Verified 10/15/22 13:33) PFS Medical History Acute on chronic respiratory failure with hypoxia and hypercapnia Alcohol abuse Cardiomyopathy Community acquired pneumonia Congestive heart failure COVID-19 vaccine administered Hypertension Hypoxia Left bundle branch block Pacemaker Respiratory failure Urinary retention Surgical History History of hand surgery History of hip replacement, total Hx of cystoscopy S/P cardiac cath (~11/2020) S/P left knee arthroscopy Family History Mother No problems noted. Father No problems noted. Social History Household Members: Spouse Housing: House Are you a primary progressive care manager to a significant other at home: No Do you presently have visiting nurse or other home services: No Alcohol intake: current Alcohol intake frequency: holidays/special occasions only Alcohol type: beer Patient Tobacco Use Status: Former Tobacco user Quit Date: 2012 Tobacco use type: Cigarette Years Smoked: 40 +/- Second Hand Smoke Exposure: No Advance Directives Date on File: 10/14/20 service: No Current occupational status: retired Office Procedures Cardiac Device Check Cardiac Device Check Details: Medtronic permanent pacemaker. Better life 8.5 years. DDD mode. Ventricular paced 92.3%. 4 episodes of nonsustained VT noted-longest 12 beats. [id number] Cardiac Device Interrogation, pacemaker Procedure code (CPT) selection complete Assessment & Plan Assessment & Plan (1) Pacemaker: Code(s): Z95.0 - Presence of cardiac pacemaker Coding Level of Care Code Procedure Only Diagnoses Pacemaker Z95.0 CPT Codes Cardiac Device Check - Cardiac Device 12: [id number] Cardiac Device Interrogation, pacemaker ([id number])
== END ==
PROVIDERS: PCP Internal Medicine; Visit Provider Internal Medicine Cardiovascular Disease
DX: I42.9 Cardiomyopathy, unspecified (principal); Z95.0 Presence of cardiac pacemaker
CPT/HCPCS: 93294

== ENCOUNTER 2023-06-19 08:21 | Outpatient (AMB) | payer MEDICARE, SELFPAY ==
[2023-06-19 08:57] VITALS: BP 124/62; PULSE 73; BMI 45.8
--- NOTE | 2023-06-19 08:57 | MHC.OFFVIS ---
Intake Vital Signs 06/19/23 08:57 Height 5 ft 8 in Weight 301 lb 2.423 oz BMI 45.8 BP 124/62 Blood Pressure Location Rt brachial Position Sitting Pulse 73 Intake Visit Reasons: OVERDUE FOLLOW UP/confirmed Intake Note: overdue f/u General Surgery Physician Assistant Required: No Allergies No Known Allergies [No Known Allergies*] Allergy (Verified 06/19/23 09:07) Medication List - Last Reconciled 06/19/23 by Stephon Smith MD carvedilol 6.25 mg (2 x 3.125 mg) PO BID HPI HPI Comments History of Present Illness Details [age] year gentleman is here for follow-up. 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 He was seen in the office previously when he presented with dizziness ongoing for more than a month. He was noticed to be in 2-1 av block and was sent to the emergency department and subsequently had pacemaker placement. He is returning for follow-up today and has not been taking his medications. We called him because his pacemaker interrogation has shown nonsustained VT. On discussion with him he said that he ran out of his carvedilol and Entresto and has not been taking it. Carvedilol was sent back for him and he has been taking that regularly. His main complaint is right knee pain in which is due to arthritis. He is denying any significant shortness of breath. He is saying that he has early satiety and does not feel like eating much. I have explained to him that he should see Gastroenterology and he will think about it. [facility] Medical History Acute on chronic respiratory failure with hypoxia and hypercapnia Alcohol abuse Cardiomyopathy Community acquired pneumonia Congestive heart failure COVID-19 vaccine administered Hypertension Hypoxia Left bundle branch block Pacemaker Respiratory failure Urinary retention Surgical History Hx of cystoscopy S/P cardiac cath (~11/2020) S/P left knee arthroscopy History of hip replacement, total History of hand surgery Family History Mother No problems noted. Father No problems noted. Social History Household Members: Spouse Housing: House Are you a primary lawn care worker to a significant other at home: No Do you presently have visiting nurse or other home services: No Alcohol intake: current Alcohol intake frequency: holidays/special occasions only Alcohol type: beer Patient Tobacco Use Status: Former Tobacco user Quit Date: 2012 Tobacco use type: Cigarette Years Smoked: 40 +/- Second Hand Smoke Exposure: No Advance Directives Date on File: 10/14/20 service: No Current occupational status: retired Review of Systems ENT Reports dizziness Card Denies chest pain, Denies chest pain at rest, Denies chest pain with activity, Denies rapid heart rate, Denies pedal edema, Denies edema, Denies leg edema, Denies lightheadedness, Denies palpitations, Denies dyspnea, Denies dyspnea on exertion and Denies orthopnea Resp Denies cough, Denies dyspnea and Denies dyspnea on exertion GI Denies hematochezia and Denies change in stool character Musc Denies abnormal gait, Reports limited range of motion, Reports muscle cramps, Denies muscle weakness, Denies numbness, Denies radiating pain into limb, Denies stiffness and Denies tingling Neuro Denies abnormal gait, Reports dizziness, Denies numbness and Denies tingling Endo Denies palpitations Physical Exam Vital Signs: Last Vital Signs Pulse 73 06/19/23 08:57 BP 124/62 06/19/23 08:57 BMI result Body Mass Index 45.8 GENERAL APPEARANCE: in no acute distress, morbid obesity. NECK: no carotid bruit, no significant jugular venous distention. SKIN: no suspicious lesions, warm and dry. HEART: no murmurs, regular rate and rhythm. LUNGS: clear to auscultation bilaterally. ABDOMEN: soft, nontender. EXTREMITIES: no edema. PERIPHERAL PULSES: equal. NEUROLOGIC: No gross deficits, AAO X 3 Assessment & Plan Assessment & Plan (1) Pacemaker: Code(s): Z95.0 - Presence of cardiac pacemaker (2) Chronic diastolic heart failure: Code(s): I50.32 - Chronic diastolic (congestive) heart failure Plan Pleasant 68 year gentleman who is here for follow-up. He has background of nonischemic cardiomyopathy due to alcoholism which improved after abstinence from alcohol. On follow-up he has started drinking and have is drinking up to 3 beers per day. I have advised him that alcohol intake is dangerous for him and if he starts drinking more goes back to hard liquor like before there is a good possibility that he may develop cardiomyopathy again. Blood pressure control is reasonable currently. Continue carvedilol 6.25 mg twice a day. Adding back Entresto. We will repeat blood workup. I have advised him to see gastroenterology for early satiety symptoms. Thank you for allowing me to participate in the care of your patient. Please feel free to contact me if you have any questions. Orders: Orders Basic Metabolic Panel Today I50.32 - Chronic diastolic (congestive) heart failure Complete Blood Count no Diff Today I50.32 - Chronic diastolic (congestive) heart failure B Type Natriuretic Peptide Today I50.32 - Chronic diastolic (congestive) heart failure Liver Panel Today I50.32 - Chronic diastolic (congestive) heart failure TSH reflex Free T4 Today I50.32 - Chronic diastolic (congestive) heart failure Medications: New sacubitril-valsartan 24-26 mg (Entresto) 1 tab PO BID 60 tabs 4RF I50.32 - Chronic diastolic (congestive) heart failure Coding Level of Care Code Est Pt Level 4 (29073) Diagnoses Pacemaker Z95.0 Chronic diastolic heart failure I50.32
== END 2023-06-19 09:20 | disposition home or self-care (01) ==
PROVIDERS: PCP Internal Medicine; Visit Provider Internal Medicine Cardiovascular Disease
DX: Z95.0 Presence of cardiac pacemaker (principal); I50.32 Chronic diastolic (congestive) heart failure
CPT/HCPCS: 93010; 99214

== ENCOUNTER → 2023-06-19 08:21 | Outpatient (BNVA) | payer MEDICARE, SELFPAY | PROVIDERS: PCP Internal Medicine; Visit Provider Internal Medicine Cardiovascular Disease | DX: I11.0 Hypertensive heart disease with heart failure (principal); I50.32 Chronic diastolic (congestive) heart failure; I48.3 Typical atrial flutter; Z95.0 Presence of cardiac pacemaker; Z91.148 Patient's other noncompliance with medication regimen for other reason | CPT/HCPCS: 93005; 99212 ==

== ENCOUNTER → 2023-08-24 23:59 | Outpatient (BNV) | payer MEDICARE, SELFPAY ==
--- NOTE | 2023-08-28 14:38 | MHC.OFFVIS ---
Intake Intake Visit Reasons: Remote Device Check- Medtronic Allergies No Known Allergies [No Known Allergies*] Allergy (Verified 06/19/23 09:07) PFSH Medical History Acute on chronic respiratory failure with hypoxia and hypercapnia Alcohol abuse Cardiomyopathy Community acquired pneumonia Congestive heart failure COVID-19 vaccine administered Hypertension Hypoxia Left bundle branch block Pacemaker Respiratory failure Urinary retention Surgical History Hx of cystoscopy S/P cardiac cath (~11/2020) S/P left knee arthroscopy History of hip replacement, total History of hand surgery Family History Mother No problems noted. Father No problems noted. Household Members: Spouse Housing: House Are you a primary home care nurse to a significant other at home: No Do you presently have visiting nurse or other home services: No Alcohol intake: current Alcohol intake frequency: holidays/special occasions only Alcohol type: beer Patient Tobacco Use Status: Former Tobacco user Quit Date: 2012 Tobacco use type: Cigarette Years Smoked: 40 +/- Second Hand Smoke Exposure: No Advance Directives Date on File: 10/14/20 service: No Current occupational status: retired Office Procedures Cardiac Device Check Cardiac Device Check Details: PPM Good battery life. SHRIMP PEELER 94.5%. No new alerts. [id number] Cardiac Device Interrogation, pacemaker or defibrillator Procedure code (CPT) selection complete Assessment & Plan Assessment & Plan (1) Pacemaker: Code(s): Z95.0 - Presence of cardiac pacemaker Orders: Orders AMB Cardiac Device Follow-up 08/24/23 Z95.0 - Presence of cardiac pacemaker Coding Level of Care Code Procedure Only Diagnoses Pacemaker Z95.0 CPT Codes Cardiac Device Check - Cardiac Device 14: [id number] Cardiac Device Interrogation, pacemaker or defibrillator ([id number])
== END ==
PROVIDERS: PCP Internal Medicine; Visit Provider Internal Medicine Cardiovascular Disease
DX: I44.1 Atrioventricular block, second degree (principal); Z95.0 Presence of cardiac pacemaker
CPT/HCPCS: 93294

== ENCOUNTER 2023-10-22 09:25 | Outpatient (AMB) | payer MEDICARE, SELFPAY ==
--- NOTE | 2023-10-22 09:58 | MHC.OFFVIS ---
Intake Vital Signs 10/22/23 09:59 Height 5 ft 8 in Weight 307 lb 12.245 oz BMI 46.8 BP 120/72 Blood Pressure Location Rt brachial Position Sitting Pulse 74 Pulse Source Pulse Oximeter Intake Visit Reasons: 4 month follow up Supervisor Instrument Maintenance Required: No Allergies No Known Allergies [No Known Allergies*] Allergy (Verified 10/22/23 10:01) Medication List - Last Reconciled 10/22/23 by Katarzyna Barrientos, RARE/ENDANGERED SPECIES SPECIALIST-C carvedilol 6.25 mg (2 x 3.125 mg) PO BID 90 days sacubitril-valsartan 24-26 mg (Entresto) 1 tab PO BID PFSH Medical History Pacemaker COVID-19 vaccine administered Alcohol abuse Cardiomyopathy Left bundle branch block Hypertension Urinary retention Congestive heart failure Acute on chronic respiratory failure with hypoxia and hypercapnia Hypoxia Respiratory failure Community acquired pneumonia Surgical History Hx of cystoscopy S/P cardiac cath (~11/2020) S/P left knee arthroscopy History of hip replacement, total History of hand surgery Family History Mother No problems noted. Father No problems noted. Social History Household Members: Spouse Housing: House Are you a primary hearing healthcare practitioner to a significant other at home: No Do you presently have visiting nurse or other home services: No Alcohol intake: current Alcohol intake frequency: holidays/special occasions only Alcohol type: beer Comment: medicated in pacu Patient Tobacco Use Status: Former Tobacco user Quit Date: 2012 Tobacco use type: Cigarette Years Smoked: 40 +/- Second Hand Smoke Exposure: No Advance Directives Date on File: 10/14/20 service: No Current occupational status: retired Review of Systems Const All systems reviewed & are unremarkable except as noted in HPI and below ENT Denies dizziness Card Denies chest pain, Denies chest pain at rest, Denies chest pain with activity, Denies rapid heart rate, Denies pedal edema, Denies edema, Denies leg edema, Denies lightheadedness, Denies palpitations, Denies dyspnea, Reports dyspnea on exertion and Denies orthopnea Resp Denies cough, Denies dyspnea and Reports dyspnea on exertion GI Denies hematochezia and Denies change in stool character Musc Denies abnormal gait, Denies limited range of motion, Denies muscle cramps, Denies muscle weakness, Denies numbness, Denies radiating pain into limb, Denies stiffness and Denies tingling Neuro Denies abnormal gait, Denies dizziness, Denies numbness and Denies tingling Endo Denies palpitations Physical Exam Vital Signs: Last Vital Signs Pulse 74 10/22/23 09:59 BP 120/72 10/22/23 09:59 BMI result Body Mass Index 46.8 Const Other: Morbidly obese General: cooperative, comfortable and no acute distress Orientation/consciousness: patient oriented x3 Neck Neck: Yes normal visual inspection Resp Effort & Inspection: normal respiratory effort Auscultation: clear to auscultation bilaterally, no crackles, no rales, no rhonchi and no wheezes Cardio Jugular venous distension: no JVD Rate: regular rate Rhythm: regular rhythm Heart sounds: S1 normal heart sound present, S2 normal heart sound present, no murmurs and no rubs Neuro General: patient oriented x3 Extrem General: Yes normal to inspection, No no pedal edema and No calf tenderness Psych Appearance: grossly normal Mental Status: mental status grossly normal Speech and movement: Normal speech and movement present Office Procedures Cardiac Device Check Cardiac Device Check Details: Device interrogation today shows dual-chamber pacemaker, battery 8.2 years, atrial threshold 0.875 volts at 0.4 milliseconds, RV threshold 0.625 volts at 0.4 milliseconds, DDD mode, low rate 60, brief episodes of an SVT, V paced 91.9%, a paced 13%, activity less than 1 hour a day for 21 weeks. [id number] Cardiac Device Check, pacemaker dual lead Procedure code (CPT) selection complete Assessment & Plan Assessment & Plan (1) Cardiomyopathy: Comment: r/t ETOH Code(s): I42.9 - Cardiomyopathy, unspecified Plan: History of nonischemic cardiomyopathy, likely related to alcohol use. He has been on neurohormonal modulation with carvedilol and Entresto. EF improved to normal with med management and cessation of alcohol use. On last visit he reported drinking 3 beers a day. An echocardiogram was done on 08/23/2023 showing EF 60-65%, limited visualization of valves with normal cardiac Dopplers. Today he reports he has been feeling well with no concerning symptoms. He does have some shortness of breath with activity which is not new. On exam he has no clinical signs of decompensated heart failure. He is morbidly obese. He continues to drink a few beers daily. Benefits of weight loss, alcohol cessation and increasing activity reviewed with him. Continue meds without change. Labs done on 08/23/2022 shows potassium 5.2, creatinine 1.34. He is due for repeat labs at this time. He says he will obtain in the next few weeks. Cardiology follow-up 6 months, sooner if needed (2) Pacemaker: Code(s): Z95.0 - Presence of cardiac pacemaker Plan: Dual chamber Medtronic pacemaker placed 08/24/2022 for finding of second-degree AV block, heart rate 30s on routine office visit. Feeling well since that time with no concerning symptoms. Pacemaker site benign. Device interrogation today shows it is functioning normally. He has remote monitoring in place. Next office interrogation due in 6 months. (3) AV block, 2nd degree: Code(s): I44.1 - Atrioventricular block, second degree Plan: As above (4) SOB (shortness of breath): Code(s): R06.02 - Shortness of breath Plan: Mild with exertional activities. Patient morbidly obese which can contribute to this symptom (5) S/P cardiac cath: Onset Date: ~11/2020 Comment: 11/29/20 LAD and LCx minimal luminal irregularities, RCA mild luminal irregularities Code(s): Z98.890 - Other specified postprocedural states Plan: No significant CAD Plan Time spent on chart review, documentation, interview and assessment Coding Level of Care Code Est Pt Level 4 (39854) Diagnoses Cardiomyopathy I42.9 Pacemaker Z95.0 AV block, 2nd degree I44.1 SOB (shortness of breath) R06.02 S/P cardiac cath Z98.890 CPT Codes Cardiac Device Check - Cardiac Device 2: [id number] Cardiac Device Check, pacemaker dual lead ([id number]) Time Spent (min) 28
[2023-10-22 09:59] VITALS: BP 120/72; PULSE 74; BMI 46.8
== END 2023-10-22 10:34 | disposition home or self-care (01) ==
PROVIDERS: PCP Internal Medicine; Visit Provider Nurse Practitioner Family
DX: I42.9 Cardiomyopathy, unspecified (principal); I44.1 Atrioventricular block, second degree; Z95.0 Presence of cardiac pacemaker; R06.02 Shortness of breath; Z98.890 Other specified postprocedural states
CPT/HCPCS: 93280; 99214

== ENCOUNTER → 2023-10-22 09:25 | Outpatient (BNVA) | payer MEDICARE, SELFPAY | PROVIDERS: PCP Internal Medicine; Visit Provider Nurse Practitioner Family | DX: I42.9 Cardiomyopathy, unspecified (principal); I44.1 Atrioventricular block, second degree; R06.02 Shortness of breath; Z45.018 Encounter for adjustment and management of other part of cardiac pacemaker | CPT/HCPCS: 93280; 99212 ==

== ENCOUNTER → 2023-11-22 23:59 | Outpatient (BNV) | payer MEDICARE, SELFPAY ==
--- NOTE | 2023-12-02 08:55 | A.OFFVIS_ITS ---
Intake Intake Visit Reasons: Remote Device Check- Medtronic Allergies No Known Allergies [No Known Allergies*] Allergy (Verified 10/22/23 10:01) [facility] Medical History Pacemaker COVID-19 vaccine administered Alcohol abuse Cardiomyopathy Left bundle branch block Hypertension Urinary retention Congestive heart failure Acute on chronic respiratory failure with hypoxia and hypercapnia Hypoxia Respiratory failure Community acquired pneumonia Surgical History Hx of cystoscopy S/P cardiac cath (~11/2020) S/P left knee arthroscopy History of hip replacement, total History of hand surgery Family History Mother No problems noted. Father No problems noted. Social History Household Members: Spouse Housing: House Are you a primary manager urgent care to a significant other at home: No Do you presently have visiting nurse or other home services: No Alcohol intake: current Alcohol intake frequency: holidays/special occasions only Alcohol type: beer Comment: medicated in pacu Patient Tobacco Use Status: Former Tobacco user Quit Date: 2012 Tobacco use type: Cigarette Years Smoked: 40 +/- Second Hand Smoke Exposure: No Advance Directives Date on File: 10/14/20 service: No Current occupational status: retired Office Procedures Cardiac Device Check Cardiac Device Check Details: PPM Good battery life. FORMING ROLL OPERATOR 93%. 2 episodes of NSVT- longest 10 beats. [id number] Cardiac Device Interrogation, pacemaker or defibrillator Procedure code (CPT) selection complete Assessment & Plan Assessment & Plan (1) Pacemaker: Code(s): Z95.0 - Presence of cardiac pacemaker Plan Coding Level of Care Code Procedure Only Diagnoses Pacemaker Z95.0 CPT Codes Cardiac Device Check - Cardiac Device 14: [id number] Cardiac Device Interrogation, pacemaker or defibrillator ([id number])
== END ==
PROVIDERS: PCP Internal Medicine; Visit Provider Internal Medicine Cardiovascular Disease
DX: I44.1 Atrioventricular block, second degree (principal); Z95.0 Presence of cardiac pacemaker
CPT/HCPCS: 93294

== ENCOUNTER → 2024-02-20 23:59 | Outpatient (BNV) | payer MEDICARE, SELFPAY ==
--- NOTE | 2024-03-01 17:24 | A.OFFVIS_ITS ---
Intake Visit Reasons: Remote device check- Medtronic Allergies No Known Allergies [No Known Allergies*] Allergy (Verified 10/22/23 10:01) [facility] Medical History Pacemaker COVID-19 vaccine administered Alcohol abuse Cardiomyopathy Left bundle branch block Hypertension Urinary retention Congestive heart failure Acute on chronic respiratory failure with hypoxia and hypercapnia Hypoxia Respiratory failure Community acquired pneumonia Surgical History Hx of cystoscopy S/P cardiac cath (~11/2020) S/P left knee arthroscopy History of hip replacement, total History of hand surgery Family History Mother No problems noted. Father No problems noted. Social History Household Members: Spouse Housing: House Are you a primary day care provider to a significant other at home: No Do you presently have visiting nurse or other home services: No Alcohol intake: current Alcohol intake frequency: holidays/special occasions only Alcohol type: beer Comment: medicated in pacu Patient Tobacco Use Status: Former Tobacco user Quit Date: 2012 Tobacco use type: Cigarette Years Smoked: 40 +/- Second Hand Smoke Exposure: No Advance Directives Date on File: 10/14/20 service: No Current occupational status: retired Office Procedures Cardiac Device Check Cardiac Device Check Details: PPM Good battery life. No new alerts V-paced 90% [id number] Cardiac Device Check, pacemaker dual lead Procedure code (CPT) selection complete Assessment & Plan Assessment & Plan (1) Pacemaker: Code(s): Z95.0 - Presence of cardiac pacemaker Category: Medical Plan: Coding Level of Care Code Procedure Only Diagnoses Pacemaker Z95.0 CPT Codes Cardiac Device Check - Cardiac Device 2: [id number] Cardiac Device Check, pacemaker dual lead ([id number])
== END ==
PROVIDERS: PCP Internal Medicine; Visit Provider Internal Medicine Cardiovascular Disease
DX: Z45.018 Encounter for adjustment and management of other part of cardiac pacemaker (principal)
CPT/HCPCS: 93294

== ENCOUNTER 2024-05-18 11:46 | Outpatient (AMB) | payer MEDICARE, SELFPAY ==
[2024-05-18 12:35] VITALS: BP 120/60; PULSE 76; BMI 42.7
--- NOTE | 2024-05-18 12:35 | A.OFFVIS_ITS ---
Vital Signs 05/18/24 12:35 Height 5 ft 8 in Weight 281 lb 1.43 oz BMI 42.7 BP 120/60 Blood Pressure Location Lt brachial Position Sitting Pulse 76 Pulse Source Pulse Oximeter Intake Visit Reasons: 6 mth fu w/ Medtronic Vegetable Picker Required: No Accompanied by: Self / Same As Patient Allergies No Known Allergies [No Known Allergies*] Allergy (Verified 10/22/23 10:01) Medication List - Last Reconciled 05/18/24 by Stephon Smith MD carvedilol 6.25 mg (2 x 3.125 mg) PO BID 90 days sacubitril-valsartan 24-26 mg (Entresto) 1 tab PO BID HPI Comments Details: 69 year gentleman is here for follow-up. He has background history of nonisc hemic cardiomyopathy secondary to alcoholism. He was seen in the office previously when he presented with dizziness ongoing for more than a month. He was noticed to be in 2-1 av block and was sent to the emergency department and subsequently had pacemaker placement. He is returning for follow-up today and has not been taking his medications. We called him because his pacemaker interrogation has shown nonsustained VT. On discussion with him he said that he ran out of his carvedilol and Entresto and has not been taking it. Carvedilol was sent back for him and he has been taking that regularly. His main complaint is right knee pain in which is due to arthritis. He is denying any significant shortness of breath. He is saying that he has early satiety and does not feel like eating much. I have explained to him that he should see Gastroenterology and he will think about it. 05/18/24: He is here for follow-up. No CP or SOB. BP well controlled. He said he went back to alcohol use but stopped drinking but since then he has been eating significantly more. He has gained a lot of weight. I have advised him to watch his diet and start exercising. He will benefit from weight management consult. [facility] Medical History Pacemaker COVID-19 vaccine administered Alcohol abuse Cardiomyopathy Left bundle branch block Hypertension Urinary retention Congestive heart failure Acute on chronic respiratory failure with hypoxia and hypercapnia Hypoxia Respiratory failure Community acquired pneumonia Surgical History Hx of cystoscopy S/P cardiac cath (~11/2020) S/P left knee arthroscopy History of hip replacement, total History of hand surgery Family History Mother No problems noted. Father No problems noted. Social History Household Members: Spouse Housing: House Are you a primary residential child care counselor to a significant other at home: No Do you presently have visiting nurse or other home services: No Alcohol intake: current Alcohol intake frequency: holidays/special occasions only Alcohol type: beer Comment: medicated in pacu Patient Tobacco Use Status: Former Tobacco user Tobacco use type: Cigarette Years Smoked: 40 +/- Second Hand Smoke Exposure: No Advance Directives Date on File: 10/14/20 service: No Current occupational status: retired Review of Systems Const Denies chills, Denies fatigue, Denies fever(s), Denies frequent falls, Denies weakness, Denies weight gain and Denies weight loss ENT Denies dizziness Card Denies chest pain, Denies leg edema, Denies lightheadedness, Denies palpitations, Denies dyspnea and Denies dyspnea on exertion Resp Denies cough, Denies dyspnea and Denies dyspnea on exertion GI Denies hematochezia Musc Denies abnormal gait, Denies muscle weakness, Denies numbness, Denies radiating pain into limb and Denies tingling Neuro Denies abnormal gait, Denies dizziness, Denies frequent falls, Denies numbness, Denies tingling and Denies weakness Endo Denies fatigue and Denies palpitations Physical Exam Vital Signs: Last Vital Signs Pulse 76 05/18/24 12:35 BP 120/60 05/18/24 12:35 BMI result Body Mass Index 42.7 GENERAL APPEARANCE: in no acute distress, morbid obesity. NECK: no carotid bruit, no significant jugular venous distention. SKIN: no suspicious lesions, warm and dry. HEART: no murmurs, regular rate and rhythm. LUNGS: clear to auscultation bilaterally. ABDOMEN: soft, nontender. EXTREMITIES: no edema. PERIPHERAL PULSES: equal. NEUROLOGIC: No gross deficits, AAO X 3 Office Procedures Cardiac Device Check Cardiac Device Check Details: Medtronic dual-chamber pacemaker. Battery life 7.4 years. DDD mode. Episodes of atrial tachycardia/fibrillation less than 0.1% since October 2023. [place]. [address]-BU Cardiac Device Check, pacemaker dual lead Procedure code (CPT) selection complete Assessment & Plan Assessment & Plan (1) Chronic diastolic heart failure: Code(s): I50.32 - Chronic diastolic (congestive) heart failure Category: Medical Plan 69-year-old gentleman with chronic heart failure. Clinically euvolemic. Continue same medications. He needs medical weight loss. He will discuss with primary care-he is in the process of getting one. Orders: Orders AMB Cardiac Device Follow-up Today I50.32 - Chronic diastolic (congestive) heart failure Coding Level of Care Code Est Pt Level 4 (37102) Diagnoses Chronic diastolic heart failure I50.32 CPT Codes Cardiac Device Check - Cardiac Device 2: 95236-BB Cardiac Device Check, pacemaker dual lead ([id number])
== END 2024-05-18 13:13 | disposition home or self-care (01) ==
PROVIDERS: PCP Internal Medicine; Visit Provider Internal Medicine Cardiovascular Disease
DX: I50.32 Chronic diastolic (congestive) heart failure (principal)
CPT/HCPCS: 93280; 99214

== ENCOUNTER → 2024-05-18 11:46 | Outpatient (BNVA) | payer MEDICARE, SELFPAY | PROVIDERS: PCP Internal Medicine; Visit Provider Internal Medicine Cardiovascular Disease | DX: I50.32 Chronic diastolic (congestive) heart failure (principal); I42.6 Alcoholic cardiomyopathy; Z45.018 Encounter for adjustment and management of other part of cardiac pacemaker | CPT/HCPCS: 93280; 99212 ==

== ENCOUNTER → 2024-05-21 23:59 | Outpatient (BNV) | payer MEDICARE, SELFPAY ==
--- NOTE | 2024-06-09 19:25 | A.OFFVIS_ITS ---
Intake Visit Reasons: Remote device check- Medtronic Allergies No Known Allergies [No Known Allergies*] Allergy (Verified 10/22/23 10:01) [facility] Medical History Pacemaker COVID-19 vaccine administered Alcohol abuse Cardiomyopathy Left bundle branch block Hypertension Urinary retention Congestive heart failure Acute on chronic respiratory failure with hypoxia and hypercapnia Hypoxia Respiratory failure Community acquired pneumonia Surgical History Hx of cystoscopy S/P cardiac cath (~11/2020) S/P left knee arthroscopy History of hip replacement, total History of hand surgery Family History Mother No problems noted. Father No problems noted. Social History Household Members: Spouse Housing: House Are you a primary home care and home health aides teacher to a significant other at home: No Do you presently have visiting nurse or other home services: No Alcohol intake: current Alcohol intake frequency: holidays/special occasions only Alcohol type: beer Comment: medicated in pacu Patient Tobacco Use Status: Former Tobacco user Tobacco use type: Cigarette Years Smoked: 40 +/- Second Hand Smoke Exposure: No Advance Directives Date on File: 10/14/20 service: No Current occupational status: retired Office Procedures Cardiac Device Check Cardiac Device Check Details: PPM Good battery life DRILL SETUP OPERATOR 95% No new alerts. 84876-BD Cardiac Device Check, pacemaker dual lead Procedure code (CPT) selection complete Assessment & Plan Assessment & Plan (1) Pacemaker: Code(s): Z95.0 - Presence of cardiac pacemaker Category: Medical Plan: Coding Level of Care Code Procedure Only Diagnoses Pacemaker Z95.0 CPT Codes Cardiac Device Check - Cardiac Device 2: 75980-RB Cardiac Device Check, pacemaker dual lead ([id number])
== END ==
PROVIDERS: Visit Provider Internal Medicine Cardiovascular Disease
DX: Z45.018 Encounter for adjustment and management of other part of cardiac pacemaker (principal)
CPT/HCPCS: 93294

== ENCOUNTER → 2024-08-20 23:59 | Outpatient (BNV) | payer MEDICARE, SELFPAY ==
--- NOTE | 2024-08-29 20:18 | MHC.OFFVIS ---
Intake Visit Reasons: Remote device check- Medtronic Allergies No Known Allergies [No Known Allergies*] Allergy (Verified 10/22/23 10:01) [facility] Medical History Pacemaker COVID-19 vaccine administered Alcohol abuse Cardiomyopathy Left bundle branch block Hypertension Urinary retention Congestive heart failure Acute on chronic respiratory failure with hypoxia and hypercapnia Hypoxia Respiratory failure Community acquired pneumonia Surgical History Hx of cystoscopy S/P cardiac cath (~11/2020) S/P left knee arthroscopy History of hip replacement, total History of hand surgery Family History Mother No problems noted. Father No problems noted. Social History Household Members: Spouse Housing: House Are you a primary critical care nurse to a significant other at home: No Do you presently have visiting nurse or other home services: No Alcohol intake: current Alcohol intake frequency: holidays/special occasions only Alcohol type: beer Comment: medicated in pacu Patient Tobacco Use Status: Former Tobacco user Tobacco use type: Cigarette Years Smoked: 40 +/- Second Hand Smoke Exposure: No Advance Directives Date on File: 10/14/20 service: No Current occupational status: retired Office Procedures Cardiac Device Check Cardiac Device Check Details: Dual chamber PPM Good battery life DIRECTOR OF MANUFACTURING 93%. No new alerts. 95732-VE Cardiac Device Check, pacemaker dual lead Procedure code (CPT) selection complete Assessment & Plan Assessment & Plan (1) Pacemaker: Code(s): Z95.0 - Presence of cardiac pacemaker Category: Medical Plan: Coding Level of Care Code Procedure Only Diagnoses Pacemaker Z95.0 CPT Codes Cardiac Device Check - Cardiac Device 2: 07298-LF Cardiac Device Check, pacemaker dual lead ([id number])
== END ==
PROVIDERS: Visit Provider Internal Medicine Cardiovascular Disease
DX: Z45.018 Encounter for adjustment and management of other part of cardiac pacemaker (principal)
CPT/HCPCS: 93294

== ENCOUNTER → 2024-11-19 23:59 | Outpatient (BNV) | payer MEDICARE, SELFPAY ==
--- NOTE | 2024-12-30 08:32 | MHC.OFFVIS ---
Intake Visit Reasons: Remote device check- Medtronic Allergies No Known Allergies [No Known Allergies*] Allergy (Verified 10/22/23 10:01) [facility] Medical History Pacemaker COVID-19 vaccine administered Alcohol abuse Cardiomyopathy Left bundle branch block Hypertension Urinary retention Congestive heart failure Acute on chronic respiratory failure with hypoxia and hypercapnia Hypoxia Respiratory failure Community acquired pneumonia Surgical History Hx of cystoscopy S/P cardiac cath (~11/2020) S/P left knee arthroscopy History of hip replacement, total History of hand surgery Family History Mother No problems noted. Father No problems noted. Social History Household Members: Spouse Housing: House Are you a primary child care development specialist to a significant other at home: No Do you presently have visiting nurse or other home services: No Alcohol intake: current Alcohol intake frequency: holidays/special occasions only Alcohol type: beer Comment: medicated in pacu Patient Tobacco Use Status: Former Tobacco user Tobacco use type: Cigarette Years Smoked: 40 +/- Second Hand Smoke Exposure: No Advance Directives Date on File: 10/14/20 service: No Current occupational status: retired Office Procedures Cardiac Device Check Cardiac Device Check Details: Medtronic Lucy Dual chamber PPM Episodes of atrial tachycardia versus atrial fibrillation recorded in October. Battery life 6.8 years. [id number]-Exzest Cardiac Device Interrogation, pacemaker Procedure code (CPT) selection complete Assessment & Plan Assessment & Plan (1) Pacemaker: Code(s): Z95.0 - Presence of cardiac pacemaker Category: Medical Plan Coding Level of Care Code Procedure Only Diagnoses Pacemaker Z95.0 CPT Codes Cardiac Device Check - Cardiac Device 12: 44730-Wtdjiz Cardiac Device Interrogation, pacemaker ([id number])
== END ==
PROVIDERS: Visit Provider Internal Medicine Cardiovascular Disease
DX: R00.0 Tachycardia, unspecified (principal); Z95.0 Presence of cardiac pacemaker
CPT/HCPCS: 93294

== ENCOUNTER → 2025-02-18 23:59 | Outpatient (BNV) | payer MEDICARE, SELFPAY ==
--- NOTE | 2025-03-19 10:06 | MHC.OFFVIS ---
Intake Visit Reasons: Remote device check- Medtronic Allergies No Known Allergies [No Known Allergies*] Allergy (Verified 10/22/23 10:01) [facility] Medical History Pacemaker COVID-19 vaccine administered Alcohol abuse Cardiomyopathy Left bundle branch block Hypertension Urinary retention Congestive heart failure Acute on chronic respiratory failure with hypoxia and hypercapnia Hypoxia Respiratory failure Community acquired pneumonia Surgical History Hx of cystoscopy S/P cardiac cath (~11/2020) S/P left knee arthroscopy History of hip replacement, total History of hand surgery Family History Mother No problems noted. Father No problems noted. Social History Household Members: Spouse Housing: House Are you a primary toddler caregiver to a significant other at home: No Do you presently have visiting nurse or other home services: No Alcohol intake: current Alcohol intake frequency: holidays/special occasions only Alcohol type: beer Comment: medicated in pacu Patient Tobacco Use Status: Former Tobacco user Tobacco use type: Cigarette Years Smoked: 40 +/- Second Hand Smoke Exposure: No Advance Directives Date on File: 10/14/20 service: No Current occupational status: retired Office Procedures Cardiac Device Check Cardiac Device Check Details: PPM 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 [id number] Cardiac Device Interrogation, pacemaker Procedure code (CPT) selection complete Assessment & Plan Assessment & Plan (1) Pacemaker: Code(s): Z95.0 - Presence of cardiac pacemaker Category: Medical Plan Coding Level of Care Code Procedure Only Diagnoses Pacemaker Z95.0 CPT Codes Cardiac Device Check - Cardiac Device 12: [id number] Cardiac Device Interrogation, pacemaker ([id number])
== END ==
PROVIDERS: Visit Provider Internal Medicine Cardiovascular Disease
DX: I42.8 Other cardiomyopathies (principal); Z95.0 Presence of cardiac pacemaker
CPT/HCPCS: 93294

== ENCOUNTER 2025-03-15 09:18 | Outpatient (AMB) | payer MEDICARE, SELFPAY ==
--- NOTE | 2025-03-15 09:25 | A.OFFVIS_ITS ---
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 He was seen in the office previously when he presented with dizziness ongoing for more than a month. He was noticed to be in 2-1 av block and was sent to the emergency department and subsequently had pacemaker placement. He is returning for follow-up today and has not been taking his medications. We called him because his pacemaker interrogation has shown nonsustained VT. On discussion with him he said that he ran out of his carvedilol and Entresto and has not been taking it. Carvedilol was sent back for him and he has been taking that regularly. His main complaint is right knee pain in which is due to arthritis. He is denying any significant shortness of breath. He is saying that he has early satiety and does not feel like eating much. I have explained to him that he should see Gastroenterology and he will think about it. 05/18/24: He is here for follow-up. No CP or SOB. BP well controlled. He said he went back to alcohol use but stopped drinking but since then he has been eating significantly more. He has gained a lot of weight. I have advised him to watch his diet and start exercising. He will benefit from weight management consult. 03/15/2025: He is here for follow-up. Denying any chest discomfort. He is saying he can not exercise due to his weight and arthritis. He is on Eliquis currently. Taking carvedilol and Entresto with good blood pressure control. [facility] Medical History Pacemaker COVID-19 vaccine administered Alcohol abuse Cardiomyopathy Left bundle branch block Hypertension Urinary retention Congestive heart failure Acute on chronic respiratory failure with hypoxia and hypercapnia Hypoxia Respiratory failure Community acquired pneumonia Surgical History Hx of cystoscopy S/P cardiac cath (~11/2020) S/P left knee arthroscopy History of hip replacement, total History of hand surgery Family History Mother No problems noted. Father No problems noted. Social History Household Members: Spouse Housing: House Are you a primary nurse care manager to a significant other at home: No Do you presently have visiting nurse or other home services: No Alcohol intake: current Alcohol intake frequency: holidays/special occasions only Alcohol type: beer Comment: medicated in pacu Patient Tobacco Use Status: Former Tobacco user Tobacco use type: Cigarette Years Smoked: 40 +/- Second Hand Smoke Exposure: No Advance Directives Date on File: 10/14/20 service: No Current occupational status: retired Review of Systems Const Denies chills, Denies fatigue, Denies fever(s), Denies frequent falls, Denies weakness, Denies weight gain and Denies weight loss ENT Denies dizziness Card Denies chest pain, Denies leg edema, Denies lightheadedness, Denies palpitations, Denies dyspnea and Denies dyspnea on exertion Resp Denies cough, Denies dyspnea and Denies dyspnea on exertion GI Denies hematochezia Musc Denies abnormal gait, Denies muscle weakness, Denies numbness, Denies radiating pain into limb and Denies tingling Neuro Denies abnormal gait, Denies dizziness, Denies frequent falls, Denies numbness, Denies tingling and Denies weakness Endo Denies fatigue and Denies palpitations Physical Exam Vital Signs: Last Vital Signs Pulse 75 03/15/25 09:28 BP 124/62 03/15/25 09:28 BMI result Body Mass Index 45.3 GENERAL APPEARANCE: in no acute distress, morbid obesity. NECK: no carotid bruit, no significant jugular venous distention. SKIN: no suspicious lesions, warm and dry. HEART: no murmurs, regular rate and rhythm. LUNGS: clear to auscultation bilaterally. ABDOMEN: soft, nontender. EXTREMITIES: Mild edema. PERIPHERAL PULSES: equal. NEUROLOGIC: No gross deficits, AAO X 3 Office Procedures EKG Details: Atrial sensed V paced rhythm with premature atrial complexes. QTC 475 milliseconds. [id number], Complete Assessment & Plan Assessment & Plan (1) PAF (paroxysmal atrial fibrillation): Code(s): I48.0 - Paroxysmal atrial fibrillation Category: Medical (2) Chronic diastolic heart failure: Code(s): I50.32 - Chronic diastolic (congestive) heart failure Category: Medical (3) Morbid obesity: Code(s): E66.01 - Morbid (severe) obesity due to excess calories Category: Medical Plan [age] year gentleman who is here for follow-up. He has paroxysmal atrial fibrillation and background of nonischemic cardiomyopathy. Currently appears to be in sinus rhythm with premature atrial complexes. On Eliquis for anticoagulation. On carvedilol and Entresto and has been stable clinically. He has mild edema. His main issue is his weight and he has not been able to exercise due to significant weight gain and arthritis. We discussed about weight loss and after discussion I have referred him to weight management program at [facility]. Thank you for allowing me to participate in the care of your patient. Please feel free to contact me if you have any questions. Orders: Referrals Medical Weight Management Referral E66.01 - Morbid (severe) obesity due to excess calories Coding Level of Care Code Est Pt Level 4 (95871) Diagnoses PAF (paroxysmal atrial fibrillation) I48.0 Chronic diastolic heart failure I50.32 Morbid obesity E66.01 CPT Codes EKG - CPT: 44992-Odoqksdprefwujeam, Complete ([id number])
[2025-03-15 09:28] VITALS: BP 124/62; PULSE 75; BMI 45.3
== END 2025-03-15 09:58 | disposition home or self-care (01) ==
LOC: HO.HCS 09:19
PROVIDERS: Visit Provider Internal Medicine Cardiovascular Disease
DX: I48.0 Paroxysmal atrial fibrillation (principal); I50.32 Chronic diastolic (congestive) heart failure; E66.01 Morbid (severe) obesity due to excess calories
CPT/HCPCS: 93010; 99214

== ENCOUNTER → 2025-03-15 09:18 | Outpatient (BNVA) | payer MEDICARE, SELFPAY | PROVIDERS: Visit Provider Internal Medicine Cardiovascular Disease | DX: I48.0 Paroxysmal atrial fibrillation (principal); I50.32 Chronic diastolic (congestive) heart failure; E66.01 Morbid (severe) obesity due to excess calories; R94.31 Abnormal electrocardiogram [ECG] [EKG]; Z68.42 Body mass index [BMI] 45.0-49.9, adult | CPT/HCPCS: 93005; 99212 ==